=== PATIENT | male | born 1940 | race Caucasian/White ===

== ENCOUNTER 2016-06-28 14:03 | Emergency (ER) | payer OTHER ==
[~2016-06-28] VITALS: Ht 175.3 cm; Wt 118.0 kg
[~2016-06-28 14:03] MED LIST: ACET-1256 PO; ALPR-411 PO; ATOR-24 PO; BACL20TA PO; GABA-113 PO; GING550C PO; GLIP1TAB91 PO; LISI5TAB3 PO; METFTAB PO; NORT25CA PO; TRAM-10 PO; TRIA37.5 PO; VRPSR240 PO; WARF5TAB7 PO
[2016-06-28 14:06] VITALS: TEMP 36.6; Ht 175.3 cm; Wt 118.0 kg
--- NOTE | 2016-06-28 14:31 | EMERGENCY ROOM VISIT NOTE ---
History Report prepared by aHns: Giovanni Omalley Under the Supervision of: Dr. Sandra Ferraro M.D. First contact with patient: 14:08 Chief Complaint: CONFUSION Stated Complaint: CONFUSION Nursing Triage Summary: pt had flu last week. reports pt kept her up all night asking questions she believes he is confused. pt reports he was on antibiotics for foot. has been off for a couple months. pt reports he is dizzy. answer questions appropriately in triage. History of Present Illness The patient is a 76 year old male who presents to the Emergency Room with complaints of persistent confusion that started yesterday. Per the patient's , the patient seems very confused. He wants to go home but he was at home, and there is nothing his can do to convince the patient that he is at home. He also wants to drive, but the patient has a boot on his foot and is not allowed to drive. He had sores on his foot which are healing, and he was on antibiotics for that. The patient had the flu last week. Per the patient, his back is bothering him a bit, and he has a little bit of a sore throat. Source of History: patient, spouse/significant other Onset: Yesterday Position: other (global - confusion) Quality: other (wants to go home when he already is at home) Timing: other (persistent) Associated Symptoms: + back pain, + sorethroat (minor) Note: No other associated symptoms noted. Review of Systems See HPI for pertinent positives & negatives. A total of 10 systems reviewed and were otherwise negative. Past Medical & Surgical Medical Problems: (1) Atrial fibrillation (2) Cellulitis, toe (3) Chronic low back pain (4) Coronary artery disease (5) Diabetes (6) HTN (hypertension) (7) Hyperglycemia (8) Hypertension (9) Kidney infection (10) partial toe amputation (11) Toe ulcer (12) Urinary problem Family History FH: cancer Heart disease Hypertension Social History Smoking Status: Never Smoker Alcohol Use: none Drug Use: none Marital Status: Occupation Status: retired Current/Historical Medications Scheduled Atorvastatin (Lipitor), 40 MG PO QPM Baclofen (Lioresal), 20 MG PO TID Glipizide Xl (Glucotrol Xl), 10 MG PO BID Lisinopril (Prinivil), 5 MG PO DAILY Metformin Ext Rel (Glucophage Ext Rel), 500 MG PO DAILY Miconazole Nitrate (Topical) (Miconazole Nitrate), 1 APPLN TOP BID Nortriptyline (Pamelor), 25 MG PO DAILY Triamterene/Hctz (Dyazide 37.5MG/25MG), 1 CAP PO DAILY Verapamil HCl (Verapamil HCl ER), 240 MG PO QAM Warfarin Sod (Jantoven), 10 MG PO 2XWK Warfarin Sod (Jantoven), 7.5 MG PO 5XWK Allergies Coded Allergies: CI Pigment Blue 63 (Verified Adverse Reaction, Intermediate, IRRITABILITY , 06/28/16) Duloxetine (Verified Adverse Reaction, Intermediate, IRRITABILITY, 06/28/16 ) Pregabalin (Unverified Adverse Reaction, Intermediate, "SPACES HIM OUT", ) Physical Exam Vital Signs Date Time Temp Pulse Resp B/P Pulse Ox O2 Delivery O2 Flow Rate FiO2 06/28/16 16:36 88 21 133/91 96 Room Air 06/28/16 15:36 78 16 138/84 96 Room Air 93 123/84 06/28/16 14:57 74 06/28/16 14:06 36.6 109 20 135/88 100 Room Air Physical Exam CONSTITUTIONAL: Appears weak, morbidly obese, mildly confused, somewhat unkempt. HEENT: No icterus, moist mucous membranes NECK: No meningismus, trachea is midline. CARDIOVASCULAR: Regular rate, normal perfusion RESPIRATORY: Unlabored breathing. Clear to auscultation. GASTROINTESTINAL: Non-tender GENITOURINARY: No flank tenderness MUSCULOSKELETAL: Full range of motion NEUROLOGIC: No acute gross focal deficits. PSYCHIATRIC: Normal affect SKIN: Extensive rash of skin folds of lower abdomen concerning for cellulitis and/or fungal infection. Medical Decision & Procedures ER Provider Diagnostic Interpretation: X-ray results as stated below per my interpretation and radiologist interpretation. Other radiology results as stated below per my review and radiologist interpretation. CT HEAD WITHOUT CONTRAST (CT) CLINICAL HISTORY: Confusion, acute change in mental status. COMPARISON STUDY: 07/27/2014 TECHNIQUE: Axial CT of the brain is performed from the vertex to the skull base. IV contrast was not administered for this examination. CT DOSE: 729.78 mGycm FINDINGS: No intra or extra-axial mass lesions are visualized. There is no CT evidence of acute cortical infarction. There is no evidence of midline shift. There is no acute hemorrhage. No calvarial fractures are visualized. There are mild white matter hypodensities likely on a small vessel basis. There is no evidence of pathologic ventricular dilatation. There is no evidence of acute sinusitis IMPRESSION: No acute intracranial findings Electronically signed by: Micheal Miranda M.D. 06/28/2016 4:02 PM Dictated Date/Time: 06/28/2016 4:00 PM CHEST 2 VIEWS ROUTINE CLINICAL HISTORY: Acute change in mental status. Confusion. COMPARISON STUDY: 03/25/2015 FINDINGS: The heart remains enlarged. There is no focal pulmonary consolidation. There is no failure. There are no pleural effusions.[ IMPRESSION: Persistent cardiomegaly. No acute findings. Electronically signed by: Micheal Miranda M.D. 06/28/2016 6:20 PM Dictated Date/Time: 06/28/2016 6:19 PM Laboratory Results 06/28/16 14:43 Red Blood Count 3.95, Mean Corpuscular Volume 92.2, Mean Corpuscular Hemoglobin 33.4, Mean Corpuscular Hemoglobin Concent 36.3, Mean Platelet Volume 11.5, Neutrophils (%) (Auto) 81.7, Lymphocytes (%) (Auto) 9.0, Monocytes (%) (Auto) 8.6, Eosinophils (%) (Auto) 0.6, Basophils (%) (Auto) 0.0, Neutrophils # (Auto) 5.91, Lymphocytes # (Auto) 0.65, Monocytes # (Auto) 0.62, Eosinophils # (Auto) 0.04, Basophils # (Auto) 0.00 06/28/16 14:43 Test 06/28/16 14:43 06/28/16 15:10 06/28/16 15:20 06/28/16 16:30 White Blood Count 7.23 K/uL (4.8-10.8) Red Blood Count 3.95 M/uL (4.7-6.1) Hemoglobin 13.2 g/dL (14.0-18.0) Hematocrit 36.4 % (42-52) Mean Corpuscular Volume 92.2 fL (80-100) Mean Corpuscular Hemoglobin 33.4 pg (25-34) Mean Corpuscular Hemoglobin Concent 36.3 g/dl (32-36) Platelet Count 152 K/uL (130-400) Mean Platelet Volume 11.5 fL (7.4-10.4) Neutrophils (%) (Auto) 81.7 % Lymphocytes (%) (Auto) 9.0 % Monocytes (%) (Auto) 8.6 % Eosinophils (%) (Auto) 0.6 % Basophils (%) (Auto) 0.0 % Neutrophils # (Auto) 5.91 K/uL (1.4-6.5) Lymphocytes # (Auto) 0.65 K/uL (1.2-3.4) Monocytes # (Auto) 0.62 K/uL (0.11-0.59) Eosinophils # (Auto) 0.04 K/uL (0-0.5) Basophils # (Auto) 0.00 K/uL (0-0.2) RDW Standard Deviation 45.2 fL (36.4-46.3) RDW Coefficient of Variation 13.6 % (11.5-14.5) Immature Granulocyte % (Auto) 0.1 % Immature Granulocyte # (Auto) 0.01 K/uL (0.00-0.02) Prothrombin Time 35.0 SECONDS (9.0-12.0) Prothromb Time International Ratio 3.1 (0.9-1.1) Activated Partial Thromboplast Time 38.1 SECONDS (21.0-31.0) Partial Thromboplastin Ratio 1.5 Anion Gap 10.0 mmol/L (3-11) Est Creatinine Clear Calc Drug Dose 94.1 ml/min Estimated GFR () 98.3 Estimated GFR (Non- 84.8 BUN/Creatinine Ratio 21.4 (10-20) Calcium Level 8.7 mg/dl (8.5-10.1) Magnesium Level 1.8 mg/dl (1.8-2.4) Total Bilirubin 0.8 mg/dl (0.2-1) Direct Bilirubin mg/dl (0-0.2) Aspartate Amino Transf (AST/SGOT) 34 U/L (15-37) Alanine Aminotransferase (ALT/SGPT) 43 U/L (12-78) Alkaline Phosphatase 81 U/L (45-117) Total Creatine Kinase 120 U/L (39-308) Troponin I < 0.015 ng/ml (0-0.045) Total Protein 7.0 gm/dl (6.4-8.2) Albumin 3.6 gm/dl (3.4-5.0) Lipase 95 U/L (73-393) Procalcitonin < 0.05 ng/mL (0-0.5) Thyroid Stimulating Hormone (TSH) 0.863 uIu/ml (0.300-4.500) Chemistry Specimen Hemolysis Ethyl Alcohol mg/dL < 3.0 mg/dl (0-3) Bedside Lactic Acid Venous 1.13 mmol/L (0.90-1.70) Urine Color YELLOW Urine Appearance CLOUDY (CLEAR) Urine pH 5.0 (4.5-7.5) Urine Specific [place] 1.019 (1.000-1.030) Urine Protein NEG (NEG) Urine Glucose (UA) 3+ (NEG) Urine Ketones TRACE (NEG) Urine Occult Blood TRACE (NEG) Urine Nitrite NEG (NEG) Urine Bilirubin NEG (NEG) Urine Urobilinogen NEG (NEG) Urine Leukocyte Esterase MODERATE (NEG) Urine WBC (Auto) >30 /hpf (0-5) Urine RBC (Auto) 5-10 /hpf (0-4) Urine Hyaline Casts (Auto) 5-10 /lpf (0-5) Urine Epithelial Cells (Auto) >30 /lpf (0-5) Urine Bacteria (Auto) 2+ (NEG) Labs reviewed by ED physician. ECG Indication: other (confusion) Rate (beats per minute): 78 Rhythm: normal sinus Findings: other (normal axis, RBBB, nonspecific-ST findings) ED Course 1417: Past medical records reviewed. The patient was evaluated in room B6. A complete history and physical examination was performed. 1800: Ordered Diflucan Tab 100 mg PO. 1825: I reevaluated the patient and he is resting comfortably. The patient verbally expressed understanding and agreement of the treatment plan. The patient will be discharged. Medical Decision Differential diagnoses include: sepsis, stroke. 76-year-old was brought to emergency by his for evaluation of mild confusion at times and concern over possible fungal rash of abdominal skin folds. Screening imaging as well as laboratory studies were unremarkable emergency room. Prescription written for treatment of fungal rash. There is a lesion of the right foot noted that is chronic without acute change for which says very have follow-up care center scheduled. Patient was offered rehabilitation at [facility] after consultation with case management. However , declined prefers that he go home as she gets disoriented but not around familiar settings. She notes there is already appointment scheduled with primary doctor for follow-up. She is welcome to return anytime should they change their mind. Impression Primary Impression: Tinea Additional Impression: Weakness Scribe Attestation The scribe's documentation has been prepared under my direction and personally reviewed by me in its entirety. I confirm that the note above accurately reflects all work, treatment, procedures, and medical decision making performed by me. Departure Information Dispostion Home / Self-Care Prescriptions Miconazole Nitrate (Topical) (MICONAZOLE NITRATE) 1 Pow Pow 1 APPLN TOP BID for 14 Days, #1 BTL Prov: Sandra Ferraro MD 06/28/16 Referrals Raj Mora M.D. (PCP) Forms HOME CARE DOCUMENTATION FORM, IMPORTANT VISIT INFORMATION, WORK / SCHOOL INSTRUCTIONS Patient Instructions ED Tinea Cruris General, ED Weakness [facility] [place] [facility] Health Problem Qualifiers
[2016-06-28] MEDS ORDERED: METF-382 PO (14:33)
[2016-06-28] MEDS ORDERED: LISI5TAB PO (14:33)
[2016-06-28] MEDS ORDERED: WARF5TAB7 PO ×2 (14:33)
[2016-06-28 14:56] LABS: COMPLETE YES; EOS % 0.6 %; HEMATOCRIT 36.4 % (42-52); IG% 0.1 %; LYMPH ABS # 0.65 K/uL (1.2-3.4); MEAN CELL VOLUME 92.2 fL (80-100); MEAN CORPUSCULAR HEMOGLOBIN 33.4 pg (25-34); MEAN CORPUSCULAR HGB CONC 36.3 g/dl (32-36); MEAN PLATELET VOLUME 11.5 fL (7.4-10.4); MONO % 8.6 %; NEUT % 81.7 %; PLATELET COUNT 152 K/uL (130-400); RED BLOOD COUNT 3.95 M/uL (4.7-6.1); WHITE BLOOD COUNT 7.23 K/uL (4.8-10.8)
[2016-06-28 15:07] LABS: INR 3.1 (0.9-1.1); PARTIAL THROMBOPLASTIN RATIO 1.5
[2016-06-28 15:31] LABS: ALKALINE PHOSPHATASE 81 U/L (45-117); ALT/SGPT 43 U/L (12-78); AST/SGOT 34 U/L (15-37); BLOOD UREA NITROGEN 18 mg/dl (7-18); BUN/CREATININE RATIO 21.4 (10-20); CALCIUM 8.7 mg/dl (8.5-10.1); CARBON DIOXIDE 26 mmol/L (21-32); CHLORIDE 102 mmol/L (98-107); CREATININE 0.86 mg/dl (0.60-1.40); GLUCOSE 240 mg/dl (70-99); MAGNESIUM 1.8 mg/dl (1.8-2.4); POTASSIUM 4.3 mmol/L (3.5-5.1); SODIUM 138 mmol/L (136-145); THYROID STIMULATING HORMONE 0.863 uIu/ml (0.300-4.500)
--- NOTE | 2016-06-28 16:03 | DIAGNOSTIC IMAGING REPORT ---
CT HEAD WITHOUT CONTRAST (CT) CLINICAL HISTORY: Confusion, acute change in mental status. COMPARISON STUDY: 07/27/2014 TECHNIQUE: Axial CT of the brain is performed from the vertex to the skull base. IV contrast was not administered for this examination. CT DOSE: 729.78 mGycm FINDINGS: No intra or extra-axial mass lesions are visualized. There is no CT evidence of acute cortical infarction. There is no evidence of midline shift. There is no acute hemorrhage. No calvarial fractures are visualized. There are mild white matter hypodensities likely on a small vessel basis. There is no evidence of pathologic ventricular dilatation. There is no evidence of acute sinusitis IMPRESSION: No acute intracranial findings Electronically signed by: Micheal Miranda M.D. 06/28/2016 4:02 PM Dictated Date/Time: 06/28/2016 4:00 PM
[2016-06-28 17:23] LABS: URINE APPEARANCE CLOUDY (CLEAR); URINE BILIRUBIN NEG (NEG); URINE COLOR YELLOW; URINE EPITHELIAL CELL AUTO >30 /lpf (0-5); URINE NITRITE NEG (NEG); URINE SPECIFIC GRAVITY 1.019 (1.000-1.030); UROBILINOGEN NEG (NEG); ZZUR CULT IF INDIC CLEAN CATCH YES
[2016-06-28 17:33] LABS: MANUAL MICROSCOPIC REQUIRED? NO; REVIEW REQ? YES
[2016-06-28] MEDS ORDERED: FLUCONAZOLE 100 MG TAB PO SCH (18:00)
[2016-06-28] MEDS ORDERED: FLUCONAZOLE 100 MG TAB PO STA (18:00)
[2016-06-28] MEDS ORDERED: MICO1POW8 TOP (18:02)
--- NOTE | 2016-06-28 18:21 | DIAGNOSTIC IMAGING REPORT ---
CHEST 2 VIEWS ROUTINE CLINICAL HISTORY: Acute change in mental status. Confusion. COMPARISON STUDY: 03/25/2015 FINDINGS: The heart remains enlarged. There is no focal pulmonary consolidation. There is no failure. There are no pleural effusions.[ IMPRESSION: Persistent cardiomegaly. No acute findings. Electronically signed by: Micheal Miranda M.D. 06/28/2016 6:20 PM Dictated Date/Time: 06/28/2016 6:19 PM
[2016-06-28 19:05] VITALS: BP 127/81; PULSE 91; O2SAT 94
[2016-07-06] MEDS ORDERED: CEPH500C2 PO (13:53)
[2016-07-25] MEDS ORDERED: CHOL20007 PO (11:02)
[2016-08-22] MEDS ORDERED: MELA1TAB5 PO (10:44)
[2016-08-22] MEDS ORDERED: MULT-506 PO (10:44)
[2016-08-22] MEDS ORDERED: CYAN10005 PO (10:44)
[2016-08-22] MEDS ORDERED: MISCTAB26 PO (10:44)
[2016-08-22] MEDS ORDERED: LORA-741 PO (10:44)
[2016-08-27] MEDS ORDERED: DOXY100C76 PO (08:04)
[2017-02-05] MEDS ORDERED: AMOX500C3 PO (08:20)
== END 2016-06-28 19:18 | disposition home or self-care (01) ==
LOC: C.EDB 14:08
DX: B35.8 Other dermatophytoses (principal); R53.1 Weakness; E11.9 Type 2 diabetes mellitus without complications; Z79.84 Long term (current) use of oral hypoglycemic drugs; Z79.01 Long term (current) use of anticoagulants; I51.7 Cardiomegaly; I48.91 Unspecified atrial fibrillation; I25.10 Atherosclerotic heart disease of native coronary artery without angina pectoris; I10 Essential (primary) hypertension; Z83.3 Family history of diabetes mellitus; Z82.49 Family history of ischemic heart disease and other diseases of the circulatory system

== ENCOUNTER → 2016-07-02 | Outpatient (CLI) | payer OTHER ==
[~2016-07-02] MED LIST changes: -ACET-1256 PO; -ALPR-411 PO; +AMOX500C3 PO; +CEPH500C2 PO; +CHOL20007 PO; +CYAN10005 PO; +DOXY100C76 PO; -GABA-113 PO; -GING550C PO; +LISI5TAB PO; -LISI5TAB3 PO; +LORA-741 PO; +MELA1TAB5 PO; +METF-382 PO; -METFTAB PO; +MICO1POW8 TOP; +MISCTAB26 PO; +MULT-506 PO; -TRAM-10 PO
[2016-07-02 17:27] LABS: BASO % 0.2 %; BASO ABS # 0.01 K/uL (0-0.2); COMPLETE YES; EOS % 1.3 %; LYMPH % 18.1 %; LYMPH ABS # 1.12 K/uL (1.2-3.4); MEAN CELL VOLUME 93.1 fL (80-100); MEAN CORPUSCULAR HEMOGLOBIN 32.8 pg (25-34); MEAN CORPUSCULAR HGB CONC 35.3 g/dl (32-36); MEAN PLATELET VOLUME 11.6 fL (7.4-10.4); MONO % 14.2 %; NEUT % 66.2 %; PLATELET COUNT 226 K/uL (130-400); RED BLOOD COUNT 4.08 M/uL (4.7-6.1)
[2016-07-02 18:00] LABS: ALT/SGPT 40 U/L (12-78); BLOOD UREA NITROGEN 27 mg/dl (7-18); CALCIUM 8.9 mg/dl (8.5-10.1); CARBON DIOXIDE 25 mmol/L (21-32); CHLORIDE 104 mmol/L (98-107); CHOLESTEROL 99 mg/dl (0-200); GLUCOSE 224 mg/dl (70-99); POTASSIUM 4.3 mmol/L (3.5-5.1); SODIUM 139 mmol/L (136-145); TRIGLYCERIDES 119 mg/dl (0-150); VERY LOW DENSITY LIPOPROT CALC 24 mg/dl
[2016-07-02 18:03] LABS: ALB/GLOB RATIO 0.9 (0.9-2); ALKALINE PHOSPHATASE 77 U/L (45-117); AST/SGOT 21 U/L (15-37); HDL CHOLESTEROL 33 mg/dl; LDL CHOLESTEROL CALCULATED 42 mg/dl
[2016-07-03 06:14] LABS: ESTIMATED AVERAGE GLUCOSE 229 mg/dl; HA1C FLAG Normal (Normal)
== END | disposition home or self-care (01) ==
LOC: C.LABBFT 12:53
PROVIDERS: ATTEND Internal Medicine
DX: E11.622 Type 2 diabetes mellitus with other skin ulcer (principal)

== ENCOUNTER → 2017-02-06 | Outpatient (CLI) | payer OTHER ==
[~2017-02-06] MED LIST changes: -CEPH500C2 PO; -DOXY100C76 PO; -METF-382 PO; -MICO1POW8 TOP; -NORT25CA PO
[2017-02-06 16:53] LABS: BASO % 0.2 %; BASO ABS # 0.01 K/uL (0-0.2); COMPLETE YES; HEMATOCRIT 41.3 % (42-52); IG% 0.2 %; LYMPH % 19.6 %; MEAN CELL VOLUME 94.9 fL (80-100); MEAN CORPUSCULAR HEMOGLOBIN 30.8 pg (25-34); MEAN CORPUSCULAR HGB CONC 32.4 g/dl (32-36); MEAN PLATELET VOLUME 11.9 fL (7.4-10.4); MONO % 9.6 %; NEUT % 69.4 %; PLATELET COUNT 146 K/uL (130-400); RED BLOOD COUNT 4.35 M/uL (4.7-6.1); WHITE BLOOD COUNT 5.11 K/uL (4.8-10.8)
[2017-02-06 17:02] LABS: ALT/SGPT 40 U/L (12-78); BLOOD UREA NITROGEN 17 mg/dl (7-18); BUN/CREATININE RATIO 18.7 (10-20); CARBON DIOXIDE 30 mmol/L (21-32); CHLORIDE 102 mmol/L (98-107); CHOLESTEROL 82 mg/dl (0-200); CREATININE 0.92 mg/dl (0.60-1.40); GLUCOSE 346 mg/dl (70-99); POTASSIUM 4.1 mmol/L (3.5-5.1); SODIUM 137 mmol/L (136-145); TRIGLYCERIDES 108 mg/dl (0-150); VERY LOW DENSITY LIPOPROT CALC 22 mg/dl
[2017-02-06 17:04] LABS: ALB/GLOB RATIO 1.1 (0.9-2); AST/SGOT 25 U/L (15-37)
[2017-02-06 17:11] LABS: ALKALINE PHOSPHATASE 97 U/L (45-117); BETA-HYDROXYBUTYRATE 0.83 mg/dL (0.2-2.81); CHOLESTEROL/HDL RATIO 2.6; HDL CHOLESTEROL 32 mg/dl; LDL CHOLESTEROL CALCULATED 28 mg/dl
[2017-02-07 05:51] LABS: ESTIMATED AVERAGE GLUCOSE 252 mg/dl; HA1C FLAG Normal (Normal)
== END | disposition home or self-care (01) ==
LOC: C.LABBFT 11:30
PROVIDERS: ATTEND Internal Medicine
DX: N40.1 Benign prostatic hyperplasia with lower urinary tract symptoms (principal); I10 Essential (primary) hypertension; E78.00 Pure hypercholesterolemia, unspecified; E11.9 Type 2 diabetes mellitus without complications; I48.91 Unspecified atrial fibrillation

== ENCOUNTER → 2017-02-20 | Outpatient (CLI) | payer OTHER ==
--- NOTE | 2017-02-20 11:04 | DIAGNOSTIC IMAGING REPORT ---
(TESTICULAR) SCROTUM-CONT HISTORY: Pain. Obstruction. 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 Normal vascular flow. Interval development of a large right hydrocele with estimated volume of 600 cc. Is partially septated. Left testis: Maximum dimension 4.6 cm. Normal vascular flow. Small hydrocele. IMPRESSION: 1. Interval development of a large septated right hydrocele with estimated volume of 600 cc. 2. The testis remain unremarkable in appearance with normal vascular flow The above report was generated using voice recognition software. It may contain grammatical, syntax or spelling errors. Electronically signed by: Edvin Kraft M.D. 02/20/2017 11:02 AM Dictated Date/Time: 02/20/2017 11:00 AM
== END | disposition home or self-care (01) ==
LOC: C.ULTR 10:19
PROVIDERS: ATTEND Urology
DX: N43.2 Other hydrocele (principal); N40.1 Benign prostatic hyperplasia with lower urinary tract symptoms; I48.91 Unspecified atrial fibrillation; E11.621 Type 2 diabetes mellitus with foot ulcer; L89.892 Pressure ulcer of other site, stage 2; L97.512 Non-pressure chronic ulcer of other part of right foot with fat layer exposed; L03.115 Cellulitis of right lower limb; B95.61 Methicillin susceptible Staphylococcus aureus infection as the cause of diseases classified elsewhere; S91.301A Unspecified open wound, right foot, initial encounter; X58.XXXA Exposure to other specified factors, initial encounter; G62.9 Polyneuropathy, unspecified; T81.89XA Other complications of procedures, not elsewhere classified, initial encounter; Y83.8 Other surgical procedures as the cause of abnormal reaction of the patient, or of later complication, without mention of misadventure at the time of the procedure; L84 Corns and callosities; Z89.429 Acquired absence of other toe(s), unspecified side; M79.672 Pain in left foot; M21.42 Flat foot [pes planus] (acquired), left foot; G57.92 Unspecified mononeuropathy of left lower limb; Z79.01 Long term (current) use of anticoagulants; I25.10 Atherosclerotic heart disease of native coronary artery without angina pectoris; I10 Essential (primary) hypertension; Z88.8 Allergy status to other drugs, medicaments and biological substances; Z91.09 Other allergy status, other than to drugs and biological substances; Z82.49 Family history of ischemic heart disease and other diseases of the circulatory system; E11.622 Type 2 diabetes mellitus with other skin ulcer; E11.65 Type 2 diabetes mellitus with hyperglycemia

== ENCOUNTER 2017-04-12 09:42 | Inpatient (IN) | payer OTHER ==
[~2017-04-12] VITALS: Ht 162.6 cm; Wt 124.0 kg
--- NOTE | 2017-04-12 09:54 | EMERGENCY ROOM VISIT NOTE ---
History Report prepared by Hans: Curtis Tomas Under the Supervision of: Dr. Theodore Barron M.D. First contact with patient: 09:42 Stated Complaint: CONFUSION History of Present Illness The patient is a 77 year old male who presents to the Emergency Room with complaints of intermittent confusion for the past couple of weeks. Per the EMS, the patient was found outside this morning around 0300 in his underwear and a t- shirt. The patient was found at the bottom of stairs, and he has some abrasions on his knee, left lower leg, and on his knuckles. The patient does not have a history of dementia, and he currently is on warfarin. The patient does not usually ambulate very well, and he usually uses a cane. The patient denies any current abdominal pain. Source of History: patient, EMS Onset: a couple weeks ago Position: other (global) Quality: other (confusion) Timing: intermittent Associated Symptoms: No abdominal pain Review of Systems See HPI for pertinent positives & negatives. A total of 10 systems reviewed and were otherwise negative. Past Medical & Surgical Medical Problems: (1) Atrial fibrillation (2) Cellulitis, toe (3) Chronic low back pain (4) Coronary artery disease (5) Diabetes (6) Elevated troponin (7) Fall (8) HTN (hypertension) (9) Hyperglycemia (10) Hypertension (11) Kidney infection (12) partial toe amputation (13) Toe ulcer (14) Urinary problem Family History FH: cancer Heart disease Hypertension Social History Smoking Status: Never Smoker Alcohol Use: none Drug Use: none Marital Status: Occupation Status: retired Current/Historical Medications Scheduled Atorvastatin (Lipitor), 40 MG PO QPM Baclofen (Lioresal), 20 MG PO TID Cholecalciferol (Vitamin D3), 1 TAB PO DAILY Cyanocobalamin (Vitamin B-12), 1,000 MCG PO DAILY Glipizide Xl (Glucotrol Xl), 10 MG PO BID Lisinopril (Prinivil), 5 MG PO DAILY Lorazepam (Ativan), 1 MG PO HS Melatonin (Kp Melatonin), 1 TAB PO HS Misc Natural Products (Ginkgo Biloba), 60 MG PO DAILY Multivitamin (Multivitamin), 1 TAB PO DAILY Triamterene/Hctz (Dyazide 37.5MG/25MG), 1 CAP PO DAILY Verapamil HCl (Verapamil HCl ER), 240 MG PO QAM Warfarin Sod (Jantoven), 10 MG PO UD Allergies Coded Allergies: Metformin (Unverified Allergy, Unknown, ., 04/12/17) CI Pigment Blue 63 (Verified Adverse Reaction, Intermediate, IRRITABILITY , 04/12/17) Duloxetine (Verified Adverse Reaction, Intermediate, IRRITABILITY, ) Pregabalin (Unverified Adverse Reaction, Intermediate, "SPACES HIM OUT", 04/12/17) Physical Exam Vital Signs Date Time Temp Pulse Resp B/P (MAP) Pulse Ox O2 Delivery O2 Flow Rate FiO2 04/12/17 13:01 114/92 04/12/17 12:52 85 14 04/12/17 12:32 111/65 04/12/17 12:22 82 10 04/12/17 12:01 90/64 04/12/17 11:56 34.6 04/12/17 11:52 88 17 04/12/17 11:47 125 17 04/12/17 11:42 86 14 04/12/17 11:31 109/73 04/12/17 11:15 121/71 04/12/17 10:48 34.4 80 16 117/71 100 Room Air 04/12/17 10:39 117/71 04/12/17 10:12 87 16 96 04/12/17 09:58 92 Room Air 04/12/17 09:50 83 04/12/17 09:50 89 16 95/64 92 Room Air 04/12/17 09:47 95/64 Physical Exam GENERAL: Patient is a healthy-appearing well-nourished male HEAD: Normocephalic atraumatic EYES: Ocular movements intact pupils equal and react to light OROPHARYNX mucous membranes are moist no exudates present no erythema or edema present NECK: Supple no nuchal rigidity CHEST: Good equal expansion LUNGS: Clear and equal to auscultation CARDIAC: Normal S1 and S2 ABDOMEN: Soft nontender no guarding BACK: No CVA tenderness EXTREMITIES: Several scabbed over areas on the lower extremities. 2+ pitting edema. Scabbed areas over the knuckles. No pain upon palpation normal muscle strength in all groups no clubbing or cyanosis NEURO: The patient knows where he is, but cannot answer any other questions. Cranial Nerves 2-12 grossly intact. Medical Decision & Procedures ER Provider Diagnostic Interpretation: Radiology results as stated below per my review and radiologist interpretation: HEAD WITHOUT CONTRAST (CT) CT DOSE: 909.11 mGy.cm HISTORY: Mental status change Pt c/o AMS TECHNIQUE: Multiaxial CT images of the head were performed without the use of intravenous contrast. A dose lowering technique was utilized adhering to the principles of ALARA. Comparison: 06/22/2015 and 17 Findings: The paranasal sinuses and mastoid air cells are clear. The calvarium and skull base are intact. The ventricles and sulci are within normal limits. There is no mass, hematoma, midline shift, or acute infarct. Mild age-related atrophy and chronic small vessel change Impression: No acute intracranial abnormality. Age-related change The above report was generated using voice recognition software. It may contain grammatical, syntax or spelling errors. Electronically signed by: Edvin Kraft M.D. 04/12/2017 11:13 AM Dictated Date/Time: 04/12/2017 11:12 AM SINGLE VIEW CHEST CLINICAL HISTORY: Change in mental status. FINDINGS: An AP, portable, upright chest radiograph is compared to study dated 06/28/2016. The examination is degraded by portable technique, large body habitus, and patient rotation. Heart is enlarged and there is atherosclerotic calcification of the thoracic aorta. There is pulmonary vascular congestion. Bibasilar airspace opacities likely represent atelectasis. No large pleural effusion or pneumothorax is seen. The skeletal structures are osteopenic. The bony thorax is grossly intact. IMPRESSION: 1. Cardiomegaly with evidence of congestive failure. 2. Bibasilar airspace opacities likely represent atelectasis. Clinical correlation will be required. Electronically signed by: Ankit Woodruff M.D. 04/12/2017 10:43 AM Dictated Date/Time: 04/12/2017 10:42 AM R TIBIA/FIBULA 2 VIEWS ROUTINE CLINICAL HISTORY: Pt c/o b/l leg pain COMPARISON STUDY: None. FINDINGS: No acute fracture or dislocation within the tibia or fibula. Periosteal thickening within the distal tibia and within the fibula. Mass or calcifications are noted. Mild subcutaneous edema within the lower leg. 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 IMPRESSION: 1. No acute fracture or dislocation within the right lower leg. 2. Nonspecific periosteal thickening within the distal tibia and fibula. This could be due to chronic venous congestion. Electronically signed by: John Grimes M.D. 04/12/2017 11:06 AM Dictated Date/Time: 04/12/2017 11:03 AM LEFT TIBIA AND FIBULA 2 VIEWS CLINICAL HISTORY: Left leg pain. FINDINGS: AP and lateral portable views of the left tibia and fibula are obtained. No prior studies are available for comparison at the time of dictation. The skeletal structures are osteopenic. There is no radiographic evidence of left tibial or fibular fracture. Nonspecific benign-appearing periosteal thickening is seen along the tibial and fibular shafts, likely related to chronic congestion. Arthritic change is seen in the knee and ankle joints. Diffuse soft tissue edema is present in the left leg. There is advanced atherosclerotic calcification of the regional arteries. Numerous soft tissue phleboliths are observed. IMPRESSION: 1. Diffuse soft tissue edema with no acute bony abnormality seen in the left tibia or fibula. 2. Osteopenia and degenerative change as above. 3. Nonspecific benign-appearing periosteal thickening is identified in the tibia and fibula, likely related to chronic congestion. Clinical correlation will be required. Electronically signed by: Ankit Woodruff M.D. 04/12/2017 10:54 AM Dictated Date/Time: 04/12/2017 10:51 AM SINGLE VIEW PELVIS CLINICAL HISTORY: Bilateral leg pain. FINDINGS: 2 AP portable views of the pelvis are correlated with radiographs of left hip dated 07/27/2014. Correlation is made with abdominal CT dated 01/23/2008. The skeletal structures are osteopenic. There is no radiographic evidence of fracture involving the hips or bony pelvis. Mild arthritic change and joint space narrowing is seen in both hips. Sclerotic change is noted in the sacroiliac joints. Advanced lumbosacral spondylosis and scoliosis is observed. Enthesophytes arise in the anterior superior iliac spine bilaterally. 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 This was also seen by CT on 01/23/2008. The overlying soft tissues are within normal limits. There is a nonobstructed abdominal bowel gas pattern. IMPRESSION: Osteopenia and degenerative change as above. There is no radiographic evidence of fracture involving the hips or bony pelvis. Electronically signed by: Ankit Woodruff M.D. 04/12/2017 10:39 AM Dictated Date/Time: 04/12/2017 10:36 AM Laboratory Results 04/12/17 10:00 Red Blood Count 4.68, Mean Corpuscular Volume 92.3, Mean Corpuscular Hemoglobin 32.5, Mean Corpuscular Hemoglobin Concent 35.2, Mean Platelet Volume 11.9, Neutrophils (%) (Auto) 86.6, Lymphocytes (%) (Auto) 3.4, Monocytes (%) (Auto) 9.5, Eosinophils (%) (Auto) 0.0, Basophils (%) (Auto) 0.1, Neutrophils # (Auto) 19.41, Lymphocytes # (Auto) 0.77, Monocytes # (Auto) 2.13, Eosinophils # (Auto) 0.00, Basophils # (Auto) 0.02 04/12/17 10:00 Test 04/12/17 10:00 04/12/17 12:30 White Blood Count 22.41 K/uL (4.8-10.8) Red Blood Count 4.68 M/uL (4.7-6.1) Hemoglobin 15.2 g/dL (14.0-18.0) Hematocrit 43.2 % (42-52) Mean Corpuscular Volume 92.3 fL (80-100) Mean Corpuscular Hemoglobin 32.5 pg (25-34) Mean Corpuscular Hemoglobin Concent 35.2 g/dl (32-36) Platelet Count 209 K/uL (130-400) Mean Platelet Volume 11.9 fL (7.4-10.4) Neutrophils (%) (Auto) 86.6 % Lymphocytes (%) (Auto) 3.4 % Monocytes (%) (Auto) 9.5 % Eosinophils (%) (Auto) 0.0 % Basophils (%) (Auto) 0.1 % Neutrophils # (Auto) 19.41 K/uL (1.4-6.5) Lymphocytes # (Auto) 0.77 K/uL (1.2-3.4) Monocytes # (Auto) 2.13 K/uL (0.11-0.59) Eosinophils # (Auto) 0.00 K/uL (0-0.5) Basophils # (Auto) 0.02 K/uL (0-0.2) RDW Standard Deviation 46.1 fL (36.4-46.3) RDW Coefficient of Variation 13.8 % (11.5-14.5) Immature Granulocyte % (Auto) 0.4 % Immature Granulocyte # (Auto) 0.08 K/uL (0.00-0.02) Nucleated RBC Absolute Count (auto) 0.04 K/uL (0-0) Nucleated Red Blood Cells % 0.2 % Hypersegmented Polys 1+ Toxic Granulation 1+ Toxic Vacuolation 1+ Echinocytes 1+ Prothrombin Time 31.7 SECONDS (9.0-12.0) Prothromb Time International Ratio 2.8 (0.9-1.1) Anion Gap 15.0 mmol/L (3-11) Est Creatinine Clear Calc Drug Dose 43.8 ml/min Estimated GFR () 43.5 Estimated GFR (Non- 37.5 BUN/Creatinine Ratio 18.3 (10-20) Calcium Level 9.4 mg/dl (8.5-10.1) Total Bilirubin 1.1 mg/dl (0.2-1) Direct Bilirubin 0.3 mg/dl (0-0.2) Aspartate Amino Transf (AST/SGOT) 66 U/L (15-37) Alanine Aminotransferase (ALT/SGPT) 56 U/L (12-78) Alkaline Phosphatase 120 U/L (45-117) Total Creatine Kinase 2381 U/L (39-308) Creatine Kinase MB 61.7 ng/ml (0.5-3.6) Creatine Kinase MB Ratio 2.6 (0-3.0) Troponin I 0.541 ng/ml (0-0.045) Total Protein 7.8 gm/dl (6.4-8.2) Albumin 4.3 gm/dl (3.4-5.0) Thyroid Stimulating Hormone (TSH) 2.450 uIu/ml (0.300-4.500) Urine Color YELLOW Urine Appearance CLOUDY (CLEAR) Urine pH 5.0 (4.5-7.5) Urine Specific [place] 1.019 (1.000-1.030) Urine Protein TRACE (NEG) Urine Glucose (UA) TRACE (NEG) Urine Ketones TRACE (NEG) Urine Occult Blood 3+ (NEG) Urine Nitrite NEG (NEG) Urine Bilirubin NEG (NEG) Urine Urobilinogen NEG (NEG) Urine Leukocyte Esterase NEG (NEG) Urine WBC (Auto) 1-5 /hpf (0-5) Urine RBC (Auto) 10-30 /hpf (0-4) Urine Hyaline Casts (Auto) 10-30 /lpf (0-5) Urine Epithelial Cells (Auto) 5-10 /lpf (0-5) Urine Bacteria (Auto) NEG (NEG) Urine Crystals See comments (NONE PRSENT) Urine Pathogenic Casts /lpf (0) Urine Yeast (Auto) (NONE PRSENT) Labs reviewed by ED physician. Medications Administered Medications (Trade) Dose Ordered Sig/[place] Route Start Time Stop Time Status Last Admin Dose Admin Furosemide (Lasix Inj) 40 mg NOW STAT IV 04/12/17 11:18 04/12/17 11:19 DC 04/12/17 11:44 40 MG Daptomycin 750 mg/ Syringe 15 ml @ 7.5 mls/min TODAY@1200 ONCE IV 04/12/17 12:00 04/12/17 12:01 DC 04/12/17 13:29 7.5 MLS/MIN Cefepime HCl 1000 mg/Syringe 11 ml @ 5.5 mls/min TODAY@1200 ONCE IV 04/12/17 12:00 04/12/17 12:01 DC 04/12/17 13:29 5.5 MLS/MIN ECG Indication: weakness Rate (beats per minute): 93 Rhythm: atrial fibrillation Findings: RBBB, no acute ischemic change ED Course 0942: Past medical records reviewed. The patient was evaluated in room B10. A complete history and physical examination was performed. 1118: Lasix 40mg IV 1123: I discussed the patient's case with Dr. Murry, he has agreed to evaluate the patient for further management and care. 1200: Cefepime HCL 1000mg/syringe 11ml @ 5.5mls/min IV, Daptomycin 750mg/ Syringe 15ml @ 7.5mls/min IV Medical Decision Differential diagnosis: Etiologies such as metabolic, infection, hypo/hyperglycemia, electrolyte abnormalities, cardiac sources, intracerebral event, toxicologic, neurologic, as well as others were entertained. This is a 77-year-old male who presents emergency Department with a period of confusion. Patient was found outside by family. He had fallen and had bruised knees. He appears to have failure on chest x-ray therefore he was given Lasix. In addition the patient also appears evidence STEMI with elevations in his CK- MB and troponin fractions. Due to the elevation in his white blood count cell count as well as the patient's hypothermia he was started on antibiotics. I did discuss this case with the hospitalist service who agreed to admit the patient. Patient family were in agreement with the treatment plan. Medication Reconcilliation Current Medication List: was personally reviewed by me Blood Pressure Screening Patient's blood pressure: Normal blood pressure Consults Time Called: 1121 Consulting Physician: Dr. Murry Returned Call: 1123 I discussed the patient's case with Dr. Murry, he has agreed to evaluate the patient for further management and care. Impression Primary Impression: Non-STEMI (non-ST elevated myocardial infarction) Critical Care I have personally spent greater than 30 minutes of critical care time in the direct management of this patient. This includes bedside care, interpretation of diagnostic studies, and testing, discussion with consultants, patient, and family members, and other required patient management activities. This 30 minutes is in excess of all separately billable procedures. Scribe Attestation The scribe's documentation has been prepared under my direction and personally reviewed by me in its entirety. I confirm that the note above accurately reflects all work, treatment, procedures, and medical decision making performed by me. Departure Information Dispostion Being Evaluated By Hospitalist Referrals Raj Mora M.D. (PCP)
[2017-04-12 10:22] LABS: HEMATOCRIT 43.2 % (42-52); MEAN CELL VOLUME 92.3 fL (80-100); MEAN CORPUSCULAR HEMOGLOBIN 32.5 pg (25-34); MEAN CORPUSCULAR HGB CONC 35.2 g/dl (32-36); MEAN PLATELET VOLUME 11.9 fL (7.4-10.4); PLATELET COUNT 209 K/uL (130-400); RED BLOOD COUNT 4.68 M/uL (4.7-6.1); WHITE BLOOD COUNT 22.41 K/uL (4.8-10.8)
[2017-04-12 10:31] LABS: INR 2.8 (0.9-1.1); PROTHROMBIN TIME (PATIENT) 31.7 SECONDS (9.0-12.0)
--- NOTE | 2017-04-12 10:40 | DIAGNOSTIC IMAGING REPORT ---
SINGLE VIEW PELVIS CLINICAL HISTORY: Bilateral leg pain. FINDINGS: 2 AP portable views of the pelvis are correlated with radiographs of left hip dated 07/27/2014. Correlation is made with abdominal CT dated 01/23/2008. The skeletal structures are osteopenic. There is no radiographic evidence of fracture involving the hips or bony pelvis. Mild arthritic change and joint space narrowing is seen in both hips. Sclerotic change is noted in the sacroiliac joints. Advanced lumbosacral spondylosis and scoliosis is observed. Enthesophytes arise in the anterior superior iliac spine bilaterally. 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 This was also seen by CT on 01/23/2008. The overlying soft tissues are within normal limits. There is a nonobstructed abdominal bowel gas pattern. IMPRESSION: Osteopenia and degenerative change as above. There is no radiographic evidence of fracture involving the hips or bony pelvis. Electronically signed by: Ankit Woodruff M.D. 04/12/2017 10:39 AM Dictated Date/Time: 04/12/2017 10:36 AM
[2017-04-12 10:43] LABS: BUN/CREATININE RATIO 18.3 (10-20); CALCIUM 9.4 mg/dl (8.5-10.1); CREATININE 1.73 mg/dl (0.60-1.40); POTASSIUM 3.9 mmol/L (3.5-5.1)
--- NOTE | 2017-04-12 10:44 | DIAGNOSTIC IMAGING REPORT ---
SINGLE VIEW CHEST CLINICAL HISTORY: Change in mental status. FINDINGS: An AP, portable, upright chest radiograph is compared to study dated 06/28/2016. The examination is degraded by portable technique, large body habitus, and patient rotation. Heart is enlarged and there is atherosclerotic calcification of the thoracic aorta. There is pulmonary vascular congestion. Bibasilar airspace opacities likely represent atelectasis. No large pleural effusion or pneumothorax is seen. The skeletal structures are osteopenic. The bony thorax is grossly intact. IMPRESSION: 1. Cardiomegaly with evidence of congestive failure. 2. Bibasilar airspace opacities likely represent atelectasis. Clinical correlation will be required. Electronically signed by: Ankit Woodruff M.D. 04/12/2017 10:43 AM Dictated Date/Time: 04/12/2017 10:42 AM
[2017-04-12 10:48] LABS: BASO % 0.1 %; BASO ABS # 0.02 K/uL (0-0.2); COMPLETE YES; ECHINOCYTES 1+; HYPERSEGMENTED POLYS 1+; IG% 0.4 %; LYMPH % 3.4 %; LYMPH ABS # 0.77 K/uL (1.2-3.4); MONO % 9.5 %; NEUT % 86.6 %; TOXIC GRANULATION 1+; VACUOLIZATION 1+
--- NOTE | 2017-04-12 10:56 | DIAGNOSTIC IMAGING REPORT ---
LEFT TIBIA AND FIBULA 2 VIEWS CLINICAL HISTORY: Left leg pain. FINDINGS: AP and lateral portable views of the left tibia and fibula are obtained. No prior studies are available for comparison at the time of dictation. The skeletal structures are osteopenic. There is no radiographic evidence of left tibial or fibular fracture. Nonspecific benign-appearing periosteal thickening is seen along the tibial and fibular shafts, likely related to chronic congestion. Arthritic change is seen in the knee and ankle joints. Diffuse soft tissue edema is present in the left leg. There is advanced atherosclerotic calcification of the regional arteries. Numerous soft tissue phleboliths are observed. IMPRESSION: 1. Diffuse soft tissue edema with no acute bony abnormality seen in the left tibia or fibula. 2. Osteopenia and degenerative change as above. 3. Nonspecific benign-appearing periosteal thickening is identified in the tibia and fibula, likely related to chronic congestion. Clinical correlation will be required. Electronically signed by: Ankit Woodruff M.D. 04/12/2017 10:54 AM Dictated Date/Time: 04/12/2017 10:51 AM
--- NOTE | 2017-04-12 11:07 | DIAGNOSTIC IMAGING REPORT ---
R TIBIA/FIBULA 2 VIEWS ROUTINE CLINICAL HISTORY: Pt c/o b/l leg pain COMPARISON STUDY: None. FINDINGS: No acute fracture or dislocation within the tibia or fibula. Periosteal thickening within the distal tibia and within the fibula. Mass or calcifications are noted. Mild subcutaneous edema within the lower leg. 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 IMPRESSION: 1. No acute fracture or dislocation within the right lower leg. 2. Nonspecific periosteal thickening within the distal tibia and fibula. This could be due to chronic venous congestion. Electronically signed by: John Grimes M.D. 04/12/2017 11:06 AM Dictated Date/Time: 04/12/2017 11:03 AM
--- NOTE | 2017-04-12 11:14 | DIAGNOSTIC IMAGING REPORT ---
HEAD WITHOUT CONTRAST (CT) CT DOSE: 909.11 mGy.cm HISTORY: Mental status change Pt c/o AMS TECHNIQUE: Multiaxial CT images of the head were performed without the use of intravenous contrast. A dose lowering technique was utilized adhering to the principles of ALARA. Comparison: 06/22/2015 and 17 Findings: The paranasal sinuses and mastoid air cells are clear. The calvarium and skull base are intact. The ventricles and sulci are within normal limits. There is no mass, hematoma, midline shift, or acute infarct. Mild age-related atrophy and chronic small vessel change Impression: No acute intracranial abnormality. Age-related change The above report was generated using voice recognition software. It may contain grammatical, syntax or spelling errors. Electronically signed by: Edvin Kraft M.D. 04/12/2017 11:13 AM Dictated Date/Time: 04/12/2017 11:12 AM
[2017-04-12 11:15] LABS: CKMB/CK RATIO 2.6 (0-3.0); THYROID STIMULATING HORMONE 2.45 uIu/ml (0.300-4.500)
[2017-04-12] MEDS ORDERED: FUROSEMIDE 40 MG/4 ML VIAL IV STA (11:18)
[2017-04-12] MEDS ORDERED: SODIUM CHLORIDE 0.9% IV STA (11:50)
[2017-04-12] MEDS ORDERED: CEFEPIME IV 1,000 MG in DEXTROSE 5% 100ML 100 ML IV STA (11:50)
[2017-04-12] MEDS ORDERED: DAPTOMYCIN IV STA (11:50)
[2017-04-12] MEDS ORDERED: DAPTOmycin IV 750 MG in SYRINGE 0 ML IV ONE (12:00)
[2017-04-12] MEDS ORDERED: CEFEPIME IV 1,000 MG in SYRINGE 0 ML IV ONE (12:00)
[2017-04-12] MEDS ORDERED: WARFARIN SOD 5 MG TAB PO SCH (13:00)
[2017-04-12] MEDS ORDERED: ACETAMINOPHEN 325 MG TAB PO PRN (13:00)
[2017-04-12] MEDS ORDERED: MAGNESIUM HYDROXIDE SUSP 30 ML UDC PO PRN (13:00)
[2017-04-12] MEDS ORDERED: NITROGLYCERIN 0.4 MG SL PER TAB CHARGE SL PRN (13:00)
[2017-04-12] MEDS ORDERED: ALUMINUM/MAGNESIUM/SIMETH (MAALOX MAX) 30 ML UDC PO PRN (13:00)
[2017-04-12] MEDS ORDERED: ONDANSETRON INJ 2 MG/ML 2 ML VIAL IV PRN (13:00)
[2017-04-12] MEDS ORDERED: MoRPHine SULFATE 2 MG/ML CARP IV PRN (13:00)
[2017-04-12] MEDS ORDERED: POLYETHYLENE (MIRALAX) 17 GM PACK PO PRN (13:00)
[2017-04-12] MEDS ORDERED: HydrALAZINE HCL 20 MG/ML VIAL IV. PRN (13:30)
--- NOTE | 2017-04-12 13:34 | History and Physical ---
History & Physical Date & Time of Service: Apr 12, 2017 at 13:04 Chief Complaint: Confusion Primary Care Physician: Raj Mora M.D. History of Present Illness Source: patient, family ( ), clinic records, hospital records Patient is a pleasant 77 y/o male, with PMHx of CAD, HLD, T2DM, HTN, a.fib on chronic anticoagulation therapy,dementia, and anxiety, who presented to the ED because of a fall. According to the patient, he was trying to get into the house when his legs became extremely weak and he fell to the ground. He states he remembers the entire event and denies syncope/LOC or head injury. He states he then fell to the ground, scrapping up his legs. He was unable to get up and tried to crawl to the door, but couldn't make it. Per patient, he was laying outside overnight. He was found in his underwear and t-shirt. Patient does appear a bit confused so unsure of reliability of story. According to the , she does not know when he fell or what happened, but states it happened early this AM and was on the ground for no more than a few hours. She notes he has a h /o dementia, but has been more confused than normal lately over the past couple of days. Patient denies any fever, chills, sweats, lightheadedness, dizziness, vision changes, CP, palpitations, edema, SOB, wheezing, cough, abdominal pain, nausea, vomiting, diarrhea, urinary symptoms, melena, numbness/tingling, muscle/ joint pain, anxiety/depression, active bleeding, or new skin discoloration/ changes. Past Medical/Surgical History Medical Problems: CAD HLD T2DM HTN a.fib on chronic anticoagulation therapy dementia anxiety Family History FH: cancer Heart disease Hypertension Social History Smoking Status: Never Smoker Drug Use: none Marital Status: Housing status: lives with family Occupational Status: retired Immunizations History of Influenza Vaccine: No History of Tetanus Vaccine?: utd History of Pneumococcal: Unknown History of Hepatitis B Vaccine: No Multi-Drug Resistant Organisms History of MDRO: Yes Type of MDRO: MRSA Allergies Coded Allergies: Metformin (Unverified Allergy, Unknown, ., 04/12/17) CI Pigment Blue 63 (Verified Adverse Reaction, Intermediate, IRRITABILITY , 04/12/17) Duloxetine (Verified Adverse Reaction, Intermediate, IRRITABILITY, ) Pregabalin (Unverified Adverse Reaction, Intermediate, "SPACES HIM OUT", 04/12/17) Home Medications Scheduled Atorvastatin (Lipitor), 40 MG PO QPM Baclofen (Lioresal), 20 MG PO TID Cholecalciferol (Vitamin D3), 1 TAB PO DAILY Cyanocobalamin (Vitamin B-12), 1,000 MCG PO DAILY Glipizide Xl (Glucotrol Xl), 10 MG PO BID Lisinopril (Prinivil), 5 MG PO DAILY Lorazepam (Ativan), 1 MG PO HS Melatonin (Kp Melatonin), 1 TAB PO HS Misc Natural Products (Ginkgo Biloba), 60 MG PO DAILY Multivitamin (Multivitamin), 1 TAB PO DAILY Triamterene/Hctz (Dyazide 37.5MG/25MG), 1 CAP PO DAILY Verapamil HCl (Verapamil HCl ER), 240 MG PO QAM Warfarin Sod (Jantoven), 10 MG PO UD Physical Exam Vital Signs Date Time Temp Pulse Resp B/P (MAP) Pulse Ox O2 Delivery O2 Flow Rate FiO2 04/12/17 11:56 34.6 04/12/17 11:47 125 17 04/12/17 11:42 86 14 04/12/17 11:31 109/73 04/12/17 11:15 121/71 04/12/17 10:48 34.4 80 16 117/71 100 Room Air 04/12/17 10:39 117/71 04/12/17 10:12 87 16 96 04/12/17 09:58 92 Room Air 04/12/17 09:50 83 04/12/17 09:50 89 16 95/64 92 Room Air 04/12/17 09:47 95/64 General Appearance: no apparent distress, + obese Head: normocephalic, atraumatic Eyes: PERRL ENT: hearing grossly normal Neck: supple Respiratory/Chest: lungs clear, no respiratory distress, no accessory muscle use Cardiovascular: + irregularly irregular (rate controlled ) Abdomen/GI: normal bowel sounds, non tender, soft Genitourinary - Male: + pertinent finding (Cool placed ) Extremities/Musculoskelatal: no calf tenderness, + swelling (trace to +1 pitting edema to bilateral lower extremities ) Neurologic/Psych: alert, normal mood/affect, + disoriented, + pertinent finding (lethargic ) Skin: normal color, warm/dry, no rash Diagnostics Laboratory Results Results Past 24 Hours Test 04/12/17 10:00 Range/Units White Blood Count 22.41 4.8-10.8 K/uL Red Blood Count 4.68 4.7-6.1 M/uL Hemoglobin 15.2 14.0-18.0 g/dL Hematocrit 43.2 42-52 % Mean Corpuscular Volume 92.3 80-100 fL Mean Corpuscular Hemoglobin 32.5 25-34 pg Mean Corpuscular Hemoglobin Concent 35.2 32-36 g/dl Platelet Count 209 130-400 K/uL Mean Platelet Volume 11.9 7.4-10.4 fL Neutrophils (%) (Auto) 86.6 % Lymphocytes (%) (Auto) 3.4 % Monocytes (%) (Auto) 9.5 % Eosinophils (%) (Auto) 0.0 % Basophils (%) (Auto) 0.1 % Neutrophils # (Auto) 19.41 1.4-6.5 K/uL Lymphocytes # (Auto) 0.77 1.2-3.4 K/uL Monocytes # (Auto) 2.13 0.11-0.59 K/uL Eosinophils # (Auto) 0.00 0-0.5 K/uL Basophils # (Auto) 0.02 0-0.2 K/uL RDW Standard Deviation 46.1 36.4-46.3 fL RDW Coefficient of Variation 13.8 11.5-14.5 % Immature Granulocyte % (Auto) 0.4 % Immature Granulocyte # (Auto) 0.08 0.00-0.02 K/uL Nucleated RBC Absolute Count (auto) 0.04 0-0 K/uL Nucleated Red Blood Cells % 0.2 % Hypersegmented Polys 1+ Toxic Granulation 1+ Toxic Vacuolation 1+ Echinocytes 1+ Prothrombin Time 31.7 9.0-12.0 SECONDS Prothromb Time International Ratio 2.8 0.9-1.1 Sodium Level 138 136-145 mmol/L Potassium Level 3.9 3.5-5.1 mmol/L Chloride Level 103 98-107 mmol/L Carbon Dioxide Level 20 21-32 mmol/L Anion Gap 15.0 3-11 mmol/L Blood Urea Nitrogen 32 7-18 mg/dl Creatinine 1.73 0.60-1.40 mg/dl Est Creatinine Clear Calc Drug Dose 43.8 ml/min Estimated GFR () 43.5 Estimated GFR (Non- 37.5 BUN/Creatinine Ratio 18.3 10-20 Random Glucose 212 70-99 mg/dl Calcium Level 9.4 8.5-10.1 mg/dl Total Bilirubin 1.1 0.2-1 mg/dl Direct Bilirubin 0.3 0-0.2 mg/dl Aspartate Amino Transf (AST/SGOT) 66 15-37 U/L Alanine Aminotransferase (ALT/SGPT) 56 12-78 U/L Alkaline Phosphatase 120 45-117 U/L Total Creatine Kinase 2381 39-308 U/L Creatine Kinase MB 61.7 0.5-3.6 ng/ml Creatine Kinase MB Ratio 2.6 0-3.0 Troponin I 0.541 0-0.045 ng/ml Total Protein 7.8 6.4-8.2 gm/dl Albumin 4.3 3.4-5.0 gm/dl Thyroid Stimulating Hormone (TSH) 2.450 0.300-4.500 uIu/ml Diagnostic Radiology HEAD WITHOUT CONTRAST (CT) CT DOSE: 909.11 mGy.cm HISTORY: Mental status change Pt c/o AMS TECHNIQUE: Multiaxial CT images of the head were performed without the use of intravenous contrast. A dose lowering technique was utilized adhering to the principles of ALARA. Comparison: 06/22/2015 and 17 Findings: The paranasal sinuses and mastoid air cells are clear. The calvarium and skull base are intact. The ventricles and sulci are within normal limits. There is no mass, hematoma, midline shift, or acute infarct. Mild age-related atrophy and chronic small vessel change Impression: No acute intracranial abnormality. Age-related change The above report was generated using voice recognition software. It may contain grammatical, syntax or spelling errors. Electronically signed by: Edvin Kraft M.D. 04/12/2017 11:13 AM Dictated Date/Time: 04/12/2017 11:12 AM The status of this report is Signed. Draft = Not yet reviewed or approved by Radiologist. Signed = Reviewed and approved by Radiologist. SINGLE VIEW CHEST CLINICAL HISTORY: Change in mental status. FINDINGS: An AP, portable, upright chest radiograph is compared to study dated 06/28/2016. The examination is degraded by portable technique, large body habitus, and patient rotation. Heart is enlarged and there is atherosclerotic calcification of the thoracic aorta. There is pulmonary vascular congestion. Bibasilar airspace opacities likely represent atelectasis. No large pleural effusion or pneumothorax is seen. The skeletal structures are osteopenic. The bony thorax is grossly intact. IMPRESSION: 1. Cardiomegaly with evidence of congestive failure. 2. Bibasilar airspace opacities likely represent atelectasis. Clinical correlation will be required. Electronically signed by: Ankit Woodruff M.D. 04/12/2017 10:43 AM Dictated Date/Time: 04/12/2017 10:42 AM The status of this report is Signed. Draft = Not yet reviewed or approved by Radiologist. Signed = Reviewed and approved by Radiologist. R TIBIA/FIBULA 2 VIEWS ROUTINE CLINICAL HISTORY: Pt c/o b/l leg pain COMPARISON STUDY: None. FINDINGS: No acute fracture or dislocation within the tibia or fibula. Periosteal thickening within the distal tibia and within the fibula. Mass or calcifications are noted. Mild subcutaneous edema within the lower leg. 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 IMPRESSION: 1. No acute fracture or dislocation within the right lower leg. 2. Nonspecific periosteal thickening within the distal tibia and fibula. This could be due to chronic venous congestion. Electronically signed by: John Grimes M.D. 04/12/2017 11:06 AM Dictated Date/Time: 04/12/2017 11:03 AM The status of this report is Signed. Draft = Not yet reviewed or approved by Radiologist. Signed = Reviewed and approved by Radiologist. LEFT TIBIA AND FIBULA 2 VIEWS CLINICAL HISTORY: Left leg pain. FINDINGS: AP and lateral portable views of the left tibia and fibula are obtained. No prior studies are available for comparison at the time of dictation. The skeletal structures are osteopenic. There is no radiographic evidence of left tibial or fibular fracture. Nonspecific benign-appearing periosteal thickening is seen along the tibial and fibular shafts, likely related to chronic congestion. Arthritic change is seen in the knee and ankle joints. Diffuse soft tissue edema is present in the left leg. There is advanced atherosclerotic calcification of the regional arteries. Numerous soft tissue phleboliths are observed. IMPRESSION: 1. Diffuse soft tissue edema with no acute bony abnormality seen in the left tibia or fibula. 2. Osteopenia and degenerative change as above. 3. Nonspecific benign-appearing periosteal thickening is identified in the tibia and fibula, likely related to chronic congestion. Clinical correlation will be required. Electronically signed by: Ankit Woodruff M.D. 04/12/2017 10:54 AM Dictated Date/Time: 04/12/2017 10:51 AM The status of this report is Signed. Draft = Not yet reviewed or approved by Radiologist. Signed = Reviewed and approved by Radiologist. SINGLE VIEW PELVIS CLINICAL HISTORY: Bilateral leg pain. FINDINGS: 2 AP portable views of the pelvis are correlated with radiographs of left hip dated 07/27/2014. Correlation is made with abdominal CT dated 01/23/2008. The skeletal structures are osteopenic. There is no radiographic evidence of fracture involving the hips or bony pelvis. Mild arthritic change and joint space narrowing is seen in both hips. Sclerotic change is noted in the sacroiliac joints. Advanced lumbosacral spondylosis and scoliosis is observed. Enthesophytes arise in the anterior superior iliac spine bilaterally. 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 This was also seen by CT on 01/23/2008. The overlying soft tissues are within normal limits. There is a nonobstructed abdominal bowel gas pattern. IMPRESSION: Osteopenia and degenerative change as above. There is no radiographic evidence of fracture involving the hips or bony pelvis. Electronically signed by: Ankit Woodruff M.D. 04/12/2017 10:39 AM Dictated Date/Time: 04/12/2017 10:36 AM The status of this report is Signed. Draft = Not yet reviewed or approved by Radiologist. Signed = Reviewed and approved by Radiologist. EKG DEQUAN HOLLIDAY ID:[id number] 12-APR-2017 10:10:21 [facility] Poor data quality, interpretation may be adversely affected Atrial fibrillation Right bundle branch block Abnormal ECG When compared with ECG of 28-JUN-2016 14:51, minimal change Confirmed by Adiel Tafoya ([id number]) on 04/12/2017 1:13:59 PM 25mm/s 10mm/mV 150Hz 8.0 SP2 12SL 241 JEAN PAUL: 3 Referred by: Confirmed By: Adiel Tafoya Vent. rate 93 BPM NV interval * ms QRS duration 130 ms QT/QTc 424/527 ms P-R-T axes * 88 1940 (77 yr) Male 0lb Room:B10 Loc:15 [employer] Service:MADELYN Narayanan ind: Impression Assessment and Plan Patient is a pleasant 77 y/o male, with PMHx of CAD, HLD, T2DM, HTN, a.fib on chronic anticoagulation therapy,dementia, and anxiety, who presented to the ED because of a fall. Rhabdomyolysis secondary to fall of unknown cause: - IV NSS @125ml/hr - Follow CPK- initial 2381 - Leukocytosis- follow CBC - BCx pending- received IV Daptomycin and Cefepime in ED prior to BCx - UA and MRSA swab pending - Elevated liver enzymes- follow CMP - Head CT unremarkable - CXR- ?CHF, no evidence of infectious process- given IV Lasix 40 mg x1 dose in ED; did not continue Lasix due to IVF - Tibia/fibula and pelvis x-rays without fractures - Consulted wound care for bilateral lower extremity wounds Elevated trop, likely secondary to demand ischemia: - Admit to tele for cardiac monitoring - O2 protocol - Trend cardiac enzymes- initial trop 0.541 - Follow EKG QAM and PRN for chest pain - Nitro and Morphine PRN for chest pain - Cardiology consulted, appreciate recommendations Hypothermia: Andria morales BENEDICT: - Hold nephrotoxic agents and renally dose medications - IVF as above - Follow PRP A.fib- rate controlled, CAD, HLD- follows w/ Dr. Osborn: - Continue Verapamil - Continue Coumadin- follow PT/INR and adjust dosage PRN for INR goal of 2-3 - Hold Lipitor due to elevated liver enzymes HTN: - Hold Lisinopril due to BENEDICT - Hydralazine PRN T2DM: - Hold Glipizide - BSG ACHS and ISS DVT prophylaxis: Coumadin Code Status: LEVEL I, FULL Dispo: From home, lives w/ - PT/OT and CM consulted Level of Care Telemetry Resuscitation Status FULL RESUSCITATION VTE Prophylaxis VTE Risk Assessment Done? Y/N: Yes Risk Level: Moderate Given or contraindicated: Warfarin (Coumadin) Note Supervising Note by Dr. Murry I agree with above note. My exam did not differ from the APC's described in this note. I discussed plan of care with APC and patient in detail and answered all of the patient's questions.
[2017-04-12 13:54] VITALS: BMI 47.0
[2017-04-12] MEDS ORDERED: DEXTROSE 50% 50 ML SYR IV PRN (14:15)
[2017-04-12] MEDS ORDERED: GLUCOSE 40% GEL 15 GM TUBE PO PRN (14:15)
[2017-04-12] MEDS ORDERED: GLUCOSE 10 TABS/TUBE PO PRN (14:15)
[2017-04-12] MEDS ORDERED: GLUCAGON FOR INJ 1 MG VIAL SQ PRN (14:15)
[2017-04-12 14:19] LABS: URINE APPEARANCE CLOUDY (CLEAR); URINE BILIRUBIN NEG (NEG); URINE COLOR YELLOW; URINE NITRITE NEG (NEG); URINE SPECIFIC GRAVITY 1.019 (1.000-1.030); UROBILINOGEN NEG (NEG); ZZURINE CULT IF INDIC CATH YES
[2017-04-12 14:21] LABS: MANUAL MICROSCOPIC REQUIRED? NO; REVIEW REQ? YES
[2017-04-12 15:47] VITALS: BP 97/53; PULSE 83; TEMP 36.5; O2SAT 95
[2017-04-12] MEDS: WARFARIN SOD 5 MG TAB PO SCH (18:08)
[2017-04-12] MEDS: SODIUM CHLORIDE 0.9% 1000ML 1,000 ML IV SCH (18:08)
--- NOTE | 2017-04-12 18:09 | Cardiology Consultation ---
Cardiology Consultation Date of Consultation: Apr 12, 2017. Requesting Physician: Jeanmarie Reason for Consultation: Elevated troponin Pt evaluation today including: conversation w/ patient, conversation w/ family , physical exam, chart review, lab review, review of studies, review of inpatient medication list, conversation w/ attending History of Present Illness The patient is a 77-year-old gentleman with history of permanent atrial fibrillation who was found outside by his this morning. Patient states that at some point last evening or this morning he was attempting to walk up the stairs in his back porch when his legs gave way. He was unable to ambulate afterwards or get into the house. He apparently laid on the ground for an extended period of time before being found by his . Patient states he did not have significant dizziness or lightheadedness leading up to this event. However, he does have significant dementia and does not appear to be reliable historian. His states he has not had any new complaints recently. He has not had symptoms suggestive of a systemic illness such as fevers chills or coughing. He has not been reporting any difficulty with urination. He generally ambulates with a crutch but is very limited with respect to activity. He has not been complaining of chest pain. He is not aware of any palpitations. He apparently sleep somewhat upright in bed but this is longstanding in nature and not changed recently. The patient or his family have not noticed any worsening lower extremity edema or increasing abdominal girth. Past Medical/Surgical History Dementia Atrial fibrillation permanent Benign prostatic hypertrophy Diabetes mellitus Polyneuropathy Past surgical history Foot surgery, debridement 1st toenail Hand surgery Tonsillectomy Family History FH: cancer Heart disease Hypertension Noncontributory given his advanced age Social History Smoking Status: Never Smoker History of Alcohol Use: No Currently lives with his Review of Systems Review history per HPI. Patient could not reliably give any additional review of systems All Other Systems: Reviewed and Negative Allergies Coded Allergies: Metformin (Unverified Allergy, Unknown, ., 04/12/17) CI Pigment Blue 63 (Verified Adverse Reaction, Intermediate, IRRITABILITY , 04/12/17) Duloxetine (Verified Adverse Reaction, Intermediate, IRRITABILITY, ) Pregabalin (Unverified Adverse Reaction, Intermediate, "SPACES HIM OUT", 04/12/17) Medications Current Inpatient Medications Medications (Trade) Dose Ordered Sig/[place] Route Start Time Stop Time Status Last Admin Dose Admin Acetaminophen (Tylenol Tab) 650 mg Q4H PRN PO 04/12/17 13:00 05/12/17 12:59 Al Hydrox/Mg Hydrox/Simethicone (Maalox Max Susp) 15 ml Q4H PRN PO 04/12/17 13:00 05/12/17 12:59 Magnesium Hydroxide (Milk Of Magnesia Susp) 30 ml Q12H PRN PO 04/12/17 13:00 05/12/17 12:59 Ondansetron HCl (Zofran Inj) 4 mg Q6H PRN IV 04/12/17 13:00 05/12/17 12:59 Nitroglycerin (Nitrostat Tab) 0.4 mg UD PRN SL 04/12/17 13:00 05/12/17 12:59 Morphine Sulfate (MoRPHine SULFATE INJ) 2 mg Q30M PRN IV 04/12/17 13:00 04/26/17 12:59 Aspirin (Ecotrin Tab) 81 mg QAM PO 04/13/17 09:00 05/13/17 08:59 Polyethylene (Miralax Powder Packet) 17 gm DAILY PRN PO 04/12/17 13:00 05/12/17 12:59 Sodium Chloride 1,000 ml @ 125 mls/hr Q8H IV 04/12/17 15:15 05/12/17 12:59 Insulin Aspart (novoLOG ASPART) SLIDING SCALE G... ACHS SC 04/12/17 16:00 05/12/17 15:59 Cyanocobalamin (Vitamin B-12 Tab) 1,000 mcg DAILY PO 04/13/17 09:00 05/13/17 08:59 Multivitamins (Multivitamin Tab) 1 tab DAILY PO 04/13/17 09:00 05/13/17 08:59 Verapamil HCl (Calan-Sr Tab) 240 mg QAM PO 04/13/17 09:00 05/13/17 08:59 Hydralazine HCl (HydrALAZINE INJ) 10 mg Q6H PRN IV. 04/12/17 13:30 05/12/17 13:29 Glucose (Glucose 40% Gel) 15-30 GRAMS 15 GRAMS... UD PRN PO 04/12/17 14:15 05/12/17 14:14 Glucose (Glucose Chew Tab) 4-8 Tablets 4 Tabl... UD PRN PO 04/12/17 14:15 05/12/17 14:14 Dextrose (Dextrose 50% 50ML Syringe) 25-50ML OF 50% DW IV FOR... UD PRN IV 04/12/17 14:15 05/12/17 14:14 Glucagon (Glucagon Inj) 1 mg UD PRN SQ 04/12/17 14:15 05/12/17 14:14 Warfarin Sodium (Coumadin Tab) 5 mg DAILY@16 PO 04/12/17 16:00 05/12/17 15:59 Physical Exam Vital Signs Past 12 Hours Date Time Temp Pulse Resp B/P (MAP) Pulse Ox O2 Delivery O2 Flow Rate FiO2 04/12/17 15:47 36.5 83 16 97/53 (68) 95 Room Air 04/12/17 13:54 Room Air 04/12/17 13:22 37.4 78 25 04/12/17 13:09 80 04/12/17 13:01 114/92 04/12/17 12:52 85 14 04/12/17 12:32 111/65 04/12/17 12:22 82 10 04/12/17 12:01 90/64 04/12/17 11:56 34.6 04/12/17 11:52 88 17 04/12/17 11:47 125 17 04/12/17 11:42 86 14 04/12/17 11:31 109/73 04/12/17 11:15 121/71 04/12/17 10:48 34.4 80 16 117/71 100 Room Air 04/12/17 10:39 117/71 04/12/17 10:12 87 16 96 04/12/17 09:58 92 Room Air 04/12/17 09:50 83 04/12/17 09:50 89 16 95/64 92 Room Air 04/12/17 09:47 95/64 The patient is alert and oriented. Mood and affect appeared normal. He answered all questions , but supplemental history was provided by the family. HEENT: Pupils are equal and reactive to light and accommodation. Extraocular movements are intact. The sclerae are anicteric. Neuro: Cranial nerves intact Neck: Patient's neck is supple. He has palpable carotid pulses bilaterally without bruits on auscultation. There is no evidence of jugular venous distention. The thyroid is not enlarged. Lungs: Clear to auscultation bilaterally. He has good air movement without use of accessory muscles. No rales wheezes or rhonchi. Cardiac: Heart demonstrates an irregular rate and rhythm. Normal S1 and S2. No murmurs on examination. Pulses: The patient has palpable radial pulses bilaterally that are equal in intensity Extremities: There was no evidence of hypoperfusion. There is no cyanosis or clubbing. He has mild edema bilaterally. He has some abrasions and ecchymoses on both lower extremities Scrotum: Edematous Skin: I did not appreciate any rashes on examination today. Data Laboratory Results: Last 24 Hours Test 04/12/17 10:00 04/12/17 12:30 White Blood Count 22.41 K/uL Red Blood Count 4.68 M/uL Hemoglobin 15.2 g/dL Hematocrit 43.2 % Mean Corpuscular Volume 92.3 fL Mean Corpuscular Hemoglobin 32.5 pg Mean Corpuscular Hemoglobin Concent 35.2 g/dl Platelet Count 209 K/uL Mean Platelet Volume 11.9 fL Neutrophils (%) (Auto) 86.6 % Lymphocytes (%) (Auto) 3.4 % Monocytes (%) (Auto) 9.5 % Eosinophils (%) (Auto) 0.0 % Basophils (%) (Auto) 0.1 % Neutrophils # (Auto) 19.41 K/uL Lymphocytes # (Auto) 0.77 K/uL Monocytes # (Auto) 2.13 K/uL Eosinophils # (Auto) 0.00 K/uL Basophils # (Auto) 0.02 K/uL RDW Standard Deviation 46.1 fL RDW Coefficient of Variation 13.8 % Immature Granulocyte % (Auto) 0.4 % Immature Granulocyte # (Auto) 0.08 K/uL Nucleated RBC Absolute Count (auto) 0.04 K/uL Nucleated Red Blood Cells % 0.2 % Hypersegmented Polys 1+ Toxic Granulation 1+ Toxic Vacuolation 1+ Echinocytes 1+ Prothrombin Time 31.7 SECONDS Prothromb Time International Ratio 2.8 Sodium Level 138 mmol/L Potassium Level 3.9 mmol/L Chloride Level 103 mmol/L Carbon Dioxide Level 20 mmol/L Anion Gap 15.0 mmol/L Blood Urea Nitrogen 32 mg/dl Creatinine 1.73 mg/dl Est Creatinine Clear Calc Drug Dose 43.8 ml/min Estimated GFR () 43.5 Estimated GFR (Non- 37.5 BUN/Creatinine Ratio 18.3 Random Glucose 212 mg/dl Calcium Level 9.4 mg/dl Total Bilirubin 1.1 mg/dl Direct Bilirubin 0.3 mg/dl Aspartate Amino Transf (AST/SGOT) 66 U/L Alanine Aminotransferase (ALT/SGPT) 56 U/L Alkaline Phosphatase 120 U/L Total Creatine Kinase 2381 U/L Creatine Kinase MB 61.7 ng/ml Creatine Kinase MB Ratio 2.6 Troponin I 0.541 ng/ml Total Protein 7.8 gm/dl Albumin 4.3 gm/dl Thyroid Stimulating Hormone (TSH) 2.450 uIu/ml Urine Color YELLOW Urine Appearance CLOUDY Urine pH 5.0 Urine Specific [place] 1.019 Urine Protein TRACE Urine Glucose (UA) TRACE Urine Ketones TRACE Urine Occult Blood 3+ Urine Nitrite NEG Urine Bilirubin NEG Urine Urobilinogen NEG Urine Leukocyte Esterase NEG Urine WBC (Auto) 1-5 /hpf Urine RBC (Auto) 10-30 /hpf Urine Hyaline Casts (Auto) 10-30 /lpf Urine Epithelial Cells (Auto) 5-10 /lpf Urine Bacteria (Auto) NEG Urine Crystals See comments Urine Pathogenic Casts /lpf Urine Yeast (Auto) Imaging: Chest x-ray obtained on admission suggested cardiomegaly with an element of pulmonary vascular congestion. Additional x-rays were taken without demonstrating any fractures EKG: Atrial fibrillation with right bundle branch block Telemetry reviewed: Atrial fibrillation Echocardiogram obtained in September 2013 demonstrated preserved LV systolic function. There is biatrial dilation. Mild mitral regurgitation. Assessment & Plan 1. Elevated cardiac biomarkers: This of unclear etiology. May be simply related to his mild rhabdomyolysis. He has not described symptoms consistent with coronary syndrome. He has not had any symptoms of chest pain by report. There are no old biomarkers for comparison. He may have chronic elevations. At this point will continue to trend the markers and determine if any additional workup is required. As this is not likely to have been an acute coronary syndrome do not think any systemic anticoagulation treatment in that regard is warranted at this time. 2. Cardiomegaly: Patient is reported to have an element of vascular congestion on x-ray. His lung examination is unremarkable. He is oxygenating well and is not dyspneic. I think would be reasonable repeat an echocardiogram to determine if he continues to have preserved LV function. He did receive 1 dose of diuretic. However, he has declining renal function and may have an element of rhabdomyolysis. He likely requires some hydration overnight. We will need to monitor his respiratory status and exam carefully. 3. Valvular heart disease: Patient had mild mitral regurgitation 2013. Will re -evaluate with echocardiogram. 4. Atrial fibrillation: Permanent. No symptoms. He appears to have adequate rate control. He is on systemic anticoagulation in this should be continued.
[2017-04-12 19:27] VITALS: BP 106/69; PULSE 73; TEMP 36.7; O2SAT 96
[2017-04-12] MEDS: INSULIN ASPART 100 UNITS/ML 3 ML PEN SC SCH ×2 (21:00→21:51)
[2017-04-12] MEDS ORDERED: NON-FORMULARY MEDICATION (Melatonin (Kp Melatonin) 1 TAB) PO SCH (21:00)
[2017-04-12 23:59] VITALS: BP 124/76; PULSE 94; TEMP 36.4; O2SAT 97
[2017-04-13] MEDS: SODIUM CHLORIDE 0.9% 1000ML 1,000 ML IV SCH ×4 (02:20→23:54)
[2017-04-13 03:08] VITALS: BP 120/71; PULSE 100; TEMP 37; O2SAT 93
[2017-04-13] MEDS ORDERED: NON-FORMULARY MEDICATION SCH (03:30)
[2017-04-13 06:31] LABS: INR 2.6 (0.9-1.1); PROTHROMBIN TIME (PATIENT) 28.8 SECONDS (9.0-12.0)
[2017-04-13 06:45] LABS: HEMATOCRIT 35.9 % (42-52); MEAN CELL VOLUME 90.9 fL (80-100); MEAN CORPUSCULAR HEMOGLOBIN 32.7 pg (25-34); MEAN CORPUSCULAR HGB CONC 35.9 g/dl (32-36); MEAN PLATELET VOLUME 11.4 fL (7.4-10.4); PLATELET COUNT 146 K/uL (130-400); RED BLOOD COUNT 3.95 M/uL (4.7-6.1); WHITE BLOOD COUNT 12.93 K/uL (4.8-10.8)
[2017-04-13 07:03] LABS: BUN/CREATININE RATIO 32.6 (10-20); CALCIUM 8.6 mg/dl (8.5-10.1); MAGNESIUM 2.1 mg/dl (1.8-2.4); POTASSIUM 3.4 mmol/L (3.5-5.1)
[2017-04-13 07:16] LABS: ALB/GLOB RATIO 1.1 (0.9-2)
--- NOTE | 2017-04-13 07:30 | Family Medicine Progress Note ---
Progress Note Date of Service Apr 13, 2017. Subjective Pt evaluation today including: conversation w/ patient, conversation w/ family , physical exam, chart review, lab review Voiding: no voiding problems Subjective assessment and ROS difficult to assess due to patient's condition Constitutional: No fever, No chills Respiratory: No cough Cardiovascular: + edema, No chest pain Musculoskeletal: + swelling Neurologic: + memory loss Skin: + new/changing skin lesions Medications Current Inpatient Medications Medications (Trade) Dose Ordered Sig/[place] Route Start Time Stop Time Status Last Admin Dose Admin Acetaminophen (Tylenol Tab) 650 mg Q4H PRN PO 04/12/17 13:00 05/12/17 12:59 Al Hydrox/Mg Hydrox/Simethicone (Maalox Max Susp) 15 ml Q4H PRN PO 04/12/17 13:00 05/12/17 12:59 Magnesium Hydroxide (Milk Of Magnesia Susp) 30 ml Q12H PRN PO 04/12/17 13:00 05/12/17 12:59 Ondansetron HCl (Zofran Inj) 4 mg Q6H PRN IV 04/12/17 13:00 05/12/17 12:59 Nitroglycerin (Nitrostat Tab) 0.4 mg UD PRN SL 04/12/17 13:00 05/12/17 12:59 Morphine Sulfate (MoRPHine SULFATE INJ) 2 mg Q30M PRN IV 04/12/17 13:00 04/26/17 12:59 Aspirin (Ecotrin Tab) 81 mg QAM PO 04/13/17 09:00 05/13/17 08:59 04/13/17 08:38 81 MG Polyethylene (Miralax Powder Packet) 17 gm DAILY PRN PO 04/12/17 13:00 05/12/17 12:59 Sodium Chloride 1,000 ml @ 125 mls/hr Q8H IV 04/12/17 15:15 05/12/17 12:59 04/13/17 15:19 125 MLS/HR Insulin Aspart (novoLOG ASPART) SLIDING SCALE G... ACHS SC 04/12/17 16:00 05/12/17 15:59 04/13/17 17:44 6 UNITS Cyanocobalamin (Vitamin B-12 Tab) 1,000 mcg DAILY PO 04/13/17 09:00 05/13/17 08:59 04/13/17 08:38 1,000 MCG Multivitamins (Multivitamin Tab) 1 tab DAILY PO 04/13/17 09:00 05/13/17 08:59 04/13/17 08:38 1 TAB Verapamil HCl (Calan-Sr Tab) 240 mg QAM PO 04/13/17 09:00 05/13/17 08:59 04/13/17 08:37 240 MG Hydralazine HCl (HydrALAZINE INJ) 10 mg Q6H PRN IV. 04/12/17 13:30 05/12/17 13:29 Glucose (Glucose 40% Gel) 15-30 GRAMS 15 GRAMS... UD PRN PO 04/12/17 14:15 05/12/17 14:14 Glucose (Glucose Chew Tab) 4-8 Tablets 4 Tabl... UD PRN PO 04/12/17 14:15 05/12/17 14:14 Dextrose (Dextrose 50% 50ML Syringe) 25-50ML OF 50% DW IV FOR... UD PRN IV 04/12/17 14:15 05/12/17 14:14 Glucagon (Glucagon Inj) 1 mg UD PRN SQ 04/12/17 14:15 05/12/17 14:14 Warfarin Sodium (Coumadin Tab) 5 mg DAILY@16 PO 04/12/17 16:00 05/12/17 15:59 04/13/17 15:59 5 MG Insulin Glargine (Lantus Solostar Pen) 20 units HS SC 04/13/17 21:00 05/13/17 20:59 04/13/17 21:09 20 UNITS Nystatin (Mycostatin Powder) 1 appln PRN PRN EXT 04/13/17 19:15 05/13/17 19:14 Objective Vital Signs Date Time Temp Pulse Resp B/P (MAP) Pulse Ox O2 Delivery O2 Flow Rate FiO2 04/13/17 18:37 36.9 81 16 121/59 (79) 95 Room Air 04/13/17 16:00 Room Air 04/13/17 15:42 36.7 76 18 152/120 (131) 94 04/13/17 12:00 Room Air 04/13/17 11:36 37.0 77 16 108/67 (81) 91 04/13/17 08:10 36.3 77 18 135/80 (98) 96 04/13/17 08:00 Room Air 04/13/17 04:26 Room Air 04/13/17 03:08 37.0 100 19 120/71 (87) 93 Room Air 04/12/17 23:59 36.4 94 18 124/76 (92) 97 Room Air 04/12/17 23:59 Room Air Physical Exam General Appearance: WD/WN, no apparent distress, + obese Eyes: normal inspection, PERRL, EOMI ENT: hearing grossly normal Respiratory/Chest: chest non-tender, lungs clear, normal breath sounds, no respiratory distress, no accessory muscle use Cardiovascular: no murmur, + irregularly irregular Abdomen: normal bowel sounds, soft Extremities: + pedal edema, + swelling, + pertinent finding (missing toes; also has 2 bandaged areas from recent trauma, one on right proximal lower leg, also on left distal anterior mendenhall) Neurologic/Psychiatric: vaccine 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 nml as tested, alert, normal mood/affect, + disoriented Skin: + pertinent finding (LL skin findings described above) Laboratory Results 04/13/17 06:06 04/13/17 06:06 Test 04/13/17 06:06 04/13/17 09:56 04/13/17 17:44 04/13/17 20:23 Red Blood Count 3.95 M/uL (4.7-6.1) Mean Corpuscular Volume 90.9 fL (80-100) Mean Corpuscular Hemoglobin 32.7 pg (25-34) Mean Corpuscular Hemoglobin Concent 35.9 g/dl (32-36) RDW Standard Deviation 45.7 fL (36.4-46.3) RDW Coefficient of Variation 13.8 % (11.5-14.5) Mean Platelet Volume 11.4 fL (7.4-10.4) Prothrombin Time 28.8 SECONDS (9.0-12.0) Prothromb Time International Ratio 2.6 (0.9-1.1) Anion Gap 9.0 mmol/L (3-11) Est Creatinine Clear Calc Drug Dose 89.4 ml/min Estimated GFR () 84.4 Estimated GFR (Non- 72.8 BUN/Creatinine Ratio 32.6 (10-20) Calcium Level 8.6 mg/dl (8.5-10.1) Magnesium Level 2.1 mg/dl (1.8-2.4) Total Bilirubin 1.3 mg/dl (0.2-1) Aspartate Amino Transf (AST/SGOT) 169 U/L (15-37) Alanine Aminotransferase (ALT/SGPT) 75 U/L (12-78) Alkaline Phosphatase 89 U/L (45-117) Total Protein 6.2 gm/dl (6.4-8.2) Albumin 3.3 gm/dl (3.4-5.0) Globulin 2.9 gm/dl (2.5-4.0) Albumin/Globulin Ratio 1.1 (0.9-2) Creatine Kinase MB 47.1 ng/ml (0.5-3.6) Creatine Kinase MB Ratio (0-3.0) Troponin I 1.230 ng/ml (0-0.045) Total Creatine Kinase 4501 U/L (39-308) Bedside Glucose 138 mg/dl (70-99) Assessment and Plan Patient is a pleasant 77 y/o male, with PMHx of CAD, HLD, T2DM, HTN, a.fib on chronic anticoagulation therapy,dementia, and anxiety, who presented to the ED because of a fall which resulted in him being outside in cold for >3 hours. Rhabdomyolysis secondary to fall of unknown cause: - IV NSS @125ml/hr - Follow CPK- trending to 4000 - Leukocytosis- follow CBC; down fro 22 to 12 - BCx pending- received IV Daptomycin and Cefepime in ED prior to BCx - UA shows trace occult blood, neg leuk/nitrites/bili - MRSA swab negative - Elevated liver enzymes- follow CMP - Head CT unremarkable - CXR- ?CHF, no evidence of infectious process- given IV Lasix 40 mg x1 dose in ED; did not continue Lasix due to IVF - Tibia/fibula and pelvis x-rays without fractures - Wound care for bilateral lower extremity wounds Elevated trop, likely secondary to demand ischemia: - Admit to tele for cardiac monitoring - O2 protocol - Trend cardiac enzymes - Follow EKG PRN for chest pain - Nitro and Morphine PRN for chest pain - Cardiology consulted, appreciate recommendations BENEDICT: - Hold nephrotoxic agents and renally dose medications - IVF as above - Follow PRP A.fib- rate controlled, CAD, HLD- follows w/ Dr. Osborn: - Continue Verapamil - Continue Coumadin- follow PT/INR and adjust dosage PRN for INR goal of 2-3 - Hold Lipitor due to elevated liver enzymes HTN: - Hold Lisinopril due to BENEDICT - Hydralazine PRN T2DM: - Hold Glipizide - BSG ACHS and ISS - 20 U lantus qhs started de to elevated glucose over 24 hours Nystatin powder for skin lesions on chest DVT prophylaxis: Coumadin Code Status: LEVEL I, FULL Dispo: From home, lives w/ - PT/OT and CM consulted Assessment/Plan Resident Physician Supervision Note: I was present with Dr. Barber during the history and exam. I discussed the case with the resident and agree with the findings and plan as documented in the note. Any exceptions or clarifications are listed here. 77 y/o male h/o dementia, CAD, HLD, DMII, HTN, AF presents after being found down outside for unknown period of time. Pt resting comfortably in bed without complaint. Oriented to self only. Denies any pain, fever, SOB. Spouse and daughters present in room. The pts spouse professes some concerns regarding caring for the patient at home. She is forced to sleep in a chair downstairs and listen for bells that they've set up at the doors to redirect the patient from leaving the home. Additionally, she expresses some concern re: her safety while engaging him in routine medical management of his DMII. Her daughter works @ [employer] and is concerned about sending him somewhere that he may never be able to leave but they appear understanding about the spouse's concerns re: safety and appropriate level of care. S1/S2 nl RRR no MCG, CTAB. NT /ND BS+ve, some erythema and skin breakdown evident in the skin folds with suboptimal examination 2/2 patient cooperation. The patient will require IV and PO hydration for rhabdo resulting from his fall and monitoring of CK and BMP q12 initially. Cardiology is consulted 2/2 elevated troponin w/ h/o CAD and does not feel that his present situation was precipitated by his heart and cautions re: gentle hydration. Regarding the patient's AF, will continue present regimen and AC and verapamil. For the patient's HTN, will monitor BP and increase medication as needed. Resident Tracking Resident Involvement: Resident Care Provided Care Provided: Adult Hospital Medicine
[2017-04-13] MEDS ORDERED: PERFLUTREN LIPID MICROSPHERE (DEFINITY) IV ONE (07:34)
[2017-04-13 08:10] VITALS: BP 135/80; PULSE 77; TEMP 36.3; O2SAT 96
[2017-04-13] MEDS: INSULIN ASPART 100 UNITS/ML 3 ML PEN SC SCH ×4 (08:36→20:37)
[2017-04-13] MEDS: VERAPAMIL HCL 240 MG TABCR PO SCH (08:37)
[2017-04-13] MEDS: CYANOCOBALAMIN 500 MCG TAB (VIT B-12) PO SCH (08:38)
[2017-04-13] MEDS: ASPIRIN 81 MG ECTAB PO SCH (08:38)
[2017-04-13] MEDS: MULTIVITAMIN TAB PO SCH (08:38)
--- NOTE | 2017-04-13 09:55 | ECHOCARDIOGRAM REPORT ---
*NOTICE TO RECEIVING LIBERTARIAN AGENCY This information is strictly Confidential and protected under [place] law. [place] law prohibits you from making any further disclosure of this information unless further disclosure is expressly permitted by the written consent of the person to whom it pertains or is authorized by law. A general authorization for the release of medical or other information is not sufficient for this purpose. Hospital accepts no responsibility if the information is made available to any other person, INCLUDING THE PATIENT. Interpretation Summary * Name: DEQUAN HOLLIDAY Study Date: 04/13/2017 08:12 AM BP: 135/80 mmHg * Patient Location: .2T\S\E218\S\1 HR: 77 * : 1940 (M/d/yyy) Gender: Male Height: 64 in * Age: 77 yrs Ethnicity: CA Weight: 358 lb * Ordering Physician: Christopher. Tafoya MD * Performed By: Alessandra Jones RDCS * * Reason For Study: CARDIOMEGALY * BSA: 2.5 m2 * -- Conclusions -- * Image quality was severely limited * Left ventricular systolic function is normal. Procedure Details * A complete two-dimensional transthoracic echocardiogram was performed (2D, M-mode, Doppler and color flow Doppler). * The study was technically difficult. * The study was technically limited. * A contrast injection of Definity was performed to improve assessment of LV function. * Contrast was injected into an intravenous site in the left arm. * One vial of Definity ultrasound contrast was diluted in normal saline to a total volume of 10 ml. A total of '3' ml of solution was administered during imaging. * Lot # [id number] of Definity utilized for procedure. * Expiration date 05/20. * The attending nurse who injected the contrast agent was HAFSA CRUZ RN. * Image quality was severely limited Left Ventricle * The left ventricle is grossly normal size. * Ejection Fraction = 50-55%. * Left ventricular systolic function is normal. * The left ventricular wall motion is normal. Right Ventricle * The right ventricle is not well visualized. Atria * The left atrium is not well visualized. Mitral Valve * The mitral valve is grossly normal. Tricuspid Valve * The tricuspid valve is not well visualized. Aortic Valve * Aortic valve sclerosis mild, without significant aortic valvular stenosis. Pericardium/Pleural * There is no pericardial effusion. Great Vessels * Normal inferior vena cava diameter and respiratory variation suggests normal central venous pressure. MMode 2D Measurements and Calculations IVSd 1.1 cm IVSs 1.7 cm LVIDd 5.1 cm LVIDs 3.7 cm LVPWd 1.3 cm LVPWs 1.5 cm IVS/LVPW 0.85 FS 26.9 % EDV(Teich) 124.6 ml ESV(Teich) 59.5 ml EF(Teich) 52.2 % EDV(cubed) 133.7 ml ESV(cubed) 52.1 ml EF(cubed) 61.0 % % IVS thick 51.3 % % LVPW thick 13.5 % LV mass(C)d 239.9 grams LV mass(C)dI 95.8 grams/m\S\2 LV mass(C)s 225.1 grams LV mass(C)sI 89.9 grams/m\S\2 SV(Teich) 65.1 ml SI(Teich) 26.0 ml/m\S\2 SV(cubed) 81.6 ml SI(cubed) 32.6 ml/m\S\2 ACS 1.6 cm asc Aorta Diam 4.1 cm LVOT diam 2.3 cm LVOT area 4.2 cm\S\2 LVAd ap4 24.9 cm\S\2 LVLd ap4 7.6 cm EDV(MOD-sp4) 70.5 ml EDV(sp4-el) 69.9 ml LVAs ap4 15.5 cm\S\2 LVLs ap4 6.4 cm ESV(MOD-sp4) 30.9 ml ESV(sp4-el) 31.9 ml EF(MOD-sp4) 56.1 % EF(sp4-el) 54.3 % SV(MOD-sp4) 39.5 ml SI(MOD-sp4) 15.8 ml/m\S\2 SV(sp4-el) 38.0 ml SI(sp4-el) 15.2 ml/m\S\2 Doppler Measurements and Calculations MV E max baljit 64.9 cm/sec MV A max bajlit 35.0 cm/sec MV E/A 1.9 MV dec time 0.25 sec Ao V2 max 106.1 cm/sec Ao max PG 4.5 mmHg Ao max PG (full) 1.8 mmHg CARMELITA(V,A) 3.2 cm\S\2 CARMELITA(V,D) 3.2 cm\S\2 LV V1 max PG 2.7 mmHg LV V1 max 82.2 cm/sec PA V2 max 67.4 cm/sec PA max PG 1.8 mmHg
[2017-04-13 11:36] VITALS: BP 108/67; PULSE 77; TEMP 37; O2SAT 91
--- NOTE | 2017-04-13 11:43 | Cardiology Follow-Up ---
Subjective Date of Service: Apr 13, 2017. Pt evaluation today including: conversation w/ patient, conversation w/ family , physical exam, chart review, lab review, review of studies, conversation w/ attending History of Present Illness This morning the patient claims to be feeling well. He apparently did not sleep much last evening. He also felt that he had a breathing test in the alley , and clearly has little insight into his current situation. His is at the bedside and she provided some supplemental history. She reports in being slightly more confused currently and he has been in the past. Did not endorse any symptoms of pain. He did not report any breathing difficulty. Social History Smoking Status: Never Smoker History of Alcohol Use: No Review of Systems Review history per HPI. Patient could not reliably give any additional review of systems Objective Vital Signs Past 12 Hours Date Time Temp Pulse Resp B/P (MAP) Pulse Ox O2 Delivery O2 Flow Rate FiO2 04/13/17 11:36 37.0 77 16 108/67 (81) 91 04/13/17 08:10 36.3 77 18 135/80 (98) 96 04/13/17 08:00 Room Air 04/13/17 04:26 Room Air 04/13/17 03:08 37.0 100 19 120/71 (87) 93 Room Air 04/12/17 23:59 36.4 94 18 124/76 (92) 97 Room Air 04/12/17 23:59 Room Air Last Recorded Weight-Kilograms: 162.600 Physical Exam The patient is alert Mood and affect appeared normal. He answered all questions , but supplemental history was provided by the family. HEENT: Pupils are equal and reactive to light and accommodation. Extraocular movements are intact. The sclerae are anicteric. Neuro: Cranial nerves intact Lungs: Clear to auscultation bilaterally. He has good air movement without use of accessory muscles. No rales wheezes or rhonchi. Cardiac: Heart demonstrates an irregular rate and rhythm. Normal S1 and S2. No murmurs on examination. Pulses: The patient has palpable radial pulses bilaterally that are equal in intensity . Data Laboratory Results: Last 24 Hours Test 04/12/17 12:30 04/12/17 16:44 04/12/17 18:00 04/12/17 18:51 Urine Color YELLOW Urine Appearance CLOUDY Urine pH 5.0 Urine Specific Ola 1.019 Urine Protein TRACE Urine Glucose (UA) TRACE Urine Ketones TRACE Urine Occult Blood 3+ Urine Nitrite NEG Urine Bilirubin NEG Urine Urobilinogen NEG Urine Leukocyte Esterase NEG Urine WBC (Auto) 1-5 /hpf Urine RBC (Auto) 10-30 /hpf Urine Hyaline Casts (Auto) 10-30 /lpf Urine Epithelial Cells (Auto) 5-10 /lpf Urine Bacteria (Auto) NEG Urine Crystals See comments Urine Pathogenic Casts /lpf Urine Yeast (Auto) Bedside Glucose 307 mg/dl Creatine Kinase MB Ratio Creatine Kinase MB 103.0 ng/ml Troponin I 1.070 ng/ml Test 04/12/17 20:37 04/13/17 01:37 04/13/17 06:06 04/13/17 09:56 Bedside Glucose 264 mg/dl Creatine Kinase MB 80.6 ng/ml 47.1 ng/ml Creatine Kinase MB Ratio Troponin I 1.500 ng/ml 1.230 ng/ml White Blood Count 12.93 K/uL Red Blood Count 3.95 M/uL Hemoglobin 12.9 g/dL Hematocrit 35.9 % Mean Corpuscular Volume 90.9 fL Mean Corpuscular Hemoglobin 32.7 pg Mean Corpuscular Hemoglobin Concent 35.9 g/dl RDW Standard Deviation 45.7 fL RDW Coefficient of Variation 13.8 % Platelet Count 146 K/uL Mean Platelet Volume 11.4 fL Prothrombin Time 28.8 SECONDS Prothromb Time International Ratio 2.6 Sodium Level 141 mmol/L Potassium Level 3.4 mmol/L Chloride Level 107 mmol/L Carbon Dioxide Level 25 mmol/L Anion Gap 9.0 mmol/L Blood Urea Nitrogen 33 mg/dl Creatinine 1.00 mg/dl Est Creatinine Clear Calc Drug Dose 89.4 ml/min Estimated GFR () 84.4 Estimated GFR (Non- 72.8 BUN/Creatinine Ratio 32.6 Random Glucose 145 mg/dl Calcium Level 8.6 mg/dl Magnesium Level 2.1 mg/dl Total Bilirubin 1.3 mg/dl Aspartate Amino Transf (AST/SGOT) 169 U/L Alanine Aminotransferase (ALT/SGPT) 75 U/L Alkaline Phosphatase 89 U/L Total Creatine Kinase 6030 U/L Total Protein 6.2 gm/dl Albumin 3.3 gm/dl Globulin 2.9 gm/dl Albumin/Globulin Ratio 1.1 Test 11/11/17 11:01 Bedside Glucose 221 mg/dl EKG: Atrial fibrillation. Right bundle branch block. Unchanged. Telemetry reviewed: Atrial fibrillation Echocardiogram obtained today revealed preserved LV systolic function without significant valvular heart disease. Assessment and Plan 1. Elevated cardiac biomarkers: His markers peaked in her trending downward. He may have had an element of demand ischemia or acute diastolic failure. He did not endorse any symptoms consistent with acute coronary syndrome nor did he have any market elevation and the cardiac CK. Normally some for risk stratification would be considered, but given his absence of symptoms, preserved LV systolic function and other comorbidities is unclear if any revascularization would be indicated even in the setting of an abnormal stress test. Therefore, would seem reasonable to simply continue on aggressive medical regimen for secondary prevention which in his case include systemic anticoagulation and a daily baby aspirin. If he has more compelling symptoms or recurrent episodes of cardiac ischemia, noninvasive evaluation could be entertained. 2. Cardiomegaly: Echocardiogram revealed preserved LV systolic function. He has been gently hydrated overnight and has tolerated this well. I do not feel that he requires any aggressive diuresis currently. 3. Valvular heart disease: No significant valvular disease seen on current evaluation. Four. Atrial fibrillation: Permanent. No symptoms. He appears to have adequate rate control. He is on systemic anticoagulation in this should be continued.
[2017-04-13 15:42] VITALS: BP 152/120; PULSE 76; TEMP 36.7; O2SAT 94
[2017-04-13] MEDS: WARFARIN SOD 5 MG TAB PO SCH (15:59)
[2017-04-13 18:37] VITALS: BP 121/59; PULSE 81; TEMP 36.9; O2SAT 95
[2017-04-13] MEDS ORDERED: NYSTATIN POWDER 15GM BTL EXT PRN (19:15)
[2017-04-13] MEDS: INSULIN GLARGINE SOLOSTAR 100 UNITS/ML 3 ML PEN SC SCH (21:09)
[2017-04-13 23:26] VITALS: BP 158/77; PULSE 100; TEMP 36.9; O2SAT 93
[2017-04-14] MEDS ORDERED: RISPERIDONE ODT 0.5MG PO PRN (01:00)
[2017-04-14] MEDS: POTASSIUM CHLR 10 MEQ / WTR 10 MEQ in PREMIXED WATER 100 ML IV SCH ×4 (01:39→12:17)
[2017-04-14 03:32] VITALS: BP 126/70; PULSE 92; TEMP 36.8; O2SAT 94
[2017-04-14 05:50] LABS: HEMATOCRIT 37.4 % (42-52); MEAN CELL VOLUME 92.8 fL (80-100); MEAN CORPUSCULAR HEMOGLOBIN 32.8 pg (25-34); MEAN CORPUSCULAR HGB CONC 35.3 g/dl (32-36); MEAN PLATELET VOLUME 11.5 fL (7.4-10.4); PLATELET COUNT 135 K/uL (130-400); RED BLOOD COUNT 4.03 M/uL (4.7-6.1); WHITE BLOOD COUNT 9.22 K/uL (4.8-10.8)
[2017-04-14 06:04] LABS: INR 2.5 (0.9-1.1); PROTHROMBIN TIME (PATIENT) 27.4 SECONDS (9.0-12.0)
[2017-04-14 06:44] LABS: BUN/CREATININE RATIO 25.8 (10-20); CALCIUM 7.8 mg/dl (8.5-10.1); CREATININE 0.73 mg/dl (0.60-1.40); POTASSIUM 3.7 mmol/L (3.5-5.1)
[2017-04-14] MEDS: INSULIN ASPART 100 UNITS/ML 3 ML PEN SC SCH ×4 (07:47→20:44)
[2017-04-14] MEDS: SODIUM CHLORIDE 0.9% 1000ML 1,000 ML IV SCH ×2 (08:02→14:41)
[2017-04-14 08:18] VITALS: BP 163/100; PULSE 91; TEMP 36.9; O2SAT 90
[2017-04-14] MEDS: ASPIRIN 81 MG ECTAB PO SCH (08:28)
[2017-04-14] MEDS: MULTIVITAMIN TAB PO SCH (08:29)
[2017-04-14] MEDS: CYANOCOBALAMIN 500 MCG TAB (VIT B-12) PO SCH (08:29)
[2017-04-14] MEDS: VERAPAMIL HCL 240 MG TABCR PO SCH (08:29)
[2017-04-14 12:20] VITALS: BP 134/55; PULSE 103; O2SAT 92
[2017-04-14 15:10] VITALS: BP 128/72; PULSE 66; TEMP 36.8; O2SAT 93
[2017-04-14] MEDS: WARFARIN SOD 5 MG TAB PO SCH (15:21)
[2017-04-14 19:05] VITALS: BP 130/78; PULSE 61; TEMP 36.8; O2SAT 90
--- NOTE | 2017-04-14 19:10 | Family Medicine Progress Note ---
Progress Note Date of Service Apr 14, 2017. Subjective Pt evaluation today including: conversation w/ patient, conversation w/ family Subjective assessment and ROS unable to ascertain due to patient disorientation Medications Current Inpatient Medications Medications (Trade) Dose Ordered Sig/[place] Route Start Time Stop Time Status Last Admin Dose Admin Acetaminophen (Tylenol Tab) 650 mg Q4H PRN PO 04/12/17 13:00 05/12/17 12:59 Al Hydrox/Mg Hydrox/Simethicone (Maalox Max Susp) 15 ml Q4H PRN PO 04/12/17 13:00 05/12/17 12:59 Magnesium Hydroxide (Milk Of Magnesia Susp) 30 ml Q12H PRN PO 04/12/17 13:00 05/12/17 12:59 Ondansetron HCl (Zofran Inj) 4 mg Q6H PRN IV 04/12/17 13:00 05/12/17 12:59 Nitroglycerin (Nitrostat Tab) 0.4 mg UD PRN SL 04/12/17 13:00 05/12/17 12:59 Morphine Sulfate (MoRPHine SULFATE INJ) 2 mg Q30M PRN IV 04/12/17 13:00 04/26/17 12:59 Aspirin (Ecotrin Tab) 81 mg QAM PO 04/13/17 09:00 05/13/17 08:59 04/14/17 08:28 81 MG Polyethylene (Miralax Powder Packet) 17 gm DAILY PRN PO 04/12/17 13:00 05/12/17 12:59 Sodium Chloride 1,000 ml @ 125 mls/hr Q8H IV 04/12/17 15:15 05/12/17 12:59 04/14/17 14:41 125 MLS/HR Insulin Aspart (novoLOG ASPART) SLIDING SCALE G... ACHS SC 04/12/17 16:00 05/12/17 15:59 04/14/17 16:59 2 UNITS Cyanocobalamin (Vitamin B-12 Tab) 1,000 mcg DAILY PO 04/13/17 09:00 05/13/17 08:59 04/14/17 08:29 1,000 MCG Multivitamins (Multivitamin Tab) 1 tab DAILY PO 04/13/17 09:00 05/13/17 08:59 04/14/17 08:29 1 TAB Verapamil HCl (Calan-Sr Tab) 240 mg QAM PO 04/13/17 09:00 05/13/17 08:59 04/14/17 08:29 240 MG Hydralazine HCl (HydrALAZINE INJ) 10 mg Q6H PRN IV. 04/12/17 13:30 05/12/17 13:29 Glucose (Glucose 40% Gel) 15-30 GRAMS 15 GRAMS... UD PRN PO 04/12/17 14:15 05/12/17 14:14 Glucose (Glucose Chew Tab) 4-8 Tablets 4 Tabl... UD PRN PO 04/12/17 14:15 05/12/17 14:14 Dextrose (Dextrose 50% 50ML Syringe) 25-50ML OF 50% DW IV FOR... UD PRN IV 04/12/17 14:15 05/12/17 14:14 Glucagon (Glucagon Inj) 1 mg UD PRN SQ 04/12/17 14:15 05/12/17 14:14 Warfarin Sodium (Coumadin Tab) 5 mg DAILY@16 PO 04/12/17 16:00 05/12/17 15:59 04/14/17 15:21 5 MG Insulin Glargine (Lantus Solostar Pen) 20 units HS SC 04/13/17 21:00 05/13/17 20:59 04/14/17 21:33 20 UNITS Nystatin (Mycostatin Powder) 1 appln PRN PRN EXT 04/13/17 19:15 05/13/17 19:14 Objective Vital Signs Date Time Temp Pulse Resp B/P (MAP) Pulse Ox O2 Delivery O2 Flow Rate FiO2 04/14/17 19:05 36.8 61 20 130/78 (95) 90 Room Air 04/14/17 16:00 Room Air 04/14/17 15:10 36.8 66 20 128/72 (90) 93 Room Air 04/14/17 12:20 103 20 134/55 (81) 92 04/14/17 12:00 Room Air 04/14/17 08:18 36.9 91 20 163/100 (121) 90 Room Air 04/14/17 08:00 Room Air 04/14/17 04:00 Room Air 04/14/17 03:32 36.8 92 20 126/70 (88) 94 Room Air 04/13/17 23:59 Room Air 04/13/17 23:26 36.9 100 22 158/77 (104) 93 Room Air Physical Exam General Appearance: WD/WN, no apparent distress, + obese Eyes: normal inspection, EOMI ENT: hearing grossly normal Neck: supple Respiratory/Chest: chest non-tender, lungs clear, normal breath sounds Cardiovascular: regular rate, rhythm, no murmur Abdomen: normal bowel sounds, non tender, soft Extremities: normal range of motion, + pedal edema, + pertinent finding (few toes missing, dressings still applied to wounds on legs) 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, + disoriented Laboratory Results 04/14/17 05:32 04/14/17 05:32 Test 04/14/17 05:32 04/14/17 20:24 Red Blood Count 4.03 M/uL (4.7-6.1) Mean Corpuscular Volume 92.8 fL (80-100) Mean Corpuscular Hemoglobin 32.8 pg (25-34) Mean Corpuscular Hemoglobin Concent 35.3 g/dl (32-36) RDW Standard Deviation 46.8 fL (36.4-46.3) RDW Coefficient of Variation 13.7 % (11.5-14.5) Mean Platelet Volume 11.5 fL (7.4-10.4) Prothrombin Time 27.4 SECONDS (9.0-12.0) Prothromb Time International Ratio 2.5 (0.9-1.1) Anion Gap 6.0 mmol/L (3-11) Est Creatinine Clear Calc Drug Dose 122.4 ml/min Estimated GFR () 104.4 Estimated GFR (Non- 90.1 BUN/Creatinine Ratio 25.8 (10-20) Calcium Level 7.8 mg/dl (8.5-10.1) Total Bilirubin 1.1 mg/dl (0.2-1) Aspartate Amino Transf (AST/SGOT) 199 U/L (15-37) Alanine Aminotransferase (ALT/SGPT) 98 U/L (12-78) Alkaline Phosphatase 82 U/L (45-117) Total Creatine Kinase 4154 U/L (39-308) Total Protein 6.1 gm/dl (6.4-8.2) Albumin 3.1 gm/dl (3.4-5.0) Globulin 3.0 gm/dl (2.5-4.0) Albumin/Globulin Ratio 1.0 (0.9-2) Chemistry Specimen Hemolysis Bedside Glucose 174 mg/dl (70-99) Assessment and Plan Patient is a pleasant 77 y/o male, with PMHx of CAD, HLD, T2DM, HTN, a.fib on chronic anticoagulation therapy,dementia, and anxiety, who presented to the ED because of a fall which resulted in him being outside in cold for >3 hours. Overnight, patient was quite agitated, received 0.25 risperidone. Rhabdomyolysis secondary to fall of unknown cause: - IV NSS @125ml/hr - Follow CPK- trending to 4000 - Leukocytosis- resolved - Elevated liver enzymes- follow CMP and continue to hold lipitor - BCx pending- received IV Daptomycin and Cefepime in ED prior to BCx - UA shows trace occult blood, neg leuk/nitrites/bili - MRSA swab negative - Head CT unremarkable - CXR- ?CHF, no evidence of infectious process- given IV Lasix 40 mg x1 dose in ED; did not continue Lasix due to IVF - Tibia/fibula and pelvis x-rays without fractures - Wound care for bilateral lower extremity wounds Elevated trop, likely secondary to demand ischemia: - Admit to tele for cardiac monitoring, can likely step down off tele tomorrow. - O2 protocol - Trend cardiac enzymes - Nitro and Morphine PRN for chest pain - Cardiology consulted, appreciate recommendations Hypokalemia - Found to have ectopy and K of 3.4 - With introduction of insulin, added 20 U K IV; K upped to 3.7 - Another 20 U IV added - Monitor K BENEDICT: - Resolved A.fib- rate controlled, CAD, HLD- follows w/ Dr. Osborn: - Continue Verapamil - Continue Coumadin- follow PT/INR and adjust dosage PRN for INR goal of 2-3 - Hold Lipitor due to elevated liver enzymes HTN: - Hold Lisinopril due to BENEDICT; careful reintroduction - Hydralazine PRN T2DM: - Hold Glipizide - BSG ACHS and ISS - 20 U lantus qhs started; 24 hrs of glucose since have been well controlled Nystatin powder for skin lesions on chest DVT prophylaxis: Coumadin Code Status: LEVEL I, FULL Dispo: From home, lives w/ - PT/OT and CM consulted Resident Involvement: Resident Care Provided Care Provided: Adult Hospital Medicine Assessment/Plan Resident Physician Supervision Note: I was present with Dr. Barber during the history and exam. I discussed the case with the resident and agree with the findings and plan as documented in the note. Any exceptions or clarifications are listed here. 77 y/o male h/o dementia, CAD, HLD, DMII, HTN, AF presents after being found down outside for unknown period of time. Pt resting comfortably in bed without complaint. Oriented to self only. Spouse and daughters present in room. yesterday, the pts spouse professed some concerns regarding caring for the patient at home. She is forced to sleep in a chair downstairs and listen for bells that they've set up at the doors to redirect the patient from leaving the home. Additionally, she expresses some concern re: her safety while engaging him in routine medical management of his DMII. Her daughter works @ [employer] and is concerned about sending him somewhere that he may never be able to leave but they appear understanding about the spouse's concerns re: safety and appropriate level of care. Today, the patient and I discussed further need for supportive care in light of the spouses inability to care for the patient in home, which is causing her some considerable emotional duress. S1/S2 nl RRR no MCG, CTAB. NT/ND BS+ve, some erythema and skin breakdown evident in the skin folds with suboptimal examination 2/2 patient cooperation. Continue IV and PO hydration for rhabdo resulting from his fall and monitoring of CK and BMP q12. Cardiology is consulted 2/2 elevated troponin w/ h/o CAD and does not feel that his present situation was precipitated by his heart and cautions re: gentle hydration. Regarding the patient's AF, will continue present regimen and AC and verapamil. For the patient's HTN, will monitor BP and increase medication as needed. Seek placement amenable for family needs.
[2017-04-14] MEDS: INSULIN GLARGINE SOLOSTAR 100 UNITS/ML 3 ML PEN SC SCH (21:33)
[2017-04-14 22:57] VITALS: BP 151/90; PULSE 87; TEMP 36.9; O2SAT 92
--- NOTE | 2017-04-14 23:03 | DIAGNOSTIC IMAGING REPORT ---
CHEST ONE VIEW PORTABLE HISTORY: 77 years-old Male hypoxia ?pulmonary edema acute hypoxia with pulmonary edema COMPARISON: Chest radiograph 04/12/2017 TECHNIQUE: Portable upright AP view of the chest FINDINGS: Cardiac silhouette is moderately enlarged, unchanged. There is prominence of the pulmonary vascularity with bilateral mixed interstitial and alveolar opacities, right greater than left which has progressed from prior study. There is no pneumothorax. Small left pleural effusion with hazy bibasilar opacities. The bones of the chest are grossly intact. Mild atherosclerosis of the aorta. Degenerative changes of the spine and shoulders. IMPRESSION: 1. Cardiomegaly with pulmonary vascular congestion and asymmetric right greater than left mild pulmonary edema pattern. 2. Small left pleural effusion with bibasilar opacities suggesting atelectasis. Pneumonia is thought to be less likely. The above report was generated using voice recognition software. It may contain grammatical, syntax or spelling errors. Electronically signed by: Yordy Cody M.D. 04/14/2017 11:02 PM Dictated Date/Time: 04/14/2017 11:00 PM
[2017-04-15 03:49] VITALS: BP 147/75; PULSE 80; TEMP 37; O2SAT 93
[2017-04-15 07:17] LABS: MEAN CORPUSCULAR HEMOGLOBIN 31.9 pg (25-34); MEAN CORPUSCULAR HGB CONC 34.3 g/dl (32-36); MEAN PLATELET VOLUME 11.5 fL (7.4-10.4); PLATELET COUNT 145 K/uL (130-400); RED BLOOD COUNT 3.98 M/uL (4.7-6.1); WHITE BLOOD COUNT 9.22 K/uL (4.8-10.8)
[2017-04-15 07:32] LABS: INR 2.7 (0.9-1.1); PROTHROMBIN TIME (PATIENT) 30.1 SECONDS (9.0-12.0)
[2017-04-15] MEDS: INSULIN ASPART 100 UNITS/ML 3 ML PEN SC SCH ×4 (07:36→21:00)
[2017-04-15 07:39] VITALS: BP 156/97; PULSE 75; TEMP 37; O2SAT 91
[2017-04-15 07:50] LABS: BUN/CREATININE RATIO 23.8 (10-20); CALCIUM 8.1 mg/dl (8.5-10.1); CREATININE 0.64 mg/dl (0.60-1.40); POTASSIUM 3.7 mmol/L (3.5-5.1)
--- NOTE | 2017-04-15 08:07 | Clinical Documentation Query ---
CLINICAL DOCUMENTATION QUERY QUERY 1 OF 2 77 y/o male, with PMHx of CAD, HLD, T2DM, HTN, a.fib on chronic anticoagulation therapy,dementia, and anxiety, who presented to the ED because of a fall. According to the patient, he was trying to get into the house when his legs became extremely weak and he fell to the ground. In your clinical opinion is this patient being managed for: ( ) Acute on chronic diastolic CHF ( x ) Not Agree ( ) Other explanation of clinical findings (Please Explain) ( ) Unable to determine (Please Define) ( ) Need to Discuss The medical record reflects the following clinical findings, treatment, and risk factors. Clinical Indicators: Echo revealed preserved LV systolic function, CXR reveals pulmonary vascular congestion, 2+ pedal edema, SPO2 90% on room air Treatment: Lasix 40 mg IV Risk Factors: Age, A fib, HTN, DM2 QUERY 2 OF 2 In your clinical opinion is this patient being managed for: ( x ) Encephalopathy ( ) Not Agree ( ) Other explanation of clinical findings (Please Explain) ( ) Unable to determine (Please Define) ( ) Need to Discuss The medical record reflects the following clinical findings, treatment, and risk factors. Clinical Indicators: Altered mental status, patient's states " he has a h/o dementia, but has been more confused than normal lately over the past couple of days" Treatment: Telemetry, serial lab monitoring, aspiration and fall precautions Risk Factors: Age, dementia, hx of fall Please clarify and document your clinical opinion in the progress notes and discharge summary. Terms such as "probable", "suspected", "likely", "questionable", "possible", or "still to be ruled out" are acceptable. IF IN AGREEMENT, YOU MUST DOCUMENT ABOVE DIAGNOSTIC STATEMENT IN DAILY PROGRESS NOTES AND DISCHARGE SUMMARY. This document is not part of the patient's record. Thank You, Talia Briscoe RN [phone]
[2017-04-15] MEDS: CYANOCOBALAMIN 500 MCG TAB (VIT B-12) PO SCH (08:26)
[2017-04-15] MEDS: ASPIRIN 81 MG ECTAB PO SCH (08:26)
[2017-04-15] MEDS: MULTIVITAMIN TAB PO SCH (08:26)
[2017-04-15] MEDS: VERAPAMIL HCL 240 MG TABCR PO SCH (08:27)
[2017-04-15 11:00] VITALS: BP 154/94; PULSE 66; TEMP 37; O2SAT 91
--- NOTE | 2017-04-15 14:43 | Medical Student: [facility] ---
Med Student History & Physical Date & Time of Service: Apr 15, 2017 at 14:05 Chief Complaint: Elevated Troponin, Fall Primary Care Physician: Raj Mora M.D. History of Present Illness Source: EMS Mr. Simeon is a 77 yo male with past medical history of dementia, DM2 , CAD, HLD, HTN, and afib who presented to the ED following a fall outside and being unable to get up for hours. The patient is a poor historian however, due to his dementia and no family member was present at the time I saw him. Majority of my history is from the H&P from the ER. Initial presentation was notable for hypotension, hypothermia, leukocytosis, elevated CK and troponin, and hematuria on UA. Imaging notable for no acute changes on head CT, no bone fractures, no lobar consolidations on CXR, EKG showed Afib and RBBB and possible lateral ischemia without ST elevations, and echo showed normal LV. Past Medical/Surgical History Medical Problems: (1) Non-STEMI (non-ST elevated myocardial infarction) Status: Acute (2) Osteomyelitis of toe of left foot Status: Acute (3) Tinea Status: Acute (4) Weakness Status: Acute Social History Smoking Status: Never Smoker Drug Use: none Marital Status: Housing status: lives with family Occupational Status: retired Immunizations History of Influenza Vaccine: No History of Tetanus Vaccine?: utd History of Pneumococcal: Unknown History of Hepatitis B Vaccine: No Allergies Coded Allergies: Metformin (Unverified Allergy, Unknown, ., 04/12/17) CI Pigment Blue 63 (Verified Adverse Reaction, Intermediate, IRRITABILITY , 04/12/17) Duloxetine (Verified Adverse Reaction, Intermediate, IRRITABILITY, ) Pregabalin (Unverified Adverse Reaction, Intermediate, "SPACES HIM OUT", 04/12/17) Medications Atorvastatin (Lipitor), 40 MG PO QPM Baclofen (Lioresal), 20 MG PO TID Cholecalciferol (Vitamin D3), 1 TAB PO DAILY Cyanocobalamin (Vitamin B-12), 1,000 MCG PO DAILY Glipizide Xl (Glucotrol Xl), 10 MG PO BID Lisinopril (Prinivil), 5 MG PO DAILY Lorazepam (Ativan), 1 MG PO HS Melatonin (Kp Melatonin), 1 TAB PO HS Misc Natural Products (Ginkgo Biloba), 60 MG PO DAILY Multivitamin (Multivitamin), 1 TAB PO DAILY Triamterene/Hctz (Dyazide 37.5MG/25MG), 1 CAP PO DAILY Verapamil HCl (Verapamil HCl ER), 240 MG PO QAM Warfarin Sod (Jantoven), 10 MG PO UD Review of Systems Musculoskeletal: + problem reported (right leg pain) Physical Exam Vital Signs (24 Hours) Date Time Temp Pulse Resp B/P (MAP) Pulse Ox O2 Delivery O2 Flow Rate FiO2 04/15/17 08:00 Nasal Cannula 4.0 04/15/17 07:39 37.0 75 18 156/97 (116) 91 Nasal Cannula 4.0 04/15/17 04:00 Nasal Cannula 4.0 04/15/17 03:49 37.0 80 22 147/75 (99) 93 Nasal Cannula 4.0 04/14/17 23:59 Nasal Cannula 4.0 04/14/17 22:57 36.9 87 24 151/90 (110) 92 Nasal Cannula 4.0 04/14/17 20:00 Room Air 04/14/17 19:05 36.8 61 20 130/78 (95) 90 Room Air 04/14/17 16:00 Room Air 04/14/17 15:10 36.8 66 20 128/72 (90) 93 Room Air General Appearance: WD/WN, no apparent distress Head: normocephalic, atraumatic ENT: hearing grossly normal Neck: supple, no carotid bruits, trachea midline Respiratory/Chest: chest non-tender, lungs clear, normal breath sounds, no respiratory distress, no accessory muscle use Cardiovascular: regular rate, rhythm, no gallop, no JVD, no murmur, normal peripheral pulses Abdomen/GI: normal bowel sounds, soft, no organomegaly (due to body habitus, may not be accurate assessment), no pulsatile mass, + tenderness (mild tenderness) Extremities/Musculoskelatal: normal inspection, no calf tenderness, non-tender (palpation of major muscle groups), + pedal edema (mild pitting edema about mcfp up the shins) Neurologic/Psych: alert, normal mood/affect, + pertinent finding (all major muscle groups were functional, however unable to accurately assess for strength. The patient would flex and extend joints in an alternating pattern when asked to flex or extend. From this, I can determine that the muscle groups are functional, but without sustained force it is difficult to assess strength.) Diagnostics Laboratory Results Results Past 24 Hours Test 04/14/17 16:37 04/14/17 20:24 04/15/17 06:23 04/15/17 06:32 Range/Units Bedside Glucose 131 174 115 70-99 mg/dl White Blood Count 9.22 4.8-10.8 K/uL Red Blood Count 3.98 4.7-6.1 M/uL Hemoglobin 12.7 14.0-18.0 g/dL Hematocrit 37.0 42-52 % Mean Corpuscular Volume 93.0 80-100 fL Mean Corpuscular Hemoglobin 31.9 25-34 pg Mean Corpuscular Hemoglobin Concent 34.3 32-36 g/dl RDW Standard Deviation 47.2 36.4-46.3 fL RDW Coefficient of Variation 14.0 11.5-14.5 % Platelet Count 145 130-400 K/uL Mean Platelet Volume 11.5 7.4-10.4 fL Prothrombin Time 30.1 9.0-12.0 SECONDS Prothromb Time International Ratio 2.7 0.9-1.1 Sodium Level 143 136-145 mmol/L Potassium Level 3.7 3.5-5.1 mmol/L Chloride Level 109 98-107 mmol/L Carbon Dioxide Level 24 21-32 mmol/L Anion Gap 10.0 3-11 mmol/L Blood Urea Nitrogen 15 7-18 mg/dl Creatinine 0.64 0.60-1.40 mg/dl Est Creatinine Clear Calc Drug Dose 118.1 ml/min Estimated GFR () 110.2 Estimated GFR (Non- 95.1 BUN/Creatinine Ratio 23.8 10-20 Random Glucose 99 70-99 mg/dl Calcium Level 8.1 8.5-10.1 mg/dl Total Bilirubin 1.2 0.2-1 mg/dl Aspartate Amino Transf (AST/SGOT) 126 15-37 U/L Alanine Aminotransferase (ALT/SGPT) 96 12-78 U/L Alkaline Phosphatase 81 45-117 U/L Total Creatine Kinase 1490 39-308 U/L Total Protein 6.1 6.4-8.2 gm/dl Albumin 3.0 3.4-5.0 gm/dl Globulin 3.1 2.5-4.0 gm/dl Albumin/Globulin Ratio 1.0 0.9-2 Test 04/15/17 10:51 Range/Units Bedside Glucose 130 70-99 mg/dl Diagnostic Radiology CHEST ONE VIEW PORTABLE HISTORY: 77 years-old Male hypoxia ?pulmonary edema acute hypoxia with pulmonary edema COMPARISON: Chest radiograph 04/12/2017 TECHNIQUE: Portable upright AP view of the chest FINDINGS: Cardiac silhouette is moderately enlarged, unchanged. There is prominence of the pulmonary vascularity with bilateral mixed interstitial and alveolar opacities, right greater than left which has progressed from prior study. There is no pneumothorax. Small left pleural effusion with hazy bibasilar opacities. The bones of the chest are grossly intact. Mild atherosclerosis of the aorta. Degenerative changes of the spine and shoulders. IMPRESSION: 1. Cardiomegaly with pulmonary vascular congestion and asymmetric right greater than left mild pulmonary edema pattern. 2. Small left pleural effusion with bibasilar opacities suggesting atelectasis. Pneumonia is thought to be less likely. The above report was generated using voice recognition software. It may contain grammatical, syntax or spelling errors. Electronically signed by: Yordy Cody M.D. 04/14/2017 11:02 PM SINGLE VIEW PELVIS CLINICAL HISTORY: Bilateral leg pain. FINDINGS: 2 AP portable views of the pelvis are correlated with radiographs of left hip dated 07/27/2014. Correlation is made with abdominal CT dated 01/23/2008. The skeletal structures are osteopenic. There is no radiographic evidence of fracture involving the hips or bony pelvis. Mild arthritic change and joint space narrowing is seen in both hips. Sclerotic change is noted in the sacroiliac joints. Advanced lumbosacral spondylosis and scoliosis is observed. Enthesophytes arise in the anterior superior iliac spine bilaterally. 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 This was also seen by CT on 01/23/2008. The overlying soft tissues are within normal limits. There is a nonobstructed abdominal bowel gas pattern. IMPRESSION: Osteopenia and degenerative change as above. There is no radiographic evidence of fracture involving the hips or bony pelvis. Electronically signed by: Ankit Woodruff M.D. 04/12/2017 10:39 AM LEFT TIBIA AND FIBULA 2 VIEWS CLINICAL HISTORY: Left leg pain. FINDINGS: AP and lateral portable views of the left tibia and fibula are obtained. No prior studies are available for comparison at the time of dictation. The skeletal structures are osteopenic. There is no radiographic evidence of left tibial or fibular fracture. Nonspecific benign-appearing periosteal thickening is seen along the tibial and fibular shafts, likely related to chronic congestion. Arthritic change is seen in the knee and ankle joints. Diffuse soft tissue edema is present in the left leg. There is advanced atherosclerotic calcification of the regional arteries. Numerous soft tissue phleboliths are observed. IMPRESSION: 1. Diffuse soft tissue edema with no acute bony abnormality seen in the left tibia or fibula. 2. Osteopenia and degenerative change as above. 3. Nonspecific benign-appearing periosteal thickening is identified in the tibia and fibula, likely related to chronic congestion. Clinical correlation will be required. Electronically signed by: Ankit Woodruff M.D. 04/12/2017 10:54 AM SINGLE VIEW CHEST CLINICAL HISTORY: Change in mental status. FINDINGS: An AP, portable, upright chest radiograph is compared to study dated 06/28/2016. The examination is degraded by portable technique, large body habitus, and patient rotation. Heart is enlarged and there is atherosclerotic calcification of the thoracic aorta. There is pulmonary vascular congestion. Bibasilar airspace opacities likely represent atelectasis. No large pleural effusion or pneumothorax is seen. The skeletal structures are osteopenic. The bony thorax is grossly intact. IMPRESSION: 1. Cardiomegaly with evidence of congestive failure. 2. Bibasilar airspace opacities likely represent atelectasis. Clinical correlation will be required. Electronically signed by: Ankit Woodruff M.D. 04/12/2017 10:43 AM HEAD WITHOUT CONTRAST (CT) CT DOSE: 909.11 mGy.cm HISTORY: Mental status change Pt c/o AMS TECHNIQUE: Multiaxial CT images of the head were performed without the use of intravenous contrast. A dose lowering technique was utilized adhering to the principles of ALARA. Comparison: 06/22/2015 and 17 Findings: The paranasal sinuses and mastoid air cells are clear. The calvarium and skull base are intact. The ventricles and sulci are within normal limits. There is no mass, hematoma, midline shift, or acute infarct. Mild age-related atrophy and chronic small vessel change Impression: No acute intracranial abnormality. Age-related change The above report was generated using voice recognition software. It may contain grammatical, syntax or spelling errors. Electronically signed by: Edvin Kraft M.D. 04/12/2017 11:13 AM Impression Assessment and Plan Mr. Simeon is a 77 yo male with past medical history of dementia, DM2 , CAD, HLD, HTN, and afib who presented to the ED following a fall outside and being unable to get up for hours. Weakness of legs and fall: Given the difficulty obtaining history from the patient, and the fall seems to have been unobserved, there is difficulty determining etiology of fall. Concerns are for hypotension, stroke, cauda equina , conus medullaris syndrome, Guillain Goodwin, myositis, vasovagal syncope, orthostatic hypotension, POTS, bone fracture, infection and substance/ medication induced. Head CT is reassuring against stroke. X-rays are reassuring against fractures. Lack of urinary changes and return of motor function of legs is reassuring against cauda equina/conus medullaris. Lack of viral illness preceding and resolution of symptoms is reassuring against GBS. Lack of muscle pain and proximal complaints is reassuring against myositis. Age and no history of POTS is reassuring. Leukocytosis and hypothermia at presentation are concerning for SIRS. He does take lorazepam, baclofen, melatonin, anti-diabetics , and anti-hypertensives and he was hypotensive at arrival so medication may be an issue. At this point, monitoring vitals, ensuring adequate hydration, CBC and BMP and monitoring for improvement. Plan: Continue IVF, Monitor BP and adjust medications as needed. Daily CBC to monitor for leukocytosis and monitor anemia. BMP to monitor kidney function and potassium. Hypothermia: resolved. Plan: Monitor vitals. Elevated CK: Peak of 6030, now 1490. Potassium has been low normal. Max BUN/Cr of 32/1.73, now normal. Was on 125mL/hr Normal saline. No muscle pain. Did have hematuria on UA with RBC's. Plan: Continue IVF 125mL/hr. Repeat BMP tomorrow with CK check. Observe for EKG changes, paraesthesias, tachycardia. Elevated Troponin: May have been due to demand mismatch. Peak 1.5 @ 0137 on 11Nov. Downtrending at following check. No ST elevation on EKG. Plan: Continue hydration, BP management, and correction therapy. Afib: Controlled and asymptomatic. Plan: Continue verapamil 240mg PO qAM, Warfarin 5mg PO @1600, Aspirin 81mg PO daily. Diabetes mellitus, type 2: 100-200 range past day. Asymptomatic. Plan: continue current sliding scale insulin regimen with insulin glargine. Hold Metformin due to concern for kidney impairment at the time being. Insomnia: Has been unable to sleep for 3 days. Likely worsening his dementia. Plan: D/C lorazepam. Risk for worsening of dementia. Consider antipsychotic therapy. HTN: 130-150's range systolic. On Verapamil and holding lisinopril and triamterene/HCTZ. Plan: Continue verapamil 240 mg PO qAM. Restart Lisinopril 5mg PO daily with monitoring of BP. Avoid hypotension. Hyperlipidemia: Stable, manage outpatient. Plan: Continue atorvastatin 40mg PO daily. Level of Care Telemetry Advanced Directives Existing Living Will: No Existing Power of Rope Tier: No DVT Prophylaxis warfarin (Coumadin)
[2017-04-15 14:59] VITALS: BMI 46.8
[2017-04-15 15:30] VITALS: BP 134/81; PULSE 67; TEMP 37; O2SAT 93
[2017-04-15] MEDS: WARFARIN SOD 5 MG TAB PO SCH (16:20)
--- NOTE | 2017-04-15 16:41 | Family Medicine Progress Note ---
Progress Note Date of Service Apr 15, 2017. Subjective Pt evaluation today including: conversation w/ patient, physical exam, chart review, lab review Pt reports doing well. Pt is a poor historian, unable to answer questions accurately. Additional Comments: unable to obtain ROS due to patient's mental status Medications Current Inpatient Medications Medications (Trade) Dose Ordered Sig/[place] Route Start Time Stop Time Status Last Admin Dose Admin Acetaminophen (Tylenol Tab) 650 mg Q4H PRN PO 04/12/17 13:00 05/12/17 12:59 Al Hydrox/Mg Hydrox/Simethicone (Maalox Max Susp) 15 ml Q4H PRN PO 04/12/17 13:00 05/12/17 12:59 Magnesium Hydroxide (Milk Of Magnesia Susp) 30 ml Q12H PRN PO 04/12/17 13:00 05/12/17 12:59 Ondansetron HCl (Zofran Inj) 4 mg Q6H PRN IV 04/12/17 13:00 05/12/17 12:59 Nitroglycerin (Nitrostat Tab) 0.4 mg UD PRN SL 04/12/17 13:00 05/12/17 12:59 Morphine Sulfate (MoRPHine SULFATE INJ) 2 mg Q30M PRN IV 04/12/17 13:00 04/26/17 12:59 Aspirin (Ecotrin Tab) 81 mg QAM PO 04/13/17 09:00 05/13/17 08:59 04/15/17 08:26 81 MG Polyethylene (Miralax Powder Packet) 17 gm DAILY PRN PO 04/12/17 13:00 05/12/17 12:59 Insulin Aspart (novoLOG ASPART) SLIDING SCALE G... ACHS SC 04/12/17 16:00 05/12/17 15:59 04/14/17 16:59 2 UNITS Cyanocobalamin (Vitamin B-12 Tab) 1,000 mcg DAILY PO 04/13/17 09:00 05/13/17 08:59 04/15/17 08:26 1,000 MCG Multivitamins (Multivitamin Tab) 1 tab DAILY PO 04/13/17 09:00 05/13/17 08:59 04/15/17 08:26 1 TAB Verapamil HCl (Calan-Sr Tab) 240 mg QAM PO 04/13/17 09:00 05/13/17 08:59 04/15/17 08:27 240 MG Hydralazine HCl (HydrALAZINE INJ) 10 mg Q6H PRN IV. 04/12/17 13:30 05/12/17 13:29 Glucose (Glucose 40% Gel) 15-30 GRAMS 15 GRAMS... UD PRN PO 04/12/17 14:15 05/12/17 14:14 Glucose (Glucose Chew Tab) 4-8 Tablets 4 Tabl... UD PRN PO 04/12/17 14:15 05/12/17 14:14 Dextrose (Dextrose 50% 50ML Syringe) 25-50ML OF 50% DW IV FOR... UD PRN IV 04/12/17 14:15 05/12/17 14:14 Glucagon (Glucagon Inj) 1 mg UD PRN SQ 04/12/17 14:15 05/12/17 14:14 Warfarin Sodium (Coumadin Tab) 5 mg DAILY@16 PO 04/12/17 16:00 05/12/17 15:59 04/15/17 16:20 5 MG Insulin Glargine (Lantus Solostar Pen) 20 units HS SC 04/13/17 21:00 05/13/17 20:59 04/14/17 21:33 20 UNITS Nystatin (Mycostatin Powder) 1 appln PRN PRN EXT 04/13/17 19:15 05/13/17 19:14 Objective Vital Signs Date Time Temp Pulse Resp B/P (MAP) Pulse Ox O2 Delivery O2 Flow Rate FiO2 04/15/17 16:00 Nasal Cannula 4.0 04/15/17 15:30 37.0 67 22 134/81 (98) 93 Nasal Cannula 4.0 04/15/17 12:00 Nasal Cannula 4.0 04/15/17 11:00 37.0 66 18 154/94 (114) 91 Nasal Cannula 04/15/17 08:00 Nasal Cannula 4.0 04/15/17 07:39 37.0 75 18 156/97 (116) 91 Nasal Cannula 4.0 04/15/17 04:00 Nasal Cannula 4.0 04/15/17 03:49 37.0 80 22 147/75 (99) 93 Nasal Cannula 4.0 04/14/17 23:59 Nasal Cannula 4.0 04/14/17 22:57 36.9 87 24 151/90 (110) 92 Nasal Cannula 4.0 04/14/17 20:00 Room Air 04/14/17 19:05 36.8 61 20 130/78 (95) 90 Room Air Physical Exam General Appearance: WD/WN, no apparent distress Neck: supple, no adenopathy, thyroid normal, no JVD Respiratory/Chest: chest non-tender, lungs clear, normal breath sounds, no respiratory distress, no accessory muscle use Cardiovascular: regular rate, rhythm, no edema, no gallop, no JVD, no murmur Abdomen: normal bowel sounds, non tender, soft, no organomegaly, no pulsatile mass Extremities: + pedal edema, + swelling Neurologic/Psychiatric: normal mood/affect, + pertinent finding (pt is alert to person, but not place or time. ) Skin: normal color, warm/dry, + pertinent finding (patient has multiple abrasion on bilateral legs consistent with injuries from fall ) Laboratory Results 04/15/17 06:32 04/15/17 06:32 Test 04/15/17 06:32 04/15/17 10:51 Red Blood Count 3.98 M/uL (4.7-6.1) Mean Corpuscular Volume 93.0 fL (80-100) Mean Corpuscular Hemoglobin 31.9 pg (25-34) Mean Corpuscular Hemoglobin Concent 34.3 g/dl (32-36) RDW Standard Deviation 47.2 fL (36.4-46.3) RDW Coefficient of Variation 14.0 % (11.5-14.5) Mean Platelet Volume 11.5 fL (7.4-10.4) Prothrombin Time 30.1 SECONDS (9.0-12.0) Prothromb Time International Ratio 2.7 (0.9-1.1) Anion Gap 10.0 mmol/L (3-11) Est Creatinine Clear Calc Drug Dose 118.1 ml/min Estimated GFR () 110.2 Estimated GFR (Non- 95.1 BUN/Creatinine Ratio 23.8 (10-20) Calcium Level 8.1 mg/dl (8.5-10.1) Total Bilirubin 1.2 mg/dl (0.2-1) Aspartate Amino Transf (AST/SGOT) 126 U/L (15-37) Alanine Aminotransferase (ALT/SGPT) 96 U/L (12-78) Alkaline Phosphatase 81 U/L (45-117) Total Creatine Kinase 1490 U/L (39-308) Total Protein 6.1 gm/dl (6.4-8.2) Albumin 3.0 gm/dl (3.4-5.0) Globulin 3.1 gm/dl (2.5-4.0) Albumin/Globulin Ratio 1.0 (0.9-2) Bedside Glucose 130 mg/dl (70-99) Assessment and Plan Patient is a pleasant 77 y/o male, with PMHx of CAD, HLD, T2DM, HTN, a.fib on chronic anticoagulation therapy,dementia, and anxiety, who presented to the ED because of a fall which resulted in him being outside in cold for >3 hours. . Rhabdomyolysis secondary to fall of unknown cause: - Continued IV NSS at 125ml/hr - Follow CPK - Leukocytosis- resolved - Elevated liver enzymes- follow CMP and continue to hold lipitor - No sign of infection. BCx pending- received IV Daptomycin and Cefepime in ED prior to BCx, UA shows trace occult blood, neg leuk/nitrites/bili - Head CT unremarkable - CXR- ?CHF, no evidence of infectious process- given IV Lasix 40 mg x1 dose in ED; did not continue Lasix due to IVF - Tibia/fibula and pelvis x-rays without fractures - Wound care for bilateral lower extremity wounds Fall - Check orthostatics one euvolemic - stop baclofen and lorazepam on discharge. Delirium with underlying dementia - Supportive care. - Requiring 1 on 1 - oral care. Elevated trop - ? rhabdo: - Cardiology consulted, appreciate recommendations - ? sec demand ischemia or acute diastolic failure. With No symptoms and Preserved LV systolic function - No revascularization would be indicated even in the setting of an abnormal stress test. Continue aggressive medical regimen. ASA along with anticoagulation. Hypokalemia - Found to have ectopy and K of 3.4 -Today 3.7 BENEDICT: - Resolved A.fib- rate controlled, CAD, HLD- follows w/ Dr. Osborn: - Continue Verapamil - Continue Coumadin- follow PT/INR and adjust dosage PRN for INR goal of 2-3 - Hold Lipitor due to elevated liver enzymes HTN: - Hold Lisinopril due to BENEDICT; careful reintroduction - Hydralazine PRN T2DM: - Hold Glipizide - BSG ACHS and ISS - 20 U lantus qhs started; 24 hrs of glucose since have been well controlled Nystatin powder for skin lesions on chest DVT prophylaxis: Coumadin Code Status: LEVEL I, FULL Dispo: From home, lives w/ - PT/OT and CM consulted - not safe to return home Resident Involvement: Resident Care Provided Care Provided: Adult Hospital Medicine Reviewed: Pt Seen/Exam by Me History confused but not agitated. requiring one on one Constitutional: denies: fever General Appearance: no apparent distress (delirious), other Ears, Nose, Throat: other (mucous membrane dry. ) Respiratory: lungs clear, no respiratory distress Cardiovascular: irregularly irregular Gastrointestinal: soft Neurologic/Psychiatric: other (mumbling without clear sentences) Skin Characteristics: warm/dry Assessment/Plan Resident Physician Supervision Note: I independently interviewed and examined the patient and verified the bradford history and physical, reviewed labs and image studies, discussed the case with the resident Dr. Roman and agree with the findings and care plan.
[2017-04-15] MEDS: SODIUM CHLORIDE 0.9% 1000ML 1,000 ML IV SCH (17:40)
[2017-04-15 19:24] VITALS: BP 136/74; PULSE 59; TEMP 36.9; O2SAT 93
[2017-04-15] MEDS: INSULIN GLARGINE SOLOSTAR 100 UNITS/ML 3 ML PEN SC SCH (21:00)
[2017-04-15 23:12] VITALS: BP 163/85; PULSE 79; TEMP 37.2; O2SAT 94
[2017-04-16] VITALS (8 sets, daily range): BP systolic 125–144; BP diastolic 63–91; PULSE 57–79; TEMP 36.6–37.2; O2SAT 90–97; BMI 46.9
[2017-04-16] MEDS: SODIUM CHLORIDE 0.9% 1000ML 1,000 ML IV SCH (01:00)
[2017-04-16 07:57] LABS: HEMATOCRIT 34.4 % (42-52); MEAN CORPUSCULAR HEMOGLOBIN 32.2 pg (25-34); MEAN CORPUSCULAR HGB CONC 34.3 g/dl (32-36); MEAN PLATELET VOLUME 10.5 fL (7.4-10.4); PLATELET COUNT 139 K/uL (130-400); RED BLOOD COUNT 3.66 M/uL (4.7-6.1); WHITE BLOOD COUNT 6.66 K/uL (4.8-10.8)
[2017-04-16] MEDS: CYANOCOBALAMIN 500 MCG TAB (VIT B-12) PO SCH (08:02)
[2017-04-16] MEDS: VERAPAMIL HCL 240 MG TABCR PO SCH (08:02)
[2017-04-16] MEDS: ASPIRIN 81 MG ECTAB PO SCH (08:03)
[2017-04-16] MEDS: MULTIVITAMIN TAB PO SCH (08:03)
[2017-04-16 08:10] LABS: PROTHROMBIN TIME (PATIENT) 45.1 SECONDS (9.0-12.0)
[2017-04-16 08:24] LABS: BUN/CREATININE RATIO 24.6 (10-20); CALCIUM 7.9 mg/dl (8.5-10.1); CREATININE 0.68 mg/dl (0.60-1.40); POTASSIUM 3.5 mmol/L (3.5-5.1)
[2017-04-16] MEDS: WARFARIN SOD 5 MG TAB PO SCH (08:50)
--- NOTE | 2017-04-16 13:22 | Family Medicine Progress Note ---
Progress Note Date of Service Apr 16, 2017. Subjective Pt evaluation today including: conversation w/ patient, physical exam, chart review, lab review, review of studies Constitutional: No fever, No chills, No sweats Respiratory: No cough, No sputum, No shortness of breath, No dyspnea on exertion Cardiovascular: No chest pain, No palpitations Abdomen: No pain, No nausea, No vomiting, No diarrhea Medications Current Inpatient Medications Medications (Trade) Dose Ordered Sig/[place] Route Start Time Stop Time Status Last Admin Dose Admin Acetaminophen (Tylenol Tab) 650 mg Q4H PRN PO 04/12/17 13:00 05/12/17 12:59 Al Hydrox/Mg Hydrox/Simethicone (Maalox Max Susp) 15 ml Q4H PRN PO 04/12/17 13:00 05/12/17 12:59 Magnesium Hydroxide (Milk Of Magnesia Susp) 30 ml Q12H PRN PO 04/12/17 13:00 05/12/17 12:59 Ondansetron HCl (Zofran Inj) 4 mg Q6H PRN IV 04/12/17 13:00 05/12/17 12:59 Nitroglycerin (Nitrostat Tab) 0.4 mg UD PRN SL 04/12/17 13:00 05/12/17 12:59 Morphine Sulfate (MoRPHine SULFATE INJ) 2 mg Q30M PRN IV 04/12/17 13:00 04/26/17 12:59 Aspirin (Ecotrin Tab) 81 mg QAM PO 04/13/17 09:00 05/13/17 08:59 04/16/17 08:03 81 MG Polyethylene (Miralax Powder Packet) 17 gm DAILY PRN PO 04/12/17 13:00 05/12/17 12:59 Insulin Aspart (novoLOG ASPART) SLIDING SCALE G... ACHS SC 04/12/17 16:00 05/12/17 15:59 Future Hold 04/14/17 16:59 2 UNITS Cyanocobalamin (Vitamin B-12 Tab) 1,000 mcg DAILY PO 04/13/17 09:00 05/13/17 08:59 04/16/17 08:02 1,000 MCG Multivitamins (Multivitamin Tab) 1 tab DAILY PO 04/13/17 09:00 05/13/17 08:59 04/16/17 08:03 1 TAB Verapamil HCl (Calan-Sr Tab) 240 mg QAM PO 04/13/17 09:00 05/13/17 08:59 04/16/17 08:02 240 MG Hydralazine HCl (HydrALAZINE INJ) 10 mg Q6H PRN IV. 04/12/17 13:30 05/12/17 13:29 Glucose (Glucose 40% Gel) 15-30 GRAMS 15 GRAMS... UD PRN PO 04/12/17 14:15 05/12/17 14:14 Glucose (Glucose Chew Tab) 4-8 Tablets 4 Tabl... UD PRN PO 04/12/17 14:15 05/12/17 14:14 Dextrose (Dextrose 50% 50ML Syringe) 25-50ML OF 50% DW IV FOR... UD PRN IV 04/12/17 14:15 05/12/17 14:14 04/16/17 06:25 50 ML Glucagon (Glucagon Inj) 1 mg UD PRN SQ 04/12/17 14:15 05/12/17 14:14 Warfarin Sodium (Coumadin Tab) 5 mg DAILY@16 PO 04/12/17 16:00 05/12/17 15:59 04/15/17 16:20 5 MG Nystatin (Mycostatin Powder) 1 appln PRN PRN EXT 04/13/17 19:15 05/13/17 19:14 Insulin Glargine (Lantus Solostar Pen) 15 units HS SC 04/16/17 21:00 05/13/17 20:59 Objective Vital Signs Date Time Temp Pulse Resp B/P (MAP) Pulse Ox O2 Delivery O2 Flow Rate FiO2 04/16/17 12:28 36.6 58 18 92 4.0 04/16/17 12:00 Nasal Cannula 4.0 04/16/17 11:36 36.6 58 18 125/65 (85) 92 4.0 04/16/17 08:00 Nasal Cannula 4.0 04/16/17 07:56 36.7 57 18 126/76 (93) 97 4.0 04/16/17 04:00 Nasal Cannula 4.0 04/16/17 03:30 37.2 72 20 129/79 (96) 95 3.0 04/16/17 00:00 Nasal Cannula 4.0 04/15/17 23:12 37.2 79 18 163/85 (111) 94 3.0 04/15/17 20:00 Nasal Cannula 4.0 04/15/17 19:24 36.9 59 22 136/74 (94) 93 Nasal Cannula 4.0 04/15/17 16:00 Nasal Cannula 4.0 04/15/17 15:30 37.0 67 22 134/81 (98) 93 Nasal Cannula 4.0 Physical Exam General Appearance: WD/WN, no apparent distress Respiratory/Chest: chest non-tender, lungs clear, normal breath sounds, no respiratory distress, no accessory muscle use Cardiovascular: regular rate, rhythm, no edema, no gallop, no JVD, no murmur Abdomen: normal bowel sounds, non tender, soft, no organomegaly, no pulsatile mass, + distended Neurologic/Psychiatric: alert, normal mood/affect, + pertinent finding ( oriented to person ) Skin: normal color, warm/dry, no rash Laboratory Results 04/16/17 07:49 04/16/17 07:49 Test 04/16/17 07:49 04/16/17 11:19 Red Blood Count 3.66 M/uL (4.7-6.1) Mean Corpuscular Volume 94.0 fL (80-100) Mean Corpuscular Hemoglobin 32.2 pg (25-34) Mean Corpuscular Hemoglobin Concent 34.3 g/dl (32-36) RDW Standard Deviation 48.3 fL (36.4-46.3) RDW Coefficient of Variation 14.2 % (11.5-14.5) Mean Platelet Volume 10.5 fL (7.4-10.4) Prothrombin Time 45.1 SECONDS (9.0-12.0) Prothromb Time International Ratio 4.0 (0.9-1.1) Anion Gap 10.0 mmol/L (3-11) Est Creatinine Clear Calc Drug Dose 111.3 ml/min Estimated GFR () 107.5 Estimated GFR (Non- 92.8 BUN/Creatinine Ratio 24.6 (10-20) Calcium Level 7.9 mg/dl (8.5-10.1) Total Creatine Kinase 372 U/L (39-308) Bedside Glucose 124 mg/dl (70-99) Assessment and Plan Patient is a pleasant 77 y/o male, with PMHx of CAD, HLD, T2DM, HTN, a.fib on chronic anticoagulation therapy,dementia, and anxiety, who presented to the ED because of a fall which resulted in him being outside in cold for >3 hours. . Rhabdomyolysis secondary to fall of unknown cause: - DCing fluids - CPK decreasing, rhabdo is resolving - Leukocytosis- resolved - Continue to hold Lipitor, will check liver enzymes tomorrow. - No sign of infection. BCx pending- received IV Daptomycin and Cefepime in ED prior to BCx, UA shows trace occult blood, neg leuk/nitrites/bili - Head CT unremarkable - CXR- ?CHF, no evidence of infectious process- given IV Lasix 40 mg x1 dose in ED; did not continue Lasix due to IVF - Tibia/fibula and pelvis x-rays without fractures - Wound care for bilateral lower extremity wounds Fall - Check orthostatics - stop baclofen and lorazepam on discharge. - PT/OT recommend that the patient goes to SNF Delirium with underlying dementia - Resolved - Dc'ed 1 to 1 - oral care. Elevated trop - ? rhabdo: - Cardiology consulted, appreciate recommendations - ? sec demand ischemia or acute diastolic failure. With No symptoms and Preserved LV systolic function - No revascularization would be indicated even in the setting of an abnormal stress test. Continue aggressive medical regimen. ASA along with anticoagulation. Hypokalemia - Resolved, will supplemented when needed BENEDICT: - Resolved A.fib- rate controlled, CAD, HLD- follows w/ Dr. Osborn: - Continue Verapamil - pt has a INR of 4 today. Holding Coumadin today. Will check INR tomorrow. - Hold Lipitor due to elevated liver enzymes HTN: - Hold Lisinopril due to BENEDICT; careful reintroduction - Hydralazine PRN T2DM: - Hold Glipizide - BSG ACHS and ISS - Hypoglycemic this am -- Glucose of 60 this am, reducing Lantus to 15 units, holding sliding scale Nystatin powder for skin lesions on chest Transfer to medical floor Discussing with case management regarding placement to either [facility] or [facility] Reviewed: Pt Seen/Exam by Me History more alert this am able to give more history about his fall. remembers his legs getting weak and he went down on his knees. declines losing consciousness Constitutional: denies: fever General Appearance: no apparent distress Respiratory: lungs clear, no respiratory distress Cardiovascular: regular rate, rhythm Gastrointestinal: normal bowel sounds, non tender, soft Neurologic/Psychiatric: alert, other (oriented to place and person) Skin Characteristics: warm/dry Assessment/Plan Resident Physician Supervision Note: I independently interviewed and examined the patient and verified the bradford history and physical, reviewed labs and image studies, discussed the case with the resident Dr. Roman and agree with the findings and care plan.
--- NOTE | 2017-04-16 15:01 | Medical Student: [facility] ---
Med Student Progress Note Date of Service Apr 16, 2017. Subjective Pt evaluation today including: conversation w/ patient, physical exam, lab review Mr. Simeon is doing better today. He is more talkative and responds appropriately. I asked him more about what happened when he fell and he tells me that he felt his knees become weak and then he fell. He was outside doing something, but can't remember what. He was headed back in and found he couldn't make it up the front step to his home. He fell and couldn't get up. He doesn't recall skipping meals that day, missing medications, or overmedicating that day. He doesn't remember feeling ill the days prior to this event. He denies palpitations, chest pain, shortness of breath, sweats, dizziness, loss of vision , n/v, and numbness of the extremities when this happened. Otherwise, he feels well today and notes a mild ache in most of his muscles. No other concerns today. Review of Systems Constitutional: + see HPI Objective Vital Signs Date Time Temp Pulse Resp B/P (MAP) Pulse Ox O2 Delivery O2 Flow Rate FiO2 04/16/17 13:00 36.8 68 20 143/91 (108) 95 Nasal Cannula 4.0 04/16/17 12:28 36.6 58 18 92 4.0 04/16/17 12:00 Nasal Cannula 4.0 04/16/17 11:36 36.6 58 18 125/65 (85) 92 4.0 04/16/17 08:00 Nasal Cannula 4.0 04/16/17 07:56 36.7 57 18 126/76 (93) 97 4.0 04/16/17 04:00 Nasal Cannula 4.0 04/16/17 03:30 37.2 72 20 129/79 (96) 95 3.0 04/16/17 00:00 Nasal Cannula 4.0 04/15/17 23:12 37.2 79 18 163/85 (111) 94 3.0 04/15/17 20:00 Nasal Cannula 4.0 04/15/17 19:24 36.9 59 22 136/74 (94) 93 Nasal Cannula 4.0 04/15/17 16:00 Nasal Cannula 4.0 04/15/17 15:30 37.0 67 22 134/81 (98) 93 Nasal Cannula 4.0 Physical Exam General Appearance: WD/WN, no apparent distress ENT: hearing grossly normal Respiratory/Chest: chest non-tender, lungs clear, normal breath sounds ( auscultated anteriorly as patient was unable to sit up or lay on a side.), no respiratory distress, no accessory muscle use Cardiovascular: regular rate, rhythm, no edema, no gallop, no JVD, no murmur Abdomen: normal bowel sounds, non tender, soft, no organomegaly, no pulsatile mass Extremities: no pedal edema, no calf tenderness, + pertinent finding (Mild tenderness of muscles to palpation) Neurologic/Psychiatric: no motor/sensory deficits, alert, normal mood/affect Laboratory Results Last 24 Hours Test 04/15/17 16:09 04/15/17 20:20 04/16/17 06:29 04/16/17 06:38 Bedside Glucose 109 mg/dl 138 mg/dl 60 mg/dl 336 mg/dl Test 04/16/17 06:40 04/16/17 07:49 04/16/17 11:19 Bedside Glucose 252 mg/dl 124 mg/dl White Blood Count 6.66 K/uL Red Blood Count 3.66 M/uL Hemoglobin 11.8 g/dL Hematocrit 34.4 % Mean Corpuscular Volume 94.0 fL Mean Corpuscular Hemoglobin 32.2 pg Mean Corpuscular Hemoglobin Concent 34.3 g/dl RDW Standard Deviation 48.3 fL RDW Coefficient of Variation 14.2 % Platelet Count 139 K/uL Mean Platelet Volume 10.5 fL Prothrombin Time 45.1 SECONDS Prothromb Time International Ratio 4.0 Sodium Level 147 mmol/L Potassium Level 3.5 mmol/L Chloride Level 112 mmol/L Carbon Dioxide Level 26 mmol/L Anion Gap 10.0 mmol/L Blood Urea Nitrogen 17 mg/dl Creatinine 0.68 mg/dl Est Creatinine Clear Calc Drug Dose 111.3 ml/min Estimated GFR () 107.5 Estimated GFR (Non- 92.8 BUN/Creatinine Ratio 24.6 Random Glucose 114 mg/dl Calcium Level 7.9 mg/dl Total Creatine Kinase 372 U/L Assessment and Plan Assessment and Plan: Mr. Simeon is a 77 yo male with past medical history of dementia, DM2 , CAD, HLD, HTN, and afib who presented to the ED following a fall outside and being unable to get up for hours. Weakness of legs and fall: Obtained slightly better history from patient today. Still, given the difficulty obtaining history from the patient, and the fall seems to have been unobserved, there is difficulty determining etiology of fall. Concerns are for hypotension, stroke, cauda equina, conus medullaris syndrome, Guillain [place], myositis, vasovagal syncope, orthostatic hypotension, POTS, bone fracture, infection and substance/medication induced. Head CT is reassuring against stroke. X-rays are reassuring against fractures. Lack of urinary changes and return of motor function of legs is reassuring against cauda equina/conus medullaris. Lack of viral illness preceding and resolution of symptoms is reassuring against GBS. Lack of muscle pain and proximal complaints is reassuring against myositis. Age and no history of POTS is reassuring. Leukocytosis and hypothermia at presentation are concerning for SIRS. He does take lorazepam, baclofen, melatonin, anti-diabetics, and anti- hypertensives and he was hypotensive at arrival so medication may be an issue. Supporting hypotension is that he had an elevated Hgb that quickly responded to hydration, his BUN/Cr has shown a pre-renal ratio, Na and Cl have been elevated , and his altered mental status and symptoms seem to be resolving with IVF. At this point, monitoring vitals, ensuring adequate hydration, CBC and BMP and monitoring for improvement. Plan: Continue IVF 125mL/hr, Monitor BP and adjust medications as needed. PT/OT evaluation or at minimum nursing assessment of transfer from bed to chair. Orthostatic BP check. Daily CBC to monitor for leukocytosis and monitor anemia. BMP to monitor kidney function and potassium. Continue B12 1000mcg PO daily Hypothermia: resolved. Plan: Monitor vitals. Elevated CK: Peak of 6030, now 372. Potassium has been low normal. Max BUN/Cr of 32/1.73, now normal. On 125mL/hr Normal saline. Today complains of mild diffuse muscle ache. Did have hematuria on UA with RBC's. Plan: Continue IVF 125mL/hr. Repeat BMP tomorrow with CK check. Observe for EKG changes, paraesthesias, tachycardia. Elevated Troponin: May have been due to demand mismatch. Peak 1.5 @ 0137 on 11Nov. Downtrending at following check. No ST elevation on EKG. 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 Afib: Controlled and asymptomatic. Plan: Continue verapamil 240mg PO qAM, Warfarin 5mg PO @1600, Aspirin 81mg PO daily. Diabetes mellitus, type 2: 100-200 range past day. Asymptomatic. Plan: continue current sliding scale insulin regimen with insulin glargine. Insomnia: Has been unable to sleep for 3 days. Likely worsening his dementia. Plan: D/C lorazepam. Risk for worsening of dementia. Consider antipsychotic therapy. HTN: Generally normotensive with peaks in 150-165 range systolic. On Verapamil and holding lisinopril and triamterene/HCTZ. Plan: Continue verapamil 240 mg PO qAM. Restart Lisinopril 5mg PO daily with monitoring of BP. Avoid hypotension. Hyperlipidemia: Stable, manage outpatient. Plan: Continue atorvastatin 40mg PO daily. Continued [facility] stay due to: ambulation difficulties Discharge planning: rehab hospital
[2017-04-16] MEDS: INSULIN GLARGINE SOLOSTAR 100 UNITS/ML 3 ML PEN SC SCH (21:21)
[2017-04-17] VITALS (8 sets, daily range): BP systolic 111–212; BP diastolic 79–149; PULSE 80–95; TEMP 37–37.6; O2SAT 91–96
[2017-04-17 06:51] LABS: BASO % 0.1 %; BASO ABS # 0.01 K/uL (0-0.2); COMPLETE YES; EOS % 1.2 %; HEMATOCRIT 37.3 % (42-52); IG% 0.6 %; LYMPH % 10.2 %; MEAN CORPUSCULAR HEMOGLOBIN 32.5 pg (25-34); MEAN CORPUSCULAR HGB CONC 34.6 g/dl (32-36); MEAN PLATELET VOLUME 10.7 fL (7.4-10.4); MONO % 10.4 %; NEUT % 77.5 %; PLATELET COUNT 172 K/uL (130-400); RED BLOOD COUNT 3.97 M/uL (4.7-6.1); WHITE BLOOD COUNT 6.83 K/uL (4.8-10.8)
--- NOTE | 2017-04-17 06:51 | Family Medicine Progress Note ---
Progress Note Date of Service Apr 17, 2017. Subjective Pt evaluation today including: conversation w/ patient, physical exam, chart review, lab review, review of studies Pt is more confused today, pt back on 1 to 1 last night. Pt has a cough and the nursing aid remarks that he is having trouble eating. Patient says that its the pepper on the eggs. Pt unable to follow answer questions. Unable to complete review of systems, but patient does not appear to be any distress at this time. Additional Comments: unable to obtain ROS due to pt's mental status Medications Current Inpatient Medications Medications (Trade) Dose Ordered Sig/[place] Route Start Time Stop Time Status Last Admin Dose Admin Acetaminophen (Tylenol Tab) 650 mg Q4H PRN PO 04/12/17 13:00 05/12/17 12:59 Al Hydrox/Mg Hydrox/Simethicone (Maalox Max Susp) 15 ml Q4H PRN PO 04/12/17 13:00 05/12/17 12:59 Magnesium Hydroxide (Milk Of Magnesia Susp) 30 ml Q12H PRN PO 04/12/17 13:00 05/12/17 12:59 Ondansetron HCl (Zofran Inj) 4 mg Q6H PRN IV 04/12/17 13:00 05/12/17 12:59 Nitroglycerin (Nitrostat Tab) 0.4 mg UD PRN SL 04/12/17 13:00 05/12/17 12:59 Morphine Sulfate (MoRPHine SULFATE INJ) 2 mg Q30M PRN IV 04/12/17 13:00 04/26/17 12:59 Aspirin (Ecotrin Tab) 81 mg QAM PO 04/13/17 09:00 05/13/17 08:59 04/16/17 08:03 81 MG Polyethylene (Miralax Powder Packet) 17 gm DAILY PRN PO 04/12/17 13:00 05/12/17 12:59 Insulin Aspart (novoLOG ASPART) SLIDING SCALE G... ACHS SC 04/12/17 16:00 05/12/17 15:59 Future Hold 04/14/17 16:59 2 UNITS Cyanocobalamin (Vitamin B-12 Tab) 1,000 mcg DAILY PO 04/13/17 09:00 05/13/17 08:59 04/16/17 08:02 1,000 MCG Multivitamins (Multivitamin Tab) 1 tab DAILY PO 04/13/17 09:00 05/13/17 08:59 04/16/17 08:03 1 TAB Verapamil HCl (Calan-Sr Tab) 240 mg QAM PO 04/13/17 09:00 05/13/17 08:59 04/16/17 08:02 240 MG Hydralazine HCl (HydrALAZINE INJ) 10 mg Q6H PRN IV. 04/12/17 13:30 05/12/17 13:29 Glucose (Glucose 40% Gel) 15-30 GRAMS 15 GRAMS... UD PRN PO 04/12/17 14:15 05/12/17 14:14 Glucose (Glucose Chew Tab) 4-8 Tablets 4 Tabl... UD PRN PO 04/12/17 14:15 05/12/17 14:14 Dextrose (Dextrose 50% 50ML Syringe) 25-50ML OF 50% DW IV FOR... UD PRN IV 04/12/17 14:15 05/12/17 14:14 04/16/17 06:25 50 ML Glucagon (Glucagon Inj) 1 mg UD PRN SQ 04/12/17 14:15 05/12/17 14:14 Warfarin Sodium (Coumadin Tab) 5 mg DAILY@16 PO 04/12/17 16:00 05/12/17 15:59 04/15/17 16:20 5 MG Nystatin (Mycostatin Powder) 1 appln PRN PRN EXT 04/13/17 19:15 05/13/17 19:14 Insulin Glargine (Lantus Solostar Pen) 15 units HS SC 04/16/17 21:00 05/13/17 20:59 04/16/17 21:21 15 UNITS Objective Vital Signs Date Time Temp Pulse Resp B/P (MAP) Pulse Ox O2 Delivery O2 Flow Rate FiO2 04/17/17 00:00 Nasal Cannula 3.0 04/16/17 23:03 37.0 79 22 137/67 (90) 90 Nasal Cannula 3.0 04/16/17 16:00 90 Nasal Cannula 3.0 04/16/17 15:56 36.7 63 20 144/63 (90) 90 Nasal Cannula 3.0 04/16/17 13:00 36.8 68 20 143/91 (108) 95 Nasal Cannula 4.0 04/16/17 12:28 36.6 58 18 92 4.0 04/16/17 12:00 Nasal Cannula 4.0 04/16/17 11:36 36.6 58 18 125/65 (85) 92 4.0 04/16/17 08:00 Nasal Cannula 4.0 04/16/17 07:56 36.7 57 18 126/76 (93) 97 4.0 Physical Exam General Appearance: WD/WN, no apparent distress Respiratory/Chest: chest non-tender, lungs clear, normal breath sounds, no respiratory distress, no accessory muscle use Cardiovascular: regular rate, rhythm, no edema, no gallop, no JVD, no murmur Abdomen: normal bowel sounds, non tender, soft, no organomegaly Skin: normal color, warm/dry, no rash, + pertinent finding (bandaged wounds on anterior legs consitent with injuries from fall) Laboratory Results Test 04/16/17 07:49 04/16/17 20:01 04/17/17 06:32 RDW Standard Deviation 48.3 fL (36.4-46.3) RDW Coefficient of Variation 14.2 % (11.5-14.5) Mean Platelet Volume 10.5 fL (7.4-10.4) Est Creatinine Clear Calc Drug Dose 111.3 ml/min Bedside Glucose 238 mg/dl (70-99) Assessment and Plan Patient is a pleasant 77 y/o male, with PMHx of CAD, HLD, T2DM, HTN, a.fib on chronic anticoagulation therapy,dementia, and anxiety, who presented to the ED because of a fall which resulted in him being outside in cold for >3 hours. . Rhabdomyolysis secondary to fall of unknown cause: - CPK slightly up today; 380's yesterday, today 500's - On IVF 80mls/hr - continue due to poor oral intake - Leukocytosis- resolved. Cultures negative - Continue to hold Lipitor, will check liver enzymes tomorrow. - Head CT unremarkable - Tibia/fibula and pelvis x-rays without fractures - Wound care for bilateral lower extremity wounds Oral thrush - Nystatin swish and swallow Dysphagia - Pt had a cough today.Ordered portable CXR - Nursing aid states patient is having trouble swallowing food; ordered speech eval, changed diet to softs - Speech eval-recommended mechanical soft diet Fall - Check orthostatics - stop baclofen and lorazepam on discharge. - PT/OT recommend that the patient goes to SNF Metabolic Encephalopathy on the background of dementia -Today patient is more confused. Afebrile, with normal WBC, - Ordered CXR - Pt back on one to one - oral care. Elevated trop - ? rhabdo: - Cardiology consulted, appreciate recommendations - ? sec demand ischemia or acute diastolic failure. With No symptoms and Preserved LV systolic function - No revascularization would be indicated even in the setting of an abnormal stress test. Continue aggressive medical regimen. ASA along with anticoagulation. Hypokalemia - Resolved, will supplemented when needed BENEDICT: - Resolved A.fib- rate controlled, CAD, HLD- follows w/ Dr. Osborn: - Continue Verapamil - pt has a INR of 4 today. Holding Coumadin today. Will check INR tomorrow. - Hold Lipitor due to elevated liver enzymes HTN: - Hold Lisinopril due to BENEDICT; careful reintroduction - Hydralazine PRN T2DM: - Hold Glipizide - BSG ACHS and ISS - Hypoglycemic this am -- Glucose of 60 this am, reducing Lantus to 15 units, holding sliding scale Case Mx for placement DVT proph - Coumadin Reviewed: Pt Seen/Exam by Me History has been more confused since this am. Constitutional: denies: fever Respiratory: negative: short of breath Cardiovascular: denies chest pain General Appearance: no apparent distress (confused/delirious) Respiratory: lungs clear, no respiratory distress Cardiovascular: regular rate, rhythm Gastrointestinal: soft Skin Characteristics: warm/dry Assessment/Plan Resident Physician Supervision Note: I independently interviewed and examined the patient and verified the bradford history and physical, reviewed labs and image studies, discussed the case with the resident Dr. Roman and agree with the findings and care plan.
[2017-04-17 07:17] LABS: PROTHROMBIN TIME (PATIENT) 60.2 SECONDS (9.0-12.0)
[2017-04-17 07:18] LABS: INR 5.3 (0.9-1.1)
[2017-04-17 07:31] LABS: BUN/CREATININE RATIO 28.6 (10-20); CALCIUM 8.4 mg/dl (8.5-10.1); CREATININE 0.64 mg/dl (0.60-1.40); POTASSIUM 3.6 mmol/L (3.5-5.1)
[2017-04-17 07:34] LABS: ALB/GLOB RATIO 0.9 (0.9-2)
[2017-04-17] MEDS: MULTIVITAMIN TAB PO SCH (09:00)
[2017-04-17] MEDS: CYANOCOBALAMIN 500 MCG TAB (VIT B-12) PO SCH (09:00)
[2017-04-17] MEDS: VERAPAMIL HCL 240 MG TABCR PO SCH (09:00)
[2017-04-17] MEDS: ASPIRIN 81 MG ECTAB PO SCH (09:00)
[2017-04-17] MEDS: SODIUM CHLORIDE 0.45% 1000ML 1,000 ML IV SCH (12:32)
--- NOTE | 2017-04-17 13:38 | Medical Student: [facility] ---
Med Student Progress Note Date of Service Apr 17, 2017. Subjective Pt evaluation today including: conversation w/ patient, conversation w/ family , physical exam, chart review, lab review, review of studies Mr. Simeon is more confused today. Per the spouse, he continues to not sleep well. She feels it may be due to distracting sounds and the tv being on at night time. Otherwise, he denies any pain today, has no complaints today. I discussed with the spouse that he seems to be improving, despite this setback in mentation. Review of Systems Constitutional: + see HPI Objective Vital Signs Date Time Temp Pulse Resp B/P (MAP) Pulse Ox O2 Delivery O2 Flow Rate FiO2 04/17/17 10:41 37.6 80 24 212/99 (136) 91 Nasal Cannula 4.0 04/17/17 08:00 92 Nasal Cannula 4.0 04/17/17 06:48 37.0 90 22 194/83 (120) 92 Nasal Cannula 2.0 04/17/17 00:00 Nasal Cannula 3.0 04/16/17 23:03 37.0 79 22 137/67 (90) 90 Nasal Cannula 3.0 04/16/17 16:00 90 Nasal Cannula 3.0 04/16/17 15:56 36.7 63 20 144/63 (90) 90 Nasal Cannula 3.0 Physical Exam General Appearance: WD/WN, no apparent distress ENT: hearing grossly normal Neck: supple, no carotid bruits, trachea midline Respiratory/Chest: chest non-tender, lungs clear, normal breath sounds, no respiratory distress, no accessory muscle use Cardiovascular: regular rate, rhythm, no edema, no gallop, no JVD, no murmur Abdomen: normal bowel sounds, non tender, soft, no organomegaly, no pulsatile mass Extremities: no pedal edema, + pertinent finding (Charcot joint-like appearance of right foot. Scattered injuries to the legs, likely from fall. Skin discoloration suggestive of venostasis present on legs.) Neurologic/Psychiatric: no motor/sensory deficits, alert, normal mood/affect, + disoriented (Oriented to self, but not place or time.) Laboratory Results Last 24 Hours Test 04/16/17 16:17 04/16/17 20:01 04/17/17 06:32 04/17/17 07:33 Bedside Glucose 146 mg/dl 238 mg/dl 85 mg/dl White Blood Count 6.83 K/uL Red Blood Count 3.97 M/uL Hemoglobin 12.9 g/dL Hematocrit 37.3 % Mean Corpuscular Volume 94.0 fL Mean Corpuscular Hemoglobin 32.5 pg Mean Corpuscular Hemoglobin Concent 34.6 g/dl Platelet Count 172 K/uL Mean Platelet Volume 10.7 fL Neutrophils (%) (Auto) 77.5 % Lymphocytes (%) (Auto) 10.2 % Monocytes (%) (Auto) 10.4 % Eosinophils (%) (Auto) 1.2 % Basophils (%) (Auto) 0.1 % Neutrophils # (Auto) 5.29 K/uL Lymphocytes # (Auto) 0.70 K/uL Monocytes # (Auto) 0.71 K/uL Eosinophils # (Auto) 0.08 K/uL Basophils # (Auto) 0.01 K/uL RDW Standard Deviation 48.4 fL RDW Coefficient of Variation 14.2 % Immature Granulocyte % (Auto) 0.6 % Immature Granulocyte # (Auto) 0.04 K/uL Prothrombin Time 60.2 SECONDS Prothromb Time International Ratio 5.3 Sodium Level 144 mmol/L Potassium Level 3.6 mmol/L Chloride Level 110 mmol/L Carbon Dioxide Level 26 mmol/L Anion Gap 8.0 mmol/L Blood Urea Nitrogen 18 mg/dl Creatinine 0.64 mg/dl Est Creatinine Clear Calc Drug Dose 118.3 ml/min Estimated GFR () 110.2 Estimated GFR (Non- 95.1 BUN/Creatinine Ratio 28.6 Random Glucose 98 mg/dl Calcium Level 8.4 mg/dl Total Bilirubin 1.1 mg/dl Aspartate Amino Transf (AST/SGOT) 51 U/L Alanine Aminotransferase (ALT/SGPT) 77 U/L Alkaline Phosphatase 84 U/L Total Creatine Kinase 503 U/L Total Protein 6.0 gm/dl Albumin 2.9 gm/dl Globulin 3.1 gm/dl Albumin/Globulin Ratio 0.9 Assessment and Plan Assessment and Plan: Mr. Simeon is a 77 yo male with past medical history of dementia, DM2 , CAD, HLD, HTN, and afib who presented to the ED following a fall outside and being unable to get up for hours. Weakness of legs and fall: More confused today. Concerns are for hypotension, stroke, cauda equina, conus medullaris syndrome, Guillain [place], myositis, vasovagal syncope, orthostatic hypotension, POTS, bone fracture, infection and substance/medication induced. Head CT is reassuring against stroke. X-rays are reassuring against fractures. Lack of urinary changes and return of motor function of legs is reassuring against cauda equina/conus medullaris. Lack of viral illness preceding and resolution of symptoms is reassuring against GBS. Lack of muscle pain and proximal complaints is reassuring against myositis. Age and no history of POTS is reassuring. Leukocytosis and hypothermia at presentation are concerning for SIRS, however these have resolved. He does take lorazepam, baclofen, melatonin, anti-diabetics, and anti-hypertensives and he was hypotensive at arrival so medication may be an issue. Supporting hypotension is that he had an elevated Hgb that quickly responded to hydration, his BUN/Cr has shown a pre-renal ratio, Na and Cl have been elevated (resolving) , and his altered mental status and symptoms seem to be resolving with IVF. At this point, monitoring vitals, ensuring adequate hydration, CBC and BMP and monitoring for improvement. Plan: Continue IVF 80mL/hr, Monitor BP and adjust medications as needed. When mental status impoves: PT/OT evaluation or at minimum nursing assessment of transfer from bed to chair and Orthostatic BP check. CBC likely not needed tomorrow. BMP to monitor kidney function and potassium. Continue B12 1000mcg PO daily HTN: Hypertensive today with 190-212 systolic. On Verapamil and holding lisinopril and triamterene/HCTZ. Plan: Continue verapamil 240 mg PO qAM. Restart Lisinopril 5mg PO daily with monitoring of BP. May need to titrate lisinopril. Avoid hypotension. Hypothermia: resolved. Plan: Monitor vitals. Elevated CK: Peak of 6030, now 503. Potassium has been low normal. Max BUN/Cr of 32/1.73, now normal. On 125mL/hr Normal saline. Did have hematuria on UA with RBC's. Plan: Continue IVF 80mL/hr. Repeat BMP tomorrow. Elevated Troponin: May have been due to demand mismatch. Peak 1.5 @ 0137 on 11Nov. Downtrending at following check. No ST elevation on EKG. Plan: Continue hydration, BP management, and fdc therapy. Afib: Controlled and asymptomatic. Plan: Continue verapamil 240mg PO qAM, Warfarin 5mg PO @1600, Aspirin 81mg PO daily. Diabetes mellitus, type 2: 125-250 range past day. Asymptomatic. Plan: continue current sliding scale insulin regimen with insulin glargine. Insomnia: Has been unable to sleep for 5 days. Likely worsening his dementia. Plan: D/C lorazepam. Risk for worsening of dementia. Consider antipsychotic therapy. Hyperlipidemia: Stable, manage outpatient. Plan: Continue atorvastatin 40mg PO daily. Continued [facility] stay due to: ambulation difficulties Discharge planning: rehab hospital
[2017-04-17] MEDS: WARFARIN SOD 5 MG TAB PO SCH (14:24)
[2017-04-17] MEDS: NYSTATIN SUSP 500,000 U/5 ML UDC PO SCH ×3 (14:27→21:00)
--- NOTE | 2017-04-17 14:42 | DIAGNOSTIC IMAGING REPORT ---
CHEST ONE VIEW PORTABLE HISTORY: Cough. Short of breath. COMPARISON: Chest 04/14/2017. FINDINGS: The heart remains enlarged. Diffuse interstitial and vascular thickening with right greater then left perihilar hazy airspace opacities. This likely represents symmetric pulmonary edema. No pneumothorax. Trace left pleural effusion and left basilar densities are again noted. IMPRESSION: 1. Cardiomegaly with with asymmetric pulmonary edema. 2. Trace left pleural effusion and left basilar densities persist. Electronically signed by: John Grimes M.D. 04/17/2017 2:40 PM Dictated Date/Time: 04/17/2017 2:39 PM
[2017-04-17] MEDS ORDERED: LISINOPRIL 5 MG TAB PO ONE (15:30)
[2017-04-17] MEDS ORDERED: LORAZEPAM INJ 0.5 MG in SYRINGE 0.75 ML IV STA (16:44)
[2017-04-17 16:45] LABS: ALLEN TEST POS (POS); ARTERIAL BLOOD GAS BASE EXCESS 1.4 mEq/L (-9-1.8); ARTERIAL BLOOD GAS HCO3 25 mmol/L (19-24); ARTERIAL BLOOD GAS PO2 75 mm/Hg (80-95); ARTERIAL BLOOD GAS pH 7.45 (7.35-7.45); O2 ADMINISTRATION 4L
[2017-04-17] MEDS ORDERED: NURSING VERBAL MED ORDER ONE (18:30)
[2017-04-17] MEDS ORDERED: HALOPERIDOL LACTATE 5 MG/ML 1 ML VIAL IM ONE (18:45)
[2017-04-17] MEDS: INSULIN GLARGINE SOLOSTAR 100 UNITS/ML 3 ML PEN SC SCH (21:35)
[2017-04-18] MEDS: SODIUM CHLORIDE 0.45% 1000ML 1,000 ML IV SCH (00:47)
[2017-04-18 03:25] VITALS: BP 154/84; PULSE 107; TEMP 36.9; O2SAT 97
--- NOTE | 2017-04-18 06:32 | DIAGNOSTIC IMAGING REPORT ---
CT HEAD WITHOUT CONTRAST (CT) CLINICAL HISTORY: Elevated INR, change in mental state ?intracranial hemorrhage COMPARISON STUDY: 04/12/2017 TECHNIQUE: Axial CT of the brain is performed from the vertex to the skull base. IV contrast was not administered for this examination. A dose lowering technique was utilized adhering to the principles of ALARA. CT DOSE: 651.12 mGy.cm FINDINGS: No intra or extra-axial mass lesions are visualized. There is no CT evidence of acute cortical infarction. There is no evidence of midline shift. There is no acute hemorrhage. No calvarial fractures are visualized. There are patchy white matter hypodensities likely on a small vessel basis. There is no evidence of pathologic ventricular dilatation. There is no evidence of acute sinusitis IMPRESSION: No acute intracranial findings Electronically signed by: Micheal Miranda M.D. 04/18/2017 6:30 AM Dictated Date/Time: 04/18/2017 6:30 AM
[2017-04-18 07:01] LABS: BASO % 0.2 %; BASO ABS # 0.01 K/uL (0-0.2); COMPLETE YES; EOS % 2.7 %; HEMATOCRIT 35.8 % (42-52); IG% 0.4 %; LYMPH % 13.1 %; LYMPH ABS # 0.68 K/uL (1.2-3.4); MEAN CELL VOLUME 94.5 fL (80-100); MEAN CORPUSCULAR HEMOGLOBIN 31.7 pg (25-34); MEAN CORPUSCULAR HGB CONC 33.5 g/dl (32-36); MEAN PLATELET VOLUME 10.5 fL (7.4-10.4); MONO % 12.2 %; NEUT % 71.4 %; PLATELET COUNT 169 K/uL (130-400); RED BLOOD COUNT 3.79 M/uL (4.7-6.1); WHITE BLOOD COUNT 5.18 K/uL (4.8-10.8)
[2017-04-18 07:36] LABS: BUN/CREATININE RATIO 28.6 (10-20); CREATININE 0.54 mg/dl (0.60-1.40); POTASSIUM 3.4 mmol/L (3.5-5.1)
[2017-04-18 08:00] VITALS: O2SAT 97
[2017-04-18 09:09] VITALS: BP 152/70; PULSE 68; TEMP 36.5; O2SAT 98
[2017-04-18] MEDS: MULTIVITAMIN TAB PO SCH (09:43)
[2017-04-18] MEDS: LISINOPRIL 5 MG TAB PO SCH (09:43)
[2017-04-18] MEDS: CYANOCOBALAMIN 500 MCG TAB (VIT B-12) PO SCH (09:43)
[2017-04-18] MEDS: VERAPAMIL HCL 240 MG TABCR PO SCH (09:43)
[2017-04-18] MEDS: ASPIRIN 81 MG ECTAB PO SCH (09:44)
[2017-04-18] MEDS: NYSTATIN SUSP 500,000 U/5 ML UDC PO SCH ×4 (09:44→20:47)
--- NOTE | 2017-04-18 13:55 | Medical Student: [facility] ---
Med Student Progress Note Date of Service Apr 18, 2017. Subjective Pt evaluation today including: conversation w/ patient, physical exam, chart review, lab review Mr. Simeon is disoriented to year, but is partially oriented to location ( [place], but doesn't know where in [place]) and is oriented to self. Per nursing, he slept an hour or more over night. He went for head CT due to muscle spasms he was experiencing yesterday evening, it showed no acute events. Otherwise, per the patient, he is in no pain, and has no other problems today except "too many damn things going on around here". Review of Systems Constitutional: + see HPI Objective Vital Signs Date Time Temp Pulse Resp B/P (MAP) Pulse Ox O2 Delivery O2 Flow Rate FiO2 04/18/17 09:09 36.5 68 20 152/70 (97) 98 Nasal Cannula 4.0 04/18/17 08:00 97 Nasal Cannula 4.0 04/18/17 03:25 36.9 107 22 154/84 (107) 97 Nasal Cannula 4.0 04/18/17 00:00 Nasal Cannula 4.0 04/17/17 22:38 37.3 95 24 111/79 (90) 95 Nasal Cannula 4.0 04/17/17 17:50 82 20 144/99 (114) 95 Nasal Cannula 4.0 04/17/17 16:00 96 Oxymask 4.0 04/17/17 15:48 186/103 (130) 04/17/17 15:16 37.0 85 22 180/149 (159) 96 Nasal Cannula 4.0 Physical Exam General Appearance: WD/WN, no apparent distress ENT: hearing grossly normal Neck: supple, no carotid bruits Respiratory/Chest: chest non-tender, lungs clear, normal breath sounds, no respiratory distress, no accessory muscle use Cardiovascular: regular rate, rhythm, no edema, no gallop, no JVD, no murmur Abdomen: normal bowel sounds, non tender, soft, no pulsatile mass Extremities: + pertinent finding (venostasis dermatitis like skin discolorations. Scrapes and bruises present. Charcot-joint like right ankle. 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 ) Neurologic/Psychiatric: no motor/sensory deficits, + disoriented, + pertinent finding (Appears to be yawning and tired, and stares at the tv majority of time talking to him. Appears less tense today compared to yesterday.) Laboratory Results Last 24 Hours Test 04/17/17 15:56 04/17/17 16:31 04/17/17 19:59 04/18/17 03:20 Bedside Glucose 138 mg/dl 143 mg/dl 123 mg/dl Arterial Blood pH 7.45 Arterial Blood Partial Pressure CO2 37 mmHg Arterial Blood Partial Pressure O2 75 mm/Hg Arterial Blood HCO3 25 mmol/L Arterial Blood Oxygen Saturation 96.0 % Arterial Blood Base Excess 1.4 mEq/L Arterial Blood Gas Delivery 4L Koko Test POS Test 04/18/17 06:34 04/18/17 07:09 04/18/17 11:16 White Blood Count 5.18 K/uL Red Blood Count 3.79 M/uL Hemoglobin 12.0 g/dL Hematocrit 35.8 % Mean Corpuscular Volume 94.5 fL Mean Corpuscular Hemoglobin 31.7 pg Mean Corpuscular Hemoglobin Concent 33.5 g/dl Platelet Count 169 K/uL Mean Platelet Volume 10.5 fL Neutrophils (%) (Auto) 71.4 % Lymphocytes (%) (Auto) 13.1 % Monocytes (%) (Auto) 12.2 % Eosinophils (%) (Auto) 2.7 % Basophils (%) (Auto) 0.2 % Neutrophils # (Auto) 3.70 K/uL Lymphocytes # (Auto) 0.68 K/uL Monocytes # (Auto) 0.63 K/uL Eosinophils # (Auto) 0.14 K/uL Basophils # (Auto) 0.01 K/uL RDW Standard Deviation 48.8 fL RDW Coefficient of Variation 14.5 % Immature Granulocyte % (Auto) 0.4 % Immature Granulocyte # (Auto) 0.02 K/uL Prothrombin Time 57.0 SECONDS Prothromb Time International Ratio 5.0 Sodium Level 145 mmol/L Potassium Level 3.4 mmol/L Chloride Level 112 mmol/L Carbon Dioxide Level 25 mmol/L Anion Gap 8.0 mmol/L Blood Urea Nitrogen 15 mg/dl Creatinine 0.54 mg/dl Est Creatinine Clear Calc Drug Dose 140.2 ml/min Estimated GFR () 118.2 Estimated GFR (Non- 102.0 BUN/Creatinine Ratio 28.6 Random Glucose 67 mg/dl Calcium Level 8.0 mg/dl Total Creatine Kinase 290 U/L Bedside Glucose 72 mg/dl 79 mg/dl Assessment and Plan Assessment and Plan: Mr. Simeon is a 77 yo male with past medical history of dementia, DM2 , CAD, HLD, HTN, and afib who presented to the ED following a fall outside and being unable to get up for hours. Weakness of legs and fall: More confused today. Concerns are for hypotension, stroke, cauda equina, conus medullaris syndrome, Guillain Vance, myositis, vasovagal syncope, orthostatic hypotension, POTS, bone fracture, infection and substance/medication induced. Head CT is reassuring against stroke. X-rays are reassuring against fractures. Lack of urinary changes and return of motor function of legs is reassuring against cauda equina/conus medullaris. Lack of viral illness preceding and resolution of symptoms is reassuring against GBS. Lack of muscle pain and proximal complaints is reassuring against myositis. Age and no history of POTS is reassuring. Leukocytosis and hypothermia at presentation are concerning for SIRS, however these have resolved. He does take lorazepam, baclofen, melatonin, anti-diabetics, and anti-hypertensives and he was hypotensive at arrival so medication may be an issue. Supporting hypotension is that he had an elevated Hgb that quickly responded to hydration, his BUN/Cr has shown a pre-renal ratio, Na and Cl have been elevated (resolving) . At this point, monitoring vitals, ensuring adequate hydration, CBC and BMP and monitoring for improvement. Plan: Continue IVF 80mL/hr, Monitor BP and adjust medications as needed. When mental status impoves: PT/OT evaluation or at minimum nursing assessment of transfer from bed to chair and Orthostatic BP check. CBC likely not needed tomorrow. BMP to monitor kidney function and potassium. Continue B12 1000mcg PO daily Altered Mental Status: Has been fluctuating over the week. Concerning for delirium in setting of possible underlying dementia. He does not show signs of infection, Cl is elevated but rest of BMP is approximately normal, CK is improving, ABG did not support CO2 retention, but did show low O2 and normal pH. Imaging was not suggestive of acute causes. The cause of his fluctuating mental status is unclear, however he has been without adequate sleep for 5-6 days now and this may be the cause. Plan: Would like to avoid lorazepam due to age and underlying dementia. Can use haloperidol 2.5mg to aid with sleep in the evening as well as melatonin supplement. Turn off tv and close door in the evening and minimize noises. May leave dim lights on during the evening. HTN: Improved with hydralazine in addition to verapamil and lisinopril. Has been in 110 to 150 systolic range. On Verapamil and lisinopril and holding triamterene/HCTZ. Plan: Continue verapamil 240 mg PO qAM and Lisinopril 5mg PO daily with monitoring of BP. Continue hydralazine as needed. May need to titrate lisinopril. Avoid hypotension. Hypothermia: resolved. Plan: Monitor vitals. Elevated CK: Likely resolved at this point. Potassium has been low normal. Max BUN/Cr of 32/1.73, now normal. On 80mL/hr Normal saline. Did have hematuria on UA with RBC's. Plan: Continue IVF 80mL/hr. Repeat BMP tomorrow without CK. Elevated Troponin: May have been due to demand mismatch. Peak 1.5 @ 0137 on 11Nov. Downtrending at following check. No ST elevation on EKG. 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 Afib: Tachycardic in last 24 hours. Will need to monitor for non-sinus rhythm. INR of 5.0 today (5.3 yesterday) Plan: Continue verapamil 240mg PO qAM, restart Warfarin at 2.5mg PO tomorrow @ 1600, Aspirin 81mg PO daily. Diabetes mellitus, type 2: 85-143 range past day. Asymptomatic. Plan: continue current sliding scale insulin regimen with insulin glargine. Insomnia: Has been unable to sleep adequately for 6 days. Likely worsening his dementia. Plan: D/C lorazepam. Risk for worsening of dementia. Consider antipsychotic therapy. Hyperlipidemia: Stable, manage outpatient. Plan: Continue atorvastatin 40mg PO daily. Continued [facility] stay due to: ambulation difficulties Discharge planning: rehab hospital
[2017-04-18] MEDS ORDERED: PHYTONADIONE 5 MG TAB PO STA (14:16)
[2017-04-18] MEDS: WARFARIN SOD 5 MG TAB PO SCH (14:19)
[2017-04-18] MEDS ORDERED: PHYTONADIONE PED INJ 2 MG, ORA-SWEET SYRUP 2.25 ML, ORA-PLUS SUSP. VEHICLE 2.25 ML, BAR... PO ONE ×3 (14:45)
[2017-04-18 14:56] VITALS: BP 141/94; PULSE 78; TEMP 36.5; O2SAT 99
[2017-04-18 16:00] VITALS: O2SAT 99
--- NOTE | 2017-04-18 17:28 | Family Medicine Progress Note ---
Progress Note Date of Service Apr 18, 2017. Subjective Pt evaluation today including: conversation w/ patient, physical exam, chart review, lab review, review of studies Pt was sleeping when I came in, but became alert. Pt knew, his name and that he was at a hospital in [place], but could not answer many other question. He states that he is not in pain. When doing a ROS, patient became distracted and had difficulty articulating how he feels. Additional Comments: unable to obtain accurate ROS due to patients mental status Medications Current Inpatient Medications Medications (Trade) Dose Ordered Sig/[place] Route Start Time Stop Time Status Last Admin Dose Admin Acetaminophen (Tylenol Tab) 650 mg Q4H PRN PO 04/12/17 13:00 05/12/17 12:59 Al Hydrox/Mg Hydrox/Simethicone (Maalox Max Susp) 15 ml Q4H PRN PO 04/12/17 13:00 05/12/17 12:59 Magnesium Hydroxide (Milk Of Magnesia Susp) 30 ml Q12H PRN PO 04/12/17 13:00 05/12/17 12:59 Ondansetron HCl (Zofran Inj) 4 mg Q6H PRN IV 04/12/17 13:00 05/12/17 12:59 Nitroglycerin (Nitrostat Tab) 0.4 mg UD PRN SL 04/12/17 13:00 05/12/17 12:59 Morphine Sulfate (MoRPHine SULFATE INJ) 2 mg Q30M PRN IV 04/12/17 13:00 04/26/17 12:59 Aspirin (Ecotrin Tab) 81 mg QAM PO 04/13/17 09:00 05/13/17 08:59 04/18/17 09:44 81 MG Polyethylene (Miralax Powder Packet) 17 gm DAILY PRN PO 04/12/17 13:00 05/12/17 12:59 Insulin Aspart (novoLOG ASPART) SLIDING SCALE G... ACHS SC 04/12/17 16:00 05/12/17 15:59 Future Hold 04/14/17 16:59 2 UNITS Cyanocobalamin (Vitamin B-12 Tab) 1,000 mcg DAILY PO 04/13/17 09:00 05/13/17 08:59 04/18/17 09:43 1,000 MCG Multivitamins (Multivitamin Tab) 1 tab DAILY PO 04/13/17 09:00 05/13/17 08:59 04/18/17 09:43 1 TAB Verapamil HCl (Calan-Sr Tab) 240 mg QAM PO 04/13/17 09:00 05/13/17 08:59 04/18/17 09:43 240 MG Hydralazine HCl (HydrALAZINE INJ) 10 mg Q6H PRN IV. 04/12/17 13:30 05/12/17 13:29 04/17/17 15:09 10 MG Glucose (Glucose 40% Gel) 15-30 GRAMS 15 GRAMS... UD PRN PO 04/12/17 14:15 05/12/17 14:14 Glucose (Glucose Chew Tab) 4-8 Tablets 4 Tabl... UD PRN PO 04/12/17 14:15 05/12/17 14:14 Dextrose (Dextrose 50% 50ML Syringe) 25-50ML OF 50% DW IV FOR... UD PRN IV 04/12/17 14:15 05/12/17 14:14 04/16/17 06:25 50 ML Glucagon (Glucagon Inj) 1 mg UD PRN SQ 04/12/17 14:15 05/12/17 14:14 Warfarin Sodium (Coumadin Tab) 5 mg DAILY@16 PO 04/12/17 16:00 05/12/17 15:59 Future Hold 04/15/17 16:20 5 MG Nystatin (Mycostatin Powder) 1 appln PRN PRN EXT 04/13/17 19:15 05/13/17 19:14 Insulin Glargine (Lantus Solostar Pen) 15 units HS SC 04/16/17 21:00 05/13/17 20:59 04/17/17 21:35 15 UNITS Nystatin (Mycostatin Susp) 5 ml QID PO 04/17/17 13:00 04/27/17 12:59 04/18/17 13:00 5 ML Lisinopril (Zestril Tab) 5 mg DAILY PO 04/18/17 09:00 05/18/17 08:59 04/18/17 09:43 5 MG Objective Vital Signs Date Time Temp Pulse Resp B/P (MAP) Pulse Ox O2 Delivery O2 Flow Rate FiO2 04/18/17 14:56 36.5 78 20 141/94 (110) 99 Nasal Cannula 4.0 04/18/17 09:09 36.5 68 20 152/70 (97) 98 Nasal Cannula 4.0 04/18/17 08:00 97 Nasal Cannula 4.0 04/18/17 03:25 36.9 107 22 154/84 (107) 97 Nasal Cannula 4.0 04/18/17 00:00 Nasal Cannula 4.0 04/17/17 22:38 37.3 95 24 111/79 (90) 95 Nasal Cannula 4.0 04/17/17 17:50 82 20 144/99 (114) 95 Nasal Cannula 4.0 Physical Exam General Appearance: WD/WN, no apparent distress Neck: supple, no adenopathy Respiratory/Chest: chest non-tender, lungs clear, normal breath sounds, no respiratory distress, no accessory muscle use Cardiovascular: regular rate, rhythm, no edema, no gallop, no JVD, no murmur Abdomen: normal bowel sounds, non tender, soft, no organomegaly Extremities: normal range of motion, non-tender 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 as tested, no motor/sensory deficits, alert, normal mood/affect, oriented x 3 Skin: normal color, + pertinent finding (patient has clean bandages on bilateral anterior lower extremities ) Laboratory Results 04/18/17 06:34 Red Blood Count 3.79, Mean Corpuscular Volume 94.5, Mean Corpuscular Hemoglobin 31.7, Mean Corpuscular Hemoglobin Concent 33.5, Mean Platelet Volume 10.5, Neutrophils (%) (Auto) 71.4, Lymphocytes (%) (Auto) 13.1, Monocytes (%) (Auto) 12.2, Eosinophils (%) (Auto) 2.7, Basophils (%) (Auto) 0.2, Neutrophils # (Auto ) 3.70, Lymphocytes # (Auto) 0.68, Monocytes # (Auto) 0.63, Eosinophils # (Auto ) 0.14, Basophils # (Auto) 0.01 04/18/17 06:34 Test 04/18/17 06:34 04/18/17 16:26 White Blood Count 5.18 K/uL (4.8-10.8) Red Blood Count 3.79 M/uL (4.7-6.1) Hemoglobin 12.0 g/dL (14.0-18.0) Hematocrit 35.8 % (42-52) Mean Corpuscular Volume 94.5 fL (80-100) Mean Corpuscular Hemoglobin 31.7 pg (25-34) Mean Corpuscular Hemoglobin Concent 33.5 g/dl (32-36) Platelet Count 169 K/uL (130-400) Mean Platelet Volume 10.5 fL (7.4-10.4) Neutrophils (%) (Auto) 71.4 % Lymphocytes (%) (Auto) 13.1 % Monocytes (%) (Auto) 12.2 % Eosinophils (%) (Auto) 2.7 % Basophils (%) (Auto) 0.2 % Neutrophils # (Auto) 3.70 K/uL (1.4-6.5) Lymphocytes # (Auto) 0.68 K/uL (1.2-3.4) Monocytes # (Auto) 0.63 K/uL (0.11-0.59) Eosinophils # (Auto) 0.14 K/uL (0-0.5) Basophils # (Auto) 0.01 K/uL (0-0.2) RDW Standard Deviation 48.8 fL (36.4-46.3) RDW Coefficient of Variation 14.5 % (11.5-14.5) Immature Granulocyte % (Auto) 0.4 % Immature Granulocyte # (Auto) 0.02 K/uL (0.00-0.02) Prothrombin Time 57.0 SECONDS (9.0-12.0) Prothromb Time International Ratio 5.0 (0.9-1.1) Anion Gap 8.0 mmol/L (3-11) Est Creatinine Clear Calc Drug Dose 140.2 ml/min Estimated GFR () 118.2 Estimated GFR (Non- 102.0 BUN/Creatinine Ratio 28.6 (10-20) Calcium Level 8.0 mg/dl (8.5-10.1) Total Creatine Kinase 290 U/L (39-308) Bedside Glucose 141 mg/dl (70-99) Assessment and Plan Patient is a pleasant 77 y/o male, with PMHx of CAD, HLD, T2DM, HTN, a.fib on chronic anticoagulation therapy,dementia, and anxiety, who presented to the ED because of a fall which resulted in him being outside in cold for >3 hours. . Rhabdomyolysis secondary to fall of unknown cause: - CPK better. - IVF d/naila - Leukocytosis- resolved. Cultures negative - Continue to hold Lipitor for now. consider resuming on discharge. - Head CT unremarkable - Tibia/fibula and pelvis x-rays without fractures - Wound care for bilateral lower extremity wounds Oral thrush - Nystatin swish and swallow Dysphagia - CXR yesterday was unremarkable for signs of aspiration PNA - Speech eval-recommended mechanical soft diet Fall - Check orthostatics - stop baclofen and lorazepam on discharge. - PT/OT recommend that the patient goes to SNF, working on placement - Pt still on to 1. Metabolic Encephalopathy on the background of dementia -Yesterday patient was more confused and agitated. Received IM Haldol. Afebrile , with normal WBC, - Pt back on one to one - oral care. Elevated trop - - Cardiology consulted, appreciate recommendations - ? sec demand ischemia or acute diastolic failure. With No symptoms and Preserved LV systolic function - No revascularization would be indicated even in the setting of an abnormal stress test. Continue aggressive medical regimen. ASA along with anticoagulation. Hypokalemia - Resolved, will supplemented when needed BENEDICT: - Resolved A.fib- rate controlled, CAD, HLD- follows w/ Dr. Osborn: - Continue Verapamil - pt has a INR of 5 today. Holding Coumadin today. Will check INR tomorrow. Vitamin K 2.5mgs as per pharmacist recommendation. - Hold Lipitor due to elevated liver enzymes HTN: - Hold Lisinopril due to BENEDICT; careful reintroduction - Hydralazine PRN T2DM: - Hold Glipizide - BSG ACHS and ISS - Lantus to 15 units, holding sliding scale Case Mx for placement DVT proph - Coumadin Reviewed: Pt Seen/Exam by Me History was agitated yesterday and last night. received lorazepam and haldol. slept for few hours later on. more alert today Constitutional: denies: fever General Appearance: no apparent distress Respiratory: lungs clear, no respiratory distress Cardiovascular: regular rate, rhythm Neurologic/Psychiatric: alert, other (oriented to place and person) Skin Characteristics: warm/dry Assessment/Plan Resident Physician Supervision Note: I independently interviewed and examined the patient and verified the bradford history and physical, reviewed labs and image studies, discussed the case with the resident Dr. Roman and agree with the findings and care plan.
[2017-04-18] MEDS: INSULIN GLARGINE SOLOSTAR 100 UNITS/ML 3 ML PEN SC SCH (20:47)
[2017-04-18] MEDS ORDERED: HALOPERIDOL LACTATE 5 MG/ML 1 ML VIAL IM STA (21:50)
[2017-04-18] MEDS ORDERED: HALOPERIDOL LACTATE 5 MG/ML 1 ML VIAL ONE (21:58)
[2017-04-19 06:55] VITALS: BP 146/76; PULSE 69; TEMP 36.6; O2SAT 97
[2017-04-19 07:25] LABS: COMPLETE YES; EOS % 1.9 %; HEMATOCRIT 34.8 % (42-52); IG% 0.6 %; LYMPH % 12.1 %; LYMPH ABS # 0.65 K/uL (1.2-3.4); MEAN CELL VOLUME 94.1 fL (80-100); MEAN CORPUSCULAR HEMOGLOBIN 31.9 pg (25-34); MEAN CORPUSCULAR HGB CONC 33.9 g/dl (32-36); MEAN PLATELET VOLUME 10.3 fL (7.4-10.4); MONO % 10.2 %; NEUT % 75.2 %; PLATELET COUNT 176 K/uL (130-400); WHITE BLOOD COUNT 5.38 K/uL (4.8-10.8)
[2017-04-19 07:32] LABS: INR 1.8 (0.9-1.1); PROTHROMBIN TIME (PATIENT) 19.5 SECONDS (9.0-12.0)
[2017-04-19 07:54] LABS: BUN/CREATININE RATIO 25.6 (10-20); CALCIUM 8.6 mg/dl (8.5-10.1); CREATININE 0.57 mg/dl (0.60-1.40); POTASSIUM 3.4 mmol/L (3.5-5.1)
[2017-04-19 08:00] VITALS: O2SAT 97
[2017-04-19] MEDS: NYSTATIN SUSP 500,000 U/5 ML UDC PO SCH ×4 (08:07→21:00)
[2017-04-19] MEDS: CYANOCOBALAMIN 500 MCG TAB (VIT B-12) PO SCH (08:07)
[2017-04-19] MEDS: MULTIVITAMIN TAB PO SCH (08:07)
[2017-04-19] MEDS: VERAPAMIL HCL 240 MG TABCR PO SCH (08:08)
[2017-04-19] MEDS: ASPIRIN 81 MG ECTAB PO SCH (08:08)
[2017-04-19] MEDS: LISINOPRIL 5 MG TAB PO SCH (08:08)
--- NOTE | 2017-04-19 12:50 | Medical Student: [facility] ---
Med Student Progress Note Date of Service Apr 19, 2017. Subjective Pt evaluation today including: conversation w/ patient, conversation w/ family , physical exam, chart review, lab review Mr. Simeon was aggressive with nursing staff overnight. He was argumentative and would kick at nursing staff. This started around 2200 last night. Otherwise , he has been disoriented, similar to the previous day. He did sleep some last night following 5mg of Haloperidol. Today he has no complaints, but is disoriented. Review of Systems Constitutional: + see HPI Objective Vital Signs Date Time Temp Pulse Resp B/P (MAP) Pulse Ox O2 Delivery O2 Flow Rate FiO2 04/19/17 08:00 97 Nasal Cannula 4.0 04/19/17 06:55 36.6 69 18 146/76 (99) 97 Nasal Cannula 4.0 04/18/17 23:59 Nasal Cannula 4.0 04/18/17 16:00 99 Nasal Cannula 4.0 04/18/17 14:56 36.5 78 20 141/94 (110) 99 Nasal Cannula 4.0 Physical Exam General Appearance: WD/WN, no apparent distress ENT: hearing grossly normal Neck: no carotid bruits Respiratory/Chest: chest non-tender, lungs clear, normal breath sounds, no respiratory distress, no accessory muscle use Cardiovascular: no edema, no gallop, no JVD, no murmur, + pertinent finding ( Heart rate was irregular today. Intervals sounded consistent, however would seem to miss a beat every 3-5 beats.) Abdomen: normal bowel sounds, non tender, soft, no pulsatile mass Extremities: non-tender, no pedal edema, + pertinent finding (Injuries still present on legs bilaterally) Neurologic/Psychiatric: alert, + disoriented, + pertinent finding (Muscle strength present in upper and lower extremities. 5/5 in upper, but unable to measure lower extremities as he would not sustain a force. ) Laboratory Results Last 24 Hours Test 04/18/17 16:26 04/18/17 20:12 04/19/17 06:54 04/19/17 07:44 Bedside Glucose 141 mg/dl 182 mg/dl 76 mg/dl White Blood Count 5.38 K/uL Red Blood Count 3.70 M/uL Hemoglobin 11.8 g/dL Hematocrit 34.8 % Mean Corpuscular Volume 94.1 fL Mean Corpuscular Hemoglobin 31.9 pg Mean Corpuscular Hemoglobin Concent 33.9 g/dl Platelet Count 176 K/uL Mean Platelet Volume 10.3 fL Neutrophils (%) (Auto) 75.2 % Lymphocytes (%) (Auto) 12.1 % Monocytes (%) (Auto) 10.2 % Eosinophils (%) (Auto) 1.9 % Basophils (%) (Auto) 0.0 % Neutrophils # (Auto) 4.05 K/uL Lymphocytes # (Auto) 0.65 K/uL Monocytes # (Auto) 0.55 K/uL Eosinophils # (Auto) 0.10 K/uL Basophils # (Auto) 0.00 K/uL RDW Standard Deviation 49.0 fL RDW Coefficient of Variation 14.4 % Immature Granulocyte % (Auto) 0.6 % Immature Granulocyte # (Auto) 0.03 K/uL Prothrombin Time 19.5 SECONDS Prothromb Time International Ratio 1.8 Sodium Level 144 mmol/L Potassium Level 3.4 mmol/L Chloride Level 109 mmol/L Carbon Dioxide Level 28 mmol/L Anion Gap 8.0 mmol/L Blood Urea Nitrogen 15 mg/dl Creatinine 0.57 mg/dl Est Creatinine Clear Calc Drug Dose 132.8 ml/min Estimated GFR () 115.6 Estimated GFR (Non- 99.7 BUN/Creatinine Ratio 25.6 Random Glucose 63 mg/dl Calcium Level 8.6 mg/dl Test 04/19/17 11:03 Bedside Glucose 105 mg/dl Assessment and Plan Assessment and Plan: Mr. Simeon is a 77 yo male with past medical history of dementia, DM2 , CAD, HLD, HTN, and afib who presented to the ED following a fall outside and being unable to get up for hours. Summary: Overall Mr. Simeon appears well clinically. Dehydration, blood glucose , hypertension and hypotension have been managed. No signs of infection. Kidney function is adequate. Head CT reassuring. However, he continues to have delirium and the source is unknown. I feel that at this point he is medically stable and the hospital setting may be worsening his delirium. Would advise discharge to rehab to assess and improve his stability. However if this is not doable, then home would be beneficial as well as it may help with his delirium. Weakness of legs and fall: Concerns are for hypotension, stroke, cauda equina, conus medullaris syndrome, Guillain [place], myositis, vasovagal syncope, orthostatic hypotension, POTS, bone fracture, infection and substance/ medication induced. Head CT is reassuring against stroke. X-rays are reassuring against fractures. Lack of urinary changes and return of motor function of legs is reassuring against cauda equina/conus medullaris. Lack of viral illness preceding and resolution of symptoms is reassuring against GBS. Lack of muscle pain and proximal complaints is reassuring against myositis. Age and no history of POTS is reassuring. Leukocytosis and hypothermia at presentation are concerning for SIRS, however these have resolved. He does take lorazepam, baclofen, melatonin, anti-diabetics, and anti-hypertensives and he was hypotensive at arrival so medication may be an issue. Supporting hypotension is that he had an elevated Hgb that quickly responded to hydration, his BUN/Cr has shown a pre-renal ratio, Na and Cl have been elevated (resolving). At this point , monitoring vitals, ensuring adequate hydration, CBC and BMP and monitoring for improvement. Plan: Continue IVF 80mL/hr, Monitor BP and adjust medications as needed. When mental status improves: PT/OT evaluation. BMP to monitor kidney function. Continue B12 1000mcg PO daily Altered Mental Status: Has been fluctuating over the week. Concerning for delirium in setting of underlying dementia. He does not show signs of infection , Cl is elevated but rest of BMP is approximately normal, CK is improving, ABG did not support CO2 retention, but did show low O2 and normal pH. Imaging was not suggestive of acute causes. The cause of his fluctuating mental status is unclear, however he has been without adequate sleep for 5-6 days now and this may be the cause, in addition to being in hospital setting. Plan: Would like to avoid lorazepam due to age and underlying dementia. Can use haloperidol 2.5-5mg to aid with sleep in the evening as well as melatonin supplement. Turn off tv and close door in the evening and minimize noises. May leave dim lights on during the evening. HTN: Has been in 140 to 150 systolic range most of time. On Verapamil and lisinopril and holding triamterene/HCTZ. Plan: Continue verapamil 240 mg PO qAM and Lisinopril 5mg PO daily with monitoring of BP. Continue hydralazine as needed. May need to titrate lisinopril up to achieve BP control. Avoid hypotension. Hypothermia: resolved. Plan: Monitor vitals. Elevated CK: Likely resolved at this point. Potassium has been low normal. Max BUN/Cr of 32/1.73, now normal. On 80mL/hr Normal saline. Did have hematuria on UA with RBC's. Plan: Continue IVF 80mL/hr. Elevated Troponin: May have been due to demand mismatch. Peak 1.5 @ 0137 on 11Nov. Downtrending at following check. No ST elevation on EKG. Plan: Continue hydration, BP management, and longterm therapy. Afib: Tachycardic in last 24 hours. Will need to monitor for non-sinus rhythm. INR of 1.8 today (5.0 yesterday) Plan: Continue verapamil 240mg PO qAM, restart Warfarin at 5mg PO, Aspirin 81mg PO daily. Diabetes mellitus, type 2: 79-138 range past day. Asymptomatic. Plan: continue current sliding scale insulin regimen with insulin glargine. Insomnia: Has been unable to sleep adequately for 6 days. Likely worsening his dementia. Plan: D/C lorazepam. Risk for worsening of dementia. Consider antipsychotic therapy with haloperidol. Hyperlipidemia: Stable, manage outpatient. Plan: Continue atorvastatin 40mg PO daily. Discharge planning: rehab hospital
--- NOTE | 2017-04-19 13:49 | Family Medicine Progress Note ---
Progress Note Date of Service Apr 19, 2017. Subjective Pt evaluation today including: conversation w/ patient, conversation w/ family , physical exam, chart review, lab review, review of studies Pt is doing well today. Nurse reports agitation and aggression last night. Pt was given Haldol. Today patient is conversation, but cannot focus on my questions and respond appropriately or clearly. Cardiovascular: No chest pain Additional Comments: Unable to obtain ROS due to pt mental status Medications Current Inpatient Medications Medications (Trade) Dose Ordered Sig/[place] Route Start Time Stop Time Status Last Admin Dose Admin Acetaminophen (Tylenol Tab) 650 mg Q4H PRN PO 04/12/17 13:00 05/12/17 12:59 Al Hydrox/Mg Hydrox/Simethicone (Maalox Max Susp) 15 ml Q4H PRN PO 04/12/17 13:00 05/12/17 12:59 Magnesium Hydroxide (Milk Of Magnesia Susp) 30 ml Q12H PRN PO 04/12/17 13:00 05/12/17 12:59 Ondansetron HCl (Zofran Inj) 4 mg Q6H PRN IV 04/12/17 13:00 05/12/17 12:59 Nitroglycerin (Nitrostat Tab) 0.4 mg UD PRN SL 04/12/17 13:00 05/12/17 12:59 Morphine Sulfate (MoRPHine SULFATE INJ) 2 mg Q30M PRN IV 04/12/17 13:00 04/26/17 12:59 Aspirin (Ecotrin Tab) 81 mg QAM PO 04/13/17 09:00 05/13/17 08:59 04/19/17 08:08 81 MG Polyethylene (Miralax Powder Packet) 17 gm DAILY PRN PO 04/12/17 13:00 05/12/17 12:59 Insulin Aspart (novoLOG ASPART) SLIDING SCALE G... ACHS SC 04/12/17 16:00 05/12/17 15:59 Future Hold 04/14/17 16:59 2 UNITS Cyanocobalamin (Vitamin B-12 Tab) 1,000 mcg DAILY PO 04/13/17 09:00 05/13/17 08:59 04/19/17 08:07 1,000 MCG Multivitamins (Multivitamin Tab) 1 tab DAILY PO 04/13/17 09:00 05/13/17 08:59 04/19/17 08:07 1 TAB Verapamil HCl (Calan-Sr Tab) 240 mg QAM PO 04/13/17 09:00 05/13/17 08:59 04/19/17 08:08 240 MG Hydralazine HCl (HydrALAZINE INJ) 10 mg Q6H PRN IV. 04/12/17 13:30 05/12/17 13:29 04/17/17 15:09 10 MG Glucose (Glucose 40% Gel) 15-30 GRAMS 15 GRAMS... UD PRN PO 04/12/17 14:15 05/12/17 14:14 Glucose (Glucose Chew Tab) 4-8 Tablets 4 Tabl... UD PRN PO 04/12/17 14:15 05/12/17 14:14 Dextrose (Dextrose 50% 50ML Syringe) 25-50ML OF 50% DW IV FOR... UD PRN IV 04/12/17 14:15 05/12/17 14:14 04/16/17 06:25 50 ML Glucagon (Glucagon Inj) 1 mg UD PRN SQ 04/12/17 14:15 05/12/17 14:14 Nystatin (Mycostatin Powder) 1 appln PRN PRN EXT 04/13/17 19:15 05/13/17 19:14 Nystatin (Mycostatin Susp) 5 ml QID PO 04/17/17 13:00 04/27/17 12:59 04/19/17 13:07 5 ML Lisinopril (Zestril Tab) 5 mg DAILY PO 04/18/17 09:00 05/18/17 08:59 04/19/17 08:08 5 MG Warfarin Sodium (Coumadin Tab) 3 mg DAILY@16 PO 04/19/17 16:00 05/19/17 15:59 Insulin Glargine (Lantus Solostar Pen) 10 units HS SC 04/19/17 21:00 05/13/17 20:59 Objective Vital Signs Date Time Temp Pulse Resp B/P (MAP) Pulse Ox O2 Delivery O2 Flow Rate FiO2 04/19/17 08:00 97 Nasal Cannula 4.0 04/19/17 06:55 36.6 69 18 146/76 (99) 97 Nasal Cannula 4.0 04/18/17 23:59 Nasal Cannula 4.0 04/18/17 16:00 99 Nasal Cannula 4.0 04/18/17 14:56 36.5 78 20 141/94 (110) 99 Nasal Cannula 4.0 Physical Exam General Appearance: WD/WN, no apparent distress Eyes: normal inspection, PERRL, EOMI, sclerae normal Neck: supple, no adenopathy Respiratory/Chest: chest non-tender, lungs clear, normal breath sounds, no respiratory distress, no accessory muscle use Cardiovascular: regular rate, rhythm, no edema, no gallop, no JVD, no murmur Abdomen: normal bowel sounds, non tender, soft 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, no motor/sensory deficits, alert, normal mood/affect, + pertinent finding (oriented to person and place) Skin: normal color, warm/dry, no rash Laboratory Results 04/19/17 06:54 Red Blood Count 3.70, Mean Corpuscular Volume 94.1, Mean Corpuscular Hemoglobin 31.9, Mean Corpuscular Hemoglobin Concent 33.9, Mean Platelet Volume 10.3, Neutrophils (%) (Auto) 75.2, Lymphocytes (%) (Auto) 12.1, Monocytes (%) (Auto) 10.2, Eosinophils (%) (Auto) 1.9, Basophils (%) (Auto) 0.0, Neutrophils # (Auto ) 4.05, Lymphocytes # (Auto) 0.65, Monocytes # (Auto) 0.55, Eosinophils # (Auto ) 0.10, Basophils # (Auto) 0.00 04/19/17 06:54 Test 04/19/17 06:54 04/19/17 11:03 White Blood Count 5.38 K/uL (4.8-10.8) Red Blood Count 3.70 M/uL (4.7-6.1) Hemoglobin 11.8 g/dL (14.0-18.0) Hematocrit 34.8 % (42-52) Mean Corpuscular Volume 94.1 fL (80-100) Mean Corpuscular Hemoglobin 31.9 pg (25-34) Mean Corpuscular Hemoglobin Concent 33.9 g/dl (32-36) Platelet Count 176 K/uL (130-400) Mean Platelet Volume 10.3 fL (7.4-10.4) Neutrophils (%) (Auto) 75.2 % Lymphocytes (%) (Auto) 12.1 % Monocytes (%) (Auto) 10.2 % Eosinophils (%) (Auto) 1.9 % Basophils (%) (Auto) 0.0 % Neutrophils # (Auto) 4.05 K/uL (1.4-6.5) Lymphocytes # (Auto) 0.65 K/uL (1.2-3.4) Monocytes # (Auto) 0.55 K/uL (0.11-0.59) Eosinophils # (Auto) 0.10 K/uL (0-0.5) Basophils # (Auto) 0.00 K/uL (0-0.2) RDW Standard Deviation 49.0 fL (36.4-46.3) RDW Coefficient of Variation 14.4 % (11.5-14.5) Immature Granulocyte % (Auto) 0.6 % Immature Granulocyte # (Auto) 0.03 K/uL (0.00-0.02) Prothrombin Time 19.5 SECONDS (9.0-12.0) Prothromb Time International Ratio 1.8 (0.9-1.1) Anion Gap 8.0 mmol/L (3-11) Est Creatinine Clear Calc Drug Dose 132.8 ml/min Estimated GFR () 115.6 Estimated GFR (Non- 99.7 BUN/Creatinine Ratio 25.6 (10-20) Calcium Level 8.6 mg/dl (8.5-10.1) Bedside Glucose 105 mg/dl (70-99) Assessment and Plan Patient is a pleasant 77 y/o male, with PMHx of CAD, HLD, T2DM, HTN, a.fib on chronic anticoagulation therapy,dementia, and anxiety, who presented to the ED because of a fall which resulted in him being outside in cold for >3 hours. . Rhabdomyolysis secondary to fall of unknown cause: - CPK improved - IVF d/naila - Leukocytosis- resolved. Cultures negative - Continue to hold Lipitor for now. consider resuming on discharge. - Head CT unremarkable - Tibia/fibula and pelvis x-rays without fractures - Wound care for bilateral lower extremity wounds Oral thrush - Nystatin swish and swallow Dysphagia - CXR yesterday was unremarkable for signs of aspiration PNA - Speech eval-recommended mechanical soft diet Fall - Check orthostatics - stop baclofen and lorazepam on discharge. - PT/OT recommend that the patient goes to SNF, working on placement - Pt still on 1 to 1. Metabolic Encephalopathy on the background of dementia - delirium sec to underlying dementia. supportive care -Yesterday patient was more confused and agitated. Received IM Haldol. Afebrile , with normal WBC, - Pt back on one to one - oral care. Elevated trop - - Cardiology consulted, appreciate recommendations - ? sec demand ischemia or acute diastolic failure. With No symptoms and Preserved LV systolic function - No revascularization would be indicated even in the setting of an abnormal stress test. Continue aggressive medical regimen. ASA along with anticoagulation. Hypokalemia - Resolved, will supplemented when needed BENEDICT: - Resolved A.fib- rate controlled, CAD, HLD- follows w/ Dr. Osborn: - Continue Verapamil - pt has a INR of 1.8 today. Resuming Coumadin. - Hold Lipitor due to elevated liver enzymes HTN: - Hold Lisinopril due to BENEDICT; careful reintroduction - Hydralazine PRN T2DM: - Hold Glipizide - BSG ACHS and ISS - Lantus to 10 units, holding sliding scale Case Mx for placement DVT proph - Coumadin Reviewed: Pt Seen/Exam by Me History agitated again last night. delirious through the day today Constitutional: denies: fever General Appearance: other (talking spontaneously to himself. sometimes restless in bed) Respiratory: lungs clear, no respiratory distress Cardiovascular: regular rate, rhythm Skin Characteristics: warm/dry Assessment/Plan Resident Physician Supervision Note: I independently interviewed and examined the patient and verified the bradford history and physical, reviewed labs and image studies, discussed the case with the resident Dr. Roman and agree with the findings and care plan.
[2017-04-19 15:01] VITALS: BP 123/74; PULSE 55; TEMP 37.1; O2SAT 97
[2017-04-19 15:30] VITALS: O2SAT 97
[2017-04-19 16:19] VITALS: Ht 162.6 cm; Wt 124.0 kg
[2017-04-19] MEDS: WARFARIN SOD 3 MG TAB PO SCH (16:19)
[2017-04-19] MEDS: INSULIN ASPART 100 UNITS/ML 3 ML PEN SC SCH (21:04)
[2017-04-19] MEDS: INSULIN GLARGINE SOLOSTAR 100 UNITS/ML 3 ML PEN SC SCH (21:05)
[2017-04-19 22:50] VITALS: BP 159/78; PULSE 79; TEMP 36.7; O2SAT 94
[2017-04-20 06:46] LABS: BASO % 0.2 %; BASO ABS # 0.01 K/uL (0-0.2); COMPLETE YES; EOS % 3.2 %; HEMATOCRIT 35.3 % (42-52); IG% 0.2 %; LYMPH % 16.2 %; MEAN CELL VOLUME 95.4 fL (80-100); MEAN CORPUSCULAR HEMOGLOBIN 31.1 pg (25-34); MEAN CORPUSCULAR HGB CONC 32.6 g/dl (32-36); MEAN PLATELET VOLUME 10.2 fL (7.4-10.4); MONO % 14.2 %; PLATELET COUNT 169 K/uL (130-400); WHITE BLOOD COUNT 4.31 K/uL (4.8-10.8)
[2017-04-20 06:58] LABS: INR 1.3 (0.9-1.1)
[2017-04-20 07:07] VITALS: BP 144/80; PULSE 64; TEMP 36.4; O2SAT 99
[2017-04-20 07:28] LABS: CALCIUM 8.6 mg/dl (8.5-10.1); CREATININE 0.61 mg/dl (0.60-1.40); POTASSIUM 3.5 mmol/L (3.5-5.1)
[2017-04-20] MEDS: CYANOCOBALAMIN 500 MCG TAB (VIT B-12) PO SCH (09:12)
[2017-04-20] MEDS: LISINOPRIL 5 MG TAB PO SCH (09:12)
[2017-04-20] MEDS: MULTIVITAMIN TAB PO SCH (09:13)
[2017-04-20] MEDS: VERAPAMIL HCL 240 MG TABCR PO SCH (09:13)
[2017-04-20] MEDS: NYSTATIN SUSP 500,000 U/5 ML UDC PO SCH ×4 (09:13→21:43)
[2017-04-20] MEDS: ASPIRIN 81 MG ECTAB PO SCH (09:13)
[2017-04-20] MEDS: INSULIN ASPART 100 UNITS/ML 3 ML PEN SC SCH ×4 (09:39→21:46)
[2017-04-20 10:22] VITALS: O2SAT 95
--- NOTE | 2017-04-20 10:23 | Family Medicine Progress Note ---
Progress Note Date of Service Apr 20, 2017. Subjective Pt evaluation today including: conversation w/ patient, physical exam, chart review, lab review Pt is more alert today and has clearer speech. Pt is able to respond appropriate to review of systems; no complaints other than some soreness of his feet. Constitutional: No fever, No chills, No sweats Respiratory: No cough, No sputum, No wheezing, No shortness of breath Cardiovascular: No chest pain, No edema, No palpitations Abdomen: No pain, No nausea, No vomiting, No diarrhea Medications Current Inpatient Medications Medications (Trade) Dose Ordered Sig/[place] Route Start Time Stop Time Status Last Admin Dose Admin Acetaminophen (Tylenol Tab) 650 mg Q4H PRN PO 04/12/17 13:00 05/12/17 12:59 Al Hydrox/Mg Hydrox/Simethicone (Maalox Max Susp) 15 ml Q4H PRN PO 04/12/17 13:00 05/12/17 12:59 Magnesium Hydroxide (Milk Of Magnesia Susp) 30 ml Q12H PRN PO 04/12/17 13:00 05/12/17 12:59 Ondansetron HCl (Zofran Inj) 4 mg Q6H PRN IV 04/12/17 13:00 05/12/17 12:59 Nitroglycerin (Nitrostat Tab) 0.4 mg UD PRN SL 04/12/17 13:00 05/12/17 12:59 Morphine Sulfate (MoRPHine SULFATE INJ) 2 mg Q30M PRN IV 04/12/17 13:00 04/26/17 12:59 Aspirin (Ecotrin Tab) 81 mg QAM PO 04/13/17 09:00 05/13/17 08:59 04/20/17 09:13 81 MG Polyethylene (Miralax Powder Packet) 17 gm DAILY PRN PO 04/12/17 13:00 05/12/17 12:59 Insulin Aspart (novoLOG ASPART) SLIDING SCALE G... ACHS SC 04/12/17 16:00 05/12/17 15:59 Future hold 04/20/17 09:39 3 UNITS Cyanocobalamin (Vitamin B-12 Tab) 1,000 mcg DAILY PO 04/13/17 09:00 05/13/17 08:59 04/20/17 09:12 1,000 MCG Multivitamins (Multivitamin Tab) 1 tab DAILY PO 04/13/17 09:00 05/13/17 08:59 04/20/17 09:13 1 TAB Verapamil HCl (Calan-Sr Tab) 240 mg QAM PO 04/13/17 09:00 05/13/17 08:59 04/20/17 09:13 240 MG Hydralazine HCl (HydrALAZINE INJ) 10 mg Q6H PRN IV. 04/12/17 13:30 05/12/17 13:29 04/17/17 15:09 10 MG Glucose (Glucose 40% Gel) 15-30 GRAMS 15 GRAMS... UD PRN PO 04/12/17 14:15 05/12/17 14:14 Glucose (Glucose Chew Tab) 4-8 Tablets 4 Tabl... UD PRN PO 04/12/17 14:15 05/12/17 14:14 Dextrose (Dextrose 50% 50ML Syringe) 25-50ML OF 50% DW IV FOR... UD PRN IV 04/12/17 14:15 05/12/17 14:14 04/16/17 06:25 50 ML Glucagon (Glucagon Inj) 1 mg UD PRN SQ 04/12/17 14:15 05/12/17 14:14 Nystatin (Mycostatin Powder) 1 appln PRN PRN EXT 04/13/17 19:15 05/13/17 19:14 Nystatin (Mycostatin Susp) 5 ml QID PO 04/17/17 13:00 04/27/17 12:59 04/20/17 09:13 5 ML Lisinopril (Zestril Tab) 5 mg DAILY PO 04/18/17 09:00 05/18/17 08:59 04/20/17 09:12 5 MG Warfarin Sodium (Coumadin Tab) 3 mg DAILY@16 PO 04/19/17 16:00 05/19/17 15:59 04/19/17 16:19 3 MG Insulin Glargine (Lantus Solostar Pen) 10 units HS SC 04/19/17 21:00 05/13/17 20:59 04/19/17 21:05 10 UNITS Objective Vital Signs Date Time Temp Pulse Resp B/P (MAP) Pulse Ox O2 Delivery O2 Flow Rate FiO2 04/20/17 07:07 36.4 64 22 144/80 (101) 99 Nasal Cannula 4.0 04/20/17 00:06 Nasal Cannula 4.0 04/19/17 22:50 36.7 79 24 159/78 (105) 94 Nasal Cannula 4.0 04/19/17 15:30 97 Nasal Cannula 4.0 04/19/17 15:01 37.1 55 20 123/74 (90) 97 Physical Exam General Appearance: WD/WN, no apparent distress Neck: supple, no adenopathy, thyroid normal Respiratory/Chest: chest non-tender, lungs clear, normal breath sounds, no respiratory distress, no accessory muscle use Cardiovascular: no gallop, no murmur, + irregularly irregular Abdomen: normal bowel sounds, non tender, soft, no organomegaly, no pulsatile mass Neurologic/Psychiatric: alert, normal mood/affect, + pertinent finding ( oriented to person and place) Skin: normal color, warm/dry, + pertinent finding (clean bandages on bilateral lower ext. ) Laboratory Results 04/20/17 06:23 Red Blood Count 3.70, Mean Corpuscular Volume 95.4, Mean Corpuscular Hemoglobin 31.1, Mean Corpuscular Hemoglobin Concent 32.6, Mean Platelet Volume 10.2, Neutrophils (%) (Auto) 66.0, Lymphocytes (%) (Auto) 16.2, Monocytes (%) (Auto) 14.2, Eosinophils (%) (Auto) 3.2, Basophils (%) (Auto) 0.2, Neutrophils # (Auto ) 2.84, Lymphocytes # (Auto) 0.70, Monocytes # (Auto) 0.61, Eosinophils # (Auto ) 0.14, Basophils # (Auto) 0.01 04/20/17 06:23 Test 04/20/17 06:23 04/20/17 07:13 White Blood Count 4.31 K/uL (4.8-10.8) Red Blood Count 3.70 M/uL (4.7-6.1) Hemoglobin 11.5 g/dL (14.0-18.0) Hematocrit 35.3 % (42-52) Mean Corpuscular Volume 95.4 fL (80-100) Mean Corpuscular Hemoglobin 31.1 pg (25-34) Mean Corpuscular Hemoglobin Concent 32.6 g/dl (32-36) Platelet Count 169 K/uL (130-400) Mean Platelet Volume 10.2 fL (7.4-10.4) Neutrophils (%) (Auto) 66.0 % Lymphocytes (%) (Auto) 16.2 % Monocytes (%) (Auto) 14.2 % Eosinophils (%) (Auto) 3.2 % Basophils (%) (Auto) 0.2 % Neutrophils # (Auto) 2.84 K/uL (1.4-6.5) Lymphocytes # (Auto) 0.70 K/uL (1.2-3.4) Monocytes # (Auto) 0.61 K/uL (0.11-0.59) Eosinophils # (Auto) 0.14 K/uL (0-0.5) Basophils # (Auto) 0.01 K/uL (0-0.2) RDW Standard Deviation 49.6 fL (36.4-46.3) RDW Coefficient of Variation 14.6 % (11.5-14.5) Immature Granulocyte % (Auto) 0.2 % Immature Granulocyte # (Auto) 0.01 K/uL (0.00-0.02) Prothrombin Time 14.0 SECONDS (9.0-12.0) Prothromb Time International Ratio 1.3 (0.9-1.1) Anion Gap 5.0 mmol/L (3-11) Est Creatinine Clear Calc Drug Dose 124.1 ml/min Estimated GFR () 112.4 Estimated GFR (Non- 97.0 BUN/Creatinine Ratio 25.0 (10-20) Calcium Level 8.6 mg/dl (8.5-10.1) Bedside Glucose 115 mg/dl (70-99) Assessment and Plan Patient is a pleasant 77 y/o male, with PMHx of CAD, HLD, T2DM, HTN, a.fib on chronic anticoagulation therapy,dementia, and anxiety, who presented to the ED because of a fall which resulted in him being outside in cold for >3 hours. . Rhabdomyolysis secondary to fall of unknown cause: - CPK improved - IVF d/naila - Leukocytosis- resolved. Cultures negative - Continue to hold Lipitor for now. consider resuming on discharge. - Head CT unremarkable - Tibia/fibula and pelvis x-rays without fractures - Wound care for bilateral lower extremity wounds Oral thrush - Nystatin swish and swallow Dysphagia - CXR yesterday was unremarkable for signs of aspiration PNA - Speech eval-recommended mechanical soft diet Fall - Check orthostatics - stop baclofen and lorazepam on discharge. - PT/OT recommend that the patient goes to SNF, working on placement - Pt off 1 to 1. Metabolic Encephalopathy on the background of dementia - delirium sec to underlying dementia. supportive care, - oral care. Elevated trop - - Cardiology consulted, appreciate recommendations - ? sec demand ischemia or acute diastolic failure. With No symptoms and Preserved LV systolic function - No revascularization would be indicated even in the setting of an abnormal stress test. Continue aggressive medical regimen. ASA along with anticoagulation. Hypokalemia - Resolved, will supplemented when needed BENEDICT: - Resolved A.fib- rate controlled, CAD, HLD- follows w/ Dr. Osborn: - Continue Verapamil - Continue Coumadin. - Hold Lipitor due to elevated liver enzymes HTN: - Hold Lisinopril due to BENEDICT; careful reintroduction - Hydralazine PRN T2DM: - Hold Glipizide - BSG ACHS and ISS - Lantus to 10 units, continued sliding scale Case Mx for placement DVT proph - Coumadin Reviewed: Pt Seen/Exam by Me History no new concerns. more alert today sitting in chair Constitutional: denies: fever Cardiovascular: denies chest pain General Appearance: no apparent distress Respiratory: lungs clear, no respiratory distress Cardiovascular: regular rate, rhythm Gastrointestinal: soft Neurologic/Psychiatric: alert Skin Characteristics: warm/dry Assessment/Plan Resident Physician Supervision Note: I independently interviewed and examined the patient and verified the bradford history and physical, reviewed labs and image studies, discussed the case with the resident Dr. Roman and agree with the findings and care plan.
[2017-04-20 15:17] VITALS: BP 112/67; PULSE 41; TEMP 36.9; O2SAT 100
[2017-04-20] MEDS: WARFARIN SOD 3 MG TAB PO SCH (16:10)
[2017-04-20] MEDS: INSULIN GLARGINE SOLOSTAR 100 UNITS/ML 3 ML PEN SC SCH (21:47)
[2017-04-20 23:30] VITALS: BP 139/74; PULSE 52; TEMP 36.5; O2SAT 97
[2017-04-21 06:52] LABS: BASO % 0.2 %; BASO ABS # 0.01 K/uL (0-0.2); COMPLETE YES; EOS % 1.9 %; HEMATOCRIT 35.3 % (42-52); IG% 0.6 %; LYMPH % 14.7 %; LYMPH ABS # 0.68 K/uL (1.2-3.4); MEAN CELL VOLUME 95.4 fL (80-100); MEAN CORPUSCULAR HEMOGLOBIN 31.9 pg (25-34); MEAN CORPUSCULAR HGB CONC 33.4 g/dl (32-36); MEAN PLATELET VOLUME 10.5 fL (7.4-10.4); MONO % 11.2 %; NEUT % 71.4 %; PLATELET COUNT 181 K/uL (130-400); WHITE BLOOD COUNT 4.64 K/uL (4.8-10.8)
[2017-04-21 06:59] LABS: INR 1.5 (0.9-1.1)
[2017-04-21 07:03] VITALS: BP 156/82; PULSE 69; TEMP 36.5; O2SAT 100
[2017-04-21 07:19] LABS: BUN/CREATININE RATIO 22.3 (10-20); CALCIUM 8.4 mg/dl (8.5-10.1); CREATININE 0.62 mg/dl (0.60-1.40); POTASSIUM 3.4 mmol/L (3.5-5.1)
[2017-04-21 08:00] VITALS: O2SAT 95
[2017-04-21] MEDS: ASPIRIN 81 MG ECTAB PO SCH (08:08)
[2017-04-21] MEDS: MULTIVITAMIN TAB PO SCH (08:09)
[2017-04-21] MEDS: CYANOCOBALAMIN 500 MCG TAB (VIT B-12) PO SCH (08:09)
[2017-04-21] MEDS: VERAPAMIL HCL 240 MG TABCR PO SCH (08:10)
[2017-04-21] MEDS: NYSTATIN SUSP 500,000 U/5 ML UDC PO SCH ×4 (08:10→20:49)
[2017-04-21] MEDS: LISINOPRIL 5 MG TAB PO SCH (08:12)
[2017-04-21] MEDS: INSULIN ASPART 100 UNITS/ML 3 ML PEN SC SCH ×4 (08:20→21:28)
[2017-04-21] MEDS: POTASSIUM CHLORIDE 20 MEQ TABCR PO SCH (08:37)
--- NOTE | 2017-04-21 10:53 | Family Medicine Progress Note ---
Progress Note Date of Service Apr 21, 2017. Subjective Pt evaluation today including: conversation w/ patient, physical exam, chart review, lab review, review of studies Patient is up in the chair and is alert to person. He knows that he is in [place]. He has trouble focusing when asked questions and is confused. Additional Comments: unable to obtain ROS due to patient mental status. Pt denies being in any pain. Medications Current Inpatient Medications Medications (Trade) Dose Ordered Sig/[place] Route Start Time Stop Time Status Last Admin Dose Admin Acetaminophen (Tylenol Tab) 650 mg Q4H PRN PO 04/12/17 13:00 05/12/17 12:59 Al Hydrox/Mg Hydrox/Simethicone (Maalox Max Susp) 15 ml Q4H PRN PO 04/12/17 13:00 05/12/17 12:59 Magnesium Hydroxide (Milk Of Magnesia Susp) 30 ml Q12H PRN PO 04/12/17 13:00 05/12/17 12:59 Ondansetron HCl (Zofran Inj) 4 mg Q6H PRN IV 04/12/17 13:00 05/12/17 12:59 Nitroglycerin (Nitrostat Tab) 0.4 mg UD PRN SL 04/12/17 13:00 05/12/17 12:59 Morphine Sulfate (MoRPHine SULFATE INJ) 2 mg Q30M PRN IV 04/12/17 13:00 04/26/17 12:59 Aspirin (Ecotrin Tab) 81 mg QAM PO 04/13/17 09:00 05/13/17 08:59 04/21/17 08:08 81 MG Polyethylene (Miralax Powder Packet) 17 gm DAILY PRN PO 04/12/17 13:00 05/12/17 12:59 Insulin Aspart (novoLOG ASPART) SLIDING SCALE G... ACHS SC 04/12/17 16:00 05/12/17 15:59 Future hold 04/21/17 08:20 5 UNITS Cyanocobalamin (Vitamin B-12 Tab) 1,000 mcg DAILY PO 04/13/17 09:00 05/13/17 08:59 04/21/17 08:09 1,000 MCG Multivitamins (Multivitamin Tab) 1 tab DAILY PO 04/13/17 09:00 05/13/17 08:59 04/21/17 08:09 1 TAB Verapamil HCl (Calan-Sr Tab) 240 mg QAM PO 04/13/17 09:00 05/13/17 08:59 04/21/17 08:10 240 MG Hydralazine HCl (HydrALAZINE INJ) 10 mg Q6H PRN IV. 04/12/17 13:30 05/12/17 13:29 04/17/17 15:09 10 MG Glucose (Glucose 40% Gel) 15-30 GRAMS 15 GRAMS... UD PRN PO 04/12/17 14:15 05/12/17 14:14 Glucose (Glucose Chew Tab) 4-8 Tablets 4 Tabl... UD PRN PO 04/12/17 14:15 05/12/17 14:14 Dextrose (Dextrose 50% 50ML Syringe) 25-50ML OF 50% DW IV FOR... UD PRN IV 04/12/17 14:15 05/12/17 14:14 04/16/17 06:25 50 ML Glucagon (Glucagon Inj) 1 mg UD PRN SQ 04/12/17 14:15 05/12/17 14:14 Nystatin (Mycostatin Powder) 1 appln PRN PRN EXT 04/13/17 19:15 05/13/17 19:14 Nystatin (Mycostatin Susp) 5 ml QID PO 04/17/17 13:00 04/27/17 12:59 04/21/17 08:10 5 ML Lisinopril (Zestril Tab) 5 mg DAILY PO 04/18/17 09:00 05/18/17 08:59 04/21/17 08:12 5 MG Warfarin Sodium (Coumadin Tab) 3 mg DAILY@16 PO 04/19/17 16:00 05/19/17 15:59 04/20/17 16:10 3 MG Insulin Glargine (Lantus Solostar Pen) 10 units HS SC 04/19/17 21:00 05/13/17 20:59 04/20/17 21:47 10 UNITS Potassium Chloride (Klor-Con Tab) 20 meq QAM PO 04/21/17 09:00 05/21/17 08:59 04/21/17 08:37 20 MEQ Objective Vital Signs Date Time Temp Pulse Resp B/P (MAP) Pulse Ox O2 Delivery O2 Flow Rate FiO2 04/21/17 08:00 95 Nasal Cannula 4.0 04/21/17 07:03 36.5 69 22 156/82 (106) 100 Nasal Cannula 4.0 04/21/17 00:05 Nasal Cannula 4.0 04/20/17 23:30 36.5 52 16 139/74 (95) 97 Nasal Cannula 4.0 04/20/17 20:05 Nasal Cannula 4.0 04/20/17 15:40 Nasal Cannula 4.0 04/20/17 15:17 36.9 41 18 112/67 (82) 100 4.0 Physical Exam General Appearance: WD/WN, no apparent distress Respiratory/Chest: chest non-tender, lungs clear, normal breath sounds, no respiratory distress, no accessory muscle use Cardiovascular: regular rate, rhythm, no edema, no gallop, no JVD, no murmur Abdomen: normal bowel sounds, non tender, soft, no organomegaly, no pulsatile mass Neurologic/Psychiatric: no motor/sensory deficits, normal mood/affect Skin: normal color, warm/dry, + pertinent finding (patient has clean bandages on bilateral lower extremities ) Laboratory Results 04/21/17 06:04 Red Blood Count 3.70, Mean Corpuscular Volume 95.4, Mean Corpuscular Hemoglobin 31.9, Mean Corpuscular Hemoglobin Concent 33.4, Mean Platelet Volume 10.5, Neutrophils (%) (Auto) 71.4, Lymphocytes (%) (Auto) 14.7, Monocytes (%) (Auto) 11.2, Eosinophils (%) (Auto) 1.9, Basophils (%) (Auto) 0.2, Neutrophils # (Auto ) 3.31, Lymphocytes # (Auto) 0.68, Monocytes # (Auto) 0.52, Eosinophils # (Auto ) 0.09, Basophils # (Auto) 0.01 04/21/17 06:04 Test 04/21/17 06:04 04/21/17 07:05 White Blood Count 4.64 K/uL (4.8-10.8) Red Blood Count 3.70 M/uL (4.7-6.1) Hemoglobin 11.8 g/dL (14.0-18.0) Hematocrit 35.3 % (42-52) Mean Corpuscular Volume 95.4 fL (80-100) Mean Corpuscular Hemoglobin 31.9 pg (25-34) Mean Corpuscular Hemoglobin Concent 33.4 g/dl (32-36) Platelet Count 181 K/uL (130-400) Mean Platelet Volume 10.5 fL (7.4-10.4) Neutrophils (%) (Auto) 71.4 % Lymphocytes (%) (Auto) 14.7 % Monocytes (%) (Auto) 11.2 % Eosinophils (%) (Auto) 1.9 % Basophils (%) (Auto) 0.2 % Neutrophils # (Auto) 3.31 K/uL (1.4-6.5) Lymphocytes # (Auto) 0.68 K/uL (1.2-3.4) Monocytes # (Auto) 0.52 K/uL (0.11-0.59) Eosinophils # (Auto) 0.09 K/uL (0-0.5) Basophils # (Auto) 0.01 K/uL (0-0.2) RDW Standard Deviation 49.6 fL (36.4-46.3) RDW Coefficient of Variation 14.6 % (11.5-14.5) Immature Granulocyte % (Auto) 0.6 % Immature Granulocyte # (Auto) 0.03 K/uL (0.00-0.02) Prothrombin Time 16.0 SECONDS (9.0-12.0) Prothromb Time International Ratio 1.5 (0.9-1.1) Anion Gap 5.0 mmol/L (3-11) Est Creatinine Clear Calc Drug Dose 122.1 ml/min Estimated GFR () 111.7 Estimated GFR (Non- 96.4 BUN/Creatinine Ratio 22.3 (10-20) Calcium Level 8.4 mg/dl (8.5-10.1) Bedside Glucose 107 mg/dl (70-99) Assessment and Plan Patient is a pleasant 77 y/o male, with PMHx of CAD, HLD, T2DM, HTN, a.fib on chronic anticoagulation therapy,dementia, and anxiety, who presented to the ED because of a fall which resulted in him being outside in cold for >3 hours. . Rhabdomyolysis secondary to fall of unknown cause: - CPK improved - IVF d/naila - Leukocytosis- resolved. Cultures negative - Continue to hold Lipitor for now. consider resuming on discharge. - Head CT unremarkable - Tibia/fibula and pelvis x-rays without fractures - Wound care for bilateral lower extremity wounds Oral thrush - Nystatin swish and swallow Dysphagia - CXR unremarkable for signs of aspiration PNA - Speech eval-recommended mechanical soft diet Metabolic Encephalopathy on the background of dementia - delirium sec to underlying dementia. supportive care, -Patient has periods of increased confusion in the evenings. -Awaiting placement in SNF - oral care. Fall - Check orthostatics - stop baclofen and lorazepam on discharge. - PT/OT recommend that the patient goes to SNF, working on placement - Pt off 1 to 1. Elevated trop - - Cardiology consulted, appreciate recommendations - ? sec demand ischemia or acute diastolic failure. With No symptoms and Preserved LV systolic function - No revascularization would be indicated even in the setting of an abnormal stress test. Continue aggressive medical regimen. ASA along with anticoagulation. Hypokalemia - Resolved, will supplemented when needed BENEDICT: - Resolved A.fib- rate controlled, CAD, HLD- follows w/ Dr. Osborn: - Continue Verapamil - Continue Coumadin. - Hold Lipitor due to elevated liver enzymes - INR 1.6 today HTN: - Hold Lisinopril due to BENEDICT; careful reintroduction - Hydralazine PRN T2DM: - Hold Glipizide - BSG ACHS and ISS - Lantus to 10 units, continued sliding scale Case Mx for placement DVT proph - Coumadin Reviewed: Pt Seen/Exam by Me History no new concerns sitting in chair and having lunch. Constitutional: denies: fever General Appearance: no apparent distress Respiratory: lungs clear, no respiratory distress Cardiovascular: regular rate, rhythm Neurologic/Psychiatric: alert Skin Characteristics: warm/dry Assessment/Plan Resident Physician Supervision Note: I independently interviewed and examined the patient and verified the bradford history and physical, reviewed labs and image studies, discussed the case with the resident Dr. Roman and agree with the findings and care plan.
[2017-04-21 14:39] VITALS: BP 103/56; PULSE 69; TEMP 36.7; O2SAT 97
[2017-04-21] MEDS: WARFARIN SOD 3 MG TAB PO SCH (16:40)
[2017-04-21] MEDS: INSULIN GLARGINE SOLOSTAR 100 UNITS/ML 3 ML PEN SC SCH (21:28)
[2017-04-21 23:35] VITALS: BP 149/79; PULSE 58; TEMP 36.4; O2SAT 98
[2017-04-22 07:24] LABS: HEMATOCRIT 35.7 % (42-52); MEAN CELL VOLUME 95.2 fL (80-100); MEAN CORPUSCULAR HGB CONC 33.6 g/dl (32-36); MEAN PLATELET VOLUME 10.4 fL (7.4-10.4); PLATELET COUNT 191 K/uL (130-400); RED BLOOD COUNT 3.75 M/uL (4.7-6.1); WHITE BLOOD COUNT 4.81 K/uL (4.8-10.8)
[2017-04-22 07:32] VITALS: BP 163/109; PULSE 65; TEMP 36.4; O2SAT 100
[2017-04-22 07:32] LABS: INR 1.6 (0.9-1.1); PROTHROMBIN TIME (PATIENT) 16.9 SECONDS (9.0-12.0)
[2017-04-22 07:50] LABS: BUN/CREATININE RATIO 17.5 (10-20); CALCIUM 8.4 mg/dl (8.5-10.1); CREATININE 0.61 mg/dl (0.60-1.40); POTASSIUM 3.9 mmol/L (3.5-5.1)
[2017-04-22] MEDS: INSULIN ASPART 100 UNITS/ML 3 ML PEN SC SCH ×4 (08:30→21:19)
[2017-04-22] MEDS: ASPIRIN 81 MG ECTAB PO SCH (08:31)
[2017-04-22] MEDS: MULTIVITAMIN TAB PO SCH (08:32)
[2017-04-22] MEDS: VERAPAMIL HCL 240 MG TABCR PO SCH (08:33)
[2017-04-22] MEDS: CYANOCOBALAMIN 500 MCG TAB (VIT B-12) PO SCH (08:33)
[2017-04-22] MEDS: LISINOPRIL 5 MG TAB PO SCH (08:33)
[2017-04-22] MEDS: NYSTATIN SUSP 500,000 U/5 ML UDC PO SCH ×4 (08:33→21:12)
[2017-04-22] MEDS: POTASSIUM CHLORIDE 20 MEQ TABCR PO SCH (08:33)
--- NOTE | 2017-04-22 13:54 | Progress Note ---
Subjective Date of Service: Apr 22, 2017. Subjective Pt evaluation today including: conversation w/ patient, physical exam, chart review, lab review Patient is up in the chair and is alert to person. He believed he was either in [place] or [place], and thinks it is [place] Patient reports feeling well. He has trouble focusing when asked questions and is confused. Additional Comments: unable to obtain ROS due to patient mental status. Pt denies being in any pain. Problem List Medical Problems: (1) Non-STEMI (non-ST elevated myocardial infarction) Status: Acute (2) Osteomyelitis of toe of left foot Status: Acute (3) Tinea Status: Acute (4) Weakness Status: Acute Review of Systems All Other Systems: Reviewed and Negative Medications Current Inpatient Medications Medications (Trade) Dose Ordered Sig/[place] Route Start Time Stop Time Status Last Admin Dose Admin Acetaminophen (Tylenol Tab) 650 mg Q4H PRN PO 04/12/17 13:00 05/12/17 12:59 Al Hydrox/Mg Hydrox/Simethicone (Maalox Max Susp) 15 ml Q4H PRN PO 04/12/17 13:00 05/12/17 12:59 Magnesium Hydroxide (Milk Of Magnesia Susp) 30 ml Q12H PRN PO 04/12/17 13:00 05/12/17 12:59 Ondansetron HCl (Zofran Inj) 4 mg Q6H PRN IV 04/12/17 13:00 05/12/17 12:59 Nitroglycerin (Nitrostat Tab) 0.4 mg UD PRN SL 04/12/17 13:00 05/12/17 12:59 Morphine Sulfate (MoRPHine SULFATE INJ) 2 mg Q30M PRN IV 04/12/17 13:00 04/26/17 12:59 Aspirin (Ecotrin Tab) 81 mg QAM PO 04/13/17 09:00 05/13/17 08:59 04/23/17 07:56 81 MG Polyethylene (Miralax Powder Packet) 17 gm DAILY PRN PO 04/12/17 13:00 05/12/17 12:59 Insulin Aspart (novoLOG ASPART) SLIDING SCALE G... ACHS SC 04/12/17 16:00 05/12/17 15:59 Future hold 04/23/17 08:03 3 UNITS Cyanocobalamin (Vitamin B-12 Tab) 1,000 mcg DAILY PO 04/13/17 09:00 05/13/17 08:59 04/23/17 07:56 1,000 MCG Multivitamins (Multivitamin Tab) 1 tab DAILY PO 04/13/17 09:00 05/13/17 08:59 04/23/17 07:56 1 TAB Verapamil HCl (Calan-Sr Tab) 240 mg QAM PO 04/13/17 09:00 05/13/17 08:59 04/23/17 07:56 240 MG Hydralazine HCl (HydrALAZINE INJ) 10 mg Q6H PRN IV. 04/12/17 13:30 05/12/17 13:29 04/17/17 15:09 10 MG Glucose (Glucose 40% Gel) 15-30 GRAMS 15 GRAMS... UD PRN PO 04/12/17 14:15 05/12/17 14:14 Glucose (Glucose Chew Tab) 4-8 Tablets 4 Tabl... UD PRN PO 04/12/17 14:15 05/12/17 14:14 Dextrose (Dextrose 50% 50ML Syringe) 25-50ML OF 50% DW IV FOR... UD PRN IV 04/12/17 14:15 05/12/17 14:14 04/16/17 06:25 50 ML Glucagon (Glucagon Inj) 1 mg UD PRN SQ 04/12/17 14:15 05/12/17 14:14 Nystatin (Mycostatin Powder) 1 appln PRN PRN EXT 04/13/17 19:15 05/13/17 19:14 Nystatin (Mycostatin Susp) 5 ml QID PO 04/17/17 13:00 04/27/17 12:59 04/23/17 07:57 5 ML Lisinopril (Zestril Tab) 5 mg DAILY PO 04/18/17 09:00 05/18/17 08:59 04/23/17 07:57 5 MG Insulin Glargine (Lantus Solostar Pen) 10 units HS SC 04/19/17 21:00 05/13/17 20:59 04/22/17 21:19 10 UNITS Potassium Chloride (Klor-Con Tab) 20 meq QAM PO 04/21/17 09:00 05/21/17 08:59 04/23/17 07:57 20 MEQ Warfarin Sodium (Coumadin Tab) 5 mg DAILY@16 PO 04/22/17 16:00 05/22/17 15:59 04/22/17 15:47 5 MG Objective Vital Signs Date Time Temp Pulse Resp B/P (MAP) Pulse Ox O2 Delivery O2 Flow Rate FiO2 04/22/17 08:30 Nasal Cannula 2.0 Humidified Oxygen 04/22/17 07:32 36.4 65 20 163/109 (127) 100 Nasal Cannula 4.0 04/22/17 00:05 Nasal Cannula 4.0 04/21/17 23:35 36.4 58 16 149/79 (102) 98 Nasal Cannula 4.0 04/21/17 20:05 Nasal Cannula 4.0 04/21/17 16:30 Nasal Cannula 4.0 Humidified Oxygen 04/21/17 14:39 36.7 69 22 103/56 (72) 97 4.0 Physical Exam Comments: General Appearance: WD/WN, no apparent distress Respiratory/Chest: chest non-tender, lungs clear, normal breath sounds, no respiratory distress, no accessory muscle use Cardiovascular: regular rate, rhythm, no edema, no gallop, no JVD, no murmur Abdomen: normal bowel sounds, non tender, soft, no organomegaly, no pulsatile mass Neurologic/Psychiatric: no motor/sensory deficits, normal mood/affect Skin: normal color, warm/dry, + pertinent finding (patient has clean bandages on bilateral lower extremities ) Laboratory Results Last 24 Hours Test 04/21/17 16:06 04/21/17 20:18 04/21/17 21:10 04/22/17 06:54 Bedside Glucose 173 mg/dl 286 mg/dl 236 mg/dl White Blood Count 4.81 K/uL Red Blood Count 3.75 M/uL Hemoglobin 12.0 g/dL Hematocrit 35.7 % Mean Corpuscular Volume 95.2 fL Mean Corpuscular Hemoglobin 32.0 pg Mean Corpuscular Hemoglobin Concent 33.6 g/dl RDW Standard Deviation 48.7 fL RDW Coefficient of Variation 14.3 % Platelet Count 191 K/uL Mean Platelet Volume 10.4 fL Prothrombin Time 16.9 SECONDS Prothromb Time International Ratio 1.6 Sodium Level 142 mmol/L Potassium Level 3.9 mmol/L Chloride Level 104 mmol/L Carbon Dioxide Level 33 mmol/L Anion Gap 5.0 mmol/L Blood Urea Nitrogen 11 mg/dl Creatinine 0.61 mg/dl Est Creatinine Clear Calc Drug Dose 124.1 ml/min Estimated GFR () 112.4 Estimated GFR (Non- 97.0 BUN/Creatinine Ratio 17.5 Random Glucose 106 mg/dl Calcium Level 8.4 mg/dl Test 04/22/17 07:03 04/22/17 11:29 Bedside Glucose 116 mg/dl 238 mg/dl Assessment and Plan Patient is a pleasant 77 y/o male, with PMHx of CAD, HLD, T2DM, HTN, a.fib on chronic anticoagulation therapy,dementia, and anxiety, who presented to the ED because of a fall which resulted in him being outside in cold for >3 hours. . Rhabdomyolysis secondary to fall of unknown cause: - CPK improved - IVF d/naila - Leukocytosis- resolved. Cultures negative - Continue to hold Lipitor for now. consider resuming on discharge. - Head CT unremarkable - Tibia/fibula and pelvis x-rays without fractures - Wound care for bilateral lower extremity wounds Oral thrush - Nystatin swish and swallow Dysphagia - CXR unremarkable for signs of aspiration PNA - Speech eval-recommended mechanical soft diet Metabolic Encephalopathy on the background of dementia - delirium sec to underlying dementia. supportive care, -Patient has periods of increased confusion in the evenings. -Awaiting placement in SNF - oral care. Fall - Check orthostatics - stop baclofen and lorazepam on discharge. - PT/OT recommend that the patient goes to SNF, working on placement - Pt off 1 to 1. Elevated trop - - Cardiology consulted, appreciate recommendations - ? sec demand ischemia or acute diastolic failure. With No symptoms and Preserved LV systolic function - No revascularization would be indicated even in the setting of an abnormal stress test. Continue aggressive medical regimen. ASA along with anticoagulation. Hypokalemia - Resolved, will supplemented when needed BENEDICT: - Resolved A.fib- rate controlled, CAD, HLD- follows w/ Dr. Osborn: - Continue Verapamil - Continue Coumadin. - Hold Lipitor due to elevated liver enzymes - INR 1.6 today HTN: - Hold Lisinopril due to BENEDICT; careful reintroduction - Hydralazine PRN T2DM: - Hold Glipizide - BSG ACHS and ISS - Lantus to 10 units, continued sliding scale Case Mx for placement DVT proph - Coumadin Discharge planning: rehab hospital
[2017-04-22 14:27] VITALS: BP 120/73; PULSE 52; TEMP 36.5; O2SAT 93
[2017-04-22] MEDS: WARFARIN SOD 5 MG TAB PO SCH (15:47)
[2017-04-22] MEDS: INSULIN GLARGINE SOLOSTAR 100 UNITS/ML 3 ML PEN SC SCH (21:19)
[2017-04-23 00:27] VITALS: BP 136/77; PULSE 63; TEMP 36.4; O2SAT 97
[2017-04-23 07:54] VITALS: BP 159/76; PULSE 62; TEMP 36.4; O2SAT 97
[2017-04-23] MEDS: ASPIRIN 81 MG ECTAB PO SCH (07:56)
[2017-04-23] MEDS: MULTIVITAMIN TAB PO SCH (07:56)
[2017-04-23] MEDS: CYANOCOBALAMIN 500 MCG TAB (VIT B-12) PO SCH (07:56)
[2017-04-23] MEDS: VERAPAMIL HCL 240 MG TABCR PO SCH (07:56)
[2017-04-23] MEDS: LISINOPRIL 5 MG TAB PO SCH (07:57)
[2017-04-23] MEDS: NYSTATIN SUSP 500,000 U/5 ML UDC PO SCH ×3 (07:57→16:41)
[2017-04-23] MEDS: POTASSIUM CHLORIDE 20 MEQ TABCR PO SCH (07:57)
[2017-04-23] MEDS: INSULIN ASPART 100 UNITS/ML 3 ML PEN SC SCH ×3 (08:03→16:39)
[2017-04-23 09:02] LABS: HEMATOCRIT 35.5 % (42-52); MEAN CELL VOLUME 94.4 fL (80-100); MEAN CORPUSCULAR HEMOGLOBIN 32.7 pg (25-34); MEAN CORPUSCULAR HGB CONC 34.6 g/dl (32-36); MEAN PLATELET VOLUME 10.1 fL (7.4-10.4); PLATELET COUNT 175 K/uL (130-400); RED BLOOD COUNT 3.76 M/uL (4.7-6.1); WHITE BLOOD COUNT 4.37 K/uL (4.8-10.8)
[2017-04-23 09:12] LABS: INR 1.6 (0.9-1.1); PROTHROMBIN TIME (PATIENT) 17.3 SECONDS (9.0-12.0)
[2017-04-23 09:27] LABS: BUN/CREATININE RATIO 13.9 (10-20); CALCIUM 8.8 mg/dl (8.5-10.1); CREATININE 0.65 mg/dl (0.60-1.40); POTASSIUM 3.8 mmol/L (3.5-5.1)
--- NOTE | 2017-04-23 15:38 | Discharge Summary ---
Discharge Summary Date of Service Apr 23, 2017. Discharge Summary Admission Date: Apr 12, 2017 at 13:03 Immunizations: Have You Had Influenza Vaccine: No History of Tetanus Vaccine?: utd History of Pneumococcal: Unknown History of Hepatitis B Vaccine: No Hospital Course Patient is a pleasant 77 y/o male, with PMHx of CAD, HLD, T2DM, HTN, a.fib on chronic anticoagulation therapy,dementia, and anxiety, who presented to the ED because of a fall which resulted in him being outside in cold for >3 hours. . Rhabdomyolysis secondary to fall of unknown cause: - CPK improved - IVF d/naila - Leukocytosis- resolved. Cultures negative - Continue to hold Lipitor for now. consider resuming on discharge. - Head CT unremarkable - Tibia/fibula and pelvis x-rays without fractures - Wound care for bilateral lower extremity wounds Oral thrush - Nystatin swish and swallow Dysphagia - CXR unremarkable for signs of aspiration PNA - Speech eval-recommended mechanical soft diet Metabolic Encephalopathy on the background of dementia - delirium sec to underlying dementia. supportive care, -Patient has periods of increased confusion in the evenings. -Awaiting placement in SNF - oral care. Fall - Check orthostatics - stop baclofen and lorazepam on discharge. - PT/OT recommend that the patient goes to SNF, working on placement - Pt off 1 to 1. Elevated trop - - Cardiology consulted, appreciate recommendations - ? sec demand ischemia or acute diastolic failure. With No symptoms and Preserved LV systolic function - No revascularization would be indicated even in the setting of an abnormal stress test. Continue aggressive medical regimen. ASA along with anticoagulation. Hypokalemia - Resolved, will supplemented when needed BENEDICT: - Resolved A.fib- rate controlled, CAD, HLD- follows w/ Dr. Osborn: - Continue Verapamil - Continue Coumadin. - Hold Lipitor due to elevated liver enzymes - INR 1.6 today HTN: - Hold Lisinopril due to BENEDICT; careful reintroduction - Hydralazine PRN T2DM: - Hold Glipizide - BSG ACHS and ISS - Lantus to 10 units, continued sliding scale Case Mx for placement DVT proph - Coumadin This includes examination of the patient, discharge planning, medication reconciliation, and communication with other providers. Discharge Instructions Please refer to the electronic Patient Visit Report (Discharge Instructions) for additional information.
[2017-04-23 15:41] VITALS: BP 116/69; PULSE 45; TEMP 36.8; O2SAT 98
[2017-04-23] MEDS: WARFARIN SOD 5 MG TAB PO SCH (15:43)
[2017-04-23] MEDS ORDERED: NYSS5 PO (15:46)
[2017-04-23] MEDS ORDERED: ASPEC81 PO (15:46)
--- NOTE | 2017-04-23 15:49 | Discharge Instructions ---
Discharge Instructions Date of Service Apr 23, 2017. Admission Reason for Admission: Elevated Troponin, Fall Discharge Discharge Diagnosis / Problem: rhabdomyolysis, and confusion 2nd to eletrolyte abnormalities Discharge Goals Goal(s): Decrease discomfort, Improve function, Increase independence Activity Recommendations Activity Limitations: as noted below Lifting Limitations: gradually increase as tolerated Exercise/Sports Limitations: gradually increase as tolerated . Instructions / Follow-Up Instructions / Follow-Up F/U with PCP in 1 week. Monitor daily INR Current Hospital Diet Patient's current hospital diet: AHA Diet (Heart Healthy), Diabetes Type 2 Diet Discharge Diet Recommended Diet: AHA Diet (Heart Healthy), Diabetes Type 2 Diet Pending Studies Studies pending at discharge: no Laboratory Results Hemoglobin A1c Test 02/06/17 11:44 Range/Units Estimated Average Glucose 252 mg/dl Hemoglobin A1c 10.4 H 4.5-5.6 % Lipid Panel Test 02/06/17 11:44 Range/Units Triglycerides Level 108 0-150 mg/dl Cholesterol Level 82 0-200 mg/dl HDL Cholesterol 32 mg/dl Cholesterol/HDL Ratio 2.6 LDL Cholesterol, Calculated 28 mg/dl Medical Emergencies . Who to Call and When: Medical Emergencies: If at any time you feel your situation is an emergency, please call 911 immediately. . Non-Emergent Contact Non-Emergency issues call your: Primary Care Provider Call Non-Emergent contact if: you have any medication questions . . "Provider Documentation" section prepared by Aston Murry. . VTE Core Measure Inpt VTE Proph given/why not?: Warfarin (Coumadin)
[2017-04-23 16:00] VITALS: PULSE 58
[2017-04-23 16:11] VITALS: BP 116/69; PULSE 58; TEMP 36.8; O2SAT 98
== END 2017-04-23 19:35 | DRG 564 ==
LOC: EDBD 09:42 → C.EDB 09:44 → C.2T 13:03 → UNDOADMIN 13:03 → EDBEDREQ 13:08 → ENRESERV 13:14 → C.MS2W 04-16 13:04
PROVIDERS: ADMIT Internal Medicine Sports Medicine; ATTEND Internal Medicine Sports Medicine
DX: T79.6XXA Traumatic ischemia of muscle, initial encounter (principal); G93.41 Metabolic encephalopathy; I50.31 Acute diastolic (congestive) heart failure; B37.0 Candidal stomatitis; I24.8 Other forms of acute ischemic heart disease; Z68.42 Body mass index [BMI] 45.0-49.9, adult; T68.XXXA Hypothermia, initial encounter; S81.002A Unspecified open wound, left knee, initial encounter; S81.001A Unspecified open wound, right knee, initial encounter; R13.10 Dysphagia, unspecified; E87.6 Hypokalemia; I25.10 Atherosclerotic heart disease of native coronary artery without angina pectoris; I48.2 Chronic atrial fibrillation; E11.9 Type 2 diabetes mellitus without complications; I11.0 Hypertensive heart disease with heart failure; F03.90 Unspecified dementia, unspecified severity, without behavioral disturbance, psychotic disturbance, mood disturbance, and anxiety; E66.9 Obesity, unspecified; F41.9 Anxiety disorder, unspecified; Z51.81 Encounter for therapeutic drug level monitoring; Z79.899 Other long term (current) drug therapy; Z79.01 Long term (current) use of anticoagulants; Z79.84 Long term (current) use of oral hypoglycemic drugs; Z82.49 Family history of ischemic heart disease and other diseases of the circulatory system; W18.30XA Fall on same level, unspecified, initial encounter; Y92.009 Unspecified place in unspecified non-institutional (private) residence as the place of occurrence of the external cause; Y99.8 Other external cause status

== ENCOUNTER → 2017-08-23 | Outpatient (CLI) | payer OTHER ==
[~2017-08-23] MED LIST changes: -AMOX500C3 PO; +ASPEC81 PO; -BACL20TA PO; +INSDGI SC; +INSU70IN2 SC; -LORA-741 PO; -MELA1TAB5 PO; -MISCTAB26 PO; -TRIA37.5 PO
[2017-08-23 16:56] LABS: BASO % 0.2 %; BASO ABS # 0.01 K/uL (0-0.2); EOS % 1.2 %; EOS ABS # 0.05 K/uL (0-0.5); HEMATOCRIT 35.5 % (42-52); HEMOGLOBIN 11.9 g/dL (14.0-18.0); LYMPH % 15.8 %; LYMPH ABS # 0.68 K/uL (1.2-3.4); MEAN CELL VOLUME 92.9 fL (80-100); MEAN CORPUSCULAR HEMOGLOBIN 31.2 pg (25-34); MEAN CORPUSCULAR HGB CONC 33.5 g/dl (32-36); MEAN PLATELET VOLUME 11.7 fL (7.4-10.4); MONO % 11.6 %; NEUT % 71.2 %; NEUT ABS # 3.07 K/uL (1.4-6.5); PLATELET COUNT 164 K/uL (130-400); RED CELL DISTRIBUTION WIDTH CV 14.1 % (11.5-14.5); RED CELL DISTRIBUTION WIDTH SD 47.1 fL (36.4-46.3); WHITE BLOOD COUNT 4.31 K/uL (4.8-10.8)
[2017-08-23 17:14] LABS: ALBUMIN 3.5 gm/dl (3.4-5.0); ALT/SGPT 26 U/L (12-78); AST/SGOT 19 U/L (15-37); BLOOD UREA NITROGEN 25 mg/dl (7-18); CALCIUM 8.9 mg/dl (8.5-10.1); CARBON DIOXIDE 26 mmol/L (21-32); CREATININE 0.84 mg/dl (0.60-1.40); GLUCOSE 236 mg/dl (70-99); POTASSIUM 4.2 mmol/L (3.5-5.1); SODIUM 136 mmol/L (136-145)
[2017-08-23 17:25] LABS: ALKALINE PHOSPHATASE 92 U/L (45-117); CHOLESTEROL 80 mg/dl (0-200); LDL CHOLESTEROL CALCULATED 22 mg/dl; TOTAL PROTEIN 7.1 gm/dl (6.4-8.2)
[2017-08-24 07:23] LABS: HEMOGLOBIN A1C 7.2 % (4.5-5.6)
== END | disposition home or self-care (01) ==
LOC: C.LABBFT 13:43
PROVIDERS: ATTEND Internal Medicine
DX: E78.00 Pure hypercholesterolemia, unspecified (principal); E11.622 Type 2 diabetes mellitus with other skin ulcer; I48.91 Unspecified atrial fibrillation

== ENCOUNTER 2017-09-24 16:39 | Emergency (ER) | payer OTHER ==
[~2017-09-24 16:39] MED LIST changes: -ASPEC81 PO; +ASPI-320 PO
[2017-09-24 17:06] VITALS: Ht 175.3 cm
[2017-09-24] MEDS ORDERED: AMOXICILLIN/CLAVULANATE TAB 875 MG TAB PO STA (18:41)
[2017-09-24] MEDS ORDERED: AMPICILLIN/SULBACTAM SOD INJ 3,000 MG in SODIUM CHLORIDE 0.9% 100ML 100 ML IV ONE (18:45)
[2017-09-24] MEDS ORDERED: AMOX875T PO (19:58)
[2017-09-24 20:46] VITALS: BP 156/71; PULSE 72; TEMP 37.6; O2SAT 92
--- NOTE | 2017-09-24 22:05 | EMERGENCY ROOM VISIT NOTE ---
History Report prepared by Hans: Stephenie Sullivan Under the Supervision of: Dr. Shashank Millan M.D. First contact with patient: 18:09 Chief Complaint: FINGER PAIN Stated Complaint: SORE RT HAND, 3RD DIGIT History of Present Illness The patient is a 77 year old male who presents to the Emergency Room with complaints of worsening right middle finger pain beginning today. The patient reports he bites his finger nails. He reports there was a sore on the the end of his finger last night so he put a bandaid on it. Since last night, the patient reports increased swelling and redness. The patient had part of his finger removed and three of his toes removed by [facility]. The patient has an appointment with the wound care center tomorrow afternoon. He denies any chest pain, shortness of breath, fevers, or chills. The patient has a history of diabetes. He denies any allergies to antibiotics. Source of History: patient Onset: this morning Position: finger(s) Quality: other (pain swellling and reddness) Timing: worsening Associated Symptoms: No fevers, No chills, No chest pain, No SOB Review of Systems See HPI for pertinent positives and negatives. A total of 6 systems were reviewed and were otherwise negative. Past Medical & Surgical Medical Problems: (1) Atrial fibrillation (2) Cellulitis, toe (3) Chronic low back pain (4) Coronary artery disease (5) Diabetes (6) Elevated troponin (7) Fall (8) HTN (hypertension) (9) Hyperglycemia (10) Hypertension (11) Kidney infection (12) partial toe amputation (13) Toe ulcer (14) Urinary problem Family History FH: cancer Heart disease Hypertension Social History Smoking Status: Never Smoker Alcohol Use: none Drug Use: none Marital Status: Occupation Status: retired Current/Historical Medications Scheduled Amoxicillin & Pot Clavulanate (Augmentin 875-125 mg), 875 MG PO BID Aspirin (Aspirin EC Low Dose), 81 MG PO QAM Atorvastatin (Lipitor), 40 MG PO QPM Cholecalciferol (Vitamin D3), 1 TAB PO DAILY Cyanocobalamin (Vitamin B-12), 1,000 MCG PO DAILY Glipizide Xl (Glucotrol Xl), 10 MG PO BID Insulin Glargine (Lantus), 20 SC PM Insulin Isophan/Regular (Novolin 70/30), 20 SC AC Lisinopril (Prinivil), 5 MG PO DAILY Multivitamin (Multivitamin), 1 TAB PO DAILY Verapamil HCl (Verapamil HCl ER), 240 MG PO QAM Warfarin Sod (Jantoven), 10 MG PO UD Allergies Coded Allergies: Metformin (Unverified Allergy, Unknown, ., 04/12/17) CI Pigment Blue 63 (Verified Adverse Reaction, Intermediate, IRRITABILITY , 04/12/17) Duloxetine (Verified Adverse Reaction, Intermediate, IRRITABILITY, ) Pregabalin (Unverified Adverse Reaction, Intermediate, "SPACES HIM OUT", 04/12/17) Physical Exam Vital Signs Date Time Temp Pulse Resp B/P (MAP) Pulse Ox O2 Delivery O2 Flow Rate FiO2 09/24/17 20:46 37.6 72 18 156/71 92 09/24/17 18:54 69 18 147/66 93 Room Air 09/24/17 17:06 38.0 66 18 181/95 95 Room Air Physical Exam GENERAL: Awake, alert, well-appearing, in no distress HENT: Normocephalic, atraumatic. Oropharynx unremarkable. EYES: Normal conjunctiva. Sclera non-icteric. NECK: Supple. No nuchal rigidity. FROM. No masses. RESPIRATORY: Clear to auscultation. No wheezes. No rales. Normal respiratory effort. CARDIAC: Normal rate. Normal rhythm. No murmurs. No rubs. Extremities warm and well perfused. Pulses equal. No JVD. MUSCULOSKELETAL: Mild swelling and redness of right third digit mostly toward the distal half, with deformed nail, no significant pain with passive flexion, no streaking or redness up the hand or arm. LOWER EXTREMITIES: Calves are equal size bilaterally and non-tender. No edema. No discoloration. NEURO: Normal sensorium. No sensory or motor deficits noted. SKIN: No rash or jaundice noted. Medical Decision & Procedures Medications Administered Medications (Trade) Dose Ordered Sig/Palimra Route Start Time Stop Time Status Last Admin Dose Admin Ampicillin Sodium/ Sulbactam Sodium 3000 mg/Sodium Chloride 108 ml @ 200 mls/hr ONE ONCE IV 09/24/17 18:45 09/24/17 19:17 DC 09/24/17 18:55 200 MLS/HR Amoxicillin/ Clavulanate Potassium (Augmentin Tab) 875 mg BID STAT PO 09/24/17 18:41 09/24/17 18:43 DC 09/24/17 18:55 875 MG ED Course 1814: The patient was evaluated in room A7. A complete history and physical exam was performed. 1840: Ordered Augmentin Tab 875 mg PO. 1844: Ordered Ampicillin Sodium/Sulbactam Sodium 3000 mg/Sodium Chloride 108 ml @ 200 mls/hr IV. 2004: I updated the patient on his test results. He is resting comfortably and denies any more pain to his finger. 2011: I reevaluated the patient. Discussed results and discharge instructions: He verbalized understanding and agreement. The patient is ready for discharge. Medical Decision Prior records reviewed and summarized as above. Triage Nursing notes reviewed and agree them. Additional history obtained from the family. The patient's history was concerning for swelling and redness of the skin. Differential diagnosis: Etiologies such as cellulitis, osteomyelitis, tenosynovitis, necrotizing fasciitis, abscess, MRSA infection, as well as others were entertained.. Physical examination: The physical examination was consistent with cellulitis ER treatment provided: IV Unasyn Wound dressed On reassessment the patient felt better. Augmentin home pack given to go Diagnostics interpreted by me: Deferred This appears to be isolated cellulitis. Patient is feeling better after initiation of IV antibiotics. He notes a history of nail biting. He was counseled on this. I did not find any drainable fluid collection. He has a wound care follow-up scheduled for tomorrow. He was also instructed to follow- up with his primary physician this week. If he worsens in any way he will come back. He was given a home pack of Augmentin so that he can take a dose tonight and tomorrow morning before filling the prescription that was sent to his pharmacy. By the evaluation outlined above emergent etiologies such as abscess, necrotizing fasciitis, tenosynovitis, as well as others were deemed relatively unlikely. The patient and were informed about the findings as listed above. All questions were answered and they were pleased with the treatment. Return instructions were outlined and the patient was discharged in stable condition. Outpatient prescription management: Augmentin Referral: The patient was referred back to his primary care physician for follow-up in 2 to 3 days for a recheck of the current condition. Medication Reconcilliation Current Medication List: was personally reviewed by me Blood Pressure Screening Patient's blood pressure: Elevated blood pressure Blood pressure disposition: Referred to PCP Impression Primary Impression: Cellulitis of right middle finger Scribe Attestation The scribe's documentation has been prepared under my direction and personally reviewed by me in its entirety. I confirm that the note above accurately reflects all work, treatment, procedures, and medical decision making performed by me. Departure Information Dispostion Home / Self-Care Prescriptions Amoxicillin & Pot Clavulanate (Augmentin 875-125 mg) 1 Tab Tab 875 MG PO BID for 9 Days, #18 TAB Prov: Shashank Millan MD 09/24/17 Referrals Raj Mora M.D. (PCP) Forms HOME CARE DOCUMENTATION FORM, IMPORTANT VISIT INFORMATION, WORK / SCHOOL INSTRUCTIONS Patient Instructions My [facility] Additional Instructions CELLULITIS INSTRUCTIONS: Amoxicillin Clavulanate (Augmentin) 875mg: Take one pill twice daily for 10 days for your infection. All antibiotics can cause diarrhea. If this occurs and you feel worse or it does not resolve in 1-2 days follow up with your doctor or return to the Emergency Department as this could be signs of serious underlying problems. Any medication can cause an allergic reaction, stop the pills immediately and return to the ER for rash, hives, breathing difficulties, or swelling. Acetaminophen(Tylenol) may be used for fever or pain. Use 1000mg every six hours as needed. Avoid using more than 4000mg in a 24 hour period. Warm compresses to the affected area 4 times daily for 15-20 minutes. Rest and drink plenty of fluids. Continue current medications. Return to the ER for severe pain, persistent fevers, spreading redness, or any worsening of your condition. Follow up with your primary physician by the end of this week for a recheck of the current condition and a recheck of your INR as antibiotics can affect your Coumadin.
== END 2017-09-24 20:48 | disposition home or self-care (01) ==
LOC: C.EDB 16:40 → C.EDA 20:48
DX: L03.011 Cellulitis of right finger (principal); E11.622 Type 2 diabetes mellitus with other skin ulcer; I25.10 Atherosclerotic heart disease of native coronary artery without angina pectoris; I10 Essential (primary) hypertension; I48.91 Unspecified atrial fibrillation

== ENCOUNTER 2017-10-01 12:26 | Inpatient (IN) | payer OTHER ==
[~2017-10-01] VITALS: Ht 175.3 cm; Wt 121.0 kg
[~2017-10-01 12:26] MED LIST changes: -NVLGI/PEN SC; -TRAM-453 PO; -TRIATAB3 PO; -WARF-284 PO
[2017-10-01] MEDS ORDERED: ACETAMINOPHEN 325 MG TAB PO PRN (13:00)
[2017-10-01] MEDS ORDERED: ONDANSETRON INJ 2 MG/ML 2 ML VIAL IV PRN (13:00)
[2017-10-01] MEDS ORDERED: PIPERACILL/TAZOBAC CONSULT ACTIVE PRN (13:00)
[2017-10-01] MEDS ORDERED: VANCOMYCIN CONSULT ACTIVE PRN (13:00)
[2017-10-01 13:11] VITALS: BP 154/89; PULSE 75; TEMP 36.9; O2SAT 97
[2017-10-01] MEDS ORDERED: PIPERACILL/TAZOBAC IV 3.375 GM in DEXTROSE 5% 100ML 100 ML IV SCH (14:00)
[2017-10-01] MEDS ORDERED: GLUCAGON FOR INJ 1 MG VIAL SQ PRN (14:15)
[2017-10-01] MEDS ORDERED: DEXTROSE 50% 50 ML SYR IV PRN (14:15)
[2017-10-01] MEDS ORDERED: GLUCOSE 40% GEL 15 GM TUBE PO PRN (14:15)
[2017-10-01] MEDS ORDERED: GLUCOSE 10 TABS/TUBE PO PRN (14:15)
[2017-10-01] MEDS ORDERED: CARBOHYDRATES FOR HYPOGLYCEMIA PO PRN (14:15)
[2017-10-01] MEDS ORDERED: HydrALAZINE HCL 20 MG/ML VIAL IV. PRN (14:15)
[2017-10-01] MEDS ORDERED: TRIATAB3 PO (14:20)
[2017-10-01] MEDS ORDERED: WARF-284 PO (14:20)
[2017-10-01] MEDS ORDERED: NVLGI/PEN SC (14:20)
[2017-10-01] MEDS ORDERED: TRAM-453 PO (14:20)
[2017-10-01] MEDS ORDERED: PHARMACY GLYCEMIC MGMT CONSULT PRN (14:37)
[2017-10-01 14:41] VITALS: O2SAT 97; BMI 39.4
[2017-10-01] MEDS ORDERED: PIPERACILL/TAZOBAC IV 3.375 GM in NSS 100 ML IV ONE (14:45)
[2017-10-01] MEDS ORDERED: PATIENT'S HEIGHT AND/OR WEIGHT NEEDED SCH (14:45)
--- NOTE | 2017-10-01 14:45 | Medical Consult ---
Consultation Date of Consultation: October 01, 2017. Attending Physician: Pasquale Rocha M.D. Reason for Consultation: Medical management History of Present Illness This is a 77 y/o male with a history of CAD, h/o VT, HTN, HLD, a-fib, PVD, DM II , neuropathy, lymphedema, anxiety, insomnia, dementia, and BPH who presents with right 3rd digit cellulitis with concern for osteomyelitis. Hospital medicine consulted for medical management. The patient is a poor historian secondary to dementia. Per and son at bedside, the patient had presented to the ED last week with increased swelling and pain in the affected digit. He was diagnosed with cellulitis at that time. The wound was dressed and he was discharged home with Augmentin. Despite compliance with the abx, the finger has gotten worse. The patient now denies pain in his finger. He notes intermittent drainage. Per , the finger has gotten more red and swollen. She states that the patient saw Dr. Rocha as an outpatient who recommended admission and likely surgical intervention tomorrow. The patient denies fevers , chills, sweats, chest pain, palpitations, claudication, cough, wheezing, shortness of breath, nausea, vomiting, abdominal pain, dysuria, hematuria, urinary retention, paralysis, weakness, acute numbness and tingling. Past Medical/Surgical History Medical Problems: (1) Non-STEMI (non-ST elevated myocardial infarction) Status: Acute (2) Osteomyelitis of toe of left foot Status: Acute (3) Tinea Status: Acute (4) Weakness Status: Acute CAD HTN HLD A-fib PVD DM II Neuropathy Lymphedema Anxiety Insomnia Dementia BPH Family History Diabetes mellitus FH: cancer Heart disease Hypertension Social History Smoking Status: Never Smoker Smokeless Tobacco Use: No Alcohol Use: none Drug Use: none Marital Status: Housing Status: lives with significant other Occupation Status: retired Allergies Coded Allergies: Metformin (Unverified Allergy, Unknown, ., 04/12/17) CI Pigment Blue 63 (Verified Adverse Reaction, Intermediate, IRRITABILITY , 04/12/17) Duloxetine (Verified Adverse Reaction, Intermediate, IRRITABILITY, ) Pregabalin (Unverified Adverse Reaction, Intermediate, "SPACES HIM OUT", 04/12/17) Current Inpatient Medications Current Inpatient Medications Medications (Trade) Dose Ordered Sig/Palmira Route Start Time Stop Time Status Last Admin Dose Admin Acetaminophen (Tylenol Tab) 650 mg Q6H PRN PO 10/01/17 13:00 10/31/17 12:59 UNV Ondansetron HCl (Zofran Inj) 4 mg Q6H PRN IV 10/01/17 13:00 10/31/17 12:59 UNV Docusate Sodium (coLACE CAP) 100 mg BID PO 10/01/17 21:00 10/31/17 20:59 UNV Pantoprazole Sodium (Protonix Tab) 40 mg QAM PO 10/02/17 09:00 11/01/17 08:59 UNV Sodium Chloride 1,000 ml @ 75 mls/hr [id number] IV 10/01/17 12:51 10/31/17 12:50 UNV Miscellaneous Information (Consult Glycemic Management Pharmacy) 1 ea NOW STAT N/A 10/01/17 12:51 10/01/17 12:52 UNV Vancomycin HCl 1000 mg/Sodium Chloride 270 ml @ 125 mls/hr Q12 IV 10/01/17 21:00 10/11/17 20:59 UNV Miscellaneous Information (Consult) 1 ea UD PRN N/A 10/01/17 13:00 10/31/17 12:59 UNV Piperacillin Sod/ Tazobactam Sod 3.375 gm/Dextrose 115 ml @ 28.75 mls/ hr Q8 IV 10/01/17 14:00 10/11/17 13:59 UNV Miscellaneous Information (Consult) 1 ea UD PRN N/A 10/01/17 13:00 10/31/17 12:59 UNV Review of Systems See HPI for pertinent positives and negatives. All other systems reviewed and negative. Physical Exam Date Time Temp Pulse Resp B/P (MAP) Pulse Ox O2 Delivery O2 Flow Rate FiO2 10/01/17 13:11 36.9 75 18 154/89 (110) 97 Room Air General appearance: +Obese. Well-developed, well-nourished, no apparent distress Head: Normocephalic, atraumatic Eyes: Normal inspection, PERRL, EOMI ENT: Normal ENT inspection, hearing grossly normal, pharynx normal Neck: Supple, no JVD, trachea midline Respiratory/Chest: Lungs clear to auscultation, normal breath sounds, no respiratory distress Cardiovascular: +Irregularly irregular, rate controlled. Systolic murmur. No gallop Abdomen/GI: Normal bowel sounds, non-tender, soft Extremities/Musculoskeletal: +Right 3rd digit swollen, erythematous through almost entire length of finger with a small area of drainage. Patient has picked away skin from distal areas of finger. Necrotic area at finger tip. Fingernail severely deformed. TTP. No calf tenderness, no pedal edema Neurological/Psych: +Disoriented to time. Alert, normal mood/affect, oriented x 2 Skin: Normal color, warm/dry, no rash Laboratory Results Last 24 Hours Test 10/01/17 12:51 Assessment & Plan 77 y/o male with a history of CAD, h/o VT, HTN, HLD, a-fib, PVD, DM II, neuropathy, lymphedema, anxiety, insomnia, dementia, and BPH who presents with right 3rd digit cellulitis with concern for osteomyelitis. Right 3rd digit cellulitis, probable osteomyelitis -Admitted to med/surg by Dr. Rocha -Surgical management, pain management, DVT prophylaxis, and PT/OT as per primary team -MRI of finger pending -Labs pending -Infectious disease consulted, appreciate recs -Zosyn and vanc per primary -Wound care consulted CAD, h/o VT, HTN, HLD--stable -Hold aspirin for now pending likely surgical intervention -Hold lisinopril and Dyazide for now due to likely upcoming surgery, can resume postop if renal function is stable -Continue verapamil 240 mg PO qd, Lipitor 40 mg PO qd -Cover with hydralazine 10 mg IV q6h prn SBP >180 A-fib--stable, rate controlled -Warfarin held for surgery. Pt takes 5 mg ///Sa/Ceja and 7.5 on DM II, neuropathy--last HgbA1c 7.2 on 08/23/17 -Hold glipizide -Continue Lantus 20 units SC hs -Insulin sliding scale -Check BSGs q ac and qhs Anxiety, insomnia, dementia--noted -Pt notes insomnia secondary to neuropathy pain -Pt has tried donepezil per outpatient records but did not tolerate Code Status -Level I, FULL RESUSCITATION STATUS Thank you for this consultation. We will continue to follow.
--- NOTE | 2017-10-01 15:00 | Progress Note ---
Progress Note Date of Service October 01, 2017. Progress Note ID Consult Dictated #[id number] A/P: 1. Osteomyelitis right finger -Continue IV abx, would add vanco due to h/o staph, await creat -Will follow, thank you
--- NOTE | 2017-10-01 15:11 | History and Physical ---
History & Physical Date & Time of Service: October 01, 2017 at 14:54 Chief Complaint: Right Third Finger Infection Primary Care Physician: Raj Mora M.D. History of Present Illness Source: patient, spouse Patient is a 77-year-old male with a history of CAD, history of myocardial infarction, hypertension, HLD, atrial fibrillation, PVD, diabetes type 2, neuropathy, lymphedema, anxiety, insomnia, dementia, BPH who presents with right third digit cellulitis with concern for osteomyelitis. He presented to our office today and was seen and evaluated by Dr. Rocha. He states that he has had some issues with the finger for many weeks. He states that he thinks maybe he had some type of wound on it that would not heal. He kept covering it and he states he "just did not heal right". He went to the emergency room last week for evaluation of his right third finger. He was sent home on Augmentin 875 mg twice daily. He was referred to our office for outpatient follow-up. His states that he just wanted to give it a couple of days to see if it would get better. It continued to get worse and they called our office for an appointment. He was seen for the first time today. He presents with largely swollen, erythematous right third finger. The antibiotic that he was taking really did not seem to help. He states that there was some skin on there that he just kept peeling off thinking that it would help it heal faster. He does not have significant pain in his finger today. There is great concern for osteomyelitis. Dr. Rocha recommended inpatient treatment for IV antibiotics and for surgical intervention on Saturday, October 02, 2017. He has agreed with this treatment plan and was admitted for care. Past Medical/Surgical History Medical Problems: (1) Atrial fibrillation - on Warfarin anticoagulation. (2) Cellulitis of left hand (3) Cellulitis of left hand (4) Cellulitis of right lower extremity (5) Cellulitis of right middle finger (6) Cellulitis of ring finger of left hand (7) Cellulitis, toe (8) Chronic low back pain (9) Coronary artery disease (10) Diabetes (11) Diabetic foot ulcer (12) Diabetic ulcer of right foot (13) Elevated troponin (14) Fall (15) Finger osteomyelitis (16) HTN (hypertension) (17) Hyperglycemia (18) Hypertension (19) Kidney infection (20) H/O Non-STEMI (non-ST elevated myocardial infarction) (21) Osteomyelitis of toe of left foot (22) partial toe amputation Family History Diabetes mellitus FH: cancer Heart disease Hypertension Social History Uses 1 crutch to assist with ambulation. Smoking Status: Never Smoker Smokeless Tobacco Use: No Alcohol Use: none Drug Use: none Marital Status: Housing status: lives with family Occupational Status: retired Immunizations History of Influenza Vaccine: No History of Tetanus Vaccine?: utd History of Pneumococcal: Unknown History of Hepatitis B Vaccine: No Allergies Coded Allergies: Metformin (Unverified Allergy, Unknown, ., 04/12/17) CI Pigment Blue 63 (Verified Adverse Reaction, Intermediate, IRRITABILITY , 04/12/17) Duloxetine (Verified Adverse Reaction, Intermediate, IRRITABILITY, ) Pregabalin (Unverified Adverse Reaction, Intermediate, "SPACES HIM OUT", 04/12/17) Home Medications Scheduled Amoxicillin & Pot Clavulanate (Augmentin 875-125 mg), 875 MG PO BID Aspirin (Aspirin EC Low Dose), 81 MG PO QAM Atorvastatin (Lipitor), 40 MG PO QPM Cholecalciferol (Vitamin D3), 1 TAB PO DAILY Cyanocobalamin (Vitamin B-12), 1,000 MCG PO DAILY Glipizide Xl (Glucotrol Xl), 10 MG PO BID Insulin Aspart (Novolog Flexpen), 5 UNITS SC TIDM Insulin Glargine (Lantus), 20 SC PM Lisinopril (Prinivil), 5 MG PO DAILY Multivitamin (Multivitamin), 1 TAB PO DAILY Triamterene/Hctz (Triamterene/Hctz 37.5-25MG), 1 TAB PO DAILY Verapamil HCl (Verapamil HCl ER), 240 MG PO QAM Warfarin Sod (Jantoven), 10 MG PO 5XWK Warfarin Sodium (Warfarin Sodium), 7.5 MG PO 2XWK Scheduled PRN Tramadol Hcl (Ultram), 50 MG PO Q4H PRN for Pain Review of Systems Constitutional: No fever, No chills, No sweats, No weight loss, No fatigue Eyes: No worsening of vision, No eye pain, No redness ENT: No hearing loss, No sore throat, No tinnitus, No dental problems Respiratory: + dyspnea on exertion, No cough, No sputum, No wheezing, No shortness of breath, No dyspnea at rest Cardiovascular: + edema, No chest pain Abdomen: No pain, No nausea, No vomiting, No diarrhea, No constipation Musculoskeletal: No joint pain, No muscle pain, No swelling, No calf pain Genitourinary - Male: No hematuria, No dysuria, No urinary frequency Neurologic: No memory loss, No numbness/tingling Psychiatric: No anxiety Endocrine: No fatigue Hematologic / Lymphatic: No abnormal bleeding/bruising, No clotting problems Integumentary: No rash, No itch Allergic / Immunologic: + frequent infections, + poor healing Physical Exam Vital Signs Date Time Temp Pulse Resp B/P (MAP) Pulse Ox O2 Delivery O2 Flow Rate FiO2 10/01/17 13:11 36.9 75 18 154/89 (110) 97 Room Air General Appearance: WD/WN, no apparent distress Head: normocephalic, atraumatic Eyes: normal inspection, PERRL, EOMI ENT: normal ENT inspection, hearing grossly normal, TMs normal, pharynx normal Neck: supple, no adenopathy Respiratory/Chest: chest non-tender, lungs clear, normal breath sounds, no respiratory distress, no accessory muscle use Cardiovascular: regular rate, rhythm, no murmur, normal peripheral pulses Abdomen/GI: normal bowel sounds, non tender, soft Extremities/Musculoskelatal: + pertinent finding (Right third finger: Erythema , edema, limited range of motion. He has a black eschar at the very tip of the finger. Skin is peeling off. Capillary refill diminished right third finger. All other fingers are benign on exam. Nontender throughout his right hand. No erythema to the right hand or forearm. Tolerates range of motion of his right wrist.) Neurologic/Psych: alert, normal mood/affect, oriented x 3 Skin: normal color, warm/dry Diagnostics Laboratory Results Results Past 24 Hours Test 10/01/17 12:51 Range/Units Diagnostic Radiology 3 views of his right third finger were taken today in our office. X-ray shows soft tissue swelling of the right third finger. His distal phalanx is held in flexed position. EKG as per EMR Impression Assessment and Plan Assessment: Right third finger infection, probable osteomyelitis Plan: Patient was admitted to [facility] today. He is scheduled for an irrigation and debridement possible amputation of his right third finger with Dr. Rocha on October 02, 2017. Hospitalist consult was placed for medical management. Glycemic control consult was also placed for diabetic management. We also consult infectious disease for antibiotic recommendations as well. He was started on IV vancomycin and IV Zosyn for coverage of his right third finger. We will obtain an MRI with and without contrast later today to further evaluate for osteomyelitis. He was placed on a diabetic diet and made n.p.o. after midnight. We will obtain a CBC with differential, sedimentation rate, CRP, BMP and EKG. We will supposed to wound care nurse consult for care of his right foot as he has been going to the outpatient wound clinic for dressing changes for the last few years regarding that. We will have medical management see him preoperatively for clearance as well as postoperative medical management during his inpatient stay. No DVT prophylaxis is necessary at this time. His Coumadin should be held due to upcoming surgery. All questions were answered today. Informed consent was obtained. We discussed risks and complications with the patient which included but are not limited to infection, pain, bleeding, scarring, nerve blood vessel damage, wound problems, weakness, stiffness, incomplete relief of symptoms, blood clots , embolisms, heart attack, stroke or . They know to call with any further problems, questions or concerns. Resuscitation Status VTE Prophylaxis Will order VTE Prophylaxis: Yes
[2017-10-01] MEDS ORDERED: VANCOMYCIN IV 2,750 MG in SODIUM CHLORIDE 0.9% 500ML 500 ML IV SCH (15:15)
--- NOTE | 2017-10-01 15:25 | Pharmacy Progress Note ---
Glycemic Control Intl Consult Date of Service October 01, 2017. Scope Glycemic Pharmacist consulted by Alyx Anaya PA-C on 10/01/17 for glycemic control and to write orders per [facility] inpatient glycemic control protocol Objective Accuchecks BSG (last 24hrs): Laboratory Data (last 24hrs) HbA1c 7.2% on 08/23/17 Recent Pertinent Medications Outpatient Anti-diabetic Regimen: * Glipizide XL 10mg PO BIDM * NovoLog 5 units SQ TIDM * Lantus 20 units SQ PM Risk Factors for Insulin Resistance: * Infection * Diet Assessment & Plan ASSESSMENT: * 77yo T2DM male with adequate outpatient control per recent A1c. * Pt is maintained on basal insulin + prandial insulin + glipizide as an outpatient * Will hold oral agents for admission * Will continue basal + prandial insulin but change prandial insulin from fixed dosing (5 units with meals) to dosing per weight based CF/CR since PO intake may be different in house as compared to outpatient. * Pt will be NPO after midnight, therefore will give a reduced dose of Lantus x 1 and then titrate based on BSG trends. * Goal is to maintain BSG <200 mg/dl (ideally ~150mg/dl) to promote infection healing PLAN FOR INPATIENT GLYCEMIC CONTROL: * Holding outpatient oral diabetes medications * Basal insulin * Lantus 15 units SQ x 1 dose for NPO after midnight, then resume Lantus 20 units SQ HS 10/02/17 * Bolus insulin * NovoLog per scale ACHS or Q6hrs while NPO * Goal Range: Low 120 mg/dL - High 150 mg/dL * Correction Factor: 20 mg/dL/unit * Nutritional / Prandial insulin per carb ratio of 1 unit per 7 grams CHO consumed * Please note that the plan above was derived based on current level of insulin resistance and hospital stress. These recommendations are appropriate for inpatient admission only. Plan of care upon discharge will need to be reassessed to avoid potential outpatient hypo/hyperglycemia. Thank you.
[2017-10-01 15:42] LABS: HEMATOCRIT 37.3 % (42-52); HEMOGLOBIN 12.2 g/dL (14.0-18.0); MEAN CELL VOLUME 92.8 fL (80-100); MEAN CORPUSCULAR HEMOGLOBIN 30.3 pg (25-34); MEAN CORPUSCULAR HGB CONC 32.7 g/dl (32-36); MEAN PLATELET VOLUME 10.1 fL (7.4-10.4); PLATELET COUNT 266 K/uL (130-400); RED CELL DISTRIBUTION WIDTH CV 13.7 % (11.5-14.5); RED CELL DISTRIBUTION WIDTH SD 46.2 fL (36.4-46.3); WHITE BLOOD COUNT 7.37 K/uL (4.8-10.8)
[2017-10-01] MEDS ORDERED: PIPERACILL/TAZOBAC IV 4.5 GM in NSS 100 ML IV ONE (15:45)
--- NOTE | 2017-10-01 15:45 | Pharmacy Progress Note ---
Pharmacy Abx Initial Consult Date of Service October 01, 2017. Pharmacy Dosing Scope Date of Consult: 10/01/17 Consultation requested by: Alyx Anaya Pharmacy is consulted to initiate vancomycin and Zosyn IV dosing therapy, order appropriate labs and adjust drug dose/frequency. Subjective The patient is a 77 year old male admitted on October 01, 2017 at 12:50. Objective Height (Feet): 5 Height (Inches): 9.00 Weight (Kilograms): 121.000 (BMI = 39.4) Vital Signs (Past 12Hrs) Vital Signs Past 12 Hours Date Time Temp Pulse Resp B/P (MAP) Pulse Ox O2 Delivery O2 Flow Rate FiO2 10/01/17 14:41 97 Room Air 10/01/17 13:11 36.9 75 18 154/89 (110) 97 Room Air Lab Results (24Hrs) Laboratory Tests (24 Hours) Test 10/01/17 15:23 White Blood Count 7.37 K/uL (4.8-10.8) Risk Factors for Resistance * Antimicrobial use within the last 90 days : Augmentin for R finger cellulitis Assessment & Plan Assessment 77 year old male admitted for R finger cellulitis/osteo, failure of outpatient Augmentin x 1 week. Now to be started on vancomycin and Zosyn as an inpatient. ID has been consulted and in agreement with antibiotics. Plan Vancomycin IV * Est PK parameters: Vd 0.56 L/kg, Herman 0.073 hr-1, t1/2 9.5 hrs, CrCl 82.4 * Based upon review of previous dosing, 1600 mg q12h at a slightly improved SCr produced trough levels of ~20. Will provide similar dosing this admit. * Loading dose: 2750 mg (23 mg/kg) - max dose per allowed concentration * Maintenance dose: 1500 mg IV (12.4 mg/kg) every 12 hours * Goal trough level for osteomyelitis : 15 to 20 mcg/mL * Trough level ordered for 10/03/17 prior to the 4th dose * A less than traditional dose and/or extended dosing interval has/have been selected due to likelihood of drug accumulation in obese patient/patient with h/ o CKD. Piperacillin/tazobactam * 4.5 g bolus administered over 30 minutes, then 4.5 g IV extended infusion every 8 hours for CrCl greater than 20 mL/min * Aggressive dosing selected due to critically ill status/BMI 35 or more/ history of cystic fibrosis. Pharmacy will continue to follow and will adjust dose/frequency as necessary. Thank you.
[2017-10-01] MEDS: SODIUM CHLORIDE 0.9% 1000ML 1,000 ML IV SCH (15:53)
[2017-10-01 15:57] VITALS: Ht 175.3 cm; Wt 121.0 kg
[2017-10-01] MEDS ORDERED: PNEUMOCOCCAL ADMINISTRATION CHARGE ONE (16:00)
[2017-10-01] MEDS ORDERED: PNEUMOCOCCAL POLYSACCHARIDES 25 MCG/0.5 ML VIAL/SYR IM. ONE (16:00)
[2017-10-01 16:15] LABS: CALCIUM 9.2 mg/dl (8.5-10.1); CREATININE 0.98 mg/dl (0.60-1.40); POTASSIUM 4.6 mmol/L (3.5-5.1)
--- NOTE | 2017-10-01 16:44 | INFECT. DISEASE CONSULTATION ---
DATE OF CONSULTATION: 10/01/2017 HISTORY OF PRESENT ILLNESS: This is a 77-year-old gentleman who was admitted to the hospital secondary to right third digit infection. He was recently seen in the ER a week ago after he noticed increased redness and swelling. He was given some IV antibiotics and discharged home on oral Augmentin. His is present with him and she states that the wound continued to worsen and got more swollen and erythematous and he subsequently returned to the hospital for admission. He denies any trauma to the area. In the interim, he did see Dr. Rocha, and he recommended that the patient undergo amputation; however, the patient currently is refusing any surgical intervention. He denies any fevers or chills. He denies any bleeding or purulent drainage. He denies any cough, shortness of breath, nausea, vomiting, diarrhea, or abdominal pain. He is seen by infectious diseases in the wound care center for a prolonged period of time for foot ulcerations in the past. He currently has been tolerating Augmentin well. His remaining review of systems is unremarkable. PAST MEDICAL HISTORY: Significant for coronary artery disease with a history of VT, hypertension, high cholesterol, atrial fibrillation, peripheral vascular disease, type 2 diabetes with neuropathy, lymphedema, anxiety, insomnia, dementia, and BPH. FAMILY HISTORY: Noncontributory. SOCIAL HISTORY: Negative for tobacco use, alcohol use, or drug use. ALLERGIES: HE HAS ALLERGIES TO METFORMIN, IODINE DYE, DULOXETINE, AND PREGABALIN. MEDICATIONS: Include Protonix, verapamil, Colace, Lipitor, Lantus insulin, Zosyn, hydralazine, Tylenol, Zofran. PHYSICAL EXAMINATION: VITAL SIGNS: He is afebrile, pulse 75, respiratory rate 18, blood pressure 154/89, oxygen saturation is 97% on room air. GENERAL: He is awake, alert, and oriented x3. He is in no acute distress. HEENT: Mucous membranes are moist. Extraocular muscles are intact. CARDIOVASCULAR: Heart is regular. RESPIRATORY: Lungs are clear bilaterally. GASTROINTESTINAL: Abdomen is soft. EXTREMITIES: There is no drainage from the right hand. The third digit is erythematous and swollen with some necrosis at the tip of the finger. I am unable to express any drainage. There is chronic lower extremity edema bilaterally. Laboratory studies are pending at this time. There are no cultures to review. ASSESSMENT AND PLAN: Osteomyelitis of the finger. He will remain on intravenous antibiotics. I would recommend the addition of vancomycin for gram positive coverage as he does have a history of staph infection of the foot. This can be started after creatinine is received with the help of pharmacy dosing. We will follow along with you. Thank you for the consultation.
[2017-10-01] MEDS ORDERED: PHYTONADIONE INJ 10 MG in SODIUM CHLORIDE 0.9% 50ML 50 ML IV ONE (17:15)
[2017-10-01 17:25] LABS: INR 2.9 (0.9-1.1)
[2017-10-01 17:36] VITALS: BP 115/67; PULSE 46; TEMP 36.4; O2SAT 98
[2017-10-01 17:52] VITALS: BP 129/70; PULSE 46; TEMP 36.5; O2SAT 94
[2017-10-01] MEDS: INSULIN ASPART 100 UNITS/ML 3 ML PEN SC SCH ×2 (18:29→21:50)
[2017-10-01] MEDS: PIPERACILL/TAZOBAC IV 4.5 GM in NSS 100 ML IV SCH (19:28)
[2017-10-01] MEDS: ATORVASTATIN 40 MG TAB PO SCH (20:04)
[2017-10-01] MEDS: DOCUSATE SODIUM 100 MG CAP PO SCH (20:04)
[2017-10-01] MEDS ORDERED: VANCOMYCIN IV 1,000 MG in SODIUM CHLORIDE 0.9% 250ML 250 ML IV SCH (21:00)
[2017-10-01] MEDS ORDERED: INSULIN GLARGINE SOLOSTAR 100 UNITS/ML 3 ML PEN SC SCH ×2 (21:00)
--- NOTE | 2017-10-01 21:17 | DIAGNOSTIC IMAGING REPORT ---
UPPER EXT NONJOINT WITHOUT HISTORY: 77 years-old Male 3rd finger infection acute infection of the right third finger COMPARISON: Right finger radiographs of same day TECHNIQUE: Noncontrast MRI of the right third finger was attempted without the use of IV contrast. FINDINGS/IMPRESSION: Only the protocol officer localizer large field of view images were obtained and the certified nuclear medicine technologist reports that the patient then refused completion of the exam and was asked to be taken back to his room. No other sequences or images were obtained and the exam was then terminated. The large [id number] protocol officer localizer images demonstrate moderate to extensive subcutaneous edema about the distal portion of the third finger with micrometallic artifact suggesting prior surgery. Images are not diagnostic. The above report was generated using voice recognition software. It may contain grammatical, syntax or spelling errors. Electronically signed by: Yordy Cody M.D. 10/01/2017 9:16 PM Dictated Date/Time: 10/01/2017 9:12 PM
[2017-10-01 22:55] VITALS: BP 145/88; PULSE 61; TEMP 37; O2SAT 97
[2017-10-02] VITALS (7 sets, daily range): BP systolic 128–172; BP diastolic 50–88; PULSE 55–85; TEMP 36.7–37; O2SAT 92–99
[2017-10-02] MEDS: VANCOMYCIN IV 1,500 MG in SODIUM CHLORIDE 0.9% 500ML 500 ML IV SCH ×2 (04:07→16:31)
[2017-10-02] MEDS: PIPERACILL/TAZOBAC IV 4.5 GM in NSS 100 ML IV SCH ×3 (04:08→20:29)
[2017-10-02] MEDS ORDERED: NURSING DECISION MEDICATION ORDER SCH ×2 (05:00→06:30)
[2017-10-02] MEDS: SODIUM CHLORIDE 0.9% 1000ML 1,000 ML IV SCH ×3 (05:20→23:58)
[2017-10-02] MEDS: INSULIN ASPART 100 UNITS/ML 3 ML PEN SC SCH ×4 (05:57→20:42)
[2017-10-02 07:42] LABS: HEMOGLOBIN 11.6 g/dL (14.0-18.0); MEAN CELL VOLUME 91.4 fL (80-100); MEAN CORPUSCULAR HEMOGLOBIN 30.3 pg (25-34); MEAN CORPUSCULAR HGB CONC 33.1 g/dl (32-36); MEAN PLATELET VOLUME 9.9 fL (7.4-10.4); PLATELET COUNT 231 K/uL (130-400); RED CELL DISTRIBUTION WIDTH CV 13.6 % (11.5-14.5); RED CELL DISTRIBUTION WIDTH SD 45.1 fL (36.4-46.3); WHITE BLOOD COUNT 6.61 K/uL (4.8-10.8)
[2017-10-02 07:48] LABS: INR 1.4 (0.9-1.1)
[2017-10-02 08:16] LABS: CALCIUM 8.8 mg/dl (8.5-10.1); CREATININE 0.91 mg/dl (0.60-1.40); POTASSIUM 3.8 mmol/L (3.5-5.1)
--- NOTE | 2017-10-02 08:26 | Orthopedic Progress Note ---
Orthopedic Progress Note Date of Service October 02, 2017. Subjective Denies: complaints, chest pain, SOB, nausea / vomiting, calf pain Additional Notes: Denies pain. States that he "needs to get things taken care of". Worried about not having a car. at bedside. Refused MRI last evening, states it hurt his back. states that they are going to try again this morning and he might do better with some pain medication for his back. Objective Isn't oriented to place. Mild edema right hand. Dressings right hand in place. Tolerates ROM of finger and wrist. No erythema, edema right wrist/ forearm. Nontender to palpation. Date Time Temp Pulse Resp B/P (MAP) Pulse Ox O2 Delivery O2 Flow Rate FiO2 10/02/17 08:02 36.7 85 15 166/88 (114) 92 Room Air 10/02/17 00:45 Room Air 10/01/17 22:55 37.0 61 18 145/88 (107) 97 Room Air 10/01/17 20:00 Room Air 10/01/17 17:52 36.5 46 16 129/70 (89) 94 Room Air 10/01/17 17:36 36.4 46 16 115/67 (83) 98 Room Air 10/01/17 14:41 97 Room Air 10/01/17 13:11 36.9 75 18 154/89 (110) 97 Room Air Laboratory Results 24 Hours: Test 10/01/17 15:23 10/01/17 15:24 10/02/17 07:12 Hematocrit 37.3 % 35.0 % Hemoglobin 12.2 g/dL 11.6 g/dL Prothromb Time International Ratio 2.9 1.4 Prothrombin Time 29.7 SECONDS 14.8 SECONDS Assessment & Plan Assessment: Right 3rd finger infection, probably osteomyelitis. Plan: NPO p MN. On for OR later today, consent on chart. Elevate right hand above heart. MRI pending/will hopefully try to get again this morning. Keep dressings on right 3rd finger. IV antibiotics as ordered. Appreciate medicine and ID assistance. May be out of bed as tolerated. Call [phone] with questions. Will discuss findings with Dr. Rocha.
[2017-10-02] MEDS ORDERED: HYDROCODONE/ACETAMIN 5/325MG TAB PO PRN (08:30)
[2017-10-02] MEDS ORDERED: TRAMADOL HCL 50 MG TAB PO PRN (08:30)
[2017-10-02] MEDS: DOCUSATE SODIUM 100 MG CAP PO SCH ×2 (09:01→20:31)
[2017-10-02] MEDS: VERAPAMIL HCL 240 MG TABCR PO SCH (09:02)
[2017-10-02] MEDS: PANTOprazole SOD 40 MG TAB PO SCH (09:02)
--- NOTE | 2017-10-02 09:45 | Pharmacy Progress Note ---
Pharmacy Glycemic Short Note 2 Date of Service October 02, 2017. OUTPATIENT ANTIDIABETIC REGIMEN: * Glipizide XL 10mg PO BIDM * NovoLog 5 units SQ TIDM * Lantus 20 units SQ PM Test 10/01/17 15:23 10/01/17 16:47 10/01/17 21:39 10/02/17 05:53 Random Glucose 253 mg/dl (70-99) Bedside Glucose 213 mg/dl (70-99) 151 mg/dl (70-99) 118 mg/dl (70-99) Test 10/02/17 07:12 Random Glucose 95 mg/dl (70-99) ASSESSMENT: 10/02/17 * BSGs fairly stable within the past 24 hrs * Currently NPO for possible OR today * Patient received reduced dose of Lantus last night for NPO status. Will provide a scale for tonight in case po intake still reduced. 10/01/17 * 77yo T2DM male with adequate outpatient control per recent A1c. * Pt is maintained on basal insulin + prandial insulin + glipizide as an outpatient * Will hold oral agents for admission * Will continue basal + prandial insulin but change prandial insulin from fixed dosing (5 units with meals) to dosing per weight based CF/CR since PO intake may be different in house as compared to outpatient. * Pt will be NPO after midnight, therefore will give a reduced dose of Lantus x 1 and then titrate based on BSG trends. * Goal is to maintain BSG <200 mg/dl (ideally ~150mg/dl) to promote infection healing PLAN FOR INPATIENT GLYCEMIC CONTROL: * Hold outpatient oral diabetes medications * Basal insulin * Lantus 15 units SQ qHS, increase to outpatient dose of 20 units qHS (if BSG > 120) * Bolus insulin * NovoLog per scale ACHS or Q6hrs while NPO * Goal Range: Low 120 mg/dL - High 150 mg/dL * Correction Factor: 20 mg/dL/unit * Nutritional / Prandial insulin per carb ratio of 1 unit per 7 grams CHO consumed PLAN FOR DISCHARGE: * A1c of 7.2% indicates excellent outpatient control * Continue outpatient glycemic regimen
[2017-10-02] MEDS ORDERED: MIDAZOLAM HCL 1 MG/ML 2ML VIAL ONE (12:14)
[2017-10-02] MEDS ORDERED: FENTANYL CITRATE INJ 50 MCG/1 ML 2 ML VIAL ONE (12:14)
[2017-10-02] MEDS ORDERED: PROPOFOL IV EMULSION 10 MG/ML 20 ML VIAL ONE (12:14)
[2017-10-02] MEDS ORDERED: LIDOCAINE HCL 2% 2 ML VIAL (20MG/ML) ONE (12:14)
[2017-10-02] MEDS ORDERED: DEXAMETHASONE SOD INJ 4 MG/ML VIAL ONE (12:14)
[2017-10-02] MEDS ORDERED: ONDANSETRON INJ 2 MG/ML 2 ML VIAL ONE (12:14)
[2017-10-02] MEDS ORDERED: BACITRACIN 50000 UNIT VIAL ONE (12:14)
[2017-10-02] MEDS ORDERED: BUPIVACAINE 0.5 % 5 MG/1 ML MPF 30ML VIAL ONE (12:34)
[2017-10-02] MEDS ORDERED: LIDOCAINE HCL 1% 20 ML VIAL ONE (12:34)
[2017-10-02] MEDS ORDERED: HYDROmorphone INJ 2 MG/ML SYR/VIAL IV PRN (13:00)
[2017-10-02] MEDS ORDERED: ATROPINE SULFATE 0.1 MG/ML 5ML SYR IV PRN (13:00)
[2017-10-02] MEDS ORDERED: EpHEDrine SULFATE INJ 50 MG/ML AMP IV PRN (13:00)
[2017-10-02] MEDS ORDERED: ONDANSETRON INJ 2 MG/ML 2 ML VIAL IV PRN (13:00)
[2017-10-02] MEDS ORDERED: PHENYLEPHRINE 100MCG/ML 5ML SYR IV PRN (13:00)
[2017-10-02] MEDS ORDERED: FENTANYL CITRATE INJ 50 MCG/1 ML 2 ML VIAL IV PRN (13:00)
[2017-10-02] MEDS ORDERED: POVIDONE-IODINE OP SOLN 30 ML BTL ONE (13:27)
--- NOTE | 2017-10-02 13:54 | [facility] Post Operative Brief Note ---
Immediate Operative Summary Operative Date October 02, 2017. Pre-Operative Diagnosis Right Hand, Middle Finger Infection Post-Operative Diagnosis Same as preoperative. Procedure(s) Performed Right Middle Finger Incision and Drainage, Partial Amputation Surgeon Dr. Pasquale Rocha Skiver Blockers Surgeon(s) Dr. Mahad Amezcua Estimated Blood Loss 5ml Findings Consistent with Post-Op Diagnosis Specimens PERMANENT: A.) Right Middle Finger, Middle Phalaynx with Soft Tissue CULTURE: 1.) Right Middle Finger FRESH: 2.) Right Middle Finger, Distal Phalynx (Biopsy and Culture) Drains None Anesthesia Type MAC Complication(s) none Disposition Accompanied Pt To Recover: no Disposition: Recovery Room / PACU
--- NOTE | 2017-10-02 14:05 | Progress Note ---
Subjective Date of Service: October 02, 2017. Subjective pt in OR. refused MRI last night due to back pain. no cultures to review, remains on zosyn. afebrile overnight. wbc nml ESR elevated at71 Problem List Medical Problems: (1) Non-STEMI (non-ST elevated myocardial infarction) Status: Acute (2) Osteomyelitis of toe of left foot Status: Acute (3) Tinea Status: Acute (4) Weakness Status: Acute Objective Vital Signs Date Time Temp Pulse Resp B/P (MAP) Pulse Ox O2 Delivery O2 Flow Rate FiO2 10/02/17 08:02 36.7 85 15 166/88 (114) 92 Room Air 10/02/17 07:30 Room Air 10/02/17 00:45 Room Air 10/01/17 22:55 37.0 61 18 145/88 (107) 97 Room Air 10/01/17 20:00 Room Air 10/01/17 17:52 36.5 46 16 129/70 (89) 94 Room Air 10/01/17 17:36 36.4 46 16 115/67 (83) 98 Room Air 10/01/17 14:41 97 Room Air Laboratory Results Last 24 Hours Test 10/01/17 15:23 10/01/17 15:24 10/01/17 16:47 10/01/17 21:39 White Blood Count 7.37 K/uL Red Blood Count 4.02 M/uL Hemoglobin 12.2 g/dL Hematocrit 37.3 % Mean Corpuscular Volume 92.8 fL Mean Corpuscular Hemoglobin 30.3 pg Mean Corpuscular Hemoglobin Concent 32.7 g/dl RDW Standard Deviation 46.2 fL RDW Coefficient of Variation 13.7 % Platelet Count 266 K/uL Mean Platelet Volume 10.1 fL Erythrocyte Sedimentation Rate 71 mm/hr Sodium Level 137 mmol/L Potassium Level 4.6 mmol/L Chloride Level 104 mmol/L Carbon Dioxide Level 29 mmol/L Anion Gap 4.0 mmol/L Blood Urea Nitrogen 27 mg/dl Creatinine 0.98 mg/dl Est Creatinine Clear Calc Drug Dose 82.4 ml/min Estimated GFR () 86.5 Estimated GFR (Non- 74.6 BUN/Creatinine Ratio 27.2 Random Glucose 253 mg/dl Calcium Level 9.2 mg/dl C-Reactive Protein 1.75 mg/dl Prothrombin Time 29.7 SECONDS Prothromb Time International Ratio 2.9 Bedside Glucose 213 mg/dl 151 mg/dl Test 10/02/17 05:53 10/02/17 07:12 Bedside Glucose 118 mg/dl White Blood Count 6.61 K/uL Red Blood Count 3.83 M/uL Hemoglobin 11.6 g/dL Hematocrit 35.0 % Mean Corpuscular Volume 91.4 fL Mean Corpuscular Hemoglobin 30.3 pg Mean Corpuscular Hemoglobin Concent 33.1 g/dl RDW Standard Deviation 45.1 fL RDW Coefficient of Variation 13.6 % Platelet Count 231 K/uL Mean Platelet Volume 9.9 fL Prothrombin Time 14.8 SECONDS Prothromb Time International Ratio 1.4 Sodium Level 140 mmol/L Potassium Level 3.8 mmol/L Chloride Level 107 mmol/L Carbon Dioxide Level 28 mmol/L Anion Gap 5.0 mmol/L Blood Urea Nitrogen 21 mg/dl Creatinine 0.91 mg/dl Est Creatinine Clear Calc Drug Dose 88.7 ml/min Estimated GFR () 94.5 Estimated GFR (Non- 81.6 BUN/Creatinine Ratio 22.7 Random Glucose 95 mg/dl Calcium Level 8.8 mg/dl Assessment and Plan (1) Cellulitis of ring finger of left hand Assessment & Plan: await OR findings, please send culture. will follow.
--- NOTE | 2017-10-02 14:06 | DIAGNOSTIC IMAGING REPORT ---
R FINGER(S) MIN 2 VIEWS ROUTINE HISTORY: 77 years-old Male RT THIRD FINGER AMPUTATION status post amputation of the right third finger COMPARISON: Finger radiographs 10/01/2017 TECHNIQUE: Single spot fluoroscopic image of the right third finger was obtained utilizing 1.5 seconds fluoroscopy time FINDINGS: Status post amputation of the third finger at the level of the proximal metaphyseal portion of the third middle phalanx. Alignment is satisfactory. No retained foreign bodies identified. IMPRESSION: Fluoroscopic assistance as above. The above report was generated using voice recognition software. It may contain grammatical, syntax or spelling errors. Electronically signed by: Yordy Cody M.D. 10/02/2017 2:05 PM Dictated Date/Time: 10/02/2017 2:03 PM
--- NOTE | 2017-10-02 14:19 | [facility] Operative Report ---
Operative Report Operative Date October 02, 2017. Pre-Operative Diagnosis Right Hand, Middle Finger Infection Post-Operative Diagnosis Same as preoperative. Procedure(s) Performed Right Middle Finger Incision and Drainage, Partial Amputation Surgeon Dr. Pasquale Rocha Statistical Machine Mechanic Surgeon(s) Dr. 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 Radiographs show destruction at the tip of the distal phalanx with probable osteomyelitis and a wound that communicates directly to the bone. He did not tolerate getting an MRI. I suspect that he has distal phalangeal osteomyelitis along with a abscess at the tip of the finger. Irrigation debridement incision drainage and amputation are anticipated. Description of Procedure Informed consent obtained. Patient identified as Jose Simeon. He and his identified the operative site as the right hand middle finger. Preop surgical timeout was performed. Preop dose of IV antibiotics was given. He was taken to the operating room positioned supine on the OR table. He was already on preoperative antibiotics for the infection. The emesis that it was administered for sedation and that was followed by a carpal tunnel and digital block using a 50-50 mixture of 0.5% Marcaine and 1% lidocaine both without epinephrine. A digital block and carpal tunnel block were performed. DVT prophylaxis was done with mechanical devices. The right arm was positioned on a hand table with a tourniquet on the right forearm. The limb was double prepped and draped in usual sterile fashion. Final prepped with Betadine. The limb was exsanguinated with gravity and the tourniquet inflated to 225 mmHg. There was a 1 cm black eschar to tip of the finger which show one debrided revealed full-thickness communication to a cavity which did not have much in the way of fluid present. Minimal to no purulence was noted. The distal phalanx was sitting within this cavity and the tip of the phalanx appeared to be softened. There was some damage skin flexor superficialis tendon was noted and the bone was amputated just distal to this level. The middle phalanx was then amputated through the dorsal soft tissue. This was sent for specimen along the soft tissue as well. A curvilinear incision was made dorsally and proximally making proximally based fish flaps. These were extended along the mid lateral lines. The skin and subcutaneous tissues were elevated full-thickness up off of the flexor and extensor tendons. The DIP joint was disarticulated. Prior to this culture of the abscess cavity was obtained. The distal phalanx was dissected out noted to have softened bone distally and was sent for biopsy and culture. The long flexor tendon was pulled into the wound and amputated for proximally. It was allowed to retract. There was no fluid or pus noted within the flexor sheath. The distal attachment of the Volarly at the level of the DIP flexion crease. Dorsal skin look good. I cannot express any pus from proximal. There was induration of the proximal finger but erythema was limited to the middle phalangeal region. The finger was diffusely swollen. I did not think that he had evidence of infection through the flexor sheath at this time. The tourniquet was let down after approximately 30 minutes of inflation. Meticulous hemostasis was performed with electrocautery and pressure. Abundant tissue was remaining for closure. The end of the middle phalanx was rounded off. A mortician supplies sales representative fluoroscopic image was obtained showing at the amputation was done just a centimeter distal to the DIP posterior to the PIP joint. The edges of the bone around it off. The skin was trimmed and in a primary closure was performed using simple and near far far near stitches. Skin edges are well approximated. A soft sterile bulky dressing nonadherent with Xeroform gauze was then applied. The patient is awake from anesthesia without difficulty taken recovery room in stable condition. There were no complications. Specimens were as mentioned above. Counts were correct in the case. Blood loss minimal. Approximately 5 cc. At the conclusion of the operation spoke patient's family informed of my findings. Detailed postoperative instructions were given. He will be admitted to the hospital placed on intravenous antibiotics and consultation with medicine and infectious diseases. The middle phalangeal bone appear to be normal I attest to the content of the Intraoperative Record and any orders documented therein. Any exceptions are noted below.
--- NOTE | 2017-10-02 14:34 | Anesthesiology Progress Note ---
Anesthesia Post Op Note Date & Time October 02, 2017 at 14:33 Vital Signs Pain Intensity: 0.0 Vital Signs Past 12 Hours Date Time Temp Pulse Resp B/P (MAP) Pulse Ox O2 Delivery O2 Flow Rate FiO2 10/02/17 08:02 36.7 85 15 166/88 (114) 92 Room Air 10/02/17 07:30 Room Air Notes Mental Status: alert / awake / arousable, participated in evaluation Pt Amnestic to Procedure: Yes Nausea / Vomiting: adequately controlled Pain: adequately controlled Airway Patency, RR, SpO2: stable & adequate BP & HR: stable & adequate Hydration State: stable & adequate Anesthetic Complications: no major complications apparent Pt awake, doing well. Mental status at baseline with confusion. Ready for d/c to floor.
[2017-10-02] MEDS ORDERED: NURSING VERBAL MED ORDER ONE ×2 (15:15→23:45)
[2017-10-02] MEDS ORDERED: WARFARIN SOD 7.5 MG TAB PO ONE (18:45)
--- NOTE | 2017-10-02 19:33 | PROGRESS NOTE ---
DATE: 10/02/2017 Follow-up evaluation status post surgery. He is afebrile. His vital signs are stable. Cultures are pending. He is mildly confused. The dressing is clean, dry and reinforced with some tape. It does not appear to be too tight. He has some numbness in his thumb and index finger, probably from the carpal tunnel block. He otherwise has intact median, radial and ulnar motor and sensory functions. Capillary refill is less than 2 seconds. 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 PLAN: Resume his Coumadin. Continue elevation, wound care and intravenous antibiotics. Follow up on his cultures.
[2017-10-02] MEDS: ATORVASTATIN 40 MG TAB PO SCH (20:31)
[2017-10-02] MEDS: INSULIN GLARGINE SOLOSTAR 100 UNITS/ML 3 ML PEN SC SCH (20:43)
[2017-10-02] MEDS ORDERED: INSULIN GLARGINE SOLOSTAR 100 UNITS/ML 3 ML PEN SC SCH (21:00)
[2017-10-02] MEDS ORDERED: HALOPERIDOL LACTATE 5 MG/ML 1 ML VIAL IM STA (21:43)
[2017-10-02] MEDS ORDERED: HALOPERIDOL LACTATE 5 MG/ML 1 ML VIAL ONE (21:52)
--- NOTE | 2017-10-02 23:07 | Progress Note ---
Subjective Date of Service: October 02, 2017. Subjective Pt evaluation today including: conversation w/ patient, conversation w/ family ( at bedside), physical exam, chart review, lab review, review of inpatient medication list Pain: none PO Intake: normal saw the patient post-op from his right 3rd finger surgery he was resting well reported that he was very confused, thinking he was in [place] he denied any specific complaints no chest pain, dyspnea, abd pain Problem List Medical Problems: (1) Non-STEMI (non-ST elevated myocardial infarction) Status: Acute (2) Osteomyelitis of toe of left foot Status: Acute (3) Tinea Status: Acute (4) Weakness Status: Acute Objective Vital Signs Date Time Temp Pulse Resp B/P (MAP) Pulse Ox O2 Delivery O2 Flow Rate FiO2 10/02/17 19:28 36.7 57 18 128/65 (86) 95 Room Air 10/02/17 17:44 36.7 61 18 152/69 (96) 96 Room Air 10/02/17 17:01 36.7 72 18 172/81 (111) 97 Room Air 10/02/17 16:07 36.7 67 18 165/76 (105) 99 Room Air 10/02/17 15:41 36.8 55 18 138/50 (79) 99 Room Air 10/02/17 15:40 Room Air 10/02/17 15:35 Room Air 10/02/17 14:14 36.4 87 18 159/112 99 Room Air 10/02/17 08:02 36.7 85 15 166/88 (114) 92 Room Air 10/02/17 07:30 Room Air 10/02/17 00:45 Room Air 10/01/17 22:55 37.0 61 18 145/88 (107) 97 Room Air Physical Exam General Appearance: no apparent distress, + obese ENT: pharynx normal Neck: no JVD Respiratory/Chest: lungs clear, no respiratory distress, no accessory muscle use Cardiovascular: no gallop, no murmur, + irregularly irregular Abdomen: normal bowel sounds, non tender, soft, no organomegaly Extremities: + pertinent finding (right leg in large boot extending to just below the right knee; left foot w/o edema, pulses left foot 2+) Skin: + pertinent finding (right hand wrapped in large dressing; ?gouty tophi left 2nd digit?) Laboratory Results Last 24 Hours Test 10/01/17 21:39 10/02/17 05:53 10/02/17 07:12 10/02/17 12:16 Bedside Glucose 151 mg/dl 118 mg/dl 105 mg/dl White Blood Count 6.61 K/uL Red Blood Count 3.83 M/uL Hemoglobin 11.6 g/dL Hematocrit 35.0 % Mean Corpuscular Volume 91.4 fL Mean Corpuscular Hemoglobin 30.3 pg Mean Corpuscular Hemoglobin Concent 33.1 g/dl RDW Standard Deviation 45.1 fL RDW Coefficient of Variation 13.6 % Platelet Count 231 K/uL Mean Platelet Volume 9.9 fL Prothrombin Time 14.8 SECONDS Prothromb Time International Ratio 1.4 Sodium Level 140 mmol/L Potassium Level 3.8 mmol/L Chloride Level 107 mmol/L Carbon Dioxide Level 28 mmol/L Anion Gap 5.0 mmol/L Blood Urea Nitrogen 21 mg/dl Creatinine 0.91 mg/dl Est Creatinine Clear Calc Drug Dose 88.7 ml/min Estimated GFR () 94.5 Estimated GFR (Non- 81.6 BUN/Creatinine Ratio 22.7 Random Glucose 95 mg/dl Calcium Level 8.8 mg/dl Test 10/02/17 17:00 Bedside Glucose 121 mg/dl Assessment and Plan 77yo male - 1. right 3rd finger infection with osteomyelitis of distal phalanx - s/p partial amputation today. Cont IV Zosyn/vanco for now. If margins were adequate he likely will not need lengthy course of IV/PO abx. Will d/w orthopedics. 2. CAD - no ischemic sx's at this time. Cont asa/statin Suspect he is not on beta kenny due to low HR 3. HTN - controlled w/ current meds 4. a. fib - rates are excellent; warfarin to be resumed 10/03/17 5. T2DM - glycemic control per pharmacy 6. PVD - noted; cont asa/plavix 7. dementia - suspect he will have some hospital psychosis while here; avoid benzos; anti-psychotics as needed 8. BPH - watch for any urinary retention updated Continued [facility] stay due to: multiple IV medications needed Discharge planning: home
[2017-10-03] MEDS ORDERED: HALOPERIDOL LACTATE 5 MG/ML 1 ML VIAL IM STA ×2 (03:08→03:22)
[2017-10-03] MEDS ORDERED: NURSING VERBAL MED ORDER ONE (03:15)
[2017-10-03] MEDS ORDERED: VANCOMYCIN TROUGH ONE (03:30)
[2017-10-03 04:05] LABS: HEMOGLOBIN 11.7 g/dL (14.0-18.0); MEAN CELL VOLUME 90.2 fL (80-100); MEAN CORPUSCULAR HEMOGLOBIN 30.2 pg (25-34); MEAN CORPUSCULAR HGB CONC 33.4 g/dl (32-36); MEAN PLATELET VOLUME 9.7 fL (7.4-10.4); PLATELET COUNT 228 K/uL (130-400); RED CELL DISTRIBUTION WIDTH CV 13.6 % (11.5-14.5); RED CELL DISTRIBUTION WIDTH SD 44.4 fL (36.4-46.3); WHITE BLOOD COUNT 7.01 K/uL (4.8-10.8)
[2017-10-03 04:13] LABS: INR 1.2 (0.9-1.1)
[2017-10-03] MEDS: VANCOMYCIN IV 1,500 MG in SODIUM CHLORIDE 0.9% 500ML 500 ML IV SCH (04:24)
[2017-10-03] MEDS: PIPERACILL/TAZOBAC IV 4.5 GM in NSS 100 ML IV SCH ×2 (04:25→12:01)
[2017-10-03 04:27] LABS: CALCIUM 8.5 mg/dl (8.5-10.1); CREATININE 0.96 mg/dl (0.60-1.40); POTASSIUM 3.7 mmol/L (3.5-5.1)
[2017-10-03 07:46] VITALS: BP 150/72; PULSE 64; TEMP 37; O2SAT 95
--- NOTE | 2017-10-03 08:56 | Orthopedic Progress Note ---
Orthopedic Progress Note Date of Service October 03, 2017. Subjective Post OP Day: 1 Reports: feeling well, pain controlled w PO medications, Denies: complaints, chest pain, SOB, nausea / vomiting, light headedness, calf pain, using PARTS AND SERVICE MANAGER Objective N/V intact, capillary refill less than 2 sec., dressing C/D/I, CMS intact A & O x 2. Able to move uncovered digits (1,2,4,5). Full ROM of Right wrist and elbow. Dressing not removed. Mild edema in wrist but no erythema, ecchymosis or warmth. No tenderness to palpation. Date Time Temp Pulse Resp B/P (MAP) Pulse Ox O2 Delivery O2 Flow Rate FiO2 10/03/17 07:46 37.0 64 22 150/72 (98) 95 Room Air 10/02/17 23:28 37.0 78 18 157/68 (97) 96 Room Air 10/02/17 23:15 Room Air 10/02/17 19:28 36.7 57 18 128/65 (86) 95 Room Air 10/02/17 17:44 36.7 61 18 152/69 (96) 96 Room Air 10/02/17 17:01 36.7 72 18 172/81 (111) 97 Room Air 10/02/17 16:07 36.7 67 18 165/76 (105) 99 Room Air 10/02/17 15:41 36.8 55 18 138/50 (79) 99 Room Air 10/02/17 15:40 Room Air 10/02/17 15:35 Room Air 10/02/17 14:14 36.4 87 18 159/112 99 Room Air Laboratory Results 24 Hours: Test 10/03/17 03:45 Hematocrit 35.0 % Hemoglobin 11.7 g/dL Prothromb Time International Ratio 1.2 Prothrombin Time 13.0 SECONDS Assessment & Plan Assessment: Day 1 s/p Right hand long finger osteomyelitis status post partial amputation. Plan: Elevate right hand above heart. Keep dressings on right 3rd finger. IV antibiotics as ordered. Appreciate medicine and ID assistance. May be out of bed as tolerated. Call [phone] with questions. Will discuss findings with Dr. Rocha. (1) Cellulitis of ring finger of left hand Acute
[2017-10-03] MEDS: PANTOprazole SOD 40 MG TAB PO SCH (08:57)
[2017-10-03] MEDS: DOCUSATE SODIUM 100 MG CAP PO SCH ×2 (08:57→21:05)
[2017-10-03] MEDS: VERAPAMIL HCL 240 MG TABCR PO SCH (08:57)
--- NOTE | 2017-10-03 09:03 | Hospitalist Progress Note ---
Hospitalist Progress Note Date of Service October 03, 2017. (Mandi Garcia PA-C) Subjective Pt evaluation today including: conversation w/ patient, conversation w/ family , physical exam, chart review, lab review, review of studies Pain: None PO Intake: Good Voiding: no voiding problems The patient was seen and examined this morning. Pt reports doing well overall. He denies any acute pain associated with his left hand s/p finger removal. He denies fever or chills. Tolerating diet well, had Bm today. Overnight events: Pt became agitated and required Haldol IM 5 mg x 2. reports hx of delirium when he is in a facility like this, and stays overnight to help to reorient him. Constitutional: No fever, No chills, No sweats Eyes: No redness, No diplopia ENT: No nasal symptoms, No trouble swallowing Respiratory: No cough, No sputum, No shortness of breath Cardiovascular: No chest pain, No palpitations Abdomen: No pain, No nausea, No vomiting, No diarrhea, No constipation Musculoskeletal: + swelling, No joint pain, No muscle pain Neurologic: No weakness, No numbness/tingling Skin: No rash, No itch (Mandi Garcia PA-C) Objective Vital Signs Date Time Temp Pulse Resp B/P (MAP) Pulse Ox O2 Delivery O2 Flow Rate FiO2 10/03/17 07:46 37.0 64 22 150/72 (98) 95 Room Air 10/02/17 23:28 37.0 78 18 157/68 (97) 96 Room Air 10/02/17 23:15 Room Air 10/02/17 19:28 36.7 57 18 128/65 (86) 95 Room Air 10/02/17 17:44 36.7 61 18 152/69 (96) 96 Room Air 10/02/17 17:01 36.7 72 18 172/81 (111) 97 Room Air 10/02/17 16:07 36.7 67 18 165/76 (105) 99 Room Air 10/02/17 15:41 36.8 55 18 138/50 (79) 99 Room Air 10/02/17 15:40 Room Air 10/02/17 15:35 Room Air 10/02/17 14:14 36.4 87 18 159/112 99 Room Air (Mandi Garcia PA-C) Physical Exam General Appearance: WD/WN, no apparent distress Eyes: PERRL, EOMI ENT: hearing grossly normal, pharynx normal Neck: no adenopathy, no JVD Respiratory/Chest: lungs clear, no respiratory distress, no accessory muscle use Cardiovascular: no JVD, no murmur, + irregularly irregular Abdomen: normal bowel sounds, non tender, soft Extremities: non-tender, no calf tenderness (LLE. right calf not assessed due to boot in place. ), + pedal edema (2+ LLE, RLE in offloading boot for ulceration) Neurologic/Psychiatric: alert, normal mood/affect, + pertinent finding ( oriented to place, self. ) Skin: normal color, warm/dry (Mandi Garcia PA-C) Laboratory Results Last 24 Hours Test 10/02/17 12:16 10/02/17 17:00 10/02/17 20:24 10/03/17 03:45 Bedside Glucose 105 mg/dl 121 mg/dl 191 mg/dl White Blood Count 7.01 K/uL Red Blood Count 3.88 M/uL Hemoglobin 11.7 g/dL Hematocrit 35.0 % Mean Corpuscular Volume 90.2 fL Mean Corpuscular Hemoglobin 30.2 pg Mean Corpuscular Hemoglobin Concent 33.4 g/dl RDW Standard Deviation 44.4 fL RDW Coefficient of Variation 13.6 % Platelet Count 228 K/uL Mean Platelet Volume 9.7 fL Prothrombin Time 13.0 SECONDS Prothromb Time International Ratio 1.2 Sodium Level 137 mmol/L Potassium Level 3.7 mmol/L Chloride Level 106 mmol/L Carbon Dioxide Level 26 mmol/L Anion Gap 5.0 mmol/L Blood Urea Nitrogen 18 mg/dl Creatinine 0.96 mg/dl Est Creatinine Clear Calc Drug Dose 84.1 ml/min Estimated GFR () 88.6 Estimated GFR (Non- 76.5 BUN/Creatinine Ratio 19.3 Random Glucose 150 mg/dl Calcium Level 8.5 mg/dl Vancomycin Level Trough 20.8 mcg/ml (Mandi Garcia PA-C) Assessment and Plan 77yo male - Right 3rd finger infection with osteomyelitis of distal phalanx - s/p partial amputation on 5/2 - Cont IV Zosyn/vanco for now. - If margins were adequate he likely will not need lengthy course of IV/PO abx. - Will d/w orthopedics. CAD - no ischemic sx's at this time. - Cont asa/statin - Suspect he is not on beta kenny due to low HR HTN - controlled w/ current meds A. fib - rates are excellent; warfarin to be resumed 10/03/17 T2DM - glycemic control per pharmacy - RLE in boot due to ulcer, follows with wound clinic as outpatient. PVD - noted; cont asa/plavix Dementia - suspect he will have some hospital psychosis while here; avoid benzos ; anti-psychotics as needed BPH - watch for any urinary retention CODE: FULL Disposition: From home, lives with Thank you for allowing medicine to participate in Mr. Simeon's care, we will continue to follow along. (Mandi Garcia, MELONY) Attending Attestation - Pt seen/examined, chart reviewed, care plan d/w FRANCIS Garcia. I agree w/ the bradford components of her documentation. Pt very confused overnight/today and last night was very impulsive, trying to get out of bed, requiring use of IM haldol. Eating ok. VSS gen - nad, obese neck - no JVD heart - nuvia, s1, s2 lungs - CTA b/l abd - soft ext - right hand in large dressing; distal phalanx 3rd digit is absent; cap refill < 2 sec A/P: osteomyelitis, right 3rd finger, s/p amputation; 2nd to staph aureus, awaiting final cx; cont current abx; ortho/ID consults appreciated dementia with behavioral disturbance - seroquel 25mg at HS; EKG is normal w/o prolongated QTc a. fib - stable, controlled PT, OT updated Jackelin Pacheco MD (Rusty Pacheco MD)
[2017-10-03] MEDS: INSULIN ASPART 100 UNITS/ML 3 ML PEN SC SCH ×4 (09:04→21:09)
--- NOTE | 2017-10-03 10:33 | Pharmacy Progress Note ---
Pharmacy Glycemic Short Note 2 Date of Service October 03, 2017. OUTPATIENT ANTIDIABETIC REGIMEN: * Glipizide XL 10mg PO BIDM * NovoLog 5 units SQ TIDM * Lantus 20 units SQ PM Test 10/02/17 12:16 10/02/17 17:00 10/02/17 20:24 10/03/17 03:45 Bedside Glucose 105 mg/dl (70-99) 121 mg/dl (70-99) 191 mg/dl (70-99) Random Glucose 150 mg/dl (70-99) ASSESSMENT: 10/03/17 * POD 1 s/p partial finger amputation * Patient received 29 units of insulin yesterday * I thought he received Decadron in the OR yesterday so I preemptively tightened the CR but I see now on the scanned anesthesia orders that it was not given. Will loosen back to CR from yesterday. 10/02/17 * BSGs fairly stable within the past 24 hrs * Currently NPO for possible OR today * Patient received reduced dose of Lantus last night for NPO status. Will provide a scale for tonight in case po intake still reduced. 10/01/17 * 77yo T2DM male with adequate outpatient control per recent A1c. * Pt is maintained on basal insulin + prandial insulin + glipizide as an outpatient * Will hold oral agents for admission * Will continue basal + prandial insulin but change prandial insulin from fixed dosing (5 units with meals) to dosing per weight based CF/CR since PO intake may be different in house as compared to outpatient. * Pt will be NPO after midnight, therefore will give a reduced dose of Lantus x 1 and then titrate based on BSG trends. * Goal is to maintain BSG <200 mg/dl (ideally ~150mg/dl) to promote infection healing PLAN FOR INPATIENT GLYCEMIC CONTROL: * Continue to hold outpatient oral diabetes medications * Basal insulin - no change * Lantus 15 units SQ qHS, increase to outpatient dose of 20 units qHS (if BSG > 120) * Bolus insulin * NovoLog per scale ACHS or Q6hrs while NPO * Goal Range: Low 120 mg/dL - High 150 mg/dL * Correction Factor: 20 mg/dL/unit * Nutritional / Prandial insulin per carb ratio of 1 unit per 7 grams CHO consumed (1:6 for breakfast this AM but loosened back to 7 since Decadron not given yesterday) PLAN FOR DISCHARGE: * A1c of 7.2% indicates excellent outpatient control * Continue outpatient glycemic regimen
[2017-10-03 11:16] VITALS: O2SAT 98
[2017-10-03 13:09] VITALS: BP 141/68; PULSE 68; TEMP 37; O2SAT 95
--- NOTE | 2017-10-03 13:31 | Progress Note ---
Subjective Date of Service: October 03, 2017. Subjective OR Culture with S.aureus. was previously on augmentin, now on vanco and zosyn, vanco level 20.8, held. afebrile. s/p amp 3rd digit yesterday. Problem List Medical Problems: (1) Non-STEMI (non-ST elevated myocardial infarction) Status: Acute (2) Osteomyelitis of toe of left foot Status: Acute (3) Tinea Status: Acute (4) Weakness Status: Acute Objective Vital Signs Date Time Temp Pulse Resp B/P (MAP) Pulse Ox O2 Delivery O2 Flow Rate FiO2 10/03/17 13:09 37.0 68 20 141/68 (92) 95 Room Air 10/03/17 11:16 98 Room Air 10/03/17 08:00 Room Air 10/03/17 07:46 37.0 64 22 150/72 (98) 95 Room Air 10/02/17 23:28 37.0 78 18 157/68 (97) 96 Room Air 10/02/17 23:15 Room Air 10/02/17 19:28 36.7 57 18 128/65 (86) 95 Room Air 10/02/17 17:44 36.7 61 18 152/69 (96) 96 Room Air 10/02/17 17:01 36.7 72 18 172/81 (111) 97 Room Air 10/02/17 16:07 36.7 67 18 165/76 (105) 99 Room Air 10/02/17 15:41 36.8 55 18 138/50 (79) 99 Room Air 10/02/17 15:40 Room Air 10/02/17 15:35 Room Air 10/02/17 14:14 36.4 87 18 159/112 99 Room Air Laboratory Results Item Value Date Time Gram Stain - Final Resulted 10/02/17 1315 Drainage-Deep Finger , Right 2nd Vancomycin Level Trough 20.8 mcg/ml 10/03/17 0345 Last 24 Hours Test 10/02/17 17:00 10/02/17 20:24 10/03/17 03:45 10/03/17 08:36 Bedside Glucose 121 mg/dl 191 mg/dl 137 mg/dl White Blood Count 7.01 K/uL Red Blood Count 3.88 M/uL Hemoglobin 11.7 g/dL Hematocrit 35.0 % Mean Corpuscular Volume 90.2 fL Mean Corpuscular Hemoglobin 30.2 pg Mean Corpuscular Hemoglobin Concent 33.4 g/dl RDW Standard Deviation 44.4 fL RDW Coefficient of Variation 13.6 % Platelet Count 228 K/uL Mean Platelet Volume 9.7 fL Prothrombin Time 13.0 SECONDS Prothromb Time International Ratio 1.2 Sodium Level 137 mmol/L Potassium Level 3.7 mmol/L Chloride Level 106 mmol/L Carbon Dioxide Level 26 mmol/L Anion Gap 5.0 mmol/L Blood Urea Nitrogen 18 mg/dl Creatinine 0.96 mg/dl Est Creatinine Clear Calc Drug Dose 84.1 ml/min Estimated GFR () 88.6 Estimated GFR (Non- 76.5 BUN/Creatinine Ratio 19.3 Random Glucose 150 mg/dl Calcium Level 8.5 mg/dl Vancomycin Level Trough 20.8 mcg/ml Assessment and Plan (1) Cellulitis of ring finger of left hand Assessment & Plan: continue vanco for now, follow final cultures and make further suggestions based on culture results. s/p amp. Continued [facility] stay due to: multiple IV medications needed Discharge planning: home
[2017-10-03 14:57] VITALS: BP 133/75; PULSE 46; TEMP 36.5; O2SAT 97
--- NOTE | 2017-10-03 15:19 | Pharmacy Progress Note ---
Pharmacy Abx Dose Short Note Date of Service October 03, 2017. Assessment & Plan Assessment 77 year old male admitted for R finger cellulitis/osteo, failure of outpatient Augmentin x 1 week. Now to be started on vancomycin and Zosyn as an inpatient. ID has been consulted and in agreement with antibiotics. Day # 3 of 10 of Vanc/Zosyn therapy. Plan Item Value Date Time Vancomycin Level Trough 20.8 mcg/ml 10/03/17 0345 Vancomycin * Trough level of 20.8 mcg/mL is near therapeutic * Change to 1250 mg IV every 12 hours * Goal trough level for 15 to 20 mcg/mL * Trough level ordered for: 10/04/17 @ 1730 Changed dose from 1500 mg q12h to 1250mg q12h based on trough. Unsure whether patient will require continuation after discharge therefore trying to keep on a more manageable outpatient schedule. Pharmacy will continue to follow and will adjust dose/frequency as necessary. Thank you.
[2017-10-03] MEDS ORDERED: WARFARIN SOD 5 MG TAB PO SCH (16:00)
--- NOTE | 2017-10-03 17:05 | PROGRESS NOTE ---
DATE: 10/03/2017 SUBJECTIVE: Sitting up. No problems reported. OBJECTIVE: He is afebrile. Vital signs are stable. White count 7, hemoglobin 11, hematocrit 35, INR 1.2. His Coumadin has been restarted. Cultures are growing out staph, sensitivities pending. IMPRESSION AND PLAN: Right hand long finger osteomyelitis, status post amputation. The amputation at the time of surgery appeared to be outside the zone of infection. Will change the dressing tomorrow and see how the wound is looking. Culture sensitivity should be back, and antibiotics could be tailored at that time. The patient becomes more delirious at night. We will try to get him out of the hospital as soon as possible. Continue IV antibiotics.
[2017-10-03] MEDS: VANCOMYCIN IV 1,250 MG in SODIUM CHLORIDE 0.9% 250ML 250 ML IV SCH (17:55)
[2017-10-03] MEDS ORDERED: QUETIAPINE FUMARATE 25 MG TAB PO SCH (21:00)
[2017-10-03] MEDS: ATORVASTATIN 40 MG TAB PO SCH (21:05)
[2017-10-03] MEDS: INSULIN GLARGINE SOLOSTAR 100 UNITS/ML 3 ML PEN SC SCH (21:10)
[2017-10-03 23:30] VITALS: BP 173/89; PULSE 82; TEMP 36.8; O2SAT 96
[2017-10-04] MEDS: VANCOMYCIN IV 1,250 MG in SODIUM CHLORIDE 0.9% 250ML 250 ML IV SCH (05:50)
[2017-10-04 06:48] LABS: HEMOGLOBIN 11.6 g/dL (14.0-18.0); MEAN CELL VOLUME 91.4 fL (80-100); MEAN CORPUSCULAR HEMOGLOBIN 31.2 pg (25-34); MEAN CORPUSCULAR HGB CONC 34.1 g/dl (32-36); MEAN PLATELET VOLUME 10.4 fL (7.4-10.4); PLATELET COUNT 214 K/uL (130-400); RED CELL DISTRIBUTION WIDTH CV 13.8 % (11.5-14.5); RED CELL DISTRIBUTION WIDTH SD 45.7 fL (36.4-46.3); WHITE BLOOD COUNT 4.41 K/uL (4.8-10.8)
[2017-10-04 06:55] VITALS: BP 137/71; PULSE 60; TEMP 36.7; O2SAT 95
[2017-10-04 07:24] LABS: CALCIUM 8.6 mg/dl (8.5-10.1); CREATININE 0.85 mg/dl (0.60-1.40); POTASSIUM 3.6 mmol/L (3.5-5.1)
[2017-10-04 07:26] LABS: INR 1.4 (0.9-1.1)
--- NOTE | 2017-10-04 08:14 | Orthopedic Progress Note ---
Orthopedic Progress Note Date of Service October 04, 2017. Subjective Post OP Day: 2 Additional Notes: Patient resting in chair this AM. is in room and states that he had a restful night. She states that she has no current concerns. Objective Right Hand: Dressing removed and extremity examined. Incision is C/D/I. Moderate swelling fo the middle finger with no fluctuance noted. There is no active bleeding or drainage. 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 Plan: Dressing changed this AM Change dressing daily. Elevate right hand above heart. Await cultures Appreciate IM and ID recs May be out of bed as tolerated. Case management Arrange for home health services . Discharge Planning Discharge Planning Notes: - Change dressing every two days on operative finger - Home antibiotics - followup with Dr. Rocha in office in 1 week
[2017-10-04] MEDS: DOCUSATE SODIUM 100 MG CAP PO SCH (08:52)
[2017-10-04] MEDS: PANTOprazole SOD 40 MG TAB PO SCH (08:52)
[2017-10-04] MEDS: VERAPAMIL HCL 240 MG TABCR PO SCH (08:52)
--- NOTE | 2017-10-04 09:00 | Discharge Instructions ---
Discharge Instructions Date of Service October 04, 2017. Admission Reason for Admission: Right Third Finger Infection Discharge Discharge Diagnosis / Problem: Right Third Finger Infection Discharge Goals Goal(s): Decrease discomfort, Improve function, Increase independence Activity Recommendations Activity Limitations: per Instructions/Follow-up section Lifting Limitations: until after follow-up appointment Exercise/Sports Limitations: until after follow-up appointment Shower/Bathe: keep incision dry Driving or Machine Use: Do not drive until instructed otherwise by operative physician . Instructions / Follow-Up Instructions / Follow-Up DIET: * Resume previous diet. MEDICATIONS: * Please take your prescriptions as instructed at your pre-op appointment and/ or see medication discharge instructions listed above. * If concerns develop, call your physician's office at . SPECIAL CARE INSTRUCTIONS: * Ice/Elevate as instructed. * Keep dressing clean, dry, intact. * Your surgical extremity may be discolored due to prepping agents used on the skin. A bluish-green tint is a normal variant and should not cause alarm. Call your doctor at [phone] if: * Temperature above 101 degrees * Pain not relieved by pain medicine ordered * There is increased drainage or redness from any incision * You have any unanswered questions, problems or concerns. FOLLOW UP VISIT: * If not already scheduled, please call the office at to schedule a follow-up appointment. Current Hospital Diet Patient's current hospital diet: Diabetes Type 2 Diet Discharge Diet Recommended Diet: Diabetes Type 2 Diet Procedures Procedures Performed: Right Middle Finger Incision and Drainage, Partial Amputation Pending Studies Studies pending at discharge: yes (Culture and sensitivities ) List of pending studies: awaiting C and S Laboratory Results Hemoglobin A1c Test 08/23/17 13:48 Range/Units Estimated Average Glucose 160 mg/dl Hemoglobin A1c 7.2 H 4.5-5.6 % Lipid Panel Test 08/23/17 13:48 Range/Units Triglycerides Level 56 0-150 mg/dl Cholesterol Level 80 0-200 mg/dl HDL Cholesterol 47 mg/dl Cholesterol/HDL Ratio 1.7 LDL Cholesterol, Calculated 22 mg/dl Medical Emergencies . Who to Call and When: Medical Emergencies: If at any time you feel your situation is an emergency, please call 911 immediately. . Non-Emergent Contact Non-Emergency issues call your: Primary Care Provider Call Non-Emergent contact if: you have a fever, temperature is above 101.5, your pain is not controlled, your pain is worsening, wound has increased drainage, wound has increased redness, you have any medication questions . "Provider Documentation" section prepared by Mahad Amezcua. . [place] Drug Monitoring Program Search Results: patient reviewed within database, no issues identified, see additional documentation
[2017-10-04] MEDS: INSULIN ASPART 100 UNITS/ML 3 ML PEN SC SCH ×2 (09:07→13:37)
--- NOTE | 2017-10-04 11:07 | Hospitalist Progress Note ---
Hospitalist Progress Note Date of Service October 04, 2017. (Mandi Garcia PA-C) Subjective Pt evaluation today including: conversation w/ patient, conversation w/ family , physical exam, chart review, lab review, review of studies Pain: None PO Intake: Good Voiding: no voiding problems The patient was seen and examined this morning. Pt reports doing well today. He slept almost all night and feels more rested today. No fever, chills or sweats. No pain, numbness or paresthesias in the R hand. is present at bedside and all questions and concerns were answered. Additional Comments: Constitutional: No fever, No chills, No sweats Eyes: No redness, No diplopia ENT: No nasal symptoms, No trouble swallowing Respiratory: No cough, No sputum, No shortness of breath Cardiovascular: No chest pain, No palpitations Abdomen: No pain, No nausea, No vomiting, No diarrhea, No constipation Musculoskeletal: + swelling, No joint pain, No muscle pain Neurologic: No weakness, No numbness/tingling Skin: No rash, No itch (Mandi Garcia PA-C) Objective Vital Signs Date Time Temp Pulse Resp B/P (MAP) Pulse Ox O2 Delivery O2 Flow Rate FiO2 10/04/17 09:51 Room Air 10/04/17 06:55 36.7 60 16 137/71 (93) 95 Room Air 10/03/17 23:38 Room Air 10/03/17 23:30 36.8 82 20 173/89 (117) 96 Room Air 10/03/17 15:20 Room Air 10/03/17 14:57 36.5 46 18 133/75 (94) 97 Room Air 10/03/17 13:09 37.0 68 20 141/68 (92) 95 Room Air 10/03/17 11:16 98 Room Air (Mandi Garcia PA-C) Physical Exam Notes: General Appearance: WD/WN, no apparent distress Eyes: PERRL, EOMI ENT: hearing grossly normal, pharynx normal Neck: no adenopathy, no JVD Respiratory/Chest: lungs clear, no respiratory distress, no accessory muscle use Cardiovascular: no JVD, no murmur, + irregularly irregular Abdomen: normal bowel sounds, non tender, soft Extremities: non-tender, no calf tenderness, + pedal edema (2+ BLE, feet elevated, R hand wrapped in HILTON, dressing c/d/i, sensation to light touch intact ) Neurologic/Psychiatric: alert, normal mood/affect, + pertinent finding ( oriented to place, self. ) Skin: normal color, warm/dry (Mandi Garcia, MALOUC) Laboratory Results Last 24 Hours Test 10/03/17 12:04 10/03/17 18:01 10/03/17 20:22 10/04/17 05:45 Bedside Glucose 200 mg/dl 167 mg/dl 197 mg/dl White Blood Count 4.41 K/uL Red Blood Count 3.72 M/uL Hemoglobin 11.6 g/dL Hematocrit 34.0 % Mean Corpuscular Volume 91.4 fL Mean Corpuscular Hemoglobin 31.2 pg Mean Corpuscular Hemoglobin Concent 34.1 g/dl RDW Standard Deviation 45.7 fL RDW Coefficient of Variation 13.8 % Platelet Count 214 K/uL Mean Platelet Volume 10.4 fL Prothrombin Time 14.3 SECONDS Prothromb Time International Ratio 1.4 Sodium Level 144 mmol/L Potassium Level 3.6 mmol/L Chloride Level 112 mmol/L Carbon Dioxide Level 25 mmol/L Anion Gap 7.0 mmol/L Blood Urea Nitrogen 16 mg/dl Creatinine 0.85 mg/dl Est Creatinine Clear Calc Drug Dose 95.0 ml/min Estimated GFR () 98.1 Estimated GFR (Non- 84.6 BUN/Creatinine Ratio 18.9 Random Glucose 81 mg/dl Calcium Level 8.6 mg/dl Test 10/04/17 08:12 Bedside Glucose 90 mg/dl (Mandi Garcia, PA-C) Assessment and Plan 77yo male - Right 3rd finger infection with osteomyelitis of distal phalanx - s/p partial amputation on 10/02 - Cont IV Zosyn/vanco for now. - If margins were adequate he likely will not need lengthy course of IV/PO abx. - wound culture growing staph aureus pansensitive - ID on board - discussed culture with Dr. Peña with recs for Keflex 500 mg BID x 4 weeks. Follow up with ID within 2 weeks as outpatient. CAD - no ischemic sx's at this time. - Cont asa/statin - Suspect he is not on beta kenny due to low HR HTN - controlled w/ current meds A. fib - rates are excellent; warfarin to be resumed 10/03/17 T2DM - glycemic control per pharmacy - RLE in boot due to ulcer, follows with wound clinic as outpatient. PVD - noted; cont asa/plavix Dementia - suspect he will have some hospital psychosis while here; avoid benzos ; anti-psychotics as needed BPH - watch for any urinary retention CODE: FULL Disposition: From home, lives with Thank you for allowing medicine to participate in Mr. Simeon's care, we will continue to follow along. (Mandi Garcia PA-C) Attending Attestation - Pt seen/examined, chart reviewed, care plan d/w FRANCIS Garcia. I agree w/ the bradford components of her documentation. Pt slept much better last pm w/ seroquel. Had good breakfast. No concerns from pt's . VSS, no fever gen - nad, obese, sitting in chair comfortably neck - no JVD heart - nuvia, s1, s2, irregular lungs - CTA b/l abd - soft ext - right hand in large dressing; distal phalanx 3rd digit is absent; cap refill < 2 sec A/P: osteomyelitis, right 3rd finger, s/p amputation; 2nd to staph aureus (MSSA); d/ c IV abx; keflex 500mg qid x 4 weeks per ID recs dementia with behavioral disturbance - latter resolved; discussed possible use of seroquel 25mg at HS as outpatient; encouraged her to speak with PCP about this a. fib - stable, controlled updated if patient is ambulatory and steady on feet he could be d/c home w/ today to return home with HH services Jackelin Pacheco MD (Rusty Pacheco MD)
[2017-10-04] MEDS ORDERED: CEPH500C2 PO (12:51)
[2017-10-04 13:53] VITALS: BP 137/71; PULSE 60; TEMP 36.7; O2SAT 95
[2017-10-04] MEDS ORDERED: VANCOMYCIN TROUGH ONE (17:30)
--- NOTE | 2017-10-07 13:21 | DISCHARGE SUMMARY ---
CHIEF COMPLAINT: Right third finger distal phalangeal infection with osteomyelitis. DISCHARGE DIAGNOSIS: Right third finger distal phalangeal infection with osteomyelitis. PROCEDURE: Partial amputation of the right third finger. ATTENDING PHYSICIAN: Pasquale Rocha MD BRIEF HISTORY: The patient is a 77-year-old diabetic with multiple medical problems. 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 He presents with a 1-week history of pain and swelling and drainage from the right middle finger with radiographic findings showing evidence of suspected osteomyelitis. He is admitted to the hospital for irrigation, debridement, cultures, amputation, and other treatments as necessary. HOSPITAL COURSE: The patient was admitted to the hospital on 10/01/2017. He then underwent on 10/02/2017 irrigation, debridement, and partial amputation to the middle phalanx of the right long finger. He was admitted to the hospital. Prior to surgery, infectious disease consultation was obtained and intravenous antibiotics were started. Medical consultation was obtained to address his multiple medical problems. He was on Coumadin for atrial fibrillation and this was reversed. Postoperatively, he remained afebrile and recovered very well. His antibiotics were tapered to Keflex at the time of discharge as he grew out methicillin sensitive Staph aureus. His Coumadin was restarted the evening of surgery. He did experience some episodes of delirium at night. His incision healed well without any evidence of ongoing infection. Pathology was pending at the time of discharge. He is discharged home in good condition. He will take his regular medicines and have his Coumadin monitored through its normal means. He will take Keflex 400 mg 4 times a day for 1 month. He will see me next week for a recheck. He will follow up with Dr. Peña in 2 weeks. If there are any problems with pain, fever, swelling, or any other problems or questions, he is to contact my office. Dressing changes can be done on a daily basis. Control of blood sugars and elevation also discussed.
== END 2017-10-04 15:49 | disposition home health service (06) | DRG 988 ==
LOC: C.MSN 12:50
PROVIDERS: ADMIT Physical Medicine & Rehabilitation Sports Medicine; ATTEND Physical Medicine & Rehabilitation Sports Medicine
PROC: 0X6Q0Z1 Detachment at Right Middle Finger, High, Open Approach (ICD-10-PCS; principal; 2017-10-02 12:45)
DX: E11.69 Type 2 diabetes mellitus with other specified complication (principal); M86.9 Osteomyelitis, unspecified; L02.511 Cutaneous abscess of right hand; F03.91 Unspecified dementia, unspecified severity, with behavioral disturbance; L97.919 Non-pressure chronic ulcer of unspecified part of right lower leg with unspecified severity; L03.011 Cellulitis of right finger; B95.61 Methicillin susceptible Staphylococcus aureus infection as the cause of diseases classified elsewhere; E11.622 Type 2 diabetes mellitus with other skin ulcer; I25.10 Atherosclerotic heart disease of native coronary artery without angina pectoris; I25.2 Old myocardial infarction; E11.40 Type 2 diabetes mellitus with diabetic neuropathy, unspecified; I48.91 Unspecified atrial fibrillation; I11.9 Hypertensive heart disease without heart failure; I73.9 Peripheral vascular disease, unspecified; Z79.899 Other long term (current) drug therapy; Z79.4 Long term (current) use of insulin; Z79.01 Long term (current) use of anticoagulants; Z79.82 Long term (current) use of aspirin; Z88.8 Allergy status to other drugs, medicaments and biological substances; Z91.048 Other nonmedicinal substance allergy status; Z83.3 Family history of diabetes mellitus; Z82.49 Family history of ischemic heart disease and other diseases of the circulatory system

== ENCOUNTER → 2017-10-01 | Outpatient (CLI) | payer OTHER ==
[~2017-10-01] MED LIST changes: +AMOX875T PO; +NVLGI/PEN SC; +TRAM-453 PO; +TRIATAB3 PO; +WARF-284 PO
== END | disposition home or self-care (01) ==
LOC: C.RDSM 10:30
PROVIDERS: ATTEND Physical Medicine & Rehabilitation Sports Medicine
DX: L08.9 Local infection of the skin and subcutaneous tissue, unspecified (principal); Z88.6 Allergy status to analgesic agent

== ENCOUNTER → 2017-10-16 | Outpatient (CLI) | payer OTHER ==
[~2017-10-16] MED LIST changes: -AMOX875T PO; +CEPH500C2 PO; -INSU70IN2 SC; +NVLGI/PEN SC; +TRAM-453 PO; +TRIATAB3 PO; +WARF-284 PO
[2017-10-16 15:01] LABS: BASO % 0.4 %; BASO ABS # 0.02 K/uL (0-0.2); EOS % 1.3 %; EOS ABS # 0.06 K/uL (0-0.5); HEMATOCRIT 37.1 % (42-52); HEMOGLOBIN 12.5 g/dL (14.0-18.0); IG# 0.01 K/uL (0.00-0.02); LYMPH % 17.3 %; MEAN CELL VOLUME 91.8 fL (80-100); MEAN CORPUSCULAR HEMOGLOBIN 30.9 pg (25-34); MEAN CORPUSCULAR HGB CONC 33.7 g/dl (32-36); MEAN PLATELET VOLUME 11.5 fL (7.4-10.4); MONO % 9.7 %; MONO ABS # 0.45 K/uL (0.11-0.59); NEUT % 71.1 %; NEUT ABS # 3.29 K/uL (1.4-6.5); PLATELET COUNT 159 K/uL (130-400); RED CELL DISTRIBUTION WIDTH CV 14.2 % (11.5-14.5); RED CELL DISTRIBUTION WIDTH SD 48.1 fL (36.4-46.3); WHITE BLOOD COUNT 4.63 K/uL (4.8-10.8)
== END | disposition home or self-care (01) ==
LOC: C.LAB 13:31
PROVIDERS: ATTEND Physical Medicine & Rehabilitation Sports Medicine
DX: Z89.021 Acquired absence of right finger(s) (principal); M86.9 Osteomyelitis, unspecified

== ENCOUNTER 2020-01-18 17:44 | Inpatient (IN) ==
[2020-01-18] MEDS ORDERED: SODIUM CHLORIDE 0.9% 500 ML IV ONE (18:20)
--- NOTE | 2020-01-18 18:34 | Emergency Department Note ---
Impression & Plan Generalized weakness, Dehydration, Acute renal insufficiency, Dementia, Atrial fibrillation ED Provider Note NAME: DEQUAN HOLLIDAY AGE: 79 SEX: M ARRIVES VIA: Ambulance INFORMANT: Patient, ED PROVIDER(S): Cuba Winkler MD CHIEF COMPLAINT: Weakness PLAN: Disposition: Admit MEDICAL DECISION MAKING: The patient is a pleasant 79-year-old gentleman with past medical history of dementia, PAD, A. fib on Coumadin, history of osteomyelitis, chronic decubitus ulcer who presents emergency department accompanied by his concern for worsening generalized weakness over the past couple of weeks where he is too weak to get up and walk which the patient's reports is new over the past month. Patient was seen by home nursing today and it was recommended he come to the emergency department. Of note EMS was called to the home on after the patient was more confused found to have a low blood sugar in the 40s which was resolved. The patient's denies any recent fevers, chills, cough, congestion, vomiting, diarrhea. On arrival the patient is in NAD, AFVSS. He appears clinically dry. 4/5 strength BUE, 3/5 strength BLE. Right plantar foot and left plantar great toe ulcer with scant discharge without surrounding erythema, edema. No fowl odor. EKG without overt acute ischemia. Chest x-ray most likely with artifact given no reported respiratory symptoms. WBC 12.9, nonspecific. H/H 10.5/30.6 approximate 2 prior injury values though no recent values for comparison. Chemistry without acidosis. Creatinine 1.7 which is new for the patient and consistent with the patient's clinically dry appearance. Troponin 0.034, within normal limits. Lipase is not elevated. UA without evidence of infection. CT head negative for acute process. Symptoms likely related to dehydration. Given difficulty in ambulating reasonable to admit for further management. Patient and agreeable with admission. Case was discussed with Dr. Osuna, [facility] hospitalist, who will evaluate the patient for admission. Triage Nursing notes reviewed and agree them. Prior medical records reviewed Vital Signs: reviewed and remarkable for no significant abnormalities Differential diagnosis: Infection, dehydration, metabolic abnormality, hypo/hyperglycemia, electrolyte disturbance, anemia, hypoxia, cardiac sources, intracerebral event, toxicologic, neurologic, as well as other pathologies. ER treatment provided: See below. Diagnostics interpreted by me: ECG: Atrial fibrillation, 57 bpm, right bundle branch block, no ectopy, T wave normality, no overt ST elevation or depression, QTC 412, QRS 130. Cardiac Monitoring: An order for continuous cardiac monitoring was placed and demonstrated atrial fibrillation, 57 bpm, no ectopy. Laboratory studies: See below Imaging studies: XR chest 1V portable CLINICAL HISTORY: Chest Pain COMPARISON STUDY: Chest radiograph April 17, 2017. FINDINGS: Patient is rotated. There is no pneumothorax. Apparent hazy left basilar opacity is likely artifactual. Note is made of moderate cardiomegaly without evidence for pulmonary edema. IMPRESSION: 1. No acute findings. 2. Rotated study. 3. Moderate cardiomegaly. 4. Apparent hazy left basilar opacity. Artifact is favored. -- CT OF THE HEAD WITHOUT CONTRAST CLINICAL HISTORY: weakness COMPARISON STUDY: Head CT April 18, 2017. CT DOSE: 1075.26 mGy.cm TECHNIQUE: Helical axial images of the head were obtained without IV contrast. Automated exposure control was utilized for the study. A dose lowering technique was utilized adhering to the principles of ALARA. FINDINGS: No acute intracranial hemorrhage, midline shift or mass effect is present. The ventricular system is unremarkable. Moderate atrophy is noted. White matter hypodensity suggests small vessel disease. The basilar cisterns are patent. No extra-axial collections are present. There are no findings to suggest acute dural sinus thrombosis or acute territorial infarct. No significant calvarial abnormalities are present. Visualized portions of the sinuses and mastoid air cells are clear. IMPRESSION: No acute intracranial findings. No significant change in appearance of the brain. Consultation(s): Case was discussed with Dr. Osuna, [facility] hospitalist, who will evaluate the patient for admission. HPI: The patient is a pleasant 79-year-old gentleman with past medical history of dementia, PAD, A. fib on Coumadin, history of osteomyelitis, chronic decubitus ulcer who presents emergency department accompanied by his concern for worsening generalized weakness over the past couple of weeks where he is too weak to get up and walk which the patient's reports is new over the past month. Patient was seen by home nursing today and it was recommended he come to the emergency department. Of note EMS was called to the home on after the patient was more confused found to have a low blood sugar in the 40s which was resolved. The patient's denies any recent fevers, chills, cough, congestion, vomiting, diarrhea. ROS: See above HPI for pertinent positives & negatives. A total of 10 systems reviewed and were otherwise negative. PAST MEDICAL HISTORY:See Below PAST SURGICAL HISTORY:See Below FAMILY HISTORY:See Below SOCIAL HISTORY:See Below HOME MEDICATIONS:See Below ALLERGIES:See Below VITALS:See Below PHYSICAL EXAMINATION: GENERAL: Awake, alert, fatigued-appearing, in no distress HENT: Normocephalic, atraumatic. Oropharynx with dry mucous membranes and otherwise unremarkable. . EYES: Normal conjunctiva. Sclera non-icteric. NECK: Supple. No nuchal rigidity. FROM. No JVD. RESPIRATORY: Clear to auscultation. CARDIAC: Regular rate, irregular rhythm. Extremities warm and well perfused. Pulses equal. ABDOMEN: Soft, non-distended. No tenderness to palpation. No rebound or guarding. No masses. RECTAL: Deferred. MUSCULOSKELETAL: Chest examination reveals no tenderness. The back is symmetrical on inspection without obvious abnormality. There is no CVA tenderness to palpation. No joint edema. LOWER EXTREMITIES: Calves are equal size bilaterally and non-tender. 1+ edema. Right plantar foot and left plantar great toe ulcer with scant discharge without surrounding erythema, edema. No fowl odor. NEURO: 3/5 strength in bilateral lower extremities. 4/5 strength bilateral upper extremities. SKIN: No rash or jaundice noted. 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, with fat layer exposed Dyslipidemia Fall at home History of amputation of right great toe HTN (hypertension) Hydrocele Insomnia Morbid obesity Osteomyelitis due to secondary diabetes Osteomyelitis of finger of right hand Pressure ulcer of right foot, stage 3 Rhabdomyolysis Surgical History History of amputation of lesser toe of right foot Family History Other Family history non-contributory Social History Smoking Status: Never smoker Hx Alcohol Use: No Hx Substance Use: No Preferred Language: Uzbek Communication Ability: Effective Visual Impairment: No Limitations Hearing Ability: Hard of Hearing Cloth Bleaching Range Back Tender Required: No Beliefs That Will Affect Care: None marital status: Current Living Situation: Spouse Current Living Situation Comment: home health current occupational status: retired Other Information That Helps Us Care for You: No Feels Safe at Home: Yes Safety Concerns: Feels Safe At This Time Allergies Allergies Allergy/AdvReac Type Severity Reaction Status Date / Time pregabalin AdvReac Intermediate "SPACES Verified 01/18/20 20:07 HIM OUT" Home Meds Home Medications Medication Instructions Recorded Confirmed aspirin 81 mg tablet,delayed 81 mg PO DAILY 07/30/18 01/18/20 release acetaminophen 500 mg tablet 500 mg PO DAILY PRN tab 01/30/19 01/18/20 warfarin 2.5 mg PO Q OTHER DAY 01/18/20 01/18/20 warfarin 5 mg PO Q2D 01/18/20 01/18/20 Previous Rx's Medication Instructions Recorded insulin aspart U-100 100 unit/mL 5 units SQ TID #15 ml 01/19/19 (3 mL) subcutaneous pen glipizide 10 mg tablet, extended 10 mg PO DAILY #90 tab 06/19/19 release 24 hr lisinopril 5 mg tablet 5 mg PO DAILY #90 tab 07/03/19 atorvastatin 40 mg tablet 40 mg PO DAILY #90 tab 08/04/19 insulin glargine 100 unit/mL (3 10 units SUBCUT PM #30 ml 08/26/19 mL) subcutaneous pen triamterene 37.5 1 cap PO DAILY #90 cap 09/28/19 mg-hydrochlorothiazide 25 mg capsule cadexomer iodine 0.9 % topical gel 40 g TOP DAILY #40 gm 10/01/19 verapamil 240 mg tablet,extended 240 mg PO DAILY #90 tab 12/03/19 release baclofen 20 mg tablet 20 mg PO DAILY #270 tab 12/18/19 menthol 0.44 %-zinc oxide 20.6 % 1 appln TOP QID PRN #113 gm 01/06/20 topical ointment nystatin 100,000 unit/gram topical 1 appln TOP BID #30 gm 01/11/20 cream Results & Data (ED) Vital Signs Vital Signs - 24 hr 01/18/20 18:03 01/18/20 18:19 01/18/20 19:49 Temperature 36.8 C Temperature Source Oral Pulse Rate 53 L Pulse Rate [Right] 53 L Pulse Rhythm Regular Pulse Rhythm [Right] Regular Pulse Strength Normal Pulse Strength [Right] Normal Respiratory Rate 22 16 Respiratory Effort / Characteristics Non-Labored Spontaneous Non-Labored Respiratory Depth Normal Normal Respiratory Pattern Regular Blood Pressure 97/46 L Blood Pressure [Right Arm] 99/59 L Blood Pressure Mean 63 Blood Pressure Mean [Right Arm] 72 Blood Pressure Position Lying Blood Pressure Position [Right Arm] Lying Pulse Oximetry 95 96 96 Oxygen Delivery Method Room Air Room Air Room Air Sepsis Recent Fever Within 48 Hours No Sepsis New/Unexplained Change in Mental Status No Sepsis Action Taken by Nursing No Action Required 01/18/20 20:47 01/18/20 22:35 Temperature Temperature Source Pulse Rate Pulse Rate [Right] 50 L 50 L Pulse Rhythm Pulse Rhythm [Right] Regular Regular Pulse Strength Pulse Strength [Right] Normal Normal Respiratory Rate 16 16 Respiratory Effort / Characteristics Non-Labored Non-Labored Spontaneous Respiratory Depth Normal Normal Respiratory Pattern Blood Pressure Blood Pressure [Right Arm] 111/53 L 100/69 Blood Pressure Mean Blood Pressure Mean [Right Arm] 72 79 Blood Pressure Position Blood Pressure Position [Right Arm] Lying Pulse Oximetry 98 54 L Oxygen Delivery Method Room Air Room Air Sepsis Recent Fever Within 48 Hours Sepsis New/Unexplained Change in Mental Status Sepsis Action Taken by Nursing Laboratory Data Attestation: I reviewed the patient's lab results. Result diagrams: 01/18/20 18:45 01/18/20 18:45 Lab Results 01/18/20 01/18/20 01/18/20 Range/Units 18:45 18:45 18:45 WBC 12.97 H (4.8-10.8) K/uL RBC 3.53 L (4.7-6.1) M/uL Hgb 10.5 L (14.0-18.0) g/dL Hct 30.6 L (42-52) % MCV 86.7 (80-100) fL MCH 29.7 (25-34) pg MCHC 34.3 (32-36) g/dL RDW Std Deviation 43.7 (36.4-46.3) fL RDW Coeff of Omid 13.9 (11.5-14.5) % Plt Count 158 (130-400) K/uL MPV 11.5 H (7.4-10.4) fL Immature Gran % (Auto) 1.5 % Neut % (Auto) 77.3 % Lymph % (Auto) 12.6 % Noble % (Auto) 8.3 % Eos % (Auto) 0.2 % Baso % (Auto) 0.1 % Neut # (Auto) 10.02 H (1.4-6.5) K/uL Lymph # (Auto) 1.63 (1.2-3.4) K/uL Noble # (Auto) 1.08 H (0.11-0.59) K/uL Eos # (Auto) 0.03 (0-0.5) K/uL Baso # (Auto) 0.01 (0-0.2) K/uL Immature Gran # (Auto) 0.20 H (0.00-0.02) K/uL Absolute Nucleated RBC 0.03 H (0-0) K/uL Nucleated RBC % (auto) 0.2 % PT 17.6 H (9.0-12.0) Seconds INR 1.7 H (0.9-1.1) APTT 41.1 H (21.0-31.0) Seconds PTT Ratio 1.5 Sodium 134 L (136-145) mmol/L Potassium 4.0 (3.5-5.1) mmol/L Chloride 104 (98-107) mmol/L Carbon Dioxide 22 (21-32) mmol/L Anion Gap 9.0 (3-11) BUN 71 H (7-18) mg/dl Creatinine 1.78 H (0.6-1.4) mg/dl Est Cr Clr Drug Dosing 41.0 ml/min Est GFR ( Amer) 41.4 Est GFR (Non-Af Amer) 35.7 BUN/Creatinine Ratio 40.1 H (10-20) Glucose 212 H (70-99) mg/dl Calcium 8.8 (8.5-10.1) mg/dl Phosphorus 3.3 (2.5-4.9) mg/dl Magnesium 2.6 H (1.8-2.4) mg/dl Total Bilirubin 0.6 (0.2-1) mg/dl Direct Bilirubin 0.2 (0-0.2) mg/dl AST 166 H (15-37) U/L ALT 90 H (12-78) U/L Alkaline Phosphatase 73 (45-117) U/L Total Creatine Kinase 3492 H (39-308) U/L Troponin I 0.034 (0-0.045) ng/ml Total Protein 6.6 (6.4-8.2) gm/dl Albumin 2.7 L (3.4-5.0) gm/dl Globulin 3.9 (2.5-4.0) gm/dl Albumin/Globulin Ratio 0.7 L (0.9-2) Lipase 74 (73-393) U/L TSH 2.820 (0.300-4.500) uIu/ml Urine Color Urine Appearance (Clear) Urine pH (4.5-7.5) Ur Specific Anderson (1.000-1.030) Urine Protein (Negative) Urine Glucose (UA) (Negative) Urine Ketones (Negative) Urine Blood (Negative) Urine Nitrite (Negative) Urine Bilirubin (Negative) Urine Urobilinogen (Negative) Ur Leukocyte Esterase (Negative) Urine WBC (Auto) (0-5) /hpf Urine RBC (Auto) (0-4) /hpf U Hyaline Cast (Auto) (0-5) /lpf U Epithel Cells (Auto) (0-5) /lpf Urine Bacteria (Auto) (Negative) Granular Casts (0) /lpf WBC Casts (0) /lpf 01/18/20 Range/Units 19:45 WBC (4.8-10.8) K/uL RBC (4.7-6.1) M/uL Hgb (14.0-18.0) g/dL Hct (42-52) % MCV (80-100) fL MCH (25-34) pg MCHC (32-36) g/dL RDW Std Deviation (36.4-46.3) fL RDW Coeff of Omid (11.5-14.5) % Plt Count (130-400) K/uL MPV (7.4-10.4) fL Immature Gran % (Auto) % Neut % (Auto) % Lymph % (Auto) % Noble % (Auto) % Eos % (Auto) % Baso % (Auto) % Neut # (Auto) (1.4-6.5) K/uL Lymph # (Auto) (1.2-3.4) K/uL Noble # (Auto) (0.11-0.59) K/uL Eos # (Auto) (0-0.5) K/uL Baso # (Auto) (0-0.2) K/uL Immature Gran # (Auto) (0.00-0.02) K/uL Absolute Nucleated RBC (0-0) K/uL Nucleated RBC % (auto) % PT (9.0-12.0) Seconds INR (0.9-1.1) APTT (21.0-31.0) Seconds PTT Ratio Sodium (136-145) mmol/L Potassium (3.5-5.1) mmol/L Chloride (98-107) mmol/L Carbon Dioxide (21-32) mmol/L Anion Gap (3-11) BUN (7-18) mg/dl Creatinine (0.6-1.4) mg/dl Est Cr Clr Drug Dosing ml/min Est GFR ( Amer) Est GFR (Non-Af Amer) BUN/Creatinine Ratio (10-20) Glucose (70-99) mg/dl Calcium (8.5-10.1) mg/dl Phosphorus (2.5-4.9) mg/dl Magnesium (1.8-2.4) mg/dl Total Bilirubin (0.2-1) mg/dl Direct Bilirubin (0-0.2) mg/dl AST (15-37) U/L ALT (12-78) U/L Alkaline Phosphatase (45-117) U/L Total Creatine Kinase (39-308) U/L Troponin I (0-0.045) ng/ml Total Protein (6.4-8.2) gm/dl Albumin (3.4-5.0) gm/dl Globulin (2.5-4.0) gm/dl Albumin/Globulin Ratio (0.9-2) Lipase (73-393) U/L TSH (0.300-4.500) uIu/ml Urine Color Yellow Urine Appearance Cloudy A (Clear) Urine pH 5.0 (4.5-7.5) Ur Specific Anderson 1.018 (1.000-1.030) Urine Protein Negative (Negative) Urine Glucose (UA) Negative (Negative) Urine Ketones Negative (Negative) Urine Blood 1+ H (Negative) Urine Nitrite Negative (Negative) Urine Bilirubin Negative (Negative) Urine Urobilinogen Negative (Negative) Ur Leukocyte Esterase Negative (Negative) Urine WBC (Auto) 1-5 (0-5) /hpf Urine RBC (Auto) 5-10 H (0-4) /hpf U Hyaline Cast (Auto) 10-30 H (0-5) /lpf U Epithel Cells (Auto) 10-20 H (0-5) /lpf Urine Bacteria (Auto) Negative (Negative) Granular Casts 10-20 H (0) /lpf WBC Casts 1-5 H (0) /lpf Administered Medications Piperacillin Sod/Tazobactam (Sod 4.5 gm/ Dextrose) 120 mls @ 28.75 mls/hr IV ONE ONE; Protocol Stop: 01/19/20 04:40 Last Admin: 01/19/20 01:24 Dose: 28.8 mls/hr Documented by: [id number] Sodium Chloride (Nss 1000ml) 1,000 mls @ 125 mls/hr IV .Q8H [facility] Stop: 02/18/20 00:07 Last Admin: 01/19/20 01:24 Dose: 125 mls/hr Documented by: [id number] Daptomycin 350 mg/ Syringe 7 mls @ 3.5 mls/min IV Q24H [facility]; Protocol Stop: 01/26/20 00:59 Last Admin: 01/19/20 00:58 Dose: 3.5 mls/min Documented by: [id number] Warfarin Sodium (Warfarin Sod 5 Mg Tab) 5 mg PO Q2D@1600 [facility] Stop: 02/18/20 00:59 Last Admin: 01/19/20 01:19 Dose: 5 mg Documented by: [id number] Discontinued Medications Sodium Chloride (Nss) 500 mls @ 999 mls/hr IV .Q31M ONE Stop: 01/18/20 18:50 Last Infusion: 01/18/20 19:48 Dose: 0 mls/hr Documented by: [id number] Admin: 01/18/20 18:45 Dose: 999 mls/hr Documented by: [id number] Sodium Chloride (Nss 1000ml) 500 mls @ 999 mls/hr IV .Q31M ONE Stop: 01/19/20 00:38 Last Infusion: 01/19/20 01:16 Dose: 0 mls/hr Documented by: [id number] Admin: 01/19/20 00:45 Dose: 999 mls/hr Documented by: [id number] Insulin Aspart (Insulin Aspart 100 Units/Ml 3 Ml Pen) 0 units SC Q6 [facility] Stop: 02/18/20 05:59 Last Admin: 01/19/20 00:42 Dose: 1 units Documented by: [id number] Cosigned by: [id number] Blood Pressure Blood Pressure Findings: Low blood pressure Blood Pressure Disposition: further management by hospitalist Discharge Plan Visit Data Chief Complaint: Weakness Stated Complaint: WEAKNESS ED Provider: Cuba Winkler Discharge Problem: Generalized weakness, Dehydration, Acute renal insufficiency, Dementia, Atrial fibrillation Patient Disposition: Admitted As Inpatient Discharge Instructions Interventions: ED Discharge Assessment Last Done: 01/18/20 23:53
--- NOTE | 2020-01-18 18:45 | XRay Report ---
XR chest 1V portable CLINICAL HISTORY: Chest Pain COMPARISON STUDY: Chest radiograph April 17, 2017. FINDINGS: Patient is rotated. There is no pneumothorax. Apparent hazy left basilar opacity is likely artifactual. Note is made of moderate cardiomegaly without evidence for pulmonary edema. IMPRESSION: 1. No acute findings. 2. Rotated study. 3. Moderate cardiomegaly. 4. Apparent hazy left basilar opacity. Artifact is favored. ACT 112: Negative or not required by law. Electronically signed by: Eddi Be M.D. 01/18/2020 6:44 PM
[2020-01-18 18:59] LABS: Hematocrit (blood only) 30.6 % (42-52); Hemoglobin 10.5 g/dL (14.0-18.0); Mean Corpuscular Hemoglobin 29.7 pg (25-34); Mean Corpuscular Hgb Conc 34.3 g/dL (32-36); Mean Corpuscular Volume 86.7 fL (80-100); Mean Platelet Volume 11.5 fL (7.4-10.4); Nucleated RBC # (auto) 0.03 K/uL (0-0); Nucleated RBC % (auto) 0.2 %; Platelet Count 158 K/uL (130-400); RDW Coefficient of Variation 13.9 % (11.5-14.5); RDW Standard Deviation 43.7 fL (36.4-46.3); Red Blood Count 3.53 M/uL (4.7-6.1); White Blood Count 12.97 K/uL (4.8-10.8)
[2020-01-18 19:16] LABS: INR 1.7 (0.9-1.1); Partial Thromboplastin Ratio 1.5; Partial Thromboplastin Time 41.1 Seconds (21.0-31.0); Prothrombin Time 17.6 Seconds (9.0-12.0)
[2020-01-18 19:18] LABS: Albumin Level 2.7 gm/dl (3.4-5.0); BUN Creatinine Ratio 40.1 (10-20); Bilirubin Direct 0.2 mg/dl (0-0.2); Calcium 8.8 mg/dl (8.5-10.1); Est GFR (African American) 41.4; Est GFR (Non-African American) 35.7; Magnesium 2.6 mg/dl (1.8-2.4)
[2020-01-18 19:24] LABS: Basophils # (auto) 0.01 K/uL (0-0.2); Basophils % (auto) 0.1 %; Eosinophils # (auto) 0.03 K/uL (0-0.5); Eosinophils % (auto) 0.2 %; Immature Granulocytes % (auto) 1.5 %; Lymphocytes # (auto) 1.63 K/uL (1.2-3.4); Lymphocytes % (auto) 12.6 %; Monocytes # (auto) 1.08 K/uL (0.11-0.59); Monocytes % (auto) 8.3 %; Neutrophils # (auto) 10.02 K/uL (1.4-6.5); Neutrophils % (auto) 77.3 %
[2020-01-18 19:27] LABS: Albumin Globulin Ratio 0.7 (0.9-2); Bilirubin,Total 0.6 mg/dl (0.2-1); Globulin 3.9 gm/dl (2.5-4.0); Phosphorus 3.3 mg/dl (2.5-4.9); Thyroid Stimulating Hormone 2.82 uIu/ml (0.300-4.500); Total Protein 6.6 gm/dl (6.4-8.2); Troponin I 0.034 ng/ml (0-0.045)
[2020-01-18 20:15] LABS: Appearance Urine Cloudy (Clear); Bacteria Urine Automated Negative (Negative); Bilirubin Urine Negative (Negative); Blood Urine 1+ (Negative); Color Urine Yellow; Glucose Urine UA Negative (Negative); Ketones Urine Negative (Negative); Leukocyte Esterase Urine Negative (Negative); Nitrite Urine Negative (Negative); Protein Urine Negative (Negative); Specific Gravity Urine 1.018 (1.000-1.030); Urobilinogen Urine Negative (Negative)
--- NOTE | 2020-01-18 20:46 | CT Scan Report ---
CT OF THE HEAD WITHOUT CONTRAST CLINICAL HISTORY: weakness COMPARISON STUDY: Head CT April 18, 2017. CT DOSE: 1075.26 mGy.cm TECHNIQUE: Helical axial images of the head were obtained without IV contrast. Automated exposure con trol was utilized for the study. A dose lowering technique was utilized adhering to the principles o f ALARA. FINDINGS: No acute intracranial hemorrhage, midline shift or mass effect is present. The ventricular system is unremarkable. Moderate atrophy is noted. White matter hypodensity suggests small vessel dis ease. The basilar cisterns are patent. No extra-axial collections are present. There are no findings to suggest acute dural sinus thrombosis or acute territorial infarct. No significant calvarial abnorm alities are present. Visualized portions of the sinuses and mastoid air cells are clear. IMPRESSION: No acute intracranial findings. No significant change in appearance of the brain. ACT 112: Negative or not required by law. Electronically signed by: Eddi Be M.D. 01/18/2020 8:45 PM
--- NOTE | 2020-01-18 22:09 | History & Physical Report ---
Date of Service January 18, 2020 Assessment & Plan (1) Diabetic foot ulcer associated with type 2 diabetes mellitus, with fat layer exposed: Jose is a 79-year-old male with a past medical history of dementia, 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 Diabetic foot infection of the left foot plantar surface Grade 3 fat containing ulceration, increased yellow purulence Followed by Luz Marina Romo as outpatient, recent debridement on 12/23 with subsequent Cipro/doxy treatment. Patient is pending intake with [facility] infectious disease in March. Patient with leukocytosis to 12.9. Recently treated with 14 days of linezolid following above, unclear from history if ulcer improved Given worsening appearance and deep involvement, foot CT ordered to evaluate for underlying osteo Wound culture 12/23 show MRSA, resistant to clindamycin, erythromycin, oxacillin, tetracycline, Bactrim. 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, patient has a history of becoming supratherapeutic with antibiotic initiation PT/INR daily - Rate controlled, continue verapamil Hypertension -Hold lisinopril for BENEDICT Hold triamterenehydrochlorothiazide for BENEDICT - Continue verapamil 240mg daily XR Hyperlipidemia -Continue atorvastatin Transaminitis Suspect 2/2 depletion, no alcohol history or liver disease history Repeat CMP x1 in morning Coronary artery disease Last echo 04/2017 with EF 55%, normal wall motion and grossly normal left ventricular size Patient noted to have elevated troponins in the past which were thought to be due to episodes of mild rhabdo, was not felt to have an evaluation consistent with coronary syndrome when seen in 2017. DVT prophylaxis: On warfarin as above CODE STATUS: Full code Disposition:Med/Surg Diet: Heart Healthy pending swallow eval (2) Diabetic ulcer of left great toe: (3) Traumatic wound: (4) Pressure ulcer of right foot, stage 3: (5) PAD (peripheral artery disease): (6) MSSA (methicillin susceptible Staphylococcus aureus) infection: (7) Foot deformity: (8) Arthritis of both hips: (9) BPH with obstruction/lower urinary tract symptoms: (10) Hypercholesterolemia: (11) Charcot foot due to diabetes mellitus: (12) Coronary artery disease: (13) Hypertension: History of Present Illness Primary Care Provider: Raj Mora MD Jose is a 79-year-old male with a past medical history of dementia, 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 History extremely limited from patient due to dementia. Patient is seen at the bedside with his who gives collateral. She reports that his worsening started Saturday 2-3 days ago when his blood sugars dropped to the 40s and he required IV medications from EMS. Following that he continued to seem weak and had a worsened mental status with increased fatigue. Denies fever/chills/shortness of breath/chest pain. She notes that he has home health which change settings on his feet bilaterally for chronic diabetic ulcerations 3 times a week, she notes he does not usually look at his feet so he is not sure if they have worsened. During exam yellow purulence is noted from the right heel foot ulcer, patient's reports she has never seen yellow purulence from his wound before. She notes that he had just finished a 14-day course of linezolid 6 days ago for worsening of his foot ulcer. She reports that he was on other antibiotics prior to this, but does not remember the name of them and did not bring them with her. Not noticed any other change in him including decreased urinary output or decreased appetite. Medical history: Reviewed Surgical history: Reviewed Medications: Reviewed Allergies: Reviewed Social: Chronic dementia, lives at home with his who provides care for him. No tobacco/alcohol/medical marijuana use. CODE STATUS: Full code. Discussed with patient's Allergies Allergy/AdvReac Type Severity Reaction Status Date / Time pregabalin AdvReac Intermediate "SPACES Verified 01/18/20 20:07 HIM OUT" Home Medications Home Medications Medication Instructions Recorded Confirmed Type aspirin 81 mg tablet,delayed 81 mg PO DAILY 07/30/18 01/18/20 History release insulin aspart U-100 100 unit/mL 5 units SQ TID #15 ml 01/19/19 01/18/20 Rx (3 mL) subcutaneous pen acetaminophen 500 mg tablet 500 mg PO DAILY PRN tab 01/30/19 01/18/20 History glipizide 10 mg tablet, extended 10 mg PO DAILY #90 tab 06/19/19 01/18/20 Rx release 24 hr lisinopril 5 mg tablet 5 mg PO DAILY #90 tab 07/03/19 01/18/20 Rx atorvastatin 40 mg tablet 40 mg PO DAILY #90 tab 08/04/19 01/18/20 Rx insulin glargine 100 unit/mL (3 10 units SUBCUT PM #30 ml 08/26/19 01/18/20 Rx mL) subcutaneous pen triamterene 37.5 1 cap PO DAILY #90 cap 09/28/19 01/18/20 Rx mg-hydrochlorothiazide 25 mg capsule cadexomer iodine 0.9 % topical gel 40 g TOP DAILY #40 gm 10/01/19 01/18/20 Rx verapamil 240 mg tablet,extended 240 mg PO DAILY #90 tab 12/03/19 01/18/20 Rx release baclofen 20 mg tablet 20 mg PO DAILY #270 tab 12/18/19 01/18/20 Rx menthol 0.44 %-zinc oxide 20.6 % 1 appln TOP QID PRN #113 gm 01/06/20 01/18/20 Rx topical ointment nystatin 100,000 unit/gram topical 1 appln TOP BID #30 gm 01/11/20 01/18/20 Rx cream warfarin 2.5 mg PO Q OTHER DAY 01/18/20 01/18/20 History warfarin 5 mg PO Q2D 01/18/20 01/18/20 History Past Med/Surg History Medical History A-fib Anxiety 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 BPH with obstruction/lower urinary tract symptoms Callus Carpal tunnel syndrome Chronic ulcer of left midfoot Diabetes Diabetes mellitus with diabetic polyneuropathy Diabetic ulcer of right foot associated with type 2 diabetes mellitus, with fat layer exposed Dyslipidemia Fall at home History of amputation of right great toe HTN (hypertension) Hydrocele Insomnia Morbid obesity Osteomyelitis due to secondary diabetes Osteomyelitis of finger of right hand Pressure ulcer of right foot, stage 3 Rhabdomyolysis Surgical History History of amputation of lesser toe of right foot Family History Other Family history non-contributory Social History Smoking Status: Never smoker Hx Alcohol Use: No Hx Substance Use: No Preferred Language: [place] Communication Ability: Effective Visual Impairment: No Limitations Hearing Ability: Hard of Hearing 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 Not oriented to place or date. No acute distress HEENT: Atraumatic, normocephalic. Mucous membranes extremely dry, cracked Pulm: CTAB A&P. -wheezes, -rales, -rhonchi. Symmetrical chest rise. No increase work of breathing. No respiratory distress. Cardiac: Irregularly irregular, -mrg. Radial pulses intact and symmetrical. Abdominal: Nontender, nondistended, soft. BS present. Extremity: Right foot with distal digit amputations of the first, second, and third digits. Approximately 3 cm grade 3 ulceration at the ball of the foot with yellow purulence and surrounding erythema. Left foot with distal digit amputation of the fourth toe. Grade 2 ulceration of the medial hallux without discharge/erythema. Right hand with distal amputations of the second and third digits. Left hand with distal amputation of the fourth digit. 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 Patient does not give meaningful response to questions of whether he can feel soft touch in the fingers and toes. Results & Data Results & Data ([facility]) Vital Signs (Past 12 Hours) Vital Signs Temp Pulse Pulse Resp BP BP Pulse Ox 01/18/20 20:47 50 L 16 111/53 L 98 01/18/20 19:49 53 L 16 99/59 L 96 01/18/20 18:19 96 01/18/20 18:03 36.8 C 53 L 22 97/46 L 95 Supervising Physician Co-Signing Physician Notes Attending addendum: I have physically seen this patient, have supervised the medical residents activities, and agree with the H&P unless as otherwise noted. Assessment and Plan: Diabetic foot ulcer- Follow wound culture and sensitivity Empiric antibiotics with daptomycin IV and Zosyn IV. Consult wound care. Unable to perform MRI, will give order CT scan. BENEDICT- Creatinine 1.78 upon admission, with baseline around 1.1. Received 500 cc normal saline in ED, will continue her 20 mils per hour. Hold triamterene/HCTZ and lisinopril. Serial BMP. Diabetes mellitus- Hold glipizide. Continue Lantus 10 units subcu at bedtime. Patient Accu-Cheks before meals and at bedtime with NovoLog coverage per scale Remaining orders and notations as noted Resident Activity Tracking Resident Involvement: Resident Care Provided Care Provided: Adult Hospital Medicine (1) Diabetic foot ulcer associated with type 2 diabetes mellitus, with fat layer exposed Diabetic foot ulcer location: midfoot Laterality: left Qualified Code(s): E11.621 - Type 2 diabetes mellitus with foot ulcer; L97.422 - Non-pressure chronic ulcer of left heel and midfoot with fat layer exposed
[2020-01-19] MEDS ORDERED: SODIUM CHLORIDE 0.9% 1000ML 500 ML IV ONE (00:08)
[2020-01-19] MEDS ORDERED: CARBOHYDRATES FOR HYPOGLYCEMIA PO PRN (00:08)
[2020-01-19] MEDS ORDERED: DAPTOmycin 500 MG in SYRINGE 0 ML IV ONE (00:08)
[2020-01-19] MEDS ORDERED: DEXTROSE 50% 50 ML SYRINGE IV PRN (00:08)
[2020-01-19] MEDS ORDERED: PIPERACILL/TAZOBAC CONSULT ACTIVE PRN (00:08)
[2020-01-19] MEDS ORDERED: GLUCAGON FOR INJ 1 MG VIAL SQ PRN (00:08)
[2020-01-19] MEDS ORDERED: DAPTOMYCIN CONSULT ACTIVE PRN (00:08)
[2020-01-19] MEDS ORDERED: GLUCOSE 40% GEL 15 GM TUBE PO PRN (00:08)
[2020-01-19] MEDS ORDERED: GLUCOSE 10 TABS/TUBE PO PRN (00:08)
[2020-01-19] MEDS ORDERED: Nursing to Pharmacy Communication SCH ×2 (00:15→01:30)
[2020-01-19] MEDS ORDERED: PIPERACILLIN/TAZOBACTAM 4.5 GM in DEXTROSE 5% 100 ML IV ONE ×2 (00:30→09:30)
[2020-01-19] MEDS: DAPTOmycin 350 MG in SYRINGE 0 ML IV SCH (00:58)
[2020-01-19] MEDS: WARFARIN SOD 5 MG TAB PO SCH ×2 (01:19→16:21)
[2020-01-19] MEDS: SODIUM CHLORIDE 0.9% 1000ML 1,000 ML IV SCH ×4 (01:24→22:13)
[2020-01-19 05:44] LABS: Basophils # (auto) 0.01 K/uL (0-0.2); Basophils % (auto) 0.1 %; Eosinophils # (auto) 0.08 K/uL (0-0.5); Eosinophils % (auto) 0.7 %; Hematocrit (blood only) 27.3 % (42-52); Hemoglobin 9.4 g/dL (14.0-18.0); Immature Granulocytes # (auto) 0.11 K/uL (0.00-0.02); Lymphocytes # (auto) 1.49 K/uL (1.2-3.4); Lymphocytes % (auto) 13.3 %; Mean Corpuscular Hemoglobin 29.8 pg (25-34); Mean Corpuscular Hgb Conc 34.4 g/dL (32-36); Mean Corpuscular Volume 86.7 fL (80-100); Mean Platelet Volume 10.9 fL (7.4-10.4); Monocytes # (auto) 0.89 K/uL (0.11-0.59); Neutrophils % (auto) 76.9 %; Platelet Count 142 K/uL (130-400); RDW Standard Deviation 44.2 fL (36.4-46.3); Red Blood Count 3.15 M/uL (4.7-6.1); White Blood Count 11.18 K/uL (4.8-10.8)
[2020-01-19 05:54] LABS: INR 1.8 (0.9-1.1); Prothrombin Time 18.4 Seconds (9.0-12.0)
[2020-01-19] MEDS ORDERED: INSULIN ASPART 100 UNITS/ML 3 ML PEN SC SCH (06:00)
[2020-01-19 06:08] LABS: Albumin Level 2.2 gm/dl (3.4-5.0); BUN Creatinine Ratio 43.1 (10-20); Calcium 7.6 mg/dl (8.5-10.1); Creatinine Clr Calc Pharmacy 48.9 ml/min; Est GFR (African American) 51.8; Est GFR (Non-African American) 44.7; Potassium 3.8 mmol/L (3.5-5.1)
[2020-01-19 06:20] LABS: Estimated Average Glucose 148 mg/dl; Hemoglobin A1C 6.8 % (4.5-5.6)
[2020-01-19 06:21] LABS: Albumin Globulin Ratio 0.7 (0.9-2); Bilirubin,Total 0.7 mg/dl (0.2-1); Globulin 3.2 gm/dl (2.5-4.0); Total Protein 5.4 gm/dl (6.4-8.2)
--- NOTE | 2020-01-19 08:39 | CT Scan Report ---
CT foot RT wo con HISTORY: 79 years-old Male ?osteomyelitis, worsening diabetic ulcer chronic foot ulcer with possible osteomyelitis. COMPARISON: Right foot radiographs 12/31/2019 TECHNIQUE: Multiple axial CT images of the right foot were obtained without the use of IV contrast. A dose lowering technique was used consistent with the principals of ROBERTO. FINDINGS: There is a soft tissue ulcer of the plantar midfoot medially which measures 2.2 x 2.7 cm. There is mo derate adjacent cellulitis changes. No drainable fluid collection or opaque foreign body identified. Vascular calcifications. These muscular atrophy. Findings are suggestive of multifocal tendinosis of the flexor and peroneal tendons. Demineralized appearance of the bones. Moderate to severe osteoarthr itis of the tibiotalar joint. Midfoot collapse with advanced osteoarthritis and probable developing d iabetic neuropathic changes of the foot. There is no acute fracture, dislocation or definite osseous erosion to suggest osteomyelitis at this time. IMPRESSION: 1. Soft tissue ulcer involves the medial aspect of the plantar midfoot. Moderate adjacent cellulitis changes without definite bony erosion to suggest osteomyelitis. 2. Demineralized appearance of the bones with advanced degenerative changes, midfoot collapse and pro bable developing diabetic neuropathic changes. 3. No acute fracture. ACT 112: Negative or not required by law. The above report was generated using voice recognition software. It may contain grammatical, syntax o r spelling errors. Electronically signed by: Yordy Cody M.D. 01/19/2020 8:38 AM
[2020-01-19] MEDS: VERAPAMIL HCL 240 MG TABCR PO SCH (09:42)
[2020-01-19] MEDS: ATORVASTATIN 40 MG TAB PO SCH (09:42)
[2020-01-19] MEDS: ASPIRIN 81 MG ECTAB PO SCH (09:42)
[2020-01-19] MEDS: INSULIN ASPART 100 UNITS/ML 3 ML PEN SC SCH ×4 (09:44→22:16)
--- NOTE | 2020-01-19 12:46 | Electrocardiogram Report ---
Test Reason : Blood Pressure : / mmHG Vent. Rate : 057 BPM Atrial Rate : 108 BPM P-R Int : 000 ms QRS Dur : 130 ms QT Int : 424 ms P-R-T Axes : 000 034 -31 degrees QTc Int : 412 ms Atrial fibrillation with slow ventricular response Right bundle branch block T wave abnormality, consider lateral ischemia Abnormal ECG When compared with ECG of 01-OCT-2017 14:22, Inverted T waves have replaced nonspecific T wave abnormality in Inferior leads Confirmed by Tristan Osborn ([id number]) on 01/19/2020 12:46:17 PM Referred By: REFERRED SELF Confirmed By:Tristan Osborn
[2020-01-19] MEDS: PIPERACILLIN/TAZOBACTAM 4.5 GM in DEXTROSE 5% 100 ML IV SCH ×2 (14:45→22:13)
--- NOTE | 2020-01-19 17:30 | Medical Student Progress Note ---
Date of Service January 19, 2020 Assessment & Plan (1) Diabetic foot ulcer associated with type 2 diabetes mellitus, with fat layer exposed: (1) Right DM foot ulcer infection recent debridement 12/23 and finished appropriate abx regimen few days ago started empirically on Daptomycin + Zosyn based on previous sensitivities from 12/23 WBC 12.9 --> 11.18 today CBC with diff qAM no osteomyelitis seen on CT, bone scan ordered to confirm repeat wound culture and sensitivites pending wound care team help in managing ulcer arterial Duplex bilat pending to determine perfusion to distal lower extremities will consult surgery if sharp debridement recommended by wound care team (2) BENEDICT etiology not clear pre-renal picture given BUN/Cr ratio of 43.1 Cr trending down, @ 1.48 today BUN trending down, @ 64 today avoid vancomycin if wound culture reveals MRSA BMP QD increase IVF maintenance NS to 150mL/hr based on weight of 110kg (3) DM2 d/c home glipizide SSI insulin during admission (4) A.fib continue warfarin 5mg PO Q2D, 2.5mg PO Q2D target therapeutic range INR 2-3 monitor PT, INR QD due to increased of risk INR increase with current antibiotic regimen continue rate control with verapamil (5) HTN hold home ACEi, triamterene-HCTZ (6) HLD continue home statin (7) DVT ppx on warfarin Diabetic foot ulcer location: midfoot Laterality: left Qualified Code(s): E11.621 - Type 2 diabetes mellitus with foot ulcer; L97.422 - Non- pressure chronic ulcer of left heel and midfoot with fat layer exposed Admission and Anticipated Discharge Date Admission Date: January 18, 2020 Supervising Attestation I personally examined the patient and verified all bradford points of history and exam, discussed case, and agree with decision making with Odalis Reddy MS3. feeling ok - no real complaints - apparently acting more at his baseline per . notes that basically when he's on abx it gets better when he's off it gets worse vitals noted nad heent nc at mmm breathing unlabored no accessory muscles good effort skin no tracking erythema, ulcers noted - dressed - gently looked under/around dressing but also looked at wound care photos in EMR as well. no crepitis DM foot infection - concern on underlying osteo - not seen on CT, apparently has metal in leg making MRI probably not able to be done- but with pattern of getting better when on abx, then quickly worsening when off - concern of underlying osteo allowing infection to smolder. continue current abx - certainly carries concern for both MRSA and pseudomonas. ongoing local wound care. eval vasculature. chronic afib - rate controlled, anticoagulated (INR sl low but anticipate trending up) metabolic encephalopathy present on admission in the setting of BENEDICT and underlying wound infections - seems improved. continue supportive care BENEDICT - improving. follow. otherwise as above Subjective Mr. Jose Simeon is a 79 y/o M with Hx of dementia, DM2 with associated ulcers and amputations, PAD, HLD, HTN, CAD, A.fib on anticoag, who is admitted to be managed for DM ulcer infection and BENEDICT. He recently had ulcer wound debridement on 12/23 and had finished abx regimen of cipro+doxy, then cipro+linezolid. feels he has returned to his baseline mental status and level of function. She also described that he has had a recurrent infection of his DM ulcers soon after finishing abx regimens. Pt has a sedentary lifestyle and is poorly compliant with wearing socks and orthotic shoes to keep his ulcers clean and covered. Overnight, he slept well, no c/p, no SOB, no f/c. Review of Systems Review of Systems: All systems reviewed & are unremarkable except as noted in Subjective Physical Exam Physical Exam: const: NAD, alert and responsive to basic questions, at baseline of normal dementia neuro: significant neuropathy at distal upper and lower extremities cardio: irregular rhythm, bradycardic, 2/6 systolic murmur pulm: LCA bilat MSK: ulceration at L foot plantar surface with yellow-green purulence, some erythema but no significant ascending streaking Results & Data ([facility]) Vital Signs (Past 12 Hours) Vital Signs Temp Pulse Resp BP Pulse Ox 01/19/20 15:23 36.7 C 60 18 104/60 96 01/19/20 07:30 36.9 C 56 L 17 107/43 L [address]: IMPRESSION: 1. Soft tissue ulcer involves the medial aspect of the plantar midfoot. Moderate adjacent cellulitis changes without definite bony erosion to suggest osteomyelitis. 2. Demineralized appearance of the bones with advanced degenerative changes, midfoot collapse and probable developing diabetic neuropathic changes. 3. No acute fracture.
--- NOTE | 2020-01-19 17:56 | Ultrasound Report ---
US arterial duplex LE BI CLINICAL HISTORY: Bilateral diabetic foot ulcers COMPARISON STUDY: March 10, 2015 FINDINGS: The patient refused ankle brachial indices. The study is limited from a technical standpoint due to the patient's body habitus. On the right, there was triphasic flow within the common femoral and superficial femoral arteries. Th ere is a 5 cm right popliteal cyst. There is triphasic flow within the right popliteal artery. There was triphasic flow within the right anterior tibial artery. There was flow within the distal right po sterior tibial artery. Waveforms the proximal right posterior tibial could not be obtained. There is monophasic flow within the right peroneal artery. There is triphasic flow within the right dorsalis p kina. There are no high velocity jets on the right. On the left, there was triphasic flow within the left common femoral artery. There is a high velocity jet within the proximal left superficial femoral artery with a peak systolic velocity of 407 cm/s. T his is consistent with a hemodynamically significant stenosis. There are dampened monophasic waveform s distal to the left superficial femoral artery. This includes monophasic flow within the left poplit eal anterior tibial posterior tibial and peroneal arteries. IMPRESSION: 1. Technically difficult study 2. Hemodynamically significant stenosis involving the proximal left superficial femoral artery. 3. No evidence of right leg hemodynamically significant stenosis 4. 5 cm right popliteal cyst ACT 112: Negative or not required by law. Electronically signed by: Micheal Miranda M.D. 01/19/2020 5:54 PM
--- NOTE | 2020-01-19 20:26 | Billing Data ---
Date of Service January 19, 2020 Coding Level of Care Code 52173 Subseq Hosp Care Lvl 3
[2020-01-20] MEDS: DAPTOmycin 350 MG in SYRINGE 0 ML IV SCH (01:03)
--- NOTE | 2020-01-20 01:19 | Billing Data ---
Date of Service January 20, 2020 Coding Level of Care Code 43715 Initial Inpt Care Lvl 3
[2020-01-20] MEDS: PIPERACILLIN/TAZOBACTAM 4.5 GM in DEXTROSE 5% 100 ML IV SCH ×3 (05:32→21:09)
[2020-01-20] MEDS: SODIUM CHLORIDE 0.9% 1000ML 1,000 ML IV SCH ×2 (06:19→15:18)
[2020-01-20 07:00] LABS: Hematocrit (blood only) 26.1 % (42-52); Mean Corpuscular Hgb Conc 34.5 g/dL (32-36); Mean Platelet Volume 10.8 fL (7.4-10.4); Platelet Count 170 K/uL (130-400); RDW Coefficient of Variation 14.2 % (11.5-14.5); RDW Standard Deviation 45.1 fL (36.4-46.3); White Blood Count 11.57 K/uL (4.8-10.8)
[2020-01-20 07:39] LABS: BUN Creatinine Ratio 38.9 (10-20); Calcium 7.8 mg/dl (8.5-10.1); Creatinine Clr Calc Pharmacy 53.2 ml/min; Est GFR (African American) 57.4; Est GFR (Non-African American) 49.5; Potassium 3.6 mmol/L (3.5-5.1)
[2020-01-20 07:54] LABS: Albumin Globulin Ratio 0.6 (0.9-2); Bilirubin,Total 0.6 mg/dl (0.2-1); Globulin 3.2 gm/dl (2.5-4.0); Total Protein 5.2 gm/dl (6.4-8.2)
[2020-01-20] MEDS: VERAPAMIL HCL 240 MG TABCR PO SCH (09:06)
[2020-01-20] MEDS: ASPIRIN 81 MG ECTAB PO SCH (09:07)
[2020-01-20] MEDS: ATORVASTATIN 40 MG TAB PO SCH (09:07)
[2020-01-20] MEDS: INSULIN ASPART 100 UNITS/ML 3 ML PEN SC SCH ×4 (09:11→21:17)
[2020-01-20] MEDS: ACETAMINOPHEN 500 MG TAB PO PRN (09:15)
[2020-01-20 09:29] LABS: INR 2.5 (0.9-1.1); Prothrombin Time 25.2 Seconds (9.0-12.0)
--- NOTE | 2020-01-20 12:36 | Nuclear Medicine Report ---
NM bone scan limited area CLINICAL HISTORY: Bilateral plantar foot ulcers. COMPARISON STUDY: Left foot radiographs August 27, 2019. Right foot radiographs December 31, 2019. CT of the right foot January 17, 2017. TECHNIQUE: 27 mCi of technetium 99m MDP was injected IV at 8:00 AM on January 20, 2020. 3 hour delayed phase imaging of the feet was performed. FINDINGS: Exam is mildly compromised by difficulty positioning. However, there is no radiotracer upta ke to suggest osteomyelitis within either foot or ankle. Mild uptake within each hindfoot is degenera tive IMPRESSION: 1. No scintigraphic evidence for osteomyelitis within either foot. 2. Moderate uptake within each hindfoot which is likely degenerative. ACT 112: Negative or not required by law. Electronically signed by: Eddi Be M.D. 01/20/2020 12:34 PM
--- NOTE | 2020-01-20 14:24 | Medical Student Progress Note ---
Date of Service January 20, 2020 Assessment & Plan (1) Diabetic foot ulcer associated with type 2 diabetes mellitus, with fat layer exposed: (1) Right DM foot ulcer infection recent debridement 12/23 and finished appropriate abx regimen few days ago started empirically on Daptomycin + Zosyn based on previous sensitivities from 12/23 WBC 11.18 --> 11.57 today CBC with diff qAM no osteomyelitis seen on CT no osteomyelitis on bone scan wound culture: gram neg bacilli sensitivities pending continue Dapto to cover MRSA based on previous sensitivities form 12/23 and concern for polymicrobial infxn continue Zosyn to cover gram neg bacilli wound care team help in managing ulcer arterial Duplex: L prox femoral artery stenosis, no R stenosis will consult surgery if sharp debridement recommended by wound care team (2) BENEDICT pre-renal picture given BUN/Cr ratio now 38.9 Cr trending down, @ 1.36 today BUN trending down, @ 53 today CK trending down, @ 1661 avoid vancomycin if wound culture reveals MRSA BMP QD continue IVF maintenance NS @ 125mL/hr (3) DM2 d/c home glipizide SSI insulin during admission (4) A.fib continue warfarin 5mg PO Q2D, 2.5mg PO Q2D INR has increased to 2.5 today, within target therapeutic range INR 2-3 monitor PT, INR QD due to increased of risk INR increase with current antibiotic regimen continue rate control with verapamil (5) delirium melatonin 3mg PO HS PRN for sleep 1:1 sitter (5) HTN hold home ACEi, triamterene-HCTZ (6) HLD continue home statin (7) DVT ppx on warfarin Diabetic foot ulcer location: midfoot Laterality: left Qualified Code(s): E11.621 - Type 2 diabetes mellitus with foot ulcer; L97.422 - Non- pressure chronic ulcer of left heel and midfoot with fat layer exposed Admission and Anticipated Discharge Date Admission Date: January 18, 2020 Supervising Attestation I personally examined the patient and verified all bradford points of history and exam, discussed case, and agree with decision making with Odalis Reddy MS3. more confused but maybe vague foot pain. bone scan not yet done vitals noted nad heent nc at mmm breathing unlabored no accessory muscles good effort skin no tracking erythema, ulcers noted - dressed - gently looked under/around dressing but also looked at wound care photos in EMR as well. no crepitis DM foot infection - concern on underlying osteo - not seen on CT, apparently has metal in leg making MRI probably not able to be done- but with pattern of getting better when on abx, then quickly worsening when off - concern of underlying osteo allowing infection to smolder bone scan today, continue current abx chronic afib - rate controlled, anticoagulated (INR up as expected w abx) metabolic encephalopathy present on admission in the setting of BENEDICT and underlying wound infections - worse today - likely from hospital environment. continue supportive care BENEDICT - improved. follow periodically PT/OT eval and treat otherwise as above Subjective Nursing said he started yesterday evening and was delirious and agitated overnight. This morning, he was less alert and oriented than yesterday, not delirious, and does not endorse any f/c, c/p, sob. Review of Systems Review of Systems: All systems reviewed & are unremarkable except as noted in Subjective Physical Exam Physical Exam: const: NAD, less alert and oriented than yesterday neuro: significant neuropathy at distal upper and lower extremities cardio: irregular rhythm, bradycardic, 2/6 systolic murmur pulm: LCA bilat MSK: ulceration at L foot plantar surface with yellow-green purulence, no new erythema, no tracking, no crepitus, no new drainage Results & Data ([facility]) Vital Signs (Past 12 Hours) Vital Signs Temp Pulse Resp BP Pulse Ox 01/20/20 07:02 36.7 C 58 L 18 117/62 96 Diagnostic Findings Duplex: L prox femoral artery, no R stenosis culture: gram neg bacilli, sensitivities pending Bone scan: 1. No scintigraphic evidence for osteomyelitis within either foot. 2. Moderate uptake within each hindfoot which is likely degenerative.
[2020-01-20] MEDS: WARFARIN SOD 2.5 MG TAB PO SCH (16:44)
--- NOTE | 2020-01-20 19:30 | Billing Data ---
Date of Service January 20, 2020 Coding Level of Care Code 98120 Subseq Hosp Care Lvl 3
[2020-01-20] MEDS ORDERED: MELATONIN 3 MG TAB PO PRN (21:00)
[2020-01-20] MEDS ORDERED: DAPTOmycin 500 MG in SYRINGE 0 ML IV SCH (23:00)
[2020-01-21] MEDS: SODIUM CHLORIDE 0.9% 1000ML 1,000 ML IV SCH ×3 (00:03→16:57)
[2020-01-21] MEDS: PIPERACILLIN/TAZOBACTAM 4.5 GM in DEXTROSE 5% 100 ML IV SCH (05:37)
[2020-01-21 07:35] LABS: Basophils # (auto) 0.01 K/uL (0-0.2); Basophils % (auto) 0.1 %; Eosinophils # (auto) 0.11 K/uL (0-0.5); Eosinophils % (auto) 1.1 %; Hematocrit (blood only) 25.5 % (42-52); Hemoglobin 8.7 g/dL (14.0-18.0); Immature Granulocytes # (auto) 0.14 K/uL (0.00-0.02); Immature Granulocytes % (auto) 1.4 %; Lymphocytes # (auto) 0.64 K/uL (1.2-3.4); Lymphocytes % (auto) 6.3 %; Mean Corpuscular Hemoglobin 30.2 pg (25-34); Mean Corpuscular Hgb Conc 34.1 g/dL (32-36); Mean Corpuscular Volume 88.5 fL (80-100); Mean Platelet Volume 9.8 fL (7.4-10.4); Monocytes # (auto) 0.81 K/uL (0.11-0.59); Neutrophils # (auto) 8.43 K/uL (1.4-6.5); Neutrophils % (auto) 83.1 %; Nucleated RBC # (auto) 0.05 K/uL (0-0); Nucleated RBC % (auto) 0.5 %; Platelet Count 195 K/uL (130-400); RDW Coefficient of Variation 14.4 % (11.5-14.5); RDW Standard Deviation 46.2 fL (36.4-46.3); Red Blood Count 2.88 M/uL (4.7-6.1); White Blood Count 10.14 K/uL (4.8-10.8)
[2020-01-21 07:40] LABS: INR 2.4 (0.9-1.1); Prothrombin Time 23.7 Seconds (9.0-12.0)
[2020-01-21 08:12] LABS: BUN Creatinine Ratio 29.7 (10-20); Creatinine Clr Calc Pharmacy 61.8 ml/min; Est GFR (African American) 68.8; Est GFR (Non-African American) 59.4; Magnesium 2.2 mg/dl (1.8-2.4); Potassium 3.5 mmol/L (3.5-5.1)
[2020-01-21] MEDS: INSULIN ASPART 100 UNITS/ML 3 ML PEN SC SCH ×4 (08:50→21:28)
[2020-01-21] MEDS: ATORVASTATIN 40 MG TAB PO SCH (08:50)
[2020-01-21] MEDS: VERAPAMIL HCL 240 MG TABCR PO SCH (08:50)
[2020-01-21] MEDS: ASPIRIN 81 MG ECTAB PO SCH (08:50)
--- NOTE | 2020-01-21 09:30 | Medical Student Progress Note ---
Date of Service January 21, 2020 Assessment & Plan (1) Diabetic foot ulcer associated with type 2 diabetes mellitus, with fat layer exposed: (1) Right DM foot ulcer infection recent debridement 12/23 and finished appropriate abx regimen few days ago started empirically on Daptomycin + Zosyn based on previous sensitivities from 12/23 WBC 11.57-->10.14 today CBC with diff qAM no osteomyelitis seen on CT no osteomyelitis on bone scan wound culture: pseudomonas based on sensitivities d/c pip tazo, start cipro 500mg BID for psuedomonas and other gram neg baseline EKG before starting cipro monitor and replete electrolytes as needed continue Dapto to cover MRSA based on previous sensitivities form 12/23 and concern for polymicrobial infxn wound care team help in managing ulcer arterial Duplex: L prox femoral artery stenosis, no R stenosis will consult surgery if sharp debridement recommended by wound care team (2) BENEDICT pre-renal picture given BUN/Cr ratio now 29.7 Cr trending down, @ 1.17 today BUN trending down, @ 35 today last CK @ 1661 BMP QD continue IVF maintenance NS @ 125mL/hr (3) DM2 d/c home glipizide SSI insulin during admission (4) A.fib continue warfarin 5mg PO Q2D, 2.5mg PO Q2D INR 2.4 today, within target therapeutic range INR 2-3 monitor PT, INR QD due to increased of risk INR increase with current antibiotic regimen continue rate control with verapamil (5) delirium melatonin 3mg PO HS PRN for sleep 1:1 sitter (5) HTN hold home ACEi, triamterene-HCTZ (6) HLD continue home statin (7) DVT ppx on warfarin Diabetic foot ulcer location: midfoot Laterality: left Qualified Code(s): E11.621 - Type 2 diabetes mellitus with foot ulcer; L97.422 - Non- pressure chronic ulcer of left heel and midfoot with fat layer exposed Admission and Anticipated Discharge Date Admission Date: January 18, 2020 Subjective According to nursing, Mr. Simeon did not sleep overnight, with some agitation. This morning he was calm, alert and responsive to questions but not oriented. Otherwise, he does not endorse c/p, no SOB, no f/c. Review of Systems Review of Systems: All systems reviewed & are unremarkable except as noted in Subjective Physical Exam Physical Exam: const: NAD, alert and responsive to questions, not oriented to place/time neuro: significant neuropathy at distal upper and lower extremities cardio: irregular rhythm, bradycardic, 2/6 systolic murmur pulm: LCA bilat MSK: ulceration at L foot plantar surface, no new erythema, no tracking, no crepitus, no new drainage Results & Data ([facility]) Vital Signs (Past 12 Hours) Vital Signs Temp Pulse Resp BP Pulse Ox 01/21/20 07:02 37.4 C 62 20 136/62 93 01/20/20 22:53 37 C 70 18 122/67 95 01/20/20 22:24 36.6 C 70 16 138/76 95
[2020-01-21] MEDS: ACETAMINOPHEN 500 MG TAB PO PRN (13:32)
[2020-01-21] MEDS: DOXYCYCLINE HYCLATE 100 MG CAP PO SCH ×2 (13:32→21:25)
--- NOTE | 2020-01-21 16:03 | Hospitalist Progress Note ---
Date of Service January 21, 2020 Assessment & Plan (1) Diabetic foot ulcer associated with type 2 diabetes mellitus, with fat layer exposed: Jose is a 79-year-old male with a past medical history of dementia, 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 Diabetic foot infection of the right foot plantar surface Grade 3 fat containing ulceration, increased yellow purulence Followed by Lu[facility] Romo as outpatient, recent debridement on 12/23 with subsequent Cipro/doxy treatment. Patient is pending [facility] March. Patient with leukocytosis to 12.9 --> 10.1 today - No evidence of osteomyelitis or hemodynamically significant PAD in right LE Wound culture 01/17 showed bella-susceptible Pseudomonas - Transition to PO abx --> Ciprofloxacin 500 mg PO BID and Doxycycline 100 mg PO BID, both for 10 days given chronicity of ulcers and stenosis of LE - Wound care for dressing changes BENEDICT, resolving - Cr 1.36 --> 1.17 today Baseline creatinine approximately 1.1 BUN/creatinine ratio 40 on admit - Likely pre-renal 2/2 dehydration - Continue NSS 125cc/hr for now given minimal PO intake BMP daily Type 2 diabetes mellitus - Hold oral antiglycemics - Insulin SSI - BMP daily Atrial fibrillation Patient anticoagulated with warfarin, subtherapeutic with INR 1.7 on admission Continue [employer] warfarin dosing, patient has a history of becoming supratherapeutic with antibiotic initiation PT/INR daily - Rate controlled, continue verapamil Hypertension -Hold lisinopril for BENEDICT Hold triamterenehydrochlorothiazide for BENEDICT - Continue verapamil 240mg daily XR Hyperlipidemia -Continue atorvastatin Transaminitis Suspect 2/2 depletion, no alcohol history or liver disease history Repeat CMP x1 in morning Coronary artery disease Last echo 04/2017 with EF 55%, normal wall motion and grossly normal left ventricular size Patient noted to have elevated Troponin in the past which were thought to be due to episodes of mild rhabdomyolysis, was not felt to have an evaluation consistent with acute coronary syndrome when seen in 2017. DVT prophylaxis: On warfarin as above CODE STATUS: Full code Disposition:Med/Surg FEN/GI: Heart Healthy diet, NSS@125cc/hr (2) Diabetic ulcer of left great toe: (3) Traumatic wound: (4) Pressure ulcer of right foot, stage 3: (5) PAD (peripheral artery disease): (6) MSSA (methicillin susceptible Staphylococcus aureus) infection: (7) Foot deformity: (8) Arthritis of both hips: (9) BPH with obstruction/lower urinary tract symptoms: (10) Hypercholesterolemia: (11) Charcot foot due to diabetes mellitus: (12) Coronary artery disease: (13) Hypertension: Admission and Anticipated Discharge Date Admission Date: January 18, 2020 Supervising Physician Co-Signing Physician Notes I personally examined the patient and verified all bradford points of history and exam, discussed case, and agree with decision making with Dr Flores. ongoing confusion no meaningful HPI or ROS vitals noted nad heent nc at mmm breathing unlabored no accessory muscles good effort skin no tracking erythema, ulcers noted - dressed - no erythema no tracking erythema, dressings clean and dry DM foot infection -fortunately no osteo. ongoing local wound care. transition abx to PO - have to cover pseudomonas so cipro reasonable; given recent prior MRSA still compelled to cover for this as well chronic afib - rate controlled, anticoagulated (follow INR) metabolic encephalopathy present on admission in the setting of BENEDICT and underlying wound infections - worse today - likely from hospital environment. continue supportive care BENEDICT - improved. follow periodically PT/OT eval and treat - will need ongoing facility care otherwise as above Subjective Per 1-to-1 sitter, patient slept poorly overnight and attempted to pull out culver catheter, eventually fell asleep and was somnolent on interview this morning. Continues to be A+O to self only and is minimally conversational. Denies chest pain, shortness of breath, pain. Review of Systems Respiratory: as per Subjective / HPI; no cough Cardiovascular: as per Subjective / HPI; no palpitations Physical Exam Constitutional: + obese and + altered mental status somnolent Neck: normal visual inspection Respiratory: normal respiratory effort, lungs clear to auscultation Cardiovascular: Rate/Rhythm: regular rate and regular rhythm Heart Sounds: normal S1 and normal S2; no murmur Vessels: + abnormal peripheral pulses (2+ popliteal pulses bilaterally but unable to palpate dorsalis pedis pulses) Extremities: + edema (1+ pitting edema in bilateral ankles) Gastrointestinal (Abdomen): normal bowel sounds, soft, nontender, no hepatosplenomegaly Skin: bilateral foot wounds - plantar surface of left 1st digit and mid- plantar right foot - with dressings c/d/i, no tracking, no surrounding erythema, no surrounding crepitus, mild tenderness to palpation of surrounding tissues Results & Data Results & Data ([facility]) Vital Signs (Past 12 Hours) Vital Signs Temp Pulse Resp BP Pulse Ox 01/21/20 15:37 36.7 C 60 20 126/58 L 94 01/21/20 07:02 37.4 C 62 20 136/62 93 Laboratory Results Mg 2.2 Diagnostic Findings Bone scan 01/19 showed no signs of osteomyelitis Duplex Bilateral LE 01/18 showed significant stenosis in proximal left superficial femoral artery, no significant stenosis on right LE CBC Results Results Complete Blood Count Results: RBC 2.88 M/uL (4.7-6.1) L 01/21/20 WBC 10.14 K/uL (4.8-10.8) 01/21/20 Hgb 8.7 g/dL (14.0-18.0) L 01/21/20 Hct 25.5 % (42-52) L 01/21/20 Plt Count 195 K/uL (130-400) 01/21/20 Coag Studies Results Coagulation Results: PT 23.7 Seconds (9.0-12.0) H 01/21/20 PTT 41.1 Seconds (21.0-31.0) H 01/18/20 INR 2.4 (0.9-1.1) H 01/21/20 Chemistry (BMP) Results BMP Results: Sodium 140 mmol/L (136-145) 01/21/20 Potassium 3.5 mmol/L (3.5-5.1) 01/21/20 Chloride 113 mmol/L (98-107) H 01/21/20 BUN 35 mg/dl (7-18) H 01/21/20 Creatinine 1.17 mg/dl (0.6-1.4) 01/21/20 Glucose 133 mg/dl (70-99) H 01/21/20 Resident Activity Tracking Resident Involvement: Resident Care Provided Care Provided: [facility] (1) Diabetic foot ulcer associated with type 2 diabetes mellitus, with fat layer exposed Diabetic foot ulcer location: midfoot Laterality: left Qualified Code(s): E11.621 - Type 2 diabetes mellitus with foot ulcer; L97.422 - Non-pressure chronic ulcer of left heel and midfoot with fat layer exposed
[2020-01-21] MEDS: WARFARIN SOD 5 MG TAB PO SCH (16:58)
--- NOTE | 2020-01-21 17:57 | Billing Data ---
Date of Service January 21, 2020 Coding Level of Care Code 36191 Subseq Hosp Care Lvl 3
[2020-01-21] MEDS: CIPROFLOXACIN 500 MG TAB PO SCH (21:25)
[2020-01-22] MEDS: SODIUM CHLORIDE 0.9% 1000ML 1,000 ML IV SCH ×2 (01:12→09:35)
[2020-01-22 06:15] LABS: Eosinophils # (auto) 0.12 K/uL (0-0.5); Eosinophils % (auto) 1.4 %; Hematocrit (blood only) 26.5 % (42-52); Hemoglobin 8.9 g/dL (14.0-18.0); Immature Granulocytes # (auto) 0.14 K/uL (0.00-0.02); Immature Granulocytes % (auto) 1.6 %; Lymphocytes # (auto) 0.48 K/uL (1.2-3.4); Lymphocytes % (auto) 5.6 %; Mean Corpuscular Hemoglobin 29.6 pg (25-34); Mean Corpuscular Hgb Conc 33.6 g/dL (32-36); Monocytes # (auto) 0.74 K/uL (0.11-0.59); Monocytes % (auto) 8.7 %; Neutrophils # (auto) 7.04 K/uL (1.4-6.5); Neutrophils % (auto) 82.7 %; Nucleated RBC # (auto) 0.03 K/uL (0-0); Nucleated RBC % (auto) 0.4 %; Platelet Count 252 K/uL (130-400); RDW Coefficient of Variation 14.7 % (11.5-14.5); RDW Standard Deviation 47.2 fL (36.4-46.3); Red Blood Count 3.01 M/uL (4.7-6.1); White Blood Count 8.52 K/uL (4.8-10.8)
[2020-01-22 06:33] LABS: Prothrombin Time 20.3 Seconds (9.0-12.0)
[2020-01-22 06:48] LABS: BUN Creatinine Ratio 24.1 (10-20); Creatinine Clr Calc Pharmacy 76.1 ml/min; Est GFR (African American) 88.5; Est GFR (Non-African American) 76.4; Magnesium 2.1 mg/dl (1.8-2.4); Potassium 3.4 mmol/L (3.5-5.1)
[2020-01-22] MEDS ORDERED: POTASSIUM CHLORIDE 20 MEQ TABCR PO STA (07:23)
[2020-01-22] MEDS: INSULIN ASPART 100 UNITS/ML 3 ML PEN SC SCH ×3 (09:13→18:10)
[2020-01-22] MEDS: ATORVASTATIN 40 MG TAB PO SCH (09:20)
[2020-01-22] MEDS: CIPROFLOXACIN 500 MG TAB PO SCH (09:20)
[2020-01-22] MEDS: DOXYCYCLINE HYCLATE 100 MG CAP PO SCH (09:21)
[2020-01-22] MEDS: ASPIRIN 81 MG ECTAB PO SCH (09:21)
[2020-01-22] MEDS: VERAPAMIL HCL 240 MG TABCR PO SCH (09:21)
--- NOTE | 2020-01-22 13:06 | Medical Student Progress Note ---
Date of Service January 22, 2020 Assessment & Plan (1) Diabetic foot ulcer associated with type 2 diabetes mellitus, with fat layer exposed: (1) Right DM foot ulcer infection recent debridement 12/23 and finished appropriate abx regimen few days ago started empirically on Daptomycin + Zosyn based on previous sensitivities from 12/23 WBC 10.14-->8.52 today CBC with diff qAM no osteomyelitis seen on CT no osteomyelitis on bone scan wound culture: pseudomonas based on sensitivities d/c pip tazo, start cipro 500mg BID for psuedomonas and other gram neg baseline EKG before starting cipro monitor and replete electrolytes as needed d/c Dapto to cover MRSA, start on doxy 100mg PO BID wound care team help in managing ulcer arterial Duplex: L prox femoral artery stenosis, no R stenosis will consult surgery if sharp debridement recommended by wound care team (2) BENEDICT pre-renal picture given BUN/Cr ratio now 24 Cr trending down, @ 0.95 today BUN trending down, @ 23 today last CK @ 1661 BMP QD continue IVF maintenance NS @ 125mL/hr (3) DM2 d/c home glipizide SSI insulin during admission (4) A.fib continue warfarin 5mg PO Q2D, 2.5mg PO Q2D INR 2 today, within target therapeutic range INR 2-3 monitor PT, INR QD due to increased of risk INR increase with current antibiotic regimen continue rate control with verapamil (5) delirium melatonin 3mg PO HS PRN for sleep 1:1 sitter (5) HTN hold home ACEi, triamterene-HCTZ (6) HLD continue home statin (7) DVT ppx on warfarin Diabetic foot ulcer location: midfoot Laterality: left Qualified Code(s): E11.621 - Type 2 diabetes mellitus with foot ulcer; L97.422 - Non- pressure chronic ulcer of left heel and midfoot with fat layer exposed Admission and Anticipated Discharge Date Admission Date: January 18, 2020 Supervising Attestation I personally examined the patient and verified all bradford points of history and exam, discussed case, and agree with decision making with Odalis Reddy MS3 Subjective Per nursing, Mr. Simeon slept well overnight, no agitation as he has had previous nights. Alert but oriented only to self. He does not endorse any c/p, no SOB. Review of Systems Review of Systems: All systems reviewed & are unremarkable except as noted in Subjective Physical Exam Physical Exam: const: NAD, alert and responsive to questions, not oriented to place/time neuro: significant neuropathy at distal upper and lower extremities cardio: irregular rhythm, bradycardic, 2/6 systolic murmur pulm: LCA bilat MSK: ulceration at L foot plantar surface, no new erythema, no tracking, no crepitus, no new drainage Results & Data ([facility]) Vital Signs (Past 12 Hours) Vital Signs Temp Pulse Resp BP Pulse Ox 01/22/20 07:31 36.5 C 65 16 116/48 L 100
--- NOTE | 2020-01-22 18:00 | Discharge Summary ---
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 History extremely limited from patient due to dementia. Patient is seen at the bedside with his who gives collateral. She reports that his worsening started Saturday 2-3 days ago when his blood sugars dropped to the 40s and he required IV medications from EMS. Following that he continued to seem weak and had a worsened mental status with increased fatigue. Denies fever/chills/shortness of breath/chest pain. She notes that he has home health which change settings on his feet bilaterally for chronic diabetic ulcerations 3 times a week, she notes he does not usually look at his feet so he is not sure if they have worsened. During exam yellow purulence is noted from the right heel foot ulcer, patient's reports she has never seen yellow purulence from his wound before. She notes that he had just finished a 14-day course of linezolid 6 days ago for worsening of his foot ulcer. She reports that he was on other antibiotics prior to this, but does not remember the name of them and did not bring them with her. Not noticed any other change in him including decreased urinary output or decreased appetite. Medical history: Reviewed Surgical history: Reviewed Medications: Reviewed Allergies: Reviewed Social: Chronic dementia, lives at home with his who provides care for him. No tobacco/alcohol/medical marijuana use. CODE STATUS: Full code. Discussed with patient's Admission Exam Per Admitting Provider Physical Exam: General: Patient opens eyes to name, does not give meaningful answers to questions. Not oriented to place or date. No acute distress HEENT: Atraumatic, normocephalic. Mucous membranes extremely dry, cracked Pulm: CTAB A&P. -wheezes, -rales, -rhonchi. Symmetrical chest rise. No increase work of breathing. No respiratory distress. Cardiac: Irregularly irregular, -mrg. Radial pulses intact and symmetrical. Abdominal: Nontender, nondistended, soft. BS present. Extremity: Right foot with distal digit amputations of the first, second, and third digits. Approximately 3 cm grade 3 ulceration at the ball of the foot with yellow purulence and surrounding erythema. Left foot with distal digit amputation of the fourth toe. Grade 2 ulceration of the medial hallux without discharge/erythema. Right hand with distal amputations of the second and third digits. Left hand with distal amputation of the fourth digit. Health Services Coordinator strength intact bilaterally, ankle dorsiflexion/plantar flexion intact bilaterally without asymmetry. Patient does not give meaningful response to questions of whether he can feel soft touch in the fingers and toes. Principal Diagnosis Diabetic Foot Ulcers Discharge Exam Constitutional: + obese and + altered mental status somnolent Neck: normal visual inspection Respiratory: normal respiratory effort, lungs clear to auscultation Cardiovascular: Rate/Rhythm: regular rate and regular rhythm Heart Sounds: normal S1 and normal S2; no murmur Vessels: + abnormal peripheral pulses (2+ popliteal pulses bilaterally but unable to palpate dorsalis pedis pulses) Extremities: + edema (1+ pitting edema in bilateral ankles) Gastrointestinal (Abdomen): normal bowel sounds, soft, nontender, no hepatosplenomegaly Skin: bilateral foot wounds - plantar surface of left 1st digit and mid-marylu ntar right foot - with dressings c/d/i, no tracking, no surrounding erythema, no surrounding crepitus, mild tenderness to palpation of surrounding tissues Discharge Data Allergies Allergy/AdvReac Type Severity Reaction Status Date / Time pregabalin AdvReac Intermediate "SPACES Verified 01/18/20 20:07 HIM OUT" Consultations 01/18/20 21:09 ED Decision to Admit Stat 01/19/20 08:19 Consult Case Management - Discharge Planning Routine Ordered Studies 01/18/20 18:19 CT head/brain wo con Stat 01/18/20 22:01 CT foot RT wo con Urgent 01/19/20 16:31 US arterial duplex LE Routine Hospital Course (1) Diabetic ulcer of right foot associated with type 2 diabetes mellitus, with fat layer exposed: Jose is a 79-year-old male with a past medical history of dementia, 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 He was admitted on 01/18/2020 for BENEDICT and Diabetic Foot Infection of Right Plantar Ulcer. He was started on IV fluids for BENEDICT which resolved the BENEDICT over the course of 2-3 days. His IV fluids were discontinued on 01/21. He was initially started on Daptomycin/Zosyn IV for diabetic foot infection. Wound culture on 01/19 showed Pseudomonas that was pansusceptible, and he was transitioned to Cipro 500/Doxy 100 BID for 10 days starting on 01/20. He was also intermittently delirious especially in the evenings throughout hospitalization but did not require PRNs for delirium. He will be discharged to SNF on 01/21 for acute physical rehabilita tion s/p diabetic foot infection. Diabetic foot infection of the right foot plantar surface Grade 3 fat containing ulceration, increased yellow purulence Followed by [facility] as outpatient, recent debridement on 12/23 with subsequent Cipro/doxy treatment. Patient is pending intake with [facility] infectious disease in March. Patient with leukocytosis to 12.9 --> 10.1 today - No evidence of osteomyelitis or hemodynamically significant PAD in right LE Wound culture 01/17 showed bella-susceptible Pseudomonas - Continue PO abx --> Ciprofloxacin 500 mg PO BID and Doxycycline 100 mg PO BID, both for 10 days given chronicity of ulcers and stenosis of LE - Wound care for dressing changes BENEDICT, resolving - Cr 1.36 --> 1.17 today Baseline creatinine approximately 1.1 BUN/creatinine ratio 40 on admit - Likely pre-renal 2/2 dehydration - D/c NSS 125cc/hr today given minimal PO intake BMP daily Type 2 diabetes mellitus - Hold oral antiglycemics - Insulin SSI - BMP daily Atrial fibrillation Patient anticoagulated with warfarin, subtherapeutic with INR 1.7 on admission Continue PROBE OPERATOR warfarin dosing, patient has a history of becoming supratherapeutic with antibiotic initiation PT/INR daily - Rate controlled, continue verapamil Hypertension -Hold lisinopril for BENEDICT Hold triamterenehydrochlorothiazide for BENEDICT - Continue verapamil 240mg daily XR Hyperlipidemia -Continue atorvastatin Coronary artery disease Last echo 04/2017 with EF 55%, normal wall motion and grossly normal left ventricular size stable and euvolemic on exam Total Time Total Time Spent Total Time Spent (In Minutes): <30 minutes Total Time Includes: Examination of the Patient, Discharge Planning and Medication Reconciliation Discharge Plan Discharge Items Patient Disposition: Transfer Halfway Fac Reason For Visit: LEUKOCYTOSIS, DF ULCER Discharge Diagnosis: Diabetic Foot Ulcers Activity: Per Instructions section Non-emergency contact: Primary Care Provider Call non-emergency contact if: you have any medication questions, your symptoms worsen, your pain is not controlled and you have a fever Follow-up/Referrals: Raj Mora III, MD [Primary Care Provider] - Diet: Heart Healthy Addtl Attending Provider Instructions: Jose is a 79-year-old male with a past medical history of dementia, 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 He was admitted on 01/17 for Diabetic Foot Ulcer Infection and BENEDICT. Diabetic foot infection of the right foot plantar surface Grade 3 fat containing ulceration, increased yellow purulence Followed by [facility] as outpatient, recent debridement on 12/23 with subsequent Cipro/doxy treatment. Patient is pending intake with [facility] infectious disease in March. Leukocytosis resolved - No evidence of osteomyelitis or hemodynamically significant PAD in right LE Wound culture 01/17 showed bella-susceptible Pseudomonas - Continue PO abx --> Ciprofloxacin 500 mg PO BID and Doxycycline 100 mg PO BID, both for 10 days given chronicity of ulcers and stenosis of LE - Wound care for dressing changes BENEDICT, resolved - Cr 1.36 --> 0.76 today Baseline creatinine approximately 1.1 BUN/creatinine ratio 40 on admit - Likely pre-renal 2/2 dehydration - Discontinued IV fluids today BMP daily Type 2 diabetes mellitus - Hold oral antiglycemics - Insulin SSI - BMP daily Atrial fibrillation Patient anticoagulated with warfarin, subtherapeutic with INR 1.7 on admission Continue PROBE OPERATOR warfarin dosing, patient has a history of becoming supratherapeutic with antibiotic initiation PT/INR daily - Rate controlled, continue verapamil Hypertension -Hold lisinopril for BENEDICT Hold triamterenehydrochlorothiazide for BENEDICT - Continue verapamil 240mg daily XR Hyperlipidemia -Continue atorvastatin Coronary artery disease Last echo 04/2017 with EF 55%, normal wall motion and grossly normal left ventricular size - Stable Pending Studies at Discharge: No Stand-Alone Forms: My [facility] [employer] Skilled Items Patient informed of condition?: Yes DNR: No Discharge Level of Care: Skilled Communicable Disease: No Discharge Prognosis: Improving Lines: None and Peripheral IV Urinary Catheter: Yes Medications and DC Order Prescriptions: New ciprofloxacin HCl 500 mg tablet 500 mg PO BID 8 Days Qty: 16 RF: 0 doxycycline hyclate 100 mg capsule 100 mg PO BID 8 Days Qty: 16 RF: 0 Continued aspirin [Aspir-81] 81 mg tablet,delayed release (DR/EC) 81 mg PO DAILY RF: 0 Iodosorb 0.9 % gel 40 g TOP DAILY Qty: 40 RF: 1 Novolog Flexpen U-100 Insulin 100 unit/mL (3 mL) insulin pen 5 units SQ TID Qty: 15 RF: 3 glipizide 10 mg tablet extended release 24hr 10 mg PO DAILY Qty: 90 RF: 3 lisinopril 5 mg tablet 5 mg PO DAILY Qty: 90 RF: 3 insulin glargine 100 unit/mL (3 mL) insulin pen 10 units subcut PM Qty: 30 RF: 3 triamterene-hydrochlorothiazid 37.5-25 mg capsule 1 cap PO DAILY Qty: 90 RF: 3 verapamil 240 mg tablet extended release 240 mg PO DAILY Qty: 90 RF: 3 baclofen 20 mg tablet 20 mg PO DAILY Qty: 270 RF: 0 Calmoseptine 0.44-20.6 % ointment 1 appln TOP QID PRN (Reason: skin irritation) Qty: 113 RF: 11 nystatin 100,000 unit/gram cream 1 appln TOP BID Qty: 30 RF: 6 acetaminophen 500 mg tablet 500 mg PO DAILY PRN (Reason: Pain) RF: 0 atorvastatin 40 mg tablet 40 mg PO DAILY Qty: 90 RF: 3 warfarin 5 mg tablet 5 mg PO Q2D RF: 0 warfarin 5 mg Tablet 2.5 mg PO Q OTHER DAY RF: 0 Discharge Orders: Discharge Order (Routine); Ordered 01/22/20 Ordered By: Lee Victor/Other Patient Handouts: High Blood Sugar (Hyperglycemia), Hypoglycemia (Low Blood Sugar), Managing Type 2 Diabetes Admission Data Admit Date/Time: 01/18/20 23:03 Attending Provider: Tone Berger Admit Provider: Pasquale Fernandez Primary Care Provider: Raj Mora III Other Providers: Oskar Osuna ; Lee Flores ; [facility] ; [facility] Other Interventions: Discharge Summary Assessment (RN) Last Done: 01/22/20 17:52 Supervising Physician Co-Signing Physician Notes I personally examined the patient and verified all bradford points of history and exam, discussed case, and agree with decision making with Dr Flores. ongoing confusion no meaningful HPI or ROS. present - updated. rehab bed available. vitals noted nad heent nc at mmm breathing unlabored no accessory muscles good effort skin no tracking erythema, ulcers noted - dressed - no erythema no tracking erythema, dressings clean and dry DM foot infection -fortunately no osteo. ongoing local wound care. transitioned abx to PO - have to cover pseudomonas so cipro reasonable; given recent prior MRSA still compelled to cover for this as well - duration really best determined by how his foot progresses chronic afib - rate controlled, anticoagulated (follow INR) metabolic encephalopathy present on admission in the setting of BENEDICT and underlying wound infections - hopefully will stabilize/improve in rehab setting BENEDICT - improved. follow periodically PT/OT eval and treat - ongoing at rehab otherwise as above Resident Activity Tracking Resident Involvement: Resident Care Provided Care Provided: Adult Hospital Medicine
[2020-01-22] MEDS: WARFARIN SOD 2.5 MG TAB PO SCH (18:11)
--- NOTE | 2020-01-22 19:40 | Billing Data ---
Date of Service January 22, 2020 Coding Level of Care Code D/C Day Management <30 mins
== END 2020-01-22 20:08 | DRG 637 ==
LOC: ED 17:44 → 3N 23:03 → SUATTDRO 23:03 → 3N 23:53